=== PATIENT | male | born 1940 | race Caucasian/White ===

== ENCOUNTER 2022-04-24 20:33 | Inpatient (IN) | payer MEDICARE, OTHER, SELFPAY ==
[2022-04-24] VITALS (11 sets, daily range): BP systolic 185–221; BP diastolic 92–97; PULSE 74–96; RESP 18–27; TEMP 37.1; O2SAT 96–98; BMI 31.4
--- NOTE | 2022-04-24 | DI.CT.S_ITS ---
PROCEDURE: CT ANGIO HEAD AND NECK INDICATIONS: STROKE TECHNIQUE: After the administration of intravenous contrast, 1 mm thick sections acquired from the aortic arch through the [place]. Post-contrast 4.5 mm thick sections then re-acquired from the foramen magnum to the vertex. 3-dimensional xejvhvh-ehkdabpoh-qucmupqkni (MIP) and/or volume rendering reformats were acquired of the central intracranial vasculature and neck separately. For radiation dose reduction, the following was used: automated exposure control, adjustment of mA and/or kV according to patient size. COMPARISON: [facility], CT, CT STROKE, 04/24/2022, 21:11. FINDINGS: Image quality: There is motion artifact limiting evaluation. BRAIN: CSF spaces: Basal cisterns are patent. No extra-axial fluid collections. There is moderate cerebral volume loss, with resultant ventricular and sulcal prominence. Brain: No intracranial hematoma collections, mass, or mass effect. There are subcortical, periventricular and deep white matter hypodensities consistent with moderate chronic small vessel ischemic changes. The gary-white matter junction appears preserved. No abnormal intracranial enhancement. Skull and face: Calvarium and facial bones appear intact, without suspicious lesions. Orbits appear normal. Sinuses: Sinuses and mastoids are clear. HEAD CT ANGIOGRAPHY: Anterior circulation: Intracranial internal carotid arteries are normal in size and appear patent bilaterally. There is mild atherosclerotic calcification along the cavernous segments of the internal carotid arteries. The paired anterior cerebral arteries appear patent bilaterally. The anterior communicating artery also appears patent. The middle cerebral arteries appear patent bilaterally. No high-grade stenosis, occlusion, or filling defects. No cerebral aneurysms identified. Posterior circulation: Visualized portions of the vertebral arteries demonstrate normal caliber, and join to form a patent basilar artery. The posterior cerebral arteries appears patent bilaterally. There is persistent circulation on the right, with the right posterior cerebral artery supplied by a posterior communicating artery. No high-grade stenosis, occlusion, or filling defects. No cerebral aneurysms identified. NECK CT ANGIOGRAPHY: Carotid system: The great vessels demonstrate a conventional anatomy as they arise from the aortic arch. The origins of the common carotid arteries appear patent. The common carotid arteries demonstrate normal caliber and courses. There is bilateral calcified plaque at the carotid bifurcations extending into the carotid bulbs. There is narrowing of up to approximately 50% in the carotid bulbs bilaterally. The subsequent internal carotid arteries demonstrate normal calibers and courses. Posterior circulation: The origins of the vertebral arteries both appear patent. The more superior extracranial portions of both vertebral arteries also demonstrate normal courses and calibers. They join to form a patent basilar artery. Soft tissues: Visualized neck soft tissues demonstrate no suspicious abnormalities. Bones: No suspicious bony lesions. Visualized cervical spine demonstrates straightening of the cervical lordosis. There is multilevel degenerative disc disease and facet joint arthropathy. IMPRESSION: 1. No high-grade stenosis or occlusion of the central intracranial arteries. 2. No high-grade stenosis or occlusion of the head and neck arteries. 3. There is bilateral narrowing of up to approximately 50% in the carotid bulbs. Any quantitative measurements of stenosis were performed using NASCET criteria. Dictated by: Bob Pang M.D. on 04/24/2022 at 21:31 Approved by: Bob Pang M.D. on 04/24/2022 at 21:37
--- NOTE | 2022-04-24 20:51 | DI.CT.S_ITS ---
PROCEDURE: CT STROKE INDICATIONS: Positive BE-FAST, Stroke symptoms TECHNIQUE: Noncontrast 4.5 mm thick angled axial sections acquired from the foramen magnum to the vertex, with coronal reformats. For radiation dose reduction, the following was used: automated exposure control, adjustment of mA and/or kV according to patient size. COMPARISON: [facility], CT, CT ANGIO HEAD AND NECK, 04/24/2022, 21:11. FINDINGS: Image quality: Excellent. CSF spaces: Basal cisterns are patent. No extra-axial fluid collections. There is moderate cerebral volume loss, with resultant ventricular and sulcal prominence. Brain: No intracranial hemorrhage, mass, or mass effect. There are subcortical, periventricular and deep white matter hypodensities consistent with moderate chronic small vessel ischemic changes. The gary-white matter junction appears preserved. There is intracranial internal carotid artery atherosclerosis. Skull and face: Calvarium and visualized facial bones appear intact, without suspicious lesions. Sinuses: Visualized sinuses and mastoids are clear. IMPRESSION: 1. No intracranial hemorrhage or other definite acute abnormality. 2. Moderate cerebral volume loss and chronic white matter small vessel ischemic changes. Findings reported to Dr. Irwin's nurse on 04/24/2022 at 9:27 p.m.. This study fulfills neurological imaging criteria for inclusion or exclusion of acute stroke therapies based on available published neurological guidelines. Dictated by: Bob Pang M.D. on 04/24/2022 at 21:28 Approved by: Bob Pang M.D. on 04/24/2022 at 21:31
--- NOTE | 2022-04-24 20:51 | DI.RAD.S_ITS ---
PROCEDURE: XR CHEST 1V INDICATIONS: Possible stroke TECHNIQUE: One view of the chest was acquired. COMPARISON: None. FINDINGS: Surgical changes and devices: None. Lungs and pleura: Lungs are clear. No pleural effusions or pneumothorax. Mediastinum: Mediastinal contours appear normal. Heart size is normal. Bones and chest wall: No suspicious bony lesions. Overlying soft tissues appear unremarkable. IMPRESSION: 1. No acute cardiopulmonary disease. Dictated by: Bob Pang M.D. on 04/24/2022 at 22:27 Approved by: Bob Pang M.D. on 04/24/2022 at 22:34
--- NOTE | 2022-04-24 21:05 | ED.NEUROSD ---
HPI - Neuro Symptoms/Deficit General Chief Complaint: Neuro Symptoms/Deficit Stated Complaint: Poss stroke Time Seen by Provider: 04/24/22 21:05 Source: patient Mode of arrival: Wheelchair History of Present Illness HPI Narrative: 81-year-old male former smoker with history of hyperlipidemia diabetes, takes Eliquis but is unsure why presents with his sister and a chief complaint of right arm and leg trouble for the past 2 days. He denies any recent trauma or injury, has no headache, blurred vision or difficulty with speech. He denies any chest pain or shortness of breath. He has had no nausea, vomiting or diarrhea. He feels overall generally a bit unwell but denies any fever, significant shortness of breath body aches, chills or GI symptoms On Anticoagulants: Yes Review of Systems Review of Systems Narrative: GENERAL: See HPI HEENT: Denies sinus pain, ear pain, sore throat, difficulty swallowing, dizziness. RESPIRATORY: Denies dyspnea, cough, wheezing, hemoptysis, sputum. CARDIOVASCULAR: Denies chest pain, palpitations, orthopnea, edema, GASTROINTESTINAL: Denies nausea, vomiting, abdominal pain, diarrhea, constipation, melena. : Denies dysuria, frequency, incontinence, hematuria, urinary retention. MUSCULOSKELETAL: denies weakness, joint pain, or bony pain SKIN: Denies rash, skin lesions, or other NEUROLOGIC: See HPI PSYCHIATRIC: No concerning psychosocial issues. 12 point review of systems is negative except for those stated above Hematologic/Lymphatic On Anticoagulants: Yes Patient History Medical History (Updated 04/25/22 @ 01:00 by ARGELIA Stone) Anticoagulated Dyslipidemia Social History Smoking Status: Former smoker Smoking Status: Former smoker tobacco type: cigarettes alcohol intake frequency: other Substance Use Type: does not use Exam Narrative Exam Narrative: GENERAL: [81] year old patient appears stated age. Well-developed patient, in mild distress. HEAD: Atraumatic. Normocephalic. EYES: Pupils equal round and reactive. Extraocular motions intact. No scleral icterus. No injection or drainage. ENT: Nose without bleeding, purulent drainage. Throat without erythema, tonsillar hypertrophy or exudate. Airway patent. NECK: Trachea midline. Non tender CARDIOVASCULAR: Regular rate and rhythm without murmurs, gallops, or rubs. RESPIRATORY: Clear to auscultation. Breath sounds equal bilaterally. No wheezes, rales, or rhonchi. GASTROINTESTINAL: Abdomen soft, non-tender, nondistended. EXTREMITIES: No edema or joint tenderness. BACK: Nontender without deformity or crepitance. No flank tenderness. NEURO: AOx3. SKIN: No rash or erythema of visible areas Initial Vital Signs Initial Vital Signs: Vital Signs Temperature 98.8 F 04/24/22 20:36 Pulse Rate 96 H 04/24/22 20:36 Respiratory Rate 18 04/24/22 20:36 Blood Pressure 199/92 H 04/24/22 20:36 Pulse Oximetry 98 04/24/22 20:36 Oxygen Delivery Method 04/24/22 20:36 Scores NIH Stroke Scale Level of Conciousness: Alert, keenly responsive Ask month/age: Answers both questions correctly. Open/close eyes, close hand: Performs both tasks correctly Best gaze horizontal: Normal Visual goetz: No visual loss Facial palsy: Normal symetrical movement Left arm drift: No drift for full 10 sec Right arm drift: Drifts down, not to bed Left leg drift: No drift for full 5 sec Right leg drift: Drifts down, not to bed Limb ataxia: Absent Sensory on face/arms/legs: Mild to moderate sensory loss, can tell touch Best language: No aphasia, normal Dysarthria: Normal Extinction or inattention: No abnormality Total NIH Stroke scale score: 3 Course Orders Ordered: ED Orders 04/24/22 20:51 CT Stroke Stat XR chest 1V Stat Urine Drug Screen, Rapid Stat 04/24/22 21:06 COVID19 -Nasal RAPID/Pre-Proc Stat Complete Blood Count AUTO DIFF Stat Comprehensive Metabolic Panel Stat Magnesium Stat Partial Thromboplastin Time Stat Prothrombin Time INR Stat Troponin & CK Cardiac Panel Stat 04/24/22 23:07 Troponin I Stat Dextrose (Dextrose 50 % In Water 25 Gm/50 Ml Syringe) 25 gm IV PRN PRN PRN Reason: Hypoglycemia Insulin Human Lispro (Insulin Lispro 100 Unit/Ml 3ml Vial) 0 unit SUBCUT ACHS [facility]; Protocol Discontinued Medications Labetalol HCl (Labetalol 20 Mg/4 Ml Syringe) 10 mg IV NOW ONE Stop: 04/25/22 00:20 Last Admin: 04/25/22 00:33 Dose: 10 mg Documented By: GC Ondansetron HCl (Ondansetron 4 Mg/2 Ml Inj) 4 mg IV NOW ONE Stop: 04/24/22 20:51 Last Admin: 04/24/22 21:45 Dose: Not Given Documented By: HEMA Ondansetron HCl (Ondansetron 4 Mg Odt) 4 mg SL NOW ONE Stop: 04/24/22 20:51 Last Admin: 04/24/22 21:45 Dose: Not Given Documented By: HEMA Vital Signs Vital signs: Vital Signs - 8 hr 04/24/22 20:36 04/24/22 21:00 04/24/22 21:30 Temperature 98.8 F Pulse Rate 96 H 86 77 Respiratory Rate 18 27 H 27 H Blood Pressure 199/92 H 185/96 H Pulse Oximetry 98 96 97 Oxygen Delivery Method Room Air Room Air 04/24/22 21:45 04/24/22 22:00 04/24/22 22:00 Temperature Pulse Rate 79 77 77 Respiratory Rate 25 H 24 24 Blood Pressure 221/96 H 207/94 H Pulse Oximetry 97 96 96 Oxygen Delivery Method Room Air Room Air Room Air 04/24/22 22:15 04/24/22 22:30 04/24/22 22:31 Temperature Pulse Rate 80 78 Respiratory Rate 22 23 Blood Pressure 221/97 H Pulse Oximetry 96 96 Oxygen Delivery Method Room Air Room Air 04/24/22 22:31 04/24/22 22:45 04/24/22 23:00 Temperature Pulse Rate 78 82 78 Respiratory Rate 23 Blood Pressure Pulse Oximetry 96 97 Oxygen Delivery Method Room Air Room Air 04/24/22 23:15 Temperature Pulse Rate 74 Respiratory Rate 23 Blood Pressure Pulse Oximetry 96 Oxygen Delivery Method Room Air MDM - Neuro Symptoms/Deficit Lab Data Result diagrams: 04/24/22 21:06 04/24/22 21:06 Labs: Lab Results 04/24/22 04/24/22 04/24/22 Range/Units 21:06 21:06 21:06 WBC 5.5 (4.5-11.0) X10^3/uL RBC 4.17 L (4.5-5.9) X10^6/uL Hgb 13.2 L (13.5-17.5) g/dL Hct 40.5 L (41-53) % MCV 97.1 (80-100) fL MCH 31.6 (26-34) PG MCHC 32.6 (30-36) % RDW 14.4 (11.6-14.8) % Plt Count 233 (150-400) X10^3/uL Neut % (Auto) 73.7 (50-75) % Lymph % (Auto) 14.0 L (25-40) % [place] % (Auto) 11.7 (3-14) % Eos % (Auto) 0.2 L (2-4) % Baso % (Auto) 0.4 (0-2) % Neut # (Auto) 4000 (4350-8620) /uL Lymph # (Auto) 800 L (2730-3025) /uL [place] # (Auto) 600 (0-900) /uL Eos # (Auto) 0 (0-450) /uL Baso # (Auto) 0 (0-100) /uL PT 14.9 H (10.1-12.7) SECONDS INR 1.3 (0.9-1.3) APTT 32 (26-36) SECONDS Sodium 139 (137-145) mmol/L Potassium 4.7 (3.4-5.1) mmol/L Chloride 101 (98-107) mmol/L Carbon Dioxide 31 (22-32) mmol/L BUN 19 (9-20) mg/dL Creatinine 1.19 (0.66-1.25) mg/dL Estimated GFR > 60 (>60) mL/min BUN/Creatinine Ratio 16.0 (6-22) Glucose 245 H (80-110) mg/dL Calcium 8.9 (8.4-10.2) mg/dL Magnesium 2.0 (1.6-2.3) mg/dL Total Bilirubin 0.4 (0.2-1.3) mg/dL AST 28 (17-59) IU/L ALT 24 (<50) IU/L Alkaline Phosphatase 111 (38-126) U/L Total Creatine Kinase 75 (55-170) U/L CK-MB (CK-2) TNP CK-MB (CK-2) Rel Index TNP Troponin I 0.031 (0.01-0.034) ng/mL Total Protein 6.6 (6.3-8.2) g/dL Albumin 3.6 (3.5-5.0) g/dL Globulin 3.0 (1.7-4.1) g/dL Albumin/Globulin Ratio 1.2 (1.0-2.8) SARS-CoV-2 (PCR) (Negative) 04/24/22 04/24/22 Range/Units 21:06 23:07 WBC (4.5-11.0) X10^3/uL RBC (4.5-5.9) X10^6/uL Hgb (13.5-17.5) g/dL Hct (41-53) % MCV (80-100) fL MCH (26-34) PG MCHC (30-36) % RDW (11.6-14.8) % Plt Count (150-400) X10^3/uL Neut % (Auto) (50-75) % Lymph % (Auto) (25-40) % [place] % (Auto) (3-14) % Eos % (Auto) (2-4) % Baso % (Auto) (0-2) % Neut # (Auto) (1913-8331) /uL Lymph # (Auto) (9629-9045) /uL [place] # (Auto) (0-900) /uL Eos # (Auto) (0-450) /uL Baso # (Auto) (0-100) /uL PT (10.1-12.7) SECONDS INR (0.9-1.3) APTT (26-36) SECONDS Sodium (137-145) mmol/L Potassium (3.4-5.1) mmol/L Chloride (98-107) mmol/L Carbon Dioxide (22-32) mmol/L BUN (9-20) mg/dL Creatinine (0.66-1.25) mg/dL Estimated GFR (>60) mL/min BUN/Creatinine Ratio (6-22) Glucose (80-110) mg/dL Calcium (8.4-10.2) mg/dL Magnesium (1.6-2.3) mg/dL Total Bilirubin (0.2-1.3) mg/dL AST (17-59) IU/L ALT (<50) IU/L Alkaline Phosphatase (38-126) U/L Total Creatine Kinase (55-170) U/L CK-MB (CK-2) CK-MB (CK-2) Rel Index Troponin I 0.042 H (0.01-0.034) ng/mL Total Protein (6.3-8.2) g/dL Albumin (3.5-5.0) g/dL Globulin (1.7-4.1) g/dL Albumin/Globulin Ratio (1.0-2.8) SARS-CoV-2 (PCR) Positive H (Negative) Point of Care Testing Glucose POC [address] scan - head: Radiologist's Impression: [address] [address] [address] Scan Report Signed Patient: Michael Elise MR#: [id number] : 1940 Acct:[id number] Age/Sex: 81 / M Date of Service: 04/24/22 Loc: ED Accession Number: [id number] ?? Procedure: CT Stroke Ordering Provider: Edwin Irwin D.O. PROCEDURE:? CT STROKE ? INDICATIONS:? Positive BE-FAST, Stroke symptoms ? TECHNIQUE:? Noncontrast 4.5 mm thick angled axial sections acquired from the foramen magnum to the vertex, with coronal reformats.? For radiation dose reduction, the following was used:? automated exposure control, adjustment of mA and/or kV according to patient size.? ? COMPARISON:? [facility], CT, CT ANGIO HEAD AND NECK, 04/24/2022, 21:11. ? FINDINGS:? Image quality:? Excellent.? ? CSF spaces:? Basal cisterns are patent.? No extra-axial fluid collections.? There is moderate cerebral volume loss, with resultant ventricular and sulcal prominence.? ? Brain:? No intracranial hemorrhage, mass, or mass effect.? There are subcortical, periventricular and deep white matter hypodensities consistent with moderate chronic small vessel ischemic changes.? The gary-white matter junction appears preserved.? There is intracranial internal carotid artery atherosclerosis.? ? Skull and face:? Calvarium and visualized facial bones appear intact, without suspicious lesions.? ? Sinuses:? Visualized sinuses and mastoids are clear.? ? IMPRESSION:? ? 1. No intracranial hemorrhage or other definite acute abnormality. ? 2. Moderate cerebral volume loss and chronic white matter small vessel ischemic changes. ? Findings reported to Dr. Irwin's nurse on 04/24/2022 at 9:27 p.m.. ? This study fulfills neurological imaging criteria for inclusion or exclusion of acute stroke therapies based on available published neurological guidelines.? ? ? Dictated by: Bob Pang M.D. on 04/24/2022 at 21:28 ? ? Approved by: Bob Pang M.D. on 04/24/2022 at 21:31 ? CTA - brain/neck: Radiologist's Impression: Close Chest X-Ray (Signed) Bob Pang - 04/24/[address] (Signed) Bob Pang - 04/24/22 Head/Neck CTA (Signed) Bob Pang - 04/24/22 Launch?[place] [address] CT Scan Report Signed Patient: Michael Elise MR#: [id number] : 1940 Acct:[id number] Age/Sex: 81 / M Date of Service: 04/24/22 Loc: ED Accession Number: [id number] ?? Procedure: CT angio head and neck Ordering Provider: Edwin Irwin D.O. PROCEDURE:? CT ANGIO HEAD AND NECK ? INDICATIONS:? STROKE ? TECHNIQUE:? After the administration of intravenous contrast, 1 mm thick sections acquired from the aortic arch through the [place].? Post-contrast 4.5 mm thick sections then re-acquired from the foramen magnum to the vertex.? 3-dimensional hwfweyd-ktopqhyxj-bksjaewhoo (MIP) and/or volume rendering reformats were acquired of the central intracranial vasculature and neck separately. For radiation dose reduction, the following was used:? automated exposure control, adjustment of mA and/or kV according to patient size.? ? COMPARISON:? [facility], CT, CT STROKE, 04/24/2022, 21:11. ? FINDINGS:? Image quality:? There is motion artifact limiting evaluation.? ? BRAIN:? CSF spaces:? Basal cisterns are patent.? No extra-axial fluid collections.? There is moderate cerebral volume loss, with resultant ventricular and sulcal prominence.? ? Brain:? No intracranial hematoma collections, mass, or mass effect.? There are subcortical, periventricular and deep white matter hypodensities consistent with moderate chronic small vessel ischemic changes.? The gary-white matter junction appears preserved. ?No abnormal intracranial enhancement. ? Skull and face:? Calvarium and facial bones appear intact, without suspicious lesions.? Orbits appear normal.? ? Sinuses:? Sinuses and mastoids are clear.? ? HEAD CT ANGIOGRAPHY:? Anterior circulation:? Intracranial internal carotid arteries are normal in size and appear patent bilaterally.? There is mild atherosclerotic calcification along the cavernous segments of the internal carotid arteries.? The paired anterior cerebral arteries appear patent bilaterally.? The anterior communicating artery also appears patent. The middle cerebral arteries appear patent bilaterally.? No high-grade stenosis, occlusion, or filling defects.? No cerebral aneurysms identified. ? Posterior circulation:? Visualized portions of the vertebral arteries demonstrate normal caliber, and join to form a patent basilar artery.? The posterior cerebral arteries appears patent bilaterally.? There is persistent circulation on the right, with the right posterior cerebral artery supplied by a posterior communicating artery.? No high-grade stenosis, occlusion, or filling defects.? No cerebral aneurysms identified. ? NECK CT ANGIOGRAPHY:? Carotid system:? The great vessels demonstrate a conventional anatomy as they arise from the aortic arch.? The origins of the common carotid arteries appear patent.? The common carotid arteries demonstrate normal caliber and courses.? There is bilateral calcified plaque at the carotid bifurcations extending into the carotid bulbs.? There is narrowing of up to approximately 50% in the carotid bulbs bilaterally.? The subsequent internal carotid arteries demonstrate normal calibers and courses.? ? Posterior circulation:? The origins of the vertebral arteries both appear patent.? The more superior extracranial portions of both vertebral arteries also demonstrate normal courses and calibers.? They join to form a patent basilar artery.? ? Soft tissues:? Visualized neck soft tissues demonstrate no suspicious abnormalities.? ? Bones:? No suspicious bony lesions.? Visualized cervical spine demonstrates straightening of the cervical lordosis.? There is multilevel degenerative disc disease and facet joint arthropathy.? ? ? IMPRESSION:? ? 1. No high-grade stenosis or occlusion of the central intracranial arteries. ? 2. No high-grade stenosis or occlusion of the head and neck arteries. ? 3.? There is bilateral narrowing of up to approximately 50% in the carotid bulbs. ? Any quantitative measurements of stenosis were performed using NASCET criteria.? ? ? Dictated by: Bob Pang M.D. on 04/24/2022 at 21:31 ? ? Approved by: Bob Pang M.D. on 04/24/2022 at 21:37 ? Discharge Plan Departure Patient Disposition: Admitted as Observation Clinical Impression: Cerebrovascular accident, COVID-19 Admit Date/Time: 04/25/22 00:46 Admit Provider: Livia Thapa
[2022-04-24 21:15] LABS: Add Manual Diff / Slide Review NO; Basophils Absolute Auto 0 /uL (0-100); Basophils Percent Auto 0.4 % (0-2); Eosinophils Absolute Auto 0 /uL (0-450); Eosinophils Percent Auto 0.2 % (2-4); Hematocrit 40.5 % (41-53); Hemoglobin 13.2 g/dL (13.5-17.5); Lymphocytes Absolute Auto 800 /uL (1100-4500); Mean Corpuscular HGB Conc 32.6 % (30-36); Mean Corpuscular Hemoglobin 31.6 PG (26-34); Mean Corpuscular Volume 97.1 fL (80-100); Monocytes Absolute Auto 600 /uL (0-900); Monocytes Percent Auto 11.7 % (3-14); Neutrophils Absolute Auto 4000 /uL (1500-7000); Neutrophils Percent Auto 73.7 % (50-75); Platelet Count 233 X10^3/uL (150-400); Red Blood Cell Count 4.17 X10^6/uL (4.5-5.9); Red Cell Distribution Width 14.4 % (11.6-14.8); White Blood Cell Count 5.5 X10^3/uL (4.5-11.0)
[2022-04-24 21:26] LABS: INR 1.3 (0.9-1.3); Prothrombin Time 14.9 SECONDS (10.1-12.7)
[2022-04-24 21:28] LABS: PTT Partial Thromboplastin Tim 32 SECONDS (26-36)
[2022-04-24 21:30] LABS: Alanine Aminotransferase 24 IU/L (<50); Albumin 3.6 g/dL (3.5-5.0); Albumin Globulin Ratio 1.2 (1.0-2.8); Alkaline Phosphatase 111 U/L (38-126); Aspartate Aminotransferase 28 IU/L (17-59); Bilirubin Total 0.4 mg/dL (0.2-1.3); Blood Urea Nitrogen 19 mg/dL (9-20); Calcium 8.9 mg/dL (8.4-10.2); Carbon Dioxide 31 mmol/L (22-32); Chloride 101 mmol/L (98-107); Creatine Kinase 75 U/L (55-170); Estimated Glomerular Filt Rate > 60 mL/min (>60); Glucose 245 mg/dL (80-110); HEMOLYSIS < 15 (0-50); Potassium 4.7 mmol/L (3.4-5.1); Sodium 139 mmol/L (137-145); Total Protein 6.6 g/dL (6.3-8.2)
[2022-04-24 21:32] LABS: COVID19 -Nasal RAPID POSITIVE (Negative)
[2022-04-24 21:41] LABS: Troponin I 0.031 ng/mL (0.01-0.034)
[2022-04-24 23:44] LABS: Troponin I 0.042 ng/mL (0.01-0.034)
[2022-04-25] VITALS (8 sets, daily range): BP systolic 151–189; BP diastolic 72–114; PULSE 61–76; RESP 16–22; TEMP 36.3–37; O2SAT 93–97; BMI 31.5
[2022-04-25] MEDS: LABETALOL 20 MG/4 ML SYRINGE 10 MG IV (00:33)
[2022-04-25] MEDS: SODIUM CHLORIDE 0.9% 1,000 ML 100 ML IV (02:53)
--- NOTE | 2022-04-25 03:18 | PM.HP.1 ---
History of Present Illness History of Present Illness Date Patient Seen: 04/25/22 Time Patient Seen: 02:00 Chief complaint: Poss stroke Patient History Medical History (Updated 04/25/22 @ 01:00 by ARGELIA Stone) Anticoagulated Dyslipidemia Family & Social History Safety & Behavioral: Feels Safe in Current Yes Environment Been Physically Hurt or No Threatened By a Person Tobacco & Substance use: Smoking Status Former smoker alcohol intake frequency other Substance Use Type does not use Exam Vital Signs (past 8 hours): - 04/24/22 20:36 04/24/22 21:00 04/24/22 21:30 Temperature 98.8 F Pulse Rate 96 H 86 77 Respiratory Rate 18 27 H 27 H Blood Pressure 199/92 H 185/96 H Pulse Oximetry 98 96 97 Oxygen Delivery Method Room Air Room Air Oxygen Flow Rate 04/24/22 21:45 04/24/22 22:00 04/24/22 22:00 Temperature Pulse Rate 79 77 77 Respiratory Rate 25 H 24 24 Blood Pressure 221/96 H 207/94 H Pulse Oximetry 97 96 96 Oxygen Delivery Method Room Air Room Air Room Air Oxygen Flow Rate 04/24/22 22:15 04/24/22 22:30 04/24/22 22:31 Temperature Pulse Rate 80 78 Respiratory Rate 22 23 Blood Pressure 221/97 H Pulse Oximetry 96 96 Oxygen Delivery Method Room Air Room Air Oxygen Flow Rate 04/24/22 22:31 04/24/22 22:45 04/24/22 23:00 Temperature Pulse Rate 78 82 78 Respiratory Rate 23 Blood Pressure Pulse Oximetry 96 97 Oxygen Delivery Method Room Air Room Air Oxygen Flow Rate 04/24/22 23:15 04/25/22 01:55 04/25/22 03:08 Temperature 97.4 F L 97.8 F Pulse Rate 74 61 66 Respiratory Rate 23 18 18 Blood Pressure 179/74 H 177/84 H Pulse Oximetry 96 96 97 Oxygen Delivery Method Room Air Room Air Oxygen Flow Rate 0 Oxygen Delivery Method Room Air Oxygen Flow Rate 0 Objective Labs Result Diagrams: 04/24/22 21:06 04/24/22 21:06 Labs: Laboratory Results - last 24 hr 04/24/22 04/24/22 04/24/22 21:06 21:06 21:06 WBC 5.5 RBC 4.17 L Hgb 13.2 L Hct 40.5 L MCV 97.1 MCH 31.6 MCHC 32.6 RDW 14.4 Plt Count 233 Neut % (Auto) 73.7 Lymph % (Auto) 14.0 L [place] % (Auto) 11.7 Eos % (Auto) 0.2 L Baso % (Auto) 0.4 Neut # (Auto) 4000 Lymph # (Auto) 800 L [place] # (Auto) 600 Eos # (Auto) 0 Baso # (Auto) 0 PT 14.9 H INR 1.3 APTT 32 Sodium 139 Potassium 4.7 Chloride 101 Carbon Dioxide 31 BUN 19 Creatinine 1.19 Estimated GFR > 60 BUN/Creatinine Ratio 16.0 Glucose 245 H Calcium 8.9 Magnesium 2.0 Total Bilirubin 0.4 AST 28 ALT 24 Alkaline Phosphatase 111 Total Creatine Kinase 75 CK-MB (CK-2) TNP CK-MB (CK-2) Rel Index TNP Troponin I 0.031 Total Protein 6.6 Albumin 3.6 Globulin 3.0 Albumin/Globulin Ratio 1.2 SARS-CoV-2 (PCR) 04/24/22 04/24/22 21:06 23:07 WBC RBC Hgb Hct MCV MCH MCHC RDW Plt Count Neut % (Auto) Lymph % (Auto) [place] % (Auto) Eos % (Auto) Baso % (Auto) Neut # (Auto) Lymph # (Auto) [place] # (Auto) Eos # (Auto) Baso # (Auto) PT INR APTT Sodium Potassium Chloride Carbon Dioxide BUN Creatinine Estimated GFR BUN/Creatinine Ratio Glucose Calcium Magnesium Total Bilirubin AST ALT Alkaline Phosphatase Total Creatine Kinase CK-MB (CK-2) CK-MB (CK-2) Rel Index Troponin I 0.042 H Total Protein Albumin Globulin Albumin/Globulin Ratio SARS-CoV-2 (PCR) Positive H Assessment & Plan Time Spent With Patient Critical Care time: I spent a total of [] minutes of critical care time on this patient's care today; this time is exclusive of procedural time.
[2022-04-25 03:25] LABS: UR Morphine/Opiate cutoff 300 Negative (Negative); Ur Creatinine 50 (Normal); Ur Specific Gravity 1.025 (Normal); Urine Amphetamines Negative (Negative); Urine Barbiturates Negative (Negative); Urine Benzodiazepines Negative (Negative); Urine Cocaine Negative (Negative); Urine MDMA Negative (Negative); Urine Methadone Negative (Negative); Urine Methamphetamines Negative (Negative); Urine Oxycodone Negative (Negative); Urine Phencyclidine Negative (Negative); Urine Tetrahydrocannabinol Negative (Negative); Urine Tricyclic Antidepressant Negative (Negative); Urine pH 5 (Normal)
--- NOTE | 2022-04-25 03:54 | P.HP_ITS ---
History of Present Illness History of Present Illness Date Patient Seen: 04/25/22 Time Patient Seen: 02:00 Chief complaint: Poss stroke Narrative: Michael Elise 81-year-old male former smoker with history of hyperlipidemia diabetes, takes ribaroxaban but is unsure why, presented to the ED with a chief complaint of right arm and leg trouble for the past 2 weeks.?He decided to come in because his right hand developed weakness and shaking. He states he looked it up on Google and said he had tremors. He states he was referred to a neurologist, but because his was in rehab, he stated he did not have any time to make his appointment as he was with her. He denies any recent trauma or injury, has no headache, blurred vision or difficulty with speech.? He denies any chest pain or shortness of breath.? He has had no nausea, vomiting or diarrhea.? He feels overall generally a bit unwell but denies any fever, significant shortness of breath body aches, chills or GI symptoms. He states he has stents in his heart and his leg and states he uses [address] Head [address] was negative for any acute intracranial abnormality, head and neck CTA identified up to 50% narrowing in the bilateral carotid bulbs. No high-grade stenosis identified. Chest x-ray was negative. He would initial presenting blood pressure of wanting 99/92 which increased as high as 221/97 and was given IV labetalol. His blood pressure is currently 177/84 heart rate 66 he is a febrile, respiratory rate 18, oxygen saturation 97% on room air he weighs 102.5 kg with a BMI of 31.5. CBC is unremarkable, glucose is 245, he does seem to be having a troponin leak initially was 0.031 and then 2 hours later was 0.042 and COVID-19 PCR is positive. Patient History Medical History (Updated 04/25/22 @ 01:00 by ARGELIA Stone) Anticoagulated Dyslipidemia Surgical History (Updated 04/25/22 @ 04:02 by ARGELIA Stone) H/O foot surgery H/O heart artery stent Family & Social History Social History: household members spouse Prior Living Arrangements House Safety & Behavioral: Feels Safe in Current Yes Environment Been Physically Hurt or No Threatened By a Person Tobacco & Substance use: Smoking Status Former smoker alcohol intake former alcohol intake frequency other Substance Use Type does not use Meds Home Medications and Allergies Home Medications Medication Instructions Recorded Confirmed Type allopurinol 100 mg tablet 200 mg PO BID 04/25/22 04/25/22 History atorvastatin 80 mg tablet 80 mg PO BEDTIME 04/25/22 04/25/22 History calcium carbonate 600 mg-vitamin 1 tab PO DAILY 04/25/22 04/25/22 History D3 10 mcg (400 unit) tablet (Calcium 600 + D(3)) gabapentin 300 mg capsule 300 mg PO BID 04/25/22 04/25/22 History insulin glargine 100 unit/mL (3 40 unit SUBCUT BEDTIME 04/25/22 04/25/22 History mL) subcutaneous pen (Lantus Solostar U-100 Insulin) magnesium 200 mg tablet 400 mg PO DAILY 04/25/22 04/25/22 History pioglitazone 15 mg tablet (Actos) 15 mg PO DAILY 04/25/22 04/25/22 History rivaroxaban 20 mg tablet (Xarelto) 20 mg PO DAILY 04/25/22 04/25/22 History tamsulosin 0.4 mg capsule 0.4 mg PO DAILY 04/25/22 04/25/22 History Review of Systems Review of Systems ROS: Yes All systems reviewed with the patient and are negative except as otherwise documented Exam Vital Signs (past 8 hours): - 04/24/22 20:36 04/24/22 21:00 04/24/22 21:30 Temperature 98.8 F Pulse Rate 96 H 86 77 Respiratory Rate 18 27 H 27 H Blood Pressure 199/92 H 185/96 H Pulse Oximetry 98 96 97 Oxygen Delivery Method Room Air Room Air Oxygen Flow Rate 04/24/22 21:45 04/24/22 22:00 04/24/22 22:00 Temperature Pulse Rate 79 77 77 Respiratory Rate 25 H 24 24 Blood Pressure 221/96 H 207/94 H Pulse Oximetry 97 96 96 Oxygen Delivery Method Room Air Room Air Room Air Oxygen Flow Rate 04/24/22 22:15 04/24/22 22:30 04/24/22 22:31 Temperature Pulse Rate 80 78 Respiratory Rate 22 23 Blood Pressure 221/97 H Pulse Oximetry 96 96 Oxygen Delivery Method Room Air Room Air Oxygen Flow Rate 04/24/22 22:31 04/24/22 22:45 04/24/22 23:00 Temperature Pulse Rate 78 82 78 Respiratory Rate 23 Blood Pressure Pulse Oximetry 96 97 Oxygen Delivery Method Room Air Room Air Oxygen Flow Rate 04/24/22 23:15 04/25/22 01:55 04/25/22 03:08 Temperature 97.4 F L 97.8 F Pulse Rate 74 61 66 Respiratory Rate 23 18 18 Blood Pressure 179/74 H 177/84 H Pulse Oximetry 96 96 97 Oxygen Delivery Method Room Air Room Air Oxygen Flow Rate 0 Oxygen Delivery Method Room Air Oxygen Flow Rate 0 Narrative Exam Narrative: Gen: Alert, oriented, mildly overweight 81 y.o. male, NAD HEENT: normocephalic, atraumatic, conjunctiva clear, sclera non-icteric, oral mucosa pink and moist Neck: supple, full ROM, no JVD, trachea is midline Resp: Lungs CTA, non-labored breathing CV: RRR, no murmur or rubs Abd: soft, non-tender, normoactive BTs Skin: no lesions or rashes, dry and intact Neuro: Appears to be mildly cognitively impaired. Alert and oriented X 4 w/no focal deficits. Speech clear and coherent. Extremities: moves all 4 extremities, is ambulatory, negative Edgar?s sign Psyche: normal mood and affect. Objective Labs Result Diagrams: 04/24/22 21:06 04/24/22 21:06 Labs: Laboratory Results - last 24 hr 04/24/22 04/24/22 04/24/22 21:06 21:06 21:06 WBC 5.5 RBC 4.17 L Hgb 13.2 L Hct 40.5 L MCV 97.1 MCH 31.6 MCHC 32.6 RDW 14.4 Plt Count 233 Neut % (Auto) 73.7 Lymph % (Auto) 14.0 L Esmeralda % (Auto) 11.7 Eos % (Auto) 0.2 L Baso % (Auto) 0.4 Neut # (Auto) 4000 Lymph # (Auto) 800 L Esmeralda # (Auto) 600 Eos # (Auto) 0 Baso # (Auto) 0 PT 14.9 H INR 1.3 APTT 32 Sodium 139 Potassium 4.7 Chloride 101 Carbon Dioxide 31 BUN 19 Creatinine 1.19 Estimated GFR > 60 BUN/Creatinine Ratio 16.0 Glucose 245 H Calcium 8.9 Magnesium 2.0 Total Bilirubin 0.4 AST 28 ALT 24 Alkaline Phosphatase 111 Total Creatine Kinase 75 CK-MB (CK-2) TNP CK-MB (CK-2) Rel Index TNP Troponin I 0.031 Total Protein 6.6 Albumin 3.6 Globulin 3.0 Albumin/Globulin Ratio 1.2 U Opiates 300ng/mL cut Ur Oxycodone Screen Urine Methadone Screen Ur Barbiturates Screen U Tricyclic Antidepress Ur Phencyclidine Scrn Ur Amphetamines Screen U Methamphetamines Scrn Ur MDMA Scrn (Ecstasy) U Benzodiazepines Scrn Urine Cocaine Screen U Marijuana (THC) Screen SARS-CoV-2 (PCR) 04/24/22 04/24/22 04/25/22 21:06 23:07 02:40 WBC RBC Hgb Hct MCV MCH MCHC RDW Plt Count Neut % (Auto) Lymph % (Auto) Esmeralda % (Auto) Eos % (Auto) Baso % (Auto) Neut # (Auto) Lymph # (Auto) Esmeralda # (Auto) Eos # (Auto) Baso # (Auto) PT INR APTT Sodium Potassium Chloride Carbon Dioxide BUN Creatinine Estimated GFR BUN/Creatinine Ratio Glucose Calcium Magnesium Total Bilirubin AST ALT Alkaline Phosphatase Total Creatine Kinase CK-MB (CK-2) CK-MB (CK-2) Rel Index Troponin I 0.042 H Total Protein Albumin Globulin Albumin/Globulin Ratio U Opiates 300ng/mL cut Negative Ur Oxycodone Screen Negative Urine Methadone Screen Negative Ur Barbiturates Screen Negative U Tricyclic Antidepress Negative Ur Phencyclidine Scrn Negative Ur Amphetamines Screen Negative U Methamphetamines Scrn Negative Ur MDMA Scrn (Ecstasy) Negative U Benzodiazepines Scrn Negative Urine Cocaine Screen Negative U Marijuana (THC) Screen Negative SARS-CoV-2 (PCR) Positive H Assessment & Plan Assessment & Plan narrative: Michael Elise is placed into observation for further evaluation of a CVA vs TIA TIA/Stroke * Cardiac telemetry * NIH score greater thanX no, NIH scoring and neuro checks q 4 hours * Dual antiplatelet therapy: initiate clopidogrel 75 mg p.o. daily, patient is currently anticoagulated on rivaroxaban * MR stroke scheduled for 04/25 * Complete Echo with bubble study for 04/25 * PT/OT/ST evaluation Hypertension, acute with an admission bp of 199/92, present on admission * Allow for permissive hypertension of 220/110 HR 60 to allow for brain perfusion Allow for permissive hypertension for brain profusion of a systolic of 220 and a diastolic of 105. * IV labetolol if his systolic exceeds 220 or diastolic greater than 105. CAD, chronic * Patient is likely anticoagulated due to his stents. Will need to obtain current medical records from his provider at the [facility]. HLD * Fasting lipid panel, pending for 0500 labs * Atorvastatin 80 mg po at bedtime Diabetes type 2 * A1c is pending * Carb controlled diet, achs glucose checks Risk stratification Fasting lipid panel pending for the morning * A1c is pending VTE Prophylaxis: Wells risk score 0 Bilateral SCDs Patient is currently anticoagulated on rivaroxaban. Patient is placed into observation as his stay is not expected to exceed 2 midnights. FEN: IV fluids: saline lock, diet: carb controlled, labs: CBC, C/BMP, liver enzymes, Mag, PT/INR Consultants None Dispo: probable d/c to home Code status: Full code, as discussed with the patient who identifies his , Delma as his surrogate and POA. [X] I have utilized all available immediate resources to obtain, update, or review of the patient's current medications VTE Deep Vein Thrombosis/Pulmonary Embolism Present on Admission: No MIPS - Admit I confirm the patient?s Advance Care Plan is present, Code status is documented, Surrogate decision maker is in patient?s record: Yes MIPS - DC The patient has current or prior documentation of left ventricular ejection fraction (LVEF) less than 40%, or moderate or severely depressed left ventricular systolic function.: No COVID-19 COVID-19 status: Positive Result date/Date tested (Pos, Neg/Pending): 04/24/22 Time Spent With Patient Critical Care time: I spent a total of [] minutes of critical care time on this patient's care today; this time is exclusive of procedural time. Quality VTE Deep Vein Thrombosis/Pulmonary Embolism Present on Admission: No
--- NOTE | 2022-04-25 05:26 | PC.NURSE ---
Patient was admitted into room 214 at 0155 from ED. Patient is A & O x 4, however he is forgetful. Patient stated he was on a blood thinner, Eliquis, several times but didn't know why. Then he stated Oh, that's my 's med. NIHSS = 3, same assessment result as in the ED. Patient passed swollow screen. Patient denies any pain and verbalized understanding to use call light when wants to get up.
[2022-04-25 06:32] LABS: Add Manual Diff / Slide Review NO; Basophils Absolute Auto 0 /uL (0-100); Basophils Percent Auto 0.6 % (0-2); Eosinophils Absolute Auto 100 /uL (0-450); Eosinophils Percent Auto 1.4 % (2-4); Hematocrit 34.7 % (41-53); Hemoglobin 11.6 g/dL (13.5-17.5); Lymphocytes Absolute Auto 1200 /uL (1100-4500); Lymphocytes Percent Auto 21.1 % (25-40); Mean Corpuscular HGB Conc 33.5 % (30-36); Mean Corpuscular Hemoglobin 32.2 PG (26-34); Monocytes Absolute Auto 800 /uL (0-900); Monocytes Percent Auto 14.7 % (3-14); Neutrophils Absolute Auto 3500 /uL (1500-7000); Neutrophils Percent Auto 62.2 % (50-75); Platelet Count 208 X10^3/uL (150-400); Red Blood Cell Count 3.62 X10^6/uL (4.5-5.9); Red Cell Distribution Width 14.2 % (11.6-14.8); White Blood Cell Count 5.6 X10^3/uL (4.5-11.0)
[2022-04-25 06:55] LABS: Alanine Aminotransferase 18 IU/L (<50); Albumin 2.7 g/dL (3.5-5.0); Albumin Globulin Ratio 1.2 (1.0-2.8); Alkaline Phosphatase 93 U/L (38-126); Aspartate Aminotransferase 21 IU/L (17-59); Bilirubin Total 0.3 mg/dL (0.2-1.3); Blood Urea Nitrogen 17 mg/dL (9-20); Calcium 8.2 mg/dL (8.4-10.2); Carbon Dioxide 31 mmol/L (22-32); Chloride 104 mmol/L (98-107); Estimated Glomerular Filt Rate > 60 mL/min (>60); Globulin 2.3 g/dL (1.7-4.1); Glucose 149 mg/dL (80-110); HEMOLYSIS < 15 (0-50); Potassium 4.3 mmol/L (3.4-5.1); Sodium 138 mmol/L (137-145)
[2022-04-25 07:03] LABS: Troponin I 0.035 ng/mL (0.01-0.034)
[2022-04-25] MEDS: RIVAROXABAN 10 MG TABLET 20 MG PO (09:20)
[2022-04-25] MEDS: allopurinoL 100 MG TABLET 200 MG PO ×2 (09:21→21:27)
[2022-04-25] MEDS: CALCIUM CARB/VIT D3 500/200 TABLET 1 EACH PO (09:21)
[2022-04-25] MEDS: TAMSULOSIN 0.4 MG CAPSULE PO (09:21)
--- NOTE | 2022-04-25 10:44 | DI.MRI.S_ITS ---
PROCEDURE: MR HEAD/BRAIN WO CON INDICATIONS: R weakness, CVA TECHNIQUE: Noncontrast axial T1 spin echo, axial T2 fast spin echo, sagittal and axial FLAIR, coronal T2 fast spin echo, axial gradient echo, axial diffusion and ADC through the brain. COMPARISON: None. FINDINGS: Image quality: Excellent. CSF Spaces: Basal cisterns are patent. No extra-axial fluid collections. Ventricles are normal in size and shape. Brain: Small acute lacunar infarcts noted in the left blanton radiata white matter. No hemorrhagic component. Underlying generalized atrophy and white matter ischemic change present as well. No mass effect or midline shift. Skull and face: Calvarium has normal marrow signal. Orbits appear normal. Bilateral intraocular lens replacements noted. Sinuses: Sinuses and mastoids are clear. IMPRESSION: Acute to subacute white matter lacunar infarcts noted in the left blanton radiata. No hemorrhagic component, mass effect or midline shift. Generalized atrophy and white matter chronic ischemic change Approved by: Melchor Carlson M.D. on 04/25/2022 at 11:12
[2022-04-25] MEDS: INSULIN LISPRO 100 UNIT/ML 3ML VIAL SUBCUT (12:29)
--- NOTE | 2022-04-25 12:29 | PT-IP ANOTE ---
Patient is busy with speech therapy and not available for evaluation. Will plan to see him in the afternoon.
--- NOTE | 2022-04-25 14:31 | CM.IDA ---
Addendum entered by Ariela Chen 04/25/22 16:14: DCP Note LINING FOLDER receives call from Kiana at [facility], it is reported that they cannot accept covid + patients until after 10 days. MARIAELENA Arriaga Original Note: Brief DCP Assessment Note Patient is 81 y/o male who presents to due to concern for stroke. Per MRI, patient shows signs of CVA. Patient's PCP is Cristino Gray, Patient has Medicare and insurance. Patient has hx of Hyperlipidemia Diabetes. Patient has current covid + diagnosis. LINING FOLDER attempted to call patient in room due to covid dx, patient unable to answer phone. LINING FOLDER calls both phone numbers for DPOA/spouse Delma and both VM boxes are full. Per EMR, patient is pending further ST, PT and OT evaluations. Per RN patient is 1 person assist, and presenting with weakness in limbs, currently hospitalist is managing patient's blood pressure. Due to patient's presentation and current needs, patient likely to need SNF. LINING FOLDER requests Kendy to fax SNF referrals to [facility], [facility], [facility], [facility] and [facility]. Plan: f/u with POC, pending therapies, f/u with SNF rehab search. f/u with patient and spouse for patient preference. SNF vs. HH MARIAELENA Arriaga Discharge Planning/Care Management CM Discharge Assessment Start: 04/25/22 14:27 Freq: Status: Active Protocol: Document 04/25/22 14:28 LN (Rec: 04/25/22 14:30 LN [id number]) Discharge Planning Assessment Assigned Computer Systems Support Specialist MARIAELENA Titus DPOA/Assigned Designee Name Delma Elise/spouse Contact Information [phone] Advance Directives? Yes Advance Directives on File No History Provided By Medical Record Has Patient been admitted in last 30 No days? Prior Living Arrangements House Comment is currently in rehab at [facility] Household Members spouse Additional Comment Based on need for 1-2 person assist patient will likely need Home with HH vs. SNF. Awaiting therapy notes. Please Provide Date Initial DC 04/25/22 Assessment Was Performed
--- NOTE | 2022-04-25 14:33 | ST.IPIE ---
Visit Care Team Role Provider Type Cristino Gray MD Primary Care Provider Non-Staff Specialty: Medical Address: [address] [place] [address], [id number] Email: Edwin Irwin DO Emergency Provider Physician Specialty: Emergency Medicine Address: [address] [place] [address], [id number] Email: [email or web address] ARGELIA Stone Admit Provider Physician Attending Provider Specialty: Internal Medicine Address: [address] [place] [address], [id number] Email: [email or web address] Current Diagnoses intermediate (current) use of anticoagulants (04/25/22) Past Medical History (Last Reviewed 04/25/22 @ 05:41 by Kiana Stinson RN) Anticoagulated (Medical) Dyslipidemia (Medical) ST IP Initial Evaluation Report AUTOMOTIVE PROJECT ENGINEER Adult Cognitive Linguistic Eval Start: 04/25/22 14:24 Freq: Status: Active Protocol: Document 04/25/22 14:24 WYATT (Rec: 04/25/22 14:33 ZS [id number]) Adult Cognitive Linguistic Evaluation Session Time Visit Start Time 12:15 Visit Stop Time 12:40 Total Visit Minutes 25 Visit Information Visit Number 1 Setting Assessment Location Acute Care Visit Type Note Type Initial evaluation Next Note Type Next Note Type Treatment Note Patient Information Identification Type Name Patient History Per H&P: Michael Elise 81-year -old male former smoker with history of hyperlipidemia diabetes, takes ribaroxaban but is unsure why, presented to the ED with a chief complaint of right arm and leg trouble for the past 2 weeks. ?He decided to come in because his right hand developed weakness and shaking. He states he looked it up on [employer] and said he had tremors . He states he was referred to a neurologist, but because his was in rehab, he stated he did not have any time to make his appointment as he was with her. He denies any recent trauma or injury, has no headache, blurred vision or difficulty with speech.? He denies any chest pain or shortness of breath.? He has had no nausea, vomiting or diarrhea.? He feels overall generally a bit unwell but denies any fever, significant shortness of breath body aches, chills or GI symptoms. He states he has stents in his heart and his leg and states he uses [address] was negative for any acute intracranial abnormality , head and neck CTA identified up to 50% narrowing in the bilateral carotid bulbs. No high-grade stenosis identified . Chest x-ray was negative. He would initial presenting blood pressure of wanting 99/ 92 which increased as high as 221/97 and was given IV labetalol. His blood pressure is currently 177/84 heart rate 66 he is afebrile, respiratory rate 18, oxygen saturation 97% on room air he weighs 102.5 kg with a BMI of 31.5. CBC is unremarkable, glucose is 245, he does seem to be having a troponin leak initially was 0.031 and then 2 hours later was 0.042 and COVID-19 PCR is positive. Results of MRI indicated Acute to subacute white matter lacunar infarcts noted in the left blanton radiata. No hemorrhagic component, mass effect or midline shift. Language(s) Spoken in the Home [place] Hearing Hearing Level Impaired Auditory History Pt reported he usually wears hearing aids but does not have them presently. Subjective Patient Report Michael was semi-reclined in bed when AUTOMOTIVE PROJECT ENGINEER arrived and agreed to participate in all assessment activities. Mental Status Alert,Responsive,Cooperative Formal Assessment Standardized Test/Screener Type [facility] Mental Status (UMS) Administration Complete Results Results of the SLUMS place Michael's score at 13/26, indicating moderate cognitive impairment. Clock drawing component was not scored due to pt's motor impairment in right hand that negatively impacted his ability to write/ draw a clock. Pt exhibited difficulty with mental manipulation of numbers and recalling details from a story , which are likely related to attention to task. Pt would likely demonstrate improved attention to preferred tasks/ stories and reported no difficulty tracking what people were saying. Difficulty with number recall and number manipulation may have been impacted by interruption just prior to task completion. Pt completed mental math questions with 100% accuracy. Recommend speech therapy to provide education regarding attention and cognitive skills in addition to strategies to minimize distractions and improve attention to a given task. Prognosis Prognosis Good Plan of Care Speech-Language Treatment Yes Frequency 1-2x while pt is in hospital Patient/Caregiver Education Described results of evaluation,Patient expressed understanding of evaluation, Patient expressed agreement with goals and treatment plans ,Patient requires further education/training Short Term Goals 1. Pt will participate in education regarding attention and cognitive functions. 2. Pt will demonstrate independence with external and internal strategies to improve attention to a given task. Discharge Recommendations Home
[2022-04-25 15:54] LABS: Hemoglobin A1C% w Est Avg Glu 8.1 % (4.0-6.0)
--- NOTE | 2022-04-25 17:13 | PT.IIE ---
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) use of anticoagulants (04/25/22) Surgical History (Last Updated 04/25/22 @ 04:02 by ARGELIA Stone) H/O foot surgery H/O heart artery stent Medical History (Last Reviewed 04/25/22 @ 05:41 by Kiana Stinson RN) Anticoagulated Dyslipidemia Physical Therapy Inpatient Evaluation/Re-Eval M1 PT/OT-IP Prior Functional Status Start: 04/25/22 17:31 Freq: NEEDED Status: Active Protocol: Document 04/25/22 17:13 DLM (Rec: 04/25/22 17:55 DLM [id number]) Medical Review Prior Functional Status Medical History Reviewed Yes Diet/Fluid Consistency Regular Communication WFL Mobility and Gait Independent without device, recent use of cane or FWW due to decreased balance (about a week) Activities of Daily Living and IADL's Independent, drives Prior Functional Level (Other details) He reports getting steadily weaker at home before this admit. He reports while his was in the hospital he was not eating or taking his medications regularly. 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 Cane Employment Status Retired Additional Social History [place], His was recently discharged from [facility] and is now at SNF rehab at [facility] M2 PT-IP Current Condition Start: 04/25/22 17:31 Freq: NEEDED Status: Active Protocol: Document 04/25/22 17:13 DLM (Rec: 04/25/22 17:55 DLM [id number]) Physical Therapy Current Condition Current Condition Evaluation Date 04/25/22 Treatment Diagnosis CVA with right sided weakness, impaired gait and balance Onset Date 04/25/22 M3 PT-IP Subjective Start: 04/25/22 17:31 Freq: NEEDED Status: Active Protocol: Document 04/25/22 17:13 DLM (Rec: 04/25/22 17:55 DLM [id number]) Subjective Physical Therapy Visit Type Type Initial Evaluation Visit Start Time 16:30 Visit Stop Time 17:13 Total Visit Minutes 43 Number of HOME INSPECTOR Visits 0 Physical Therapy Visit Comments Patient Comments His closest family is his Sister in [place]. His is at SNF rehab at [facility] after falling and suffering a cervical spine fx. Patient Goals He wants to get stronger and go home Therapy Pain Assessment Pain When Pain Assessed During Mobility Pain Present Pain Present Denied Pain M4 PT-IP Mobility and Gait Start: 04/25/22 17:31 Freq: NEEDED Status: Active Protocol: Document 04/25/22 17:13 DL (Rec: 04/25/22 17:55 [facility] [id number]) PT-Bed Mobility Assessment Supine to Sit Supine to Sit Minimal Assistance Sit to Supine Sit to Supine Minimal Assistance Scooting Scooting to Edge of Bed Standby Assistance Scooting Up and Down in Bed Standby Assistance PT-Transfer Assessment Sit to and From Stand Sit to and from Stand Minimal Assistance,Moderate Assistance,Use of Upper Extremities Equipment Transfer Assistive Device Gait Belt,Front Wheeled Walker Transfers Transfer Destination Chair Transfer Technique Stand Step Pivot Transfer Ability Level of Assist Minimal Assistance,Moderate Assistance,Use of Upper Extremities Comments Mobility Comments He needs constant assist to keep right hand on FWW. It falls off the FWW. He reports feeling very unstead in standing. Gait Assessment Gait Gait Assistance Required: Minimum Assistance,Moderate Assistance Distance (Feet) 10 Assistive Devices Assistive Device Gait Belt,Front Wheeled Walker Gait Deviations General Gait Pattern Decreased Stride Length, Decreased Feet Clearance, Flexed Trunk Factors Limiting Gait Function Factors Limiting Gait Function Decreased Activity Tolerance, Decreased Sensation,Decreased Strength,Incoordination,Poor Balance Comments Gait Comments He has difficulty advancing his right foot for functional steps during gait and it intermittently drags on the floor. As his distance of gait increased his trunk flexion also increased. He needs constant assist to keep right hand on FWW. He fatigues quickly with gait and his quality of gait decreased with his fatigue. PT-Balance Assessment Sitting Balance and Reactions Static Sitting Balance Ability Good Dynamic Sitting Balance Ability Fair Standing Balance and Reactions Static Standing Balance Ability Fair Dynamic Standing Balance Ability Fair Device Used FWW Comments Other Balance Tests/Deviations/Treatment attempted standing in FWW with : narrow base of support but pt unable to hold, he reports feeling very unsafe M5 PT-IP Objective Assessments Start: 04/25/22 17:31 Freq: NEEDED Status: Active Protocol: Document 04/25/22 17:13 SLOAN (Rec: 04/25/22 17:55 [facility] [id number]) Orientation Orientation/Cognition Level of Alertness Alert Orientation Name,Birthday,Year,Place, Situation Language Function Ability No Deficits Noted Safety Awareness Understands Safety Issues Memory Description Short Term Impaired Comments Mild to moderate cognitive issues (see speech therapy notes), he is able to give history but his timeline is not clear, he can follow verbal instructions Gross Range of Motion Upper Extremity ROM Assessment Left Impaired Impairments hx humeral fx, shoulder flex to 90 degrees Lower Extremity ROM Assessment Within Functional Limits Strength Upper Extremity Strength Assessment Right Impaired Shoulder flexion 3+/5 Elbow flexion 4-/5, extension 3+/5 Hand ophthalmic pathologist 3+/5 to 4-/5 Lower Extremity Strength Assessment Right Impaired Hip flexion 4/5 Knee ext 4/5 Ankle DF 4/5 Comments Strength Comments left side is very strong Coordination Assessment Gross Coordination Gross Coordination Impaired Assessment Finger to Nose Test Moderate Impairment Pronation/Supination Test Moderate Impairment Foot Tapping Test Moderate Impairment Heel on Sullivan Test Severe Impairment Coordination Comments right UE and LE impaired Sensation Assessment Comments Sensation Comments proprioception impairments right UE and LE Muscle Tone Muscle Tone WNL Yes M6 PT-IP Treatment Start: 04/25/22 17:31 Freq: NEEDED Status: Active Protocol: Document 04/25/22 17:13 DL (Rec: 04/25/22 17:55 [facility] [id number]) Physical Therapy Treatment Education Education Provided Safety Other Treatments Other Treatment Performed educated pt about his impairments this visit M7 PT-IP Assessment and Plan Start: 04/25/22 17:31 Freq: NEEDED Status: Active Protocol: Document 04/25/22 17:13 DLM (Rec: 04/25/22 17:55 [facility] [id number]) PT Summary Assessment and Plan Potential Rehabilitation Potential Good Status of Condition at Evaluation Evolving Summary Impairments Strength,Balance,Coordination, Sensation,Cognition,Bed Mobility,Transfers,Gait, Activity Tolerance Assessment Summary Michael has a positive MRI for acute/subacute infarct. He presents with right UE and LE deficits as well as impaired balance and gait. His proprioceptive impairments are more severe than his strength deficits and are significantly impacting his ability to use his right side functionally. His standing balance is impaired even with the FWW. He tolerates only short distances of gait in his room with the FWW and one person assist. He is below his baseline which is independent and active without a device. He is not safe to discharge home alone. Recommend SNF rehab at discharge to assist with his functional recovery. His is also at SNF rehab and not available to provide any assistance at home. Michael shows good effort with therapy but currently has a limited understanding the extent of his deficits. Goals Bed Mobility Goal Independent Transfer Goal Contact Guard Assistance, Minimal Assistance,Front Wheeled Walker Gait Goal Minimal Assistance,Front Wheel Walker Gait Distance 50 feet Days to Meet Goals 7 Frequency of Treatment Frequency Of Treatment Once a Day Treatment Plan Physical Therapy Treatment Plan Bed Mobility Training,Transfer Training,Gait Training, Therapeutic Exercise,Balance Retraining,Discharge Planning, Neuromuscular Re-ed, Coordination Retraining Precautions Other Precautions high fall risk, right sided weakness Recommendations To Nursing Amount of Assist Needed 1 Person Assist Discharge Recommendations PT Discharge Recommendations SNF Rehab Other Discharge Recommendations not safe to go home alone Transportation Needs at Discharge Private Vehicle,Wheelchair/ Cabulance
--- NOTE | 2022-04-25 17:29 | OT.IPNOTE ---
Pt just finished with PT marek and now eating his dinner, to check on pt tomorrow for OT marek.
[2022-04-25] MEDS: ATORVASTATIN 20 MG TABLET 80 MG PO (21:27)
[2022-04-26] VITALS (7 sets, daily range): BP systolic 118–187; BP diastolic 50–83; PULSE 67–83; RESP 18–19; TEMP 36.1–37; O2SAT 92–100
[2022-04-26 06:50] LABS: Add Manual Diff / Slide Review NO; Basophils Absolute Auto 0 /uL (0-100); Basophils Percent Auto 0.5 % (0-2); Eosinophils Absolute Auto 100 /uL (0-450); Eosinophils Percent Auto 1.4 % (2-4); Hematocrit 36.5 % (41-53); Lymphocytes Absolute Auto 1000 /uL (1100-4500); Lymphocytes Percent Auto 17.3 % (25-40); Mean Corpuscular Hemoglobin 31.9 PG (26-34); Mean Corpuscular Volume 96.6 fL (80-100); Monocytes Absolute Auto 800 /uL (0-900); Monocytes Percent Auto 14.3 % (3-14); Neutrophils Absolute Auto 3700 /uL (1500-7000); Neutrophils Percent Auto 66.5 % (50-75); Platelet Count 216 X10^3/uL (150-400); Red Blood Cell Count 3.77 X10^6/uL (4.5-5.9); Red Cell Distribution Width 14.4 % (11.6-14.8); White Blood Cell Count 5.5 X10^3/uL (4.5-11.0)
[2022-04-26 07:01] LABS: Alanine Aminotransferase 21 IU/L (<50); Albumin Globulin Ratio 1.1 (1.0-2.8); Alkaline Phosphatase 98 U/L (38-126); Aspartate Aminotransferase 27 IU/L (17-59); BUN Creatinine Ratio 16.5 (6-22); Bilirubin Total 0.8 mg/dL (0.2-1.3); Blood Urea Nitrogen 18 mg/dL (9-20); Calcium 8.5 mg/dL (8.4-10.2); Carbon Dioxide 29 mmol/L (22-32); Chloride 103 mmol/L (98-107); Estimated Glomerular Filt Rate > 60 mL/min (>60); Globulin 2.7 g/dL (1.7-4.1); Glucose 152 mg/dL (80-110); HEMOLYSIS < 15 (0-50); Magnesium 1.8 mg/dL (1.6-2.3); Potassium 4.4 mmol/L (3.4-5.1); Sodium 139 mmol/L (137-145); Total Protein 5.7 g/dL (6.3-8.2)
--- NOTE | 2022-04-26 07:48 | P.PN_ITS ---
Subjective Subjective Date Patient Seen: 04/26/22 Interval history: Mildly frustrated that he continues to have right UE weakness and coordination difficulty in his right hand. Awaiting SNF placement sunday. Exam Vital Signs (past 8 hours): - 04/26/22 03:03 Temperature 97.0 F L Pulse Rate 83 Respiratory Rate 19 Blood Pressure 179/80 H Pulse Oximetry 100 Oxygen Flow Rate 0 Oxygen Delivery Method Room Air Oxygen Flow Rate 0 Narrative Exam Narrative: Gen: Alert, oriented, mildly overweight 81 y.o. male, NAD HEENT: normocephalic, atraumatic, conjunctiva clear, sclera non-icteric, oral mucosa pink and moist Neck: supple, full ROM, no JVD, trachea is midline Resp: Lungs CTA, non-labored breathing CV: RRR, no murmur or rubs Abd: soft, non-tender, normoactive BTs Skin: no lesions or rashes, dry and intact Neuro: Appears to be mildly cognitively impaired. Right upper ext with 3/5 strength, 4/5 of RLE Extremities: moves all 4 extremities, is ambulatory, negative Edgar?s sign Psyche: normal mood and affect. Objective Labs Result Diagrams: 04/26/22 06:18 04/26/22 06:18 Labs: Laboratory Results - last 24 hr 04/24/22 04/26/22 04/26/22 21:03 06:18 06:18 WBC 5.5 RBC 3.77 L Hgb 12.0 L Hct 36.5 L MCV 96.6 MCH 31.9 MCHC 33.0 RDW 14.4 Plt Count 216 Neut % (Auto) 66.5 Lymph % (Auto) 17.3 L [place] % (Auto) 14.3 H Eos % (Auto) 1.4 L Baso % (Auto) 0.5 Neut # (Auto) 3700 Lymph # (Auto) 1000 L [place] # (Auto) 800 Eos # (Auto) 100 Baso # (Auto) 0 Sodium 139 Potassium 4.4 Chloride 103 Carbon Dioxide 29 BUN 18 Creatinine 1.09 Estimated GFR > 60 BUN/Creatinine Ratio 16.5 Glucose 152 H Hemoglobin A1c 8.1 H Calcium 8.5 Magnesium 1.8 Total Bilirubin 0.8 AST 27 ALT 21 Alkaline Phosphatase 98 Total Protein 5.7 L Albumin 3.0 L Globulin 2.7 Albumin/Globulin Ratio 1.1 [facility] Medical History Anticoagulated Dyslipidemia Surgical History (Updated 04/25/22 @ 04:02 by ARGELIA Stone) H/O foot surgery H/O heart artery stent Social History household members: spouse Smoking Status: Former smoker alcohol intake: former Assessment & Plan Assessment & Plan narrative: 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 * NIH score 3 in ED due to right sided weakness of RUE>RLE * currently anticoagulated on rivaroxaban, will continue * CTA head and neck showed bilateral 50% narrowing of carotids * MR stroke showed acute/subacute lacunar infarcts of left blanton radiata * Complete Echo with bubble study pending * PT/OT evaluation rec SNF due to right sided weakness, no speech deficits * continue cardiac telemetry * will need to improve BP control given lacunar infarct usually caused by chronic HTN, patient not on home BP meds Hypertension, acute with an admission bp of 199/92, present on admission * Allowed 24 hours of permissive HTN * Start losartan 25mg BID given SBP 170-180's, will likely titrate up CAD, chronic * Patient is likely anticoagulated due to his stents. Will need to obtain current medical records from his provider at the [place]. HLD * Fasting lipid panel with LDL * Atorvastatin 80 mg po at bedtime Diabetes type 2 * A1c 8.1% * Carb controlled diet, achs glucose checks * Diabetes education consulted VTE Prophylaxis: rivaroxaban. Dispo: To [facility] on 04/28. Code status: Full code, as discussed with the patient who identifies his , Delma as his surrogate and POA. COVID-19 COVID-19 status: Positive Result date/Date tested (Pos, Neg/Pending): 04/24/22 Time Spent With Patient Critical Care time: I spent a total of [] minutes of critical care time on this patient's care today; this time is exclusive of procedural time. Quality VTE Deep Vein Thrombosis/Pulmonary Embolism Present on Admission: No
[2022-04-26] MEDS: INSULIN LISPRO 100 UNIT/ML 3ML VIAL SUBCUT ×2 (08:54→17:13)
[2022-04-26] MEDS: CALCIUM CARB/VIT D3 500/200 TABLET 1 EACH PO (08:55)
[2022-04-26] MEDS: GABAPENTIN 300 MG CAPSULE PO ×2 (08:55→21:01)
[2022-04-26] MEDS: RIVAROXABAN 10 MG TABLET 20 MG PO (08:55)
[2022-04-26] MEDS: allopurinoL 100 MG TABLET 200 MG PO ×2 (08:55→21:00)
[2022-04-26] MEDS: LOSARTAN 25 MG TABLET PO ×2 (08:57→21:19)
[2022-04-26] MEDS: TAMSULOSIN 0.4 MG CAPSULE PO (08:57)
--- NOTE | 2022-04-26 09:40 | CM.DPC ---
Addendum entered by Jazlyn Beckman R.N. 04/26/22 15:44: Dr. Sutherland spoke to patient, he is willing to go to [facility], his spouse is there. Will plan on Sunday, and will complete PASSR. Addendum entered by Jazlyn Beckman R.N. 04/26/22 13:15: Attempted to call patient's room to see if he is ok going to [facility]. Dr. Sutherland answered the phone, was in patient's room seeing him and stated that he would mention this to patient. Original Note: DCP Cont: It is noted that spouse is at [facility]. Spoke to Diana, and confirmed. Asked her to review patient, and confirmed with her, she can accept patient on Sunday. Will have to discuss with patient. He would be ready by Sunday by Medicare standards. P: DCP to continue to follow. [facility] can accept Sunday. Jazlyn Beckman RN/Home [employer]ater
--- NOTE | 2022-04-26 10:40 | PT.IPTN ---
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 (04/25/22) Physical Therapy Treatment Note M2 PT-IP Current Condition Start: 04/25/22 17:31 Freq: NEEDED Status: Active Protocol: Document 04/25/22 17:13 DLM (Rec: 04/25/22 17:55 DLM [id number]) Physical Therapy Current Condition Current Condition Evaluation Date 04/25/22 Treatment Diagnosis CVA with right sided weakness, impaired gait and balance Onset Date 04/25/22 M3 PT-IP Subjective Start: 04/25/22 17:31 Freq: NEEDED Status: Active Protocol: Document 04/26/22 10:40 AB (Rec: 04/26/22 12:45 AB [id number]) Subjective Physical Therapy Visit Type Type Treatment Note Visit Start Time 10:40 Visit Stop Time 11:01 Total Visit Minutes 21 Number of DOUGH MOLDER HAND Visits 0 Physical Therapy Visit Comments Patient Comments agreeable to do PT M4 PT-IP Mobility and Gait Start: 04/25/22 17:31 Freq: NEEDED Status: Active Protocol: Document 04/26/22 10:40 AB (Rec: 04/26/22 12:45 AB [id number]) PT-Bed Mobility Assessment Supine to Sit Supine to Sit Minimal Assistance,1 Person Assistance,Head of Bed Elevated,Bedrails PT-Transfer Assessment Sit to and From Stand Sit to and from Stand Minimal Assistance,1 Person Assistance,Use of Upper Extremities Equipment Transfer Assistive Device Gait Belt,Front Wheeled Walker Orthotic/Prosthetic Devices or Brace: No Comments Mobility Comments pt completed supine to sit min A and cues. HOB elevated and pt used bed rail to assist. CGA for sitting on EOB. completed sit to stand min A and cues and ambulated in room ~ 30 ft using FWW min A and cues. presents with antalgic gait with decrease LE elevation and decrease step length. pt requested to go back to bed and completed sit to supine min A and cues. positioned. in bed. call light and table placed within reach. Gait Assessment Gait Gait Assistance Required: Minimum Assistance,1 Person Assist Distance (Feet) 30 Able to Maintain Weight Bearing Status Yes During Gait Assistive Devices Assistive Device Gait Belt,Front Wheeled Walker Orthotic/Prosthetic Devices or Brace: No Gait Deviations General Gait Pattern Antalgic,Decreased Stride Length,Decreased Feet Clearance,Step-to Gait Factors Limiting Gait Function Factors Limiting Gait Function Decreased Activity Tolerance, Decreased Strength,Difficulty Following Directions,Limited Range of Motion,Pain,Poor Balance,Poor Safety Awareness M5 PT-IP Objective Assessments Start: 04/25/22 17:31 Freq: NEEDED Status: Active Protocol: Document 04/25/22 17:13 DLM (Rec: 04/25/22 17:55 DL [id number]) Orientation Orientation/Cognition Level of Alertness Alert Orientation Name,Birthday,Year,Place, Situation Language Function Ability No Deficits Noted Safety Awareness Understands Safety Issues Memory Description Short Term Impaired Comments Mild to moderate cognitive issues (see speech therapy notes), he is able to give history but his timeline is not clear, he can follow verbal instructions Gross Range of Motion Upper Extremity ROM Assessment Left Impaired Impairments hx humeral fx, shoulder flex to 90 degrees Lower Extremity ROM Assessment Within Functional Limits Strength Upper Extremity Strength Assessment Right Impaired Shoulder flexion 3+/5 Elbow flexion 4-/5, extension 3+/5 Hand craniologist 3+/5 to 4-/5 Lower Extremity Strength Assessment Right Impaired Hip flexion 4/5 Knee ext 4/5 Ankle DF 4/5 Comments Strength Comments left side is very strong Coordination Assessment Gross Coordination Gross Coordination Impaired Assessment Finger to Nose Test Moderate Impairment Pronation/Supination Test Moderate Impairment Foot Tapping Test Moderate Impairment Heel on Sullivan Test Severe Impairment Coordination Comments right UE and LE impaired Sensation Assessment Comments Sensation Comments proprioception impairments right UE and LE Muscle Tone Muscle Tone WNL Yes M6 PT-IP Treatment Start: 04/25/22 17:31 Freq: NEEDED Status: Active Protocol: Document 04/26/22 10:40 AB (Rec: 04/26/22 12:45 AB [id number]) Physical Therapy Treatment Education Education Provided Safety M7 PT-IP Assessment and Plan Start: 04/25/22 17:31 Freq: NEEDED Status: Active Protocol: Document 04/26/22 10:40 AB (Rec: 04/26/22 12:45 AB [id number]) PT Summary Assessment and Plan Potential Rehabilitation Potential Fair Summary Impairments Pain,ROM,Strength,Balance, Coordination,Sensation,Tone, Cognition,Bed Mobility, Transfers,Gait,Activity Tolerance Progress Towards Goals Slow Progress due to Medical Issues,Slow Progress due to Activity Tolerance Assessment Summary pt requiring min A with mobility and cues for techniques and safety. pt presents with decrease activity tolerance affecting mobility level. pt will benefit from SNF rehab to improve overall strength and mobility independence. Goals Bed Mobility Goal Independent Transfer Goal Contact Guard Assistance, Minimal Assistance,Front Wheeled Walker Gait Goal Minimal Assistance,Front Wheel Walker Gait Distance 50 feet Days to Meet Goals 7 Frequency of Treatment Frequency Of Treatment Once a Day Treatment Plan Physical Therapy Treatment Plan Bed Mobility Training,Transfer Training,Gait Training, Therapeutic Exercise,Balance Retraining,Discharge Planning, Neuromuscular Re-ed, Coordination Retraining Precautions Other Precautions high fall risk, right sided weakness Recommendations To Nursing Amount of Assist Needed 1 Person Assist Discharge Recommendations PT Discharge Recommendations SNF Rehab Transportation Needs at Discharge Private Vehicle,Wheelchair/ Cabulance
--- NOTE | 2022-04-26 11:33 | ST.OPTN ---
Visit Care Team Role Provider Type Cristino Gray MD Primary Care Provider Non-Staff Address: [address] [place] [address], [id number] Edwin Irwin DO Emergency Provider Physician Address: [address] [place] [address], [id number] ARGELIA Stone Admit Provider Physician Attending Provider Address: [address] [place] [address], [id number] PUBLIC ADMINISTRATION PROFESSOR Treatment Note PUBLIC ADMINISTRATION PROFESSOR Treatment Note Start: 04/26/22 11:22 Freq: Status: Active Protocol: Document 04/26/22 11:23 WYATT (Rec: 04/26/22 11:33 ZS [id number]) Speech Pathology Treatment Note Session Time Visit Start Time 09:50 Visit Stop Time 10:05 Total Visit Minutes 15 Visit Information Visit Number 2 Setting Treatment Setting Acute Care Visit Type Note Type Treatment Note Next Note Type Next Note Type Treatment Note General Information Patient History Per H&P: Michael Elise 81-year -old male former smoker with history of hyperlipidemia diabetes, takes ribaroxaban but is unsure why, presented to the ED with a chief complaint of right arm and leg trouble for the past 2 weeks. He decided to come in because his right hand developed weakness and shaking. He states he looked it up on [employer] and said he had tremors . He states he was referred to a neurologist, but because his was in rehab, he stated he did not have any time to make his appointment as he was with her. He denies any recent trauma or injury, has no headache, blurred vision or difficulty with speech. He denies any chest pain or shortness of breath. He has had no nausea, vomiting or diarrhea. He feels overall generally a bit unwell but denies any fever, significant shortness of breath body aches, chills or GI symptoms. He states he has stents in his heart and his leg and states he uses [address] was negative for any acute intracranial abnormality , head and neck CTA identified up to 50% narrowing in the bilateral carotid bulbs. No high-grade stenosis identified . Chest x-ray was negative. He would initial presenting blood pressure of wanting 99/ 92 which increased as high as 221/97 and was given IV labetalol. His blood pressure is currently 177/84 heart rate 66 he is afebrile, respiratory rate 18, oxygen saturation 97% on room air he weighs 102.5 kg with a BMI of 31.5. CBC is unremarkable, glucose is 245, he does seem to be having a troponin leak initially was 0.031 and then 2 hours later was 0.042 and COVID-19 PCR is positive. Results of MRI indicated Acute to subacute white matter lacunar infarcts noted in the left blanton radiata. No hemorrhagic component, mass effect or midline shift. Results of the [facility] place Michael's score at 13/26, indicating moderate cognitive impairment. Clock drawing component was not scored due to pt's motor impairment in right hand that negatively impacted his ability to write/ draw a clock. Pt exhibited difficulty with mental manipulation of numbers and recalling details from a story , which are likely related to attention to task. Pt would likely demonstrate improved attention to preferred tasks/ stories and reported no difficulty tracking what people were saying. Difficulty with number recall and number manipulation may have been impacted by interruption just prior to task completion. Pt completed mental math questions with 100% accuracy. Recommend speech therapy to provide education regarding attention and cognitive skills in addition to strategies to minimize distractions and improve attention to a given task. Subjective Identification Type Name Identification Reconciled With Medical Record Observations/Patient Presentation Michael was seated upright in chair when PUBLIC ADMINISTRATION PROFESSOR arrived. He reported memory is worse today and he does not think he needs help with memory. Pt stated he had completed math and naming activities today, though this was not indicated in his chart. He reported consuming all of his juice and an additional beverage. Noted empty cup from morning meal and full cup of water were on table near pt. Chief Complaint(s) Cognitive Objective Short Term Goals 1. Pt will participate in education regarding attention and cognitive functions. 2. Pt will demonstrate independence with external and internal strategies to improve attention to a given task. Treatment Activities Discussed cognitive functions and impact of attention and stroke on cognitive skills. Discussed strategies for improved attention and external strategies for increased memory. Pt stated he does not currently use these strategies and stated he does not know if he needs therapy. Pt added he just wants to sleep x2. Discontinued session due to low pt engagement. Recommend continued assessment of memory and attention given decrease in performance today and continued pt education regarding cognitive skills and compensatory strategies for these. Given today's reported memory difficulty, pt unlikely to be able to monitor and meet his own needs at home. Concerns for remembering medication and following discharge instructions. Assessment Impairments Identified Cognitive communication Reviewed with Patient Goals,Home Exercise Program Plan Provided Patient/Caregiver Instruction Home Exercise Program,Plan of Care,Questions/Concerns Therapy Recommendations Continue with Current Program
--- NOTE | 2022-04-26 16:31 | OT.IP.EVAL ---
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 (04/25/22) Past Medical History (Last Reviewed 04/25/22 @ 05:41 by Kiana Stinson RN) Anticoagulated Dyslipidemia Surgical History (Last Updated 04/25/22 @ 04:02 by ARGELIA Stone) H/O foot surgery H/O heart artery stent Occupational Therapy Inpatient Evaluation/Re-Eval M1 PT/OT-IP Prior Functional Status Start: 04/25/22 17:31 Freq: NEEDED Status: Active Protocol: Document 04/26/22 16[facility]00 [facility] (Rec: 04/26/22 16:55 [facility] [id number]) Medical Review Prior Functional Status Medical History Reviewed Yes Diet/Fluid Consistency Regular Communication WFL Mobility and Gait Independent without device, recent use of cane or FWW due to decreased balance (about a week) Activities of Daily Living and IADL's Independent, drives Prior Functional Level (Other details) He reports getting steadily weaker at home before this admit. He reports while his was in the hospital he was not eating or taking his medications regularly. 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 Cane Employment Status Retired Additional Social History [place], His was recently discharged from [facility] and is now at SNF rehab at [facility] M2 OT-IP Current Condition Start: 04/26/22 16:31 Freq: Status: Active Protocol: Document 04/26/22 16:00 [facility] (Rec: 04/26/22 16:55 [facility] [id number]) Occupational Therapy Current Condition Current Condition Evaluation Date 04/26/22 Treatment Diagnosis CVA right sided weakness Diagnosis Onset Date 04/25/22 M3 OT- IP Subjective and Pain Start: 04/26/22 16:31 Freq: Status: Active Protocol: Document 04/26/22 16:00 [facility] (Rec: 04/26/22 16:55 [facility] [id number]) OT- Subjective Occupational Therapy Visit Type Type Initial Evaluation Visit Start Time 16:00 Visit Stop Time 16:31 Total Visit Minutes 31 Occupational Therapy Visit Comments Patient Comments Pt agreed to work with OT. Patient/Caregiver Goals Pt agreeing to go to skilled rehab. OT Pain Assessment Pain When Pain Assessed At Rest Pain Present Pain Present Denied Pain M4 OT- IP ADL's Start: 04/26/22 16:31 Freq: Status: Active Protocol: Document 04/26/22 16:00 [facility] (Rec: 04/26/22 16:55 [facility] [id number]) OT [id number] Comments OT Self-Feeding Comments Pt having to use his left hand to eat as too weak to use his RUE. OT ADL-Grooming General Evaluation Grooming Ability Standby Assistance,Maximum Assistance Comments OT Grooming Comments Pt having to use his left hand to do grooming needs. MAX A hand over hand assist if using his right hand -dominant side OT ADL-Oral Care Comments Oral Care Comments Pt having to use his left hand. OT ADL-Dressing General Eval Lower Body Dressing Ability Maximum Assistance Comments OT Dressing Comments Pt unable to use right hand to hold onto the sock and needing assist. OT ADL-Toileting General Evaluation Toileting Ability Total Assistance Comments OT Toileting Comments Pt using external catheter at this time. OT ADL-Bathing Comments OT Bathing Comments Not performed. M5 OT- IP IADL's Start: 04/26/22 16:31 Freq: Status: Active Protocol: Document 04/26/22 16:00 [facility] (Rec: 04/26/22 16:55 [facility] [id number]) OT-Instrumental Activities of Daily Living Home Safety Awareness Ability to Problem Solve Emergency Unable to Problem Solve Situations Home Safety Comments Pt not able to get his words out at time and admits that he is not thinking well. Not able to come up with call 911 in case of a emergency and unable to come say what to do if the toilet overflows. Medication Management Medication Management Comments Pt realizing that he will need more assist at home and nervous about going home. Money Management Money Management Comments Pt realizing that he will need more assist at home and nervous about going home. Meal Preparation Meal Preparation Comments Pt realizing that he will need more assist at home and nervous about going home. Distribution Center Administrator Distribution Center Administrator Comments Pt realizing that he will need more assist at home and nervous about going home. Driving Driving Concerns Identified Regarding Safety M6 OT- IP Functional Cognition Start: 04/26/22 16:31 Freq: Status: Active Protocol: Document 04/26/22 16:00 [facility] (Rec: 04/26/22 16:55 [facility] [id number]) Cognitive Factors Limiting Selfcare Function Cognitive Ability Level of Alertness Alert Patient Orientation Name,Place,Situation Attention Span Ability Capable of Focused Attention, Capable of Sustained Attention Ability to Follow Commands Able to Follow One Step Commands Memory Description Short Term Impaired,Working Impaired Problem Solving Ability Needs Assist to Identify Solutions Executive Function Ability Unable to Make Plans,Unable to Remember Details Cognitive Tests SLUMS Pr TAB BUILDER eval pt scored 13/26 which implies moderate deficits for cognition. Cognitive Comments Cognitive Assessment Comments After placing his oral care supplies in front of the pt , pt immediately forgot what he was doing. Pt needing concrete cues to follow. OT- Vision and Hearing OT- Vision Assessment Visual Acuity WFL Visual Attentiveness WFL Occular Pursuits WFL Visual Convergence Impaired Visual Baldwin WFL M7 OT- IP Mobility and Balance Start: 04/26/22 16:31 Freq: Status: Active Protocol: Document 04/26/22 16:00 [facility] (Rec: 04/26/22 16:55 [facility] [id number]) OT- Bed Mobility Assessment Supine to Sit Supine to Sit Assist Standby Assistance Sit to Supine Sit to Supine Assist Minimal Assistance OT-Transfer Assessment Sit to and From Stand Sit to and from Stand Moderate Assistance Transfers Transfer Ability Moderate Assistance Technique Transfer Destination Bed Transfer Technique Stand Step Pivot Devices Transfer Assistive Devices Gait Belt,Front Wheeled Walker Comments Mobility Comments Pt MODA to stand and assist to help hold his right hand on the walker and pt not able to control keeping the walker close to him and very unsteady on his feet. Able to pass to nursing that transfer only at this time as pt appears to be weaker than what he was on PT eval and per nursing aid this AM. OT- Balance Assessment Sitting Balance and Reactions Static Sitting Balance Ability Good Dynamic Sitting Balance Ability Fair Standing Balance and Reactions Static Standing Balance Ability Poor Dynamic Standing Balance Ability Poor M8 OT- IP Objective Assessments Start: 04/26/22 16:31 Freq: Status: Active Protocol: Document 04/26/22 16:00 [facility] (Rec: 04/26/22 16:55 [facility] [id number]) OT Gross Range of Motion Upper Extremity Range of Motion Assessment Right Impaired OT Strength Upper Extremity Strength Assessment Right Impaired Shoulder 3 Elbow 3+ Forearm 3 Wrist 3+ Hand 3+ Comments Strength Comments LUE WFL OT- Coordination Assessment Upper Extremity Finger to Nose Test Right UE Impaired OT Sensation Assessment Comments Summary Comments Intact for light touch Impaired for proprioception for RUE, pt has decreased awareness of his right UE. M9 OT- IP Assessment and Plan Start: 04/26/22 16:31 Freq: Status: Active Protocol: Document 04/26/22 16:00 [facility] (Rec: 04/26/22 16:55 [facility] [id number]) OT Summary Assessment and Plan Potential Rehabilitation Potential Good Analytic Complexity at Evaluation High Summary OT Impairments Range of Motion,Strength, Balance,Coordination, Functional Cognition, Functional Mobility,Self- Feeding,Grooming,Dressing, Toileting,Bathing,Toilet Transfers,Shower Transfers, Activity Tolerance Progress Towards Goals Slow Progress due to Medical Issues,Slow Progress due to Cognition Assessment Summary Pt HIGH complexity from COVID and CVA. Pt main barriers are decreased strength and coordination for RUE, decreased balance, decreased proprioception of RUE, decreased eye convergence, decreased STM and problem solving skills. Pt looking to go to skilled rehab when medically stable. Goals Self-Feeding Goal Independent Grooming Goal Independent Dressing Goal Independent Toileting Goal Independent Bathing Goal Standby Assistance Toilet Transfer Goal Independent Shower Transfer Goal Independent Days to Meet Goals 40 Frequency of Treatment Frequency Of Treatment Once a Day Treatment Plan OT Treatment Plan ADL Training,Functional Cognition Training,Functional Mobility,Discharge Planning Discharge Recommendations OT Discharge Recommendations SNF Rehab Transportation Needs at Discharge Wheelchair/Cabulance
--- NOTE | 2022-04-26 17:49 | DI.ECHO.S_ITS ---
[place] +---------+ [facility] +---------+ : : [address] : : [address] : : : : [address] : : : : Phone: [phone] Echocardiogram Report + + :Name: KELSIE BACH Study Date: 04/27/2022 Height: 71 in : :[facility] ReadingLocation: Weight: 225 lb : : Gender: Male BSA: 2.2 m2 : :: 1940 Age: 81 yrs BP: 147/66 mmHg: :Reason For Study: STROKE : :Ordering Physician: KRISTEN MIGUEL : :Phil Nazario Performed By: Sonay Heller : :Referring: KRISTEN MIGUEL D.O. : + + Interpretation Summary 1) Mildly to moderately increased left ventricular thickness (concentric) with normal size and normal systolic function (EF 55-60%). 2) Mid inferolateral wall may be hypokinetic (visualiziation is poor). 3) Normal right ventricular size and function. 4) No significant valvular abnormalities. 5) Compared to the Echo done 05/02/2017, wall motion abnormality described above may be present on the current study. Procedure: A two-dimensional transthoracic echocardiogram with color flow and Doppler was performed. The study quality was technically adequate. Comparison is made with the echocardiogram of 05/02/2017. The patient was in sinus rhythm with heart rates between 52-67 bpm during the exam. Left Ventricle: The left ventricle is normal in size. There is mild-moderate concentric left ventricular hypertrophy. The ejection fraction is estimated to be 55-60%. Mid inferolateral wall may be hypokinetic (visualiziation is poor). Diastolic parameters suggest a pseudonormalization pattern, consistent with probable elevated filling pressures. Right Ventricle: The right ventricle is normal in size and function. Atria: The left atrium is mildly dilated. Right atrial size is normal. There is no Doppler evidence for an interatrial shunt. Mitral Valve: The mitral valve is normal in structure and function. There is mild mitral regurgitation. Aortic Valve: The aortic valve is mildly calcified. The aortic valve opens well. There is no aortic valve stenosis. There is trace aortic regurgitation. Tricuspid Valve: The tricuspid valve is normal in structure and function. There is mild tricuspid regurgitation. Right ventricular systolic pressure is estimated to be 32 mmHg plus the clinically estimated CVP which cannot be estimated on this exam. Pulmonic Valve: There is mild pulmonic regurgitation. Great Vessels: The aortic root is normal size. The ascending aorta is mild- moderately enlarged. The inferior vena cava was not well visualized. Pericardium/ Pleura There is no pericardial effusion. There is no pleural effusion. MMode/2D Measurements & Calculations LVIDd: 4.6 cm LVOT diam: 2.3 cm LVIDs: 3.3 cm Ao root diam: 3.8 cm FS: 28.5 % asc Aorta Diam: 4.3 cm EPSS: 1.0 cm Ao Arch Diam (Prox Trans): 3.2 cm IVSd: 1.6 cm LVPWd: 1.3 cm LV barnhart. diameter/BSA (cm/m^2): 2.1 LV sys. diameter/BSA (cm/m^2): 1.5 LA A2 area: 23.9 cm2 RA long axis: 5.5 cm LA A4 area: 23.3 cm2 RA area: 14.7 cm2 LA length (vol): 6.2 cm RA vol: 33.4 ml LA vol: 76.8 ml RA : 15.1 ml/m2 LA vol index: 34.7 ml/m2 IVC diam: 2.3 cm RVD1 (basal): 3.9 cm RVD2 (mid): 3.3 cm TAPSE: 1.8 cm Doppler Measurements & Calculations Ao V2 max: 123.0 cm/sec LVOT Max Kyree: 106.6 cm/sec Ao V2 mean: 84.2 cm/sec LV V1 max P.5 mmHg Ao max P.0 mmHg LV V1 VTI: 21.6 cm Ao mean P.2 mmHg TROY(I,D): 3.8 cm2 Ao V2 VTI: 23.7 cm TROY(V,D): 3.6 cm2 sev ratio: 0.91 TROY indexed to BSA (cm^2/m^2): 1.7 MV E max kyree: 47.0 cm/sec TR max kyree: 284.5 cm/sec MV A max kyree: 87.1 cm/sec TR max P.4 mmHg MV E/A: 0.54 PA V2 max: 92.3 cm/sec Med Peak E' Kyree: 3.1 cm/sec PA V2 mean: 60.8 cm/sec E/E' med: 15.0 PA mean P.7 mmHg Lat Peak E' Kyree: 4.5 cm/sec PA pr(Accel): 37.9 mmHg E/E' lat: 10.5 E/e' average: 12.8 MV dec time: 0.29 sec SV(LVOT): 89.9 ml Reading Physician:01:03 PM
[2022-04-26] MEDS: ATORVASTATIN 20 MG TABLET 80 MG PO (21:00)
[2022-04-26] MEDS: SODIUM CHLORIDE 0.9% FLUSH 10 ML IV (21:00)
[2022-04-27] VITALS (7 sets, daily range): BP systolic 136–173; BP diastolic 63–86; PULSE 67–80; RESP 16–22; TEMP 36.6–36.9; O2SAT 92–97
--- NOTE | 2022-04-27 07:43 | P.PN_ITS ---
Subjective Subjective Date Patient Seen: 04/27/22 Time Patient Seen: 14:33 Interval history: No changes today. Still with weakness of right hand, but patient has no complaints and awaiting SNF tomorrow. Exam Vital Signs (past 8 hours): - 04/27/22 05:21 Temperature 97.8 F Pulse Rate 80 Respiratory Rate 22 Blood Pressure 141/71 H Pulse Oximetry 92 Oxygen Flow Rate 0 Oxygen Delivery Method Room Air Oxygen Flow Rate 0 Narrative Exam Narrative: Gen: Alert, oriented, mildly overweight 81 y.o. male, NAD HEENT: normocephalic, atraumatic, conjunctiva clear, sclera non-icteric, oral mucosa pink and moist Neck: supple, full ROM, no JVD, trachea is midline Resp: Lungs CTA, non-labored breathing CV: RRR, no murmur or rubs Abd: soft, non-tender, normoactive BTs Skin: no lesions or rashes, dry and intact Neuro: Appears to be mildly cognitively impaired. Right upper ext with 3/5 strength, 4/5 of RLE Extremities: moves all 4 extremities, is ambulatory, negative Edgar?s sign Psyche: normal mood and affect. 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 * NIH score 3 in ED due to right sided weakness of RUE>RLE * currently anticoagulated on rivaroxaban, will continue * CTA head and neck showed bilateral 50% narrowing of carotids * MR stroke showed acute/subacute lacunar infarcts of left blanton radiata * Complete Echo with bubble study pending * PT/OT evaluation rec SNF due to right sided weakness, no speech deficits * continue cardiac telemetry * will need to improve BP control given lacunar infarct usually caused by chronic HTN, patient not on home BP meds Hypertension, acute with an admission bp of 199/92, present on admission * Allowed 24 hours of permissive HTN * Continue losartan 25mg BID given SBP 170-180's and add chlorthalidone 12.5mg nightly CAD, chronic * Patient is likely anticoagulated due to his stents. Will need to obtain current medical records from his provider at the [facility]. HLD * Fasting lipid panel with LDL * Atorvastatin 80 mg po at bedtime Diabetes type 2 * A1c 8.1% * Carb controlled diet, achs glucose checks * Diabetes education consulted VTE Prophylaxis: rivaroxaban. Dispo: To [facility] on 04/28. Code status: Full code, as discussed with the patient who identifies his , Delma as his surrogate and POA. COVID-19 COVID-19 status: Positive Result date/Date tested (Pos, Neg/Pending): 04/24/22 Time Spent With Patient Critical Care time: I spent a total of [] minutes of critical care time on this patient's care today; this time is exclusive of procedural time. Quality VTE Deep Vein Thrombosis/Pulmonary Embolism Present on Admission: No
[2022-04-27] MEDS: INSULIN LISPRO 100 UNIT/ML 3ML VIAL SUBCUT ×3 (08:14→17:40)
[2022-04-27] MEDS: GABAPENTIN 300 MG CAPSULE PO ×2 (08:16→21:24)
[2022-04-27] MEDS: allopurinoL 100 MG TABLET 200 MG PO ×2 (08:16→21:21)
[2022-04-27] MEDS: TAMSULOSIN 0.4 MG CAPSULE PO (08:16)
[2022-04-27] MEDS: CALCIUM CARB/VIT D3 500/200 TABLET 1 EACH PO (08:16)
[2022-04-27] MEDS: LOSARTAN 25 MG TABLET PO ×2 (08:20→21:22)
[2022-04-27] MEDS: RIVAROXABAN 10 MG TABLET 20 MG PO (08:22)
[2022-04-27] MEDS: SODIUM CHLORIDE 0.9% FLUSH 10 ML IV ×2 (08:23→21:21)
[2022-04-27 09:13] LABS: Cholesterol 135 mg/dL (140-199); HDL Cholesterol 36 mg/dL (40-60); LDL Cholesterol Calculated 81 mg/dL (<100); Triglycerides 91 mg/dL (35-150)
--- NOTE | 2022-04-27 11:33 | SLP.IPNOTE ---
Nursing reports pt improved today. Scheduled to transfer to SNF /[facility] tomorrow. Pt not seen today
[2022-04-27] MEDS: CHLORTHALIDONE 25 MG TABLET 12.5 MG PO (17:34)
[2022-04-27] MEDS: ATORVASTATIN 20 MG TABLET 80 MG PO (21:22)
[2022-04-28 01:00] VITALS: BP 168/79; PULSE 69; RESP 18; TEMP 36.6; O2SAT 96
[2022-04-28 03:45] VITALS: BP 171/75; PULSE 66; RESP 20; TEMP 36.7; O2SAT 93
--- NOTE | 2022-04-28 03:47 | PC.NURSE ---
NightShift Pt had a shower after waking up with sense of urgency and wetting the bed. NURSE ESTHETICIAN noted redness on the bottom. 4cm x 5cm blanchable Applied barrier cream, with pull up brief and started q2 hour repositioning. Pt educated on importance of repositioning, Pt verbalized understanding Pt denied any pain or discomfort at site.
--- NOTE | 2022-04-28 07:24 | P.DS_ITS ---
History of Present Illness History of Present Illness Chief complaint: Poss stroke Narrative: Michael Elise 81-year-old male former smoker with history of hyperlipidemia diabetes, takes ribaroxaban but is unsure why,? presented to the ED with a chief complaint of right arm and leg trouble for the past 2 weeks.?He decided to come in because his right hand developed weakness and shaking. He states he looked it up on [employer] and said he had tremors. He states he was referred to a neurologist, but because his was in rehab, he stated he did not have any time to make his appointment as he was with her.? He denies any recent trauma or injury, has no headache, blurred vision or difficulty with speech.? He denies any chest pain or shortness of breath.? He has had no nausea, vomiting or diarrhea.? He feels overall generally a bit unwell but denies any fever, significant shortness of breath body aches, chills or GI symptoms. He states he has stents in his heart and his leg and states he uses [address] Head [address] was negative for any acute intracranial abnormality, head and neck CTA identified up to 50% narrowing in the bilateral carotid bulbs.? No high-grade stenosis identified.? Chest x-ray was negative.? He would initial presenting blood pressure of wanting 99/92 which increased as high as 221/97 and was given IV labetalol.? His blood pressure is currently 177/84 heart rate 66 he is afebr ile, respiratory rate 18, oxygen saturation 97% on room air he weighs 102.5 kg with a BMI of 31.5.? CBC is unremarkable, glucose is 245, he does seem to be having a troponin leak initially was 0.031 and then 2 hours later was 0.042 and COVID-19 PCR is positive. Discharge Providers Provider Date of admission: 04/25/22 12:25 Discharge Date: 04/28/22 Primary care physician: Mariano Gray MD Consults: 04/25/22 00:58 Consult to Discharge Planning Routine Comment: Consult to Occupational Therapy Evaluate & Treat Comment: Physician Instructions: Evaluate and treat Consult to Physical Therapy Evaluate & Treat Comment: Physician Instructions: Evaluate and Treat Consult to Speech Therapy Evaluate & Treat Comment: Physician Instructions: Evaluate and treat 04/26/22 07:50 Consult to Dietitian, Adult Routine Comment: Reason For Exam: A1c 8.1% Discharge provider: Demario Sutherland DO Summary Hospital Course Discharge Diagnosis: 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 * NIH score 3 in ED due to right sided weakness of RUE>RLE * currently anticoagulated on rivaroxaban, will continue * CTA head and neck showed bilateral 50% narrowing of carotids * MR stroke showed acute/subacute lacunar infarcts of left blanton radiata * Complete Echo shows EF 55-60% with possible midinferolateral wall hypokinesis, no valve abnormalities, no LV thrombus * PT/OT evaluation rec SNF due to right sided weakness, no speech deficits * continue cardiac telemetry * will need to improve BP control given lacunar infarct usually caused by chronic HTN, patient not on home BP meds Hypertension, acute with an admission bp of 199/92, present on admission * Allowed 24 hours of permissive HTN * Discharged on losartan 50mg nightly given SBP 170-180's and added chlorthal idone 25mg daily, BP improved while admitted with this regimen CAD, chronic * Patient is likely anticoagulated due to his stents. Will need to obtain current medical records from his provider at the [facility]. HLD * Fasting lipid panel with LDL * Atorvastatin 80 mg po at bedtime Diabetes type 2 * A1c 8.1% * Carb controlled diet, achs glucose checks * Diabetes education consulted Hospital Course: Admitted for acute right sided weakness and found to have acute/subacute lacunar infarcts. Patient was on xarelto and reported compliance. This was continued. Likely cause of stroke thought to be due to uncontrolled HTN due to lacunar infarcts and patient's BP being 170-180 systolic during admission. He was not on BP meds, so losartan was started then chlorthalidone added which improved his BP. Lipitor 80 was continued. He will go to SNF for further rehab of his right sided arm/hand weakness and right leg weakness. Time Spent with Patient Time spent: Greater than 30 minutes Exam Vital Signs (past 8 hours): - 04/28/22 01:00 04/28/22 03:45 Temperature 97.9 F 98.0 F Pulse Rate 69 66 Respiratory Rate 18 20 Blood Pressure 168/79 H 171/75 H Pulse Oximetry 96 93 Oxygen Flow Rate 0 0 Oxygen Delivery Method Room Air Oxygen Flow Rate 0 Narrative Exam Narrative: Gen: Alert, oriented, mildly overweight 81 y.o. male, NAD HEENT: normocephalic, atraumatic, conjunctiva clear, sclera non-icteric, oral mucosa pink and moist Neck: supple, full ROM, no JVD, trachea is midline Resp: Lungs CTA, non-labored breathing CV: RRR, no murmur or rubs Abd: soft, non-tender, normoactive BTs Skin: no lesions or rashes, dry and intact Neuro: Appears to be mildly cognitively impaired. Right upper ext with 3/5 strength, 4/5 of RLE Extremities: moves all 4 extremities, is ambulatory, negative Edgar?s sign Psyche: normal mood and affect. Objective Labs Result Diagrams: 04/26/22 06:18 04/26/22 06:18 Labs: Laboratory Results - last 24 hr 04/27/22 08:43 Triglycerides 91 Cholesterol 135 L LDL Cholesterol, Calc 81 HDL Cholesterol 36 L PFSH Medical History Anticoagulated Dyslipidemia Surgical History (Updated 04/25/22 @ 04:02 by ARGELIA Stone) H/O foot surgery H/O heart artery stent Social History household members: spouse Smoking Status: Former smoker alcohol intake: former Discharge Plan Discharge Plan Patient Disposition: SNF Discharge orders & Medications Prescriptions: New chlorthalidone 25 mg Tablet 25 mg PO DAILY 30 Days Qty: 30 0RF losartan 50 mg tablet 50 mg PO BEDTIME 30 Days Qty: 60 0RF Continued allopurinol 100 mg tablet 200 mg PO BID Rx Instructions: takes noon and evening atorvastatin 80 mg tablet 80 mg PO BEDTIME tamsulosin 0.4 mg capsule 0.4 mg PO DAILY gabapentin 300 mg capsule 300 mg PO BID insulin glargine [Lantus Solostar U-100 Insulin] 100 unit/mL (3 mL) insulin pen 40 unit SUBCUT BEDTIME Xarelto 20 mg tablet 20 mg PO DAILY pioglitazone [Actos] 15 mg Tablet 15 mg PO DAILY magnesium 200 mg Tablet 400 mg PO DAILY calcium carbonate-vitamin D3 [Calcium 600 + D(3)] 600 mg-10 mcg (400 unit) Tablet 1 tab PO DAILY Follow up/Referrals: Cristino Gray MD [Primary Care Provider] - 2 Weeks Discharge Data Primary Care Provider: Cristino Gray VTE Deep Vein Thrombosis/Pulmonary Embolism Present on Admission: No
[2022-04-28 08:15] VITALS: BP 141/80; PULSE 68; RESP 18; TEMP 36.6; O2SAT 91
[2022-04-28] MEDS: CHLORTHALIDONE 25 MG TABLET PO (08:30)
[2022-04-28] MEDS: TAMSULOSIN 0.4 MG CAPSULE PO (08:30)
[2022-04-28] MEDS: CALCIUM CARB/VIT D3 500/200 TABLET 1 EACH PO (08:30)
[2022-04-28] MEDS: allopurinoL 100 MG TABLET 200 MG PO (08:30)
[2022-04-28] MEDS: RIVAROXABAN 10 MG TABLET 20 MG PO (08:30)
[2022-04-28] MEDS: LOSARTAN 25 MG TABLET PO (08:30)
[2022-04-28] MEDS: GABAPENTIN 300 MG CAPSULE PO (08:30)
[2022-04-28] MEDS: INSULIN LISPRO 100 UNIT/ML 3ML VIAL SUBCUT (08:31)
--- NOTE | 2022-04-28 08:33 | CM.DPC ---
DCP Cont: Patient is discharging to [facility] today. 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 Updated nurse, Tran, and white board at main nurses station. Awaiting med orders, but PASSR and DC Summary are completed. Kendy is assisting in faxing information over to [facility]. Gave report number and name to Tran. P: Patient is being discharged to [facility] today. Jazlyn Beckman RN/Rnfa
--- NOTE | 2022-04-28 11:41 | PC.NURSE ---
Patients breath sounds with course upper extremities and decreased bases. He is 91-92% on room air. Up with one person assist and walker. Patient voided, last bowel movement on 04/26/22. His blood sugar was 164 and 1unit of lispro given. Report called on patient and he is going to discharge to [facility] now. IV taken out and report called.
== END 2022-04-28 11:30 | DRG 64 ==
LOC: ED 04-25 00:42 → AC 04-25 00:47
PROVIDERS: Student in an Organized Health Care Education/Training Program; Admitting Provider Nurse Practitioner Family; Emergency Provider Emergency Medicine; PCP Family Medicine; Visit Provider Nurse Practitioner Family
DX: I63.81 Other cerebral infarction due to occlusion or stenosis of small artery (principal); U07.1 COVID-19; I10 Essential (primary) hypertension; I25.10 Atherosclerotic heart disease of native coronary artery without angina pectoris; E78.5 Hyperlipidemia, unspecified; E11.9 Type 2 diabetes mellitus without complications; R29.810 Facial weakness; R29.703 NIHSS score 3; R29.701 NIHSS score 1; Z79.4 Long term (current) use of insulin; Z79.01 Long term (current) use of anticoagulants; Z95.5 Presence of coronary angioplasty implant and graft; Z87.891 Personal history of nicotine dependence
CPT/HCPCS: 36415; 70450; 70496; 70498; 70551; 71045; 80053; 80061; 80305; 82550; 82962; 83036; 83735; 84484; 85025; 85610; 85730; 87635; 92507; 93005; 93306; 96125; 96374; 97116; 97162; 97167; 99285; C9803; G0378; Q9967

== ENCOUNTER 2022-05-10 14:22 | Emergency (ER) | payer MEDICARE, OTHER, SELFPAY ==
[2022-04-25 03:00] VITALS: BMI 31.5
[2022-05-10] VITALS (38 sets, daily range): BP systolic 164–231; BP diastolic 69–110; PULSE 62–88; RESP 16–31; TEMP 36.6; O2SAT 94–98; BMI 32.8
--- NOTE | 2022-05-10 14:43 | DI.CT.S_ITS ---
PROCEDURE: CT HEAD/BRAIN WO CON INDICATIONS: Acute vision loss TECHNIQUE: Noncontrast 4.5 mm thick angled axial sections acquired from the foramen magnum to the vertex, with coronal and sagittal reformats. For radiation dose reduction, the following was used: automated exposure control, adjustment of mA and/or kV according to patient size. COMPARISON: [facility], , MR HEAD/BRAIN WO CON, 04/25/2022, 11:09. FINDINGS: Image quality: Excellent. CSF spaces: Basal cisterns are patent. No extra-axial fluid collections. The ventricles are symmetric in size and shape. Brain: There is an old lacunar infarct in the left [place] radiata. No intracranial bleeds or masses. There is moderate cerebral volume loss for age, with resultant ventricular and sulcal prominence. There are moderate periventricular and deep white matter chronic small vessel ischemic changes. There is intracranial internal carotid artery atherosclerosis. Skull and face: Calvarium and visualized facial bones appear intact, without suspicious lesions. Sinuses: Visualized sinuses and mastoids are clear. IMPRESSION: 1. 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 2. No acute intracranial abnormality. 3. Cerebral volume loss and periventricular white matter chronic small vessel ischemic changes. Dictated by: Soto Farrell M.D. on 05/10/2022 at 14:59 Approved by: Soto Farrell M.D. on 05/10/2022 at 15:02
--- NOTE | 2022-05-10 14:44 | ED_ITS ---
HPI - Neuro Symptoms/Deficit General Chief Complaint: Neuro Symptoms/Deficit Stated Complaint: vision changes Time Seen by Provider: 05/10/22 14:43 History of Present Illness HPI Narrative: Patient was admitted here approximately 2 weeks ago with acute versus subacute lacunar infarct. He is currently in an SNF. He was previously anticoagulated on Xarelto. He returns today due to blurred vision his right eye, started about 4:00 a.m. while he is up watching TV. However, he is undergone retina procedures on both eyes in the past, he missed recent appointments due to COVID- 19 infection. He is had 2 injections in his right eye for retinal disease. He has intermittent blurred vision in both eyes. His blurred vision has improved since arrival here. Blurred vision was not a feature of the recent CVA. He has no confusion, speech changes, facial droop, peripheral numbness or weakness. He denies recent acute illness. On Anticoagulants: Yes Related Data Home Medications Medication Instructions Recorded Confirmed allopurinol 100 mg tablet 200 mg PO BID 04/25/22 04/25/22 atorvastatin 80 mg tablet 80 mg PO BEDTIME 04/25/22 04/25/22 calcium carbonate 600 mg-vitamin 1 tab PO DAILY 04/25/22 04/25/22 D3 10 mcg (400 unit) tablet (Calcium 600 + D(3)) gabapentin 300 mg capsule 300 mg PO BID 04/25/22 04/25/22 insulin glargine 100 unit/mL (3 40 unit SUBCUT BEDTIME 04/25/22 04/25/22 mL) subcutaneous pen (Lantus Solostar U-100 Insulin) magnesium 200 mg tablet 400 mg PO DAILY 04/25/22 04/25/22 pioglitazone 15 mg tablet (Actos) 15 mg PO DAILY 04/25/22 04/25/22 rivaroxaban 20 mg tablet (Xarelto) 20 mg PO DAILY 04/25/22 04/25/22 tamsulosin 0.4 mg capsule 0.4 mg PO DAILY 04/25/22 04/25/22 Previous Rx's Medication Instructions Recorded chlorthalidone 25 mg tablet 25 mg PO DAILY 30 days #30 tabs 04/28/22 losartan 50 mg tablet 50 mg PO BEDTIME 30 days #60 tabs 04/28/22 Allergies Allergy/AdvReac Type Severity Reaction Status Date / Time No Known Drug Allergies Allergy Verified 04/26/22 02:10 Review of Systems Review of Systems ROS Unobtainable: All systems reviewed & are unremarkable except as noted in HPI and below Constitutional Constitutional: Denies body ache(s), Denies chills, Denies fatigue and Denies fever(s) Comments: No acute illness. Eyes Comments: Blurred vision bilaterally, currently significantly worse in the right eye. See HPI. ENT Ears, Nose, Mouth, and Throat: Denies vertigo, Denies dizziness and Denies sinus pressure Cardiovascular Cardiovascular: Denies chest pain, Denies irregular heart rhythm, Denies leg edema, Denies lightheadedness and Denies dyspnea Respiratory Respiratory: Denies cough and Denies dyspnea Gastrointestinal Gastrointestinal: Denies abdominal pain Musculoskeletal Musculoskeletal: Denies arthralgias, Denies back pain and Denies myalgias Integumentary/Breasts Skin/Breast: Denies rash Neurologic Neurologic: Reports as per HPI, Denies vertigo and Denies dizziness Endocrine Endocrine: Denies fatigue Hematologic/Lymphatic On Anticoagulants: Yes Patient History Medical History (Updated 05/10/22 @ 21:47 by Michael Camacho MD) Anticoagulated CVA (cerebral vascular accident) Dyslipidemia Surgical History H/O foot surgery H/O heart artery stent Social History household members: spouse Smoking Status: Former smoker alcohol intake: former Smoking Status: Former smoker tobacco type: cigarettes alcohol intake frequency: other Substance Use Type: does not use Exam Initial Vital Signs Initial Vital Signs: Vital Signs Pulse Rate 74 05/10/22 14:26 Pulse Oximetry 97 05/10/22 14:26 Const General: cooperative, comfortable and No in distress HENCO Head: normal to inspection, normocephalic and atraumatic Face and sinus: normal facial exam and sinuses nontender Throat: posterior oropharynx normal Eyes General: Yes appearance normal, both eyes and all related structures Conjunctivae: conjunctivae normal Sclera: sclerae normal Pupils: PERRL EOM: EOM intact bilaterally and No nystagmus Other: No visual field cuts Neck Neck: normal visual inspection and No JVD Chest Chest: normal inspection of the chest Resp Effort & Inspection: normal respiratory effort Auscultation: clear to auscultation bilaterally Cardio Rate: regular rate Rhythm: regular rhythm Heart Sounds: S1 normal, S2 normal and no murmurs GI Inspection: normal to inspection Palpation: soft Auscultation: normal bowel sounds Back/Spine/Pelvis Back: normal to inspection Skin General: no rashes or lesions noted Neuro General: patient alert, patient awake, patient oriented x3 and no focal motor deficits Cranial Nerves: No nystagmus Extrem General: normal to inspection, no pedal edema and no calf tenderness Psych Appearance: grossly normal Scores NIH Stroke Scale Level of Conciousness: Alert, keenly responsive Ask month/age: Answers both questions correctly. Open/close eyes, close hand: Performs both tasks correctly Best gaze horizontal: Normal Visual goetz: No visual loss Facial palsy: Normal symetrical movement Left arm drift: No drift for full 10 sec Right arm drift: No drift for full 10 sec Left leg drift: No drift for full 5 sec Right leg drift: No drift for full 5 sec Limb ataxia: Absent Sensory on face/arms/legs: Normal, no sensory loss Best language: No aphasia, normal Dysarthria: Normal Extinction or inattention: No abnormality Total NIH Stroke scale score: 0 Course Course Course Narrative: Head CT shows old CVA, no acute findings. NIHSS is 0. His blurred vision pre- existing prior to his recent stroke, he is a retinal issue that is under the care of ophthalmology. He is referred back to his PCM. Orders Ordered: ED Orders 05/10/22 14:23 Urine Drug Screen, Rapid Stat 05/10/22 14:24 Complete Blood Count AUTO DIFF Stat Comprehensive Metabolic Panel Stat Ethanol (ETOH) Stat Partial Thromboplastin Time Stat Prothrombin Time INR Stat Troponin & CK Cardiac Panel Stat 05/10/22 14:40 EKG-12 Lead Stat 05/10/22 14:43 CT head/brain wo con Stat 05/10/22 14:45 COVID19 - ADMIT ([facility] AD[facility] swab/PCR) Stat 05/10/22 15:23 Urinalysis and Microscopic Stat Urine Culture Stat Discontinued Medications Losartan Potassium (Losartan 50 Mg Tablet) 50 mg PO NOW ONE Stop: 05/10/22 21:06 Vital Signs Vital signs: Vital Signs - 8 hr 05/10/22 14:40 05/10/22 14:26 05/10/22 14:27 Temperature 97.8 F Pulse Rate 72 74 76 Respiratory Rate 16 Blood Pressure 175/81 H Pulse Oximetry 97 97 97 Oxygen Delivery Method Room Air 05/10/22 14:27 05/10/22 14:30 05/10/22 14:30 Temperature Pulse Rate 70 Respiratory Rate Blood Pressure 175/81 H 164/77 H Pulse Oximetry 97 Oxygen Delivery Method 05/10/22 14:58 05/10/22 14:58 05/10/22 15:00 Temperature Pulse Rate 67 Respiratory Rate 21 Blood Pressure 190/81 H 167/75 H Pulse Oximetry 98 Oxygen Delivery Method 05/10/22 15:00 05/10/22 15:14 05/10/22 15:14 Temperature Pulse Rate 66 72 Respiratory Rate 20 Blood Pressure 184/83 H Pulse Oximetry 97 94 Oxygen Delivery Method 05/10/22 15:30 05/10/22 16:00 05/10/22 16:00 Temperature Pulse Rate 65 64 Respiratory Rate Blood Pressure 197/82 H Pulse Oximetry 95 97 Oxygen Delivery Method 05/10/22 16:30 05/10/22 16:31 05/10/22 16:31 Temperature Pulse Rate 71 65 Respiratory Rate Blood Pressure 202/87 H Pulse Oximetry 98 97 Oxygen Delivery Method 05/10/22 17:00 05/10/22 17:01 05/10/22 17:01 Temperature Pulse Rate 65 65 Respiratory Rate Blood Pressure 176/74 H Pulse Oximetry 98 98 Oxygen Delivery Method 05/10/22 17:55 05/10/22 17:55 05/10/22 18:00 Temperature Pulse Rate 69 Respiratory Rate Blood Pressure 210/85 H 184/84 H Pulse Oximetry 97 Oxygen Delivery Method 05/10/22 18:00 05/10/22 18:15 05/10/22 18:15 Temperature Pulse Rate 63 68 Respiratory Rate 21 23 Blood Pressure 200/88 H Pulse Oximetry 98 97 Oxygen Delivery Method MDM - Neuro Symptoms/Deficit Lab Data Result diagrams: 05/10/22 14:24 05/10/22 14:24 Labs: Lab Results 05/10/22 05/10/22 05/10/22 Range/Units 14:23 14:24 14:24 WBC 5.6 (4.5-11.0) X10^3/uL RBC 3.89 L (4.5-5.9) X10^6/uL Hgb 12.4 L (13.5-17.5) g/dL Hct 37.6 L (41-53) % MCV 96.7 (80-100) fL MCH 32.0 (26-34) PG MCHC 33.1 (30-36) % RDW 14.8 (11.6-14.8) % Plt Count 229 (150-400) X10^3/uL Neut % (Auto) 57.9 (50-75) % Lymph % (Auto) 26.1 (25-40) % [place] % (Auto) 14.5 H (3-14) % Eos % (Auto) 1.1 L (2-4) % Baso % (Auto) 0.4 (0-2) % Neut # (Auto) 3200 (1725-8846) /uL Lymph # (Auto) 1500 (9192-3820) /uL [place] # (Auto) 800 (0-900) /uL Eos # (Auto) 100 (0-450) /uL Baso # (Auto) 0 (0-100) /uL PT 20.3 H (10.1-12.7) SECONDS INR 1.8 H (0.9-1.3) APTT 38 H (26-36) SECONDS Sodium (137-145) mmol/L Potassium (3.4-5.1) mmol/L Chloride (98-107) mmol/L Carbon Dioxide (22-32) mmol/L BUN (9-20) mg/dL Creatinine (0.66-1.25) mg/dL Estimated GFR (>60) mL/min BUN/Creatinine Ratio (6-22) Glucose (80-110) mg/dL Calcium (8.4-10.2) mg/dL Total Bilirubin (0.2-1.3) mg/dL AST (17-59) IU/L ALT (<50) IU/L Alkaline Phosphatase (38-126) U/L Total Creatine Kinase (55-170) U/L CK-MB (CK-2) CK-MB (CK-2) Rel Index Troponin I (0.01-0.034) ng/mL Total Protein (6.3-8.2) g/dL Albumin (3.5-5.0) g/dL Globulin (1.7-4.1) g/dL Albumin/Globulin Ratio (1.0-2.8) Urine Color Urine Appearance Urine pH (4.5-8.0) Ur Specific [place] (1.000-1.035) Urine Protein (Negative) Urine Glucose (UA) (Negative) g/dL Urine Ketones (NEGATIVE) Urine Occult Blood (Negative) Urine Nitrate (Negative) Urine Bilirubin (NEGATIVE) Urine Urobilinogen (0.2) E.U./dL Ur Leukocyte Esterase (NEGATIVE) Urine RBC (0-5/HPF) Urine WBC (0-5/HPF) Ur Squamous Epith Cells (0-5/HPF) Amorphous Sediment Urine Bacteria (None) Ur Culture Indicated? U Opiates 300ng/mL cut Negative (Negative) Ur Oxycodone Screen Negative (Negative) Urine Methadone Screen Negative (Negative) Ur Barbiturates Screen Negative (Negative) U Tricyclic Antidepress Negative (Negative) Ur Phencyclidine Scrn Negative (Negative) Ur Amphetamines Screen Negative (Negative) U Methamphetamines Scrn Negative (Negative) Ur MDMA Scrn (Ecstasy) Negative (Negative) U Benzodiazepines Scrn Negative (Negative) Urine Cocaine Screen Negative (Negative) U Marijuana (THC) Screen Negative (Negative) Ethyl Alcohol ( - 10) mg/dL SARS-CoV-2 (PCR) (Negative) 05/10/22 05/10/22 05/10/22 Range/Units 14:24 14:45 15:23 WBC (4.5-11.0) X10^3/uL RBC (4.5-5.9) X10^6/uL Hgb (13.5-17.5) g/dL Hct (41-53) % MCV (80-100) fL MCH (26-34) PG MCHC (30-36) % RDW (11.6-14.8) % Plt Count (150-400) X10^3/uL Neut % (Auto) (50-75) % Lymph % (Auto) (25-40) % [place] % (Auto) (3-14) % Eos % (Auto) (2-4) % Baso % (Auto) (0-2) % Neut # (Auto) (2269-6349) /uL Lymph # (Auto) (8421-0889) /uL [place] # (Auto) (0-900) /uL Eos # (Auto) (0-450) /uL Baso # (Auto) (0-100) /uL PT (10.1-12.7) SECONDS INR (0.9-1.3) APTT (26-36) SECONDS Sodium 140 (137-145) mmol/L Potassium 4.7 (3.4-5.1) mmol/L Chloride 102 (98-107) mmol/L Carbon Dioxide 31 (22-32) mmol/L BUN 24 H (9-20) mg/dL Creatinine 1.33 H (0.66-1.25) mg/dL Estimated GFR 53 L (>60) mL/min BUN/Creatinine Ratio 18.0 (6-22) Glucose 159 H (80-110) mg/dL Calcium 8.9 (8.4-10.2) mg/dL Total Bilirubin 0.5 (0.2-1.3) mg/dL AST 49 (17-59) IU/L ALT 24 (<50) IU/L Alkaline Phosphatase 98 (38-126) U/L Total Creatine Kinase 86 (55-170) U/L CK-MB (CK-2) TNP CK-MB (CK-2) Rel Index TNP Troponin I 0.012 (0.01-0.034) ng/mL Total Protein 6.6 (6.3-8.2) g/dL Albumin 3.6 (3.5-5.0) g/dL Globulin 3.0 (1.7-4.1) g/dL Albumin/Globulin Ratio 1.2 (1.0-2.8) Urine Color Yellow Urine Appearance Clear Urine pH 7.0 (4.5-8.0) Ur Specific [place] 1.015 (1.000-1.035) Urine Protein 3+ H (Negative) Urine Glucose (UA) Trace H (Negative) g/dL Urine Ketones Negative (NEGATIVE) Urine Occult Blood Negative (Negative) Urine Nitrate Negative (Negative) Urine Bilirubin Negative (NEGATIVE) Urine Urobilinogen 0.2 (0.2) E.U./dL Ur Leukocyte Esterase Trace H (NEGATIVE) Urine RBC None seen (0-5/HPF) Urine WBC 5-10/hpf H (0-5/HPF) Ur Squamous Epith Cells 0-1 /hpf (0-5/HPF) Amorphous Sediment 1+ Urine Bacteria Occasional (0-1) (None) Ur Culture Indicated? Specimen cultured U Opiates 300ng/mL cut (Negative) Ur Oxycodone Screen (Negative) Urine Methadone Screen (Negative) Ur Barbiturates Screen (Negative) U Tricyclic Antidepress (Negative) Ur Phencyclidine Scrn (Negative) Ur Amphetamines Screen (Negative) U Methamphetamines Scrn (Negative) Ur MDMA Scrn (Ecstasy) (Negative) U Benzodiazepines Scrn (Negative) Urine Cocaine Screen (Negative) U Marijuana (THC) Screen (Negative) Ethyl Alcohol < 10 ( - 10) mg/dL SARS-CoV-2 (PCR) Positive H (Negative) Point of Care Testing Glucose POC 146 Urine Dip Bedside Urine Glucose Negative Bedside Urine Bilirubin - Negative Bedside Urine Ketone - Negative Urine Specific [place] 1.015 Bedside Urine Occult Blood - Negative Bedside Urine pH 6.5 Bedside Urine Protein +++ 300 Bedside Urine Urobilinogen - Negative Bedside Urine Nitrite - Negative Bedside Urine Leukocytes +/- [address] scan - head: Radiologist's Impression: 1. 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 2. No acute intracranial abnormality.? 3. Cerebral volume loss and periventricular white matter chronic small vessel ischemic changes.? ? ECG Data Attestation: I personally reviewed and interpreted this ECG as follows: (Normal sinus rhythm rate 68 beats per minute. First-degree AV block. LVH. No ectopy. Nonacute ST T wave changes.) Discharge Plan Departure Patient Disposition: Home Clinical Impression: Blurred vision, bilateral Activity Restrictions/Additional Instructions: Continue your current medications. Arrange follow-up with your vacuum pan operator. Return here as needed. Prescriptions: No Action allopurinol 100 mg tablet 200 mg PO BID Rx Instructions: takes noon and evening atorvastatin 80 mg tablet 80 mg PO BEDTIME tamsulosin 0.4 mg capsule 0.4 mg PO DAILY gabapentin 300 mg capsule 300 mg PO BID insulin glargine [Lantus Solostar U-100 Insulin] 100 unit/mL (3 mL) insulin pen 40 unit SUBCUT BEDTIME Xarelto 20 mg tablet 20 mg PO DAILY pioglitazone [Actos] 15 mg Tablet 15 mg PO DAILY magnesium 200 mg Tablet 400 mg PO DAILY calcium carbonate-vitamin D3 [Calcium 600 + D(3)] 600 mg-10 mcg (400 unit) Tablet 1 tab PO DAILY chlorthalidone 25 mg Tablet 25 mg PO DAILY 30 Days Qty: 30 0RF losartan 50 mg tablet 50 mg PO BEDTIME 30 Days Qty: 60 0RF Referrals: Cristino Gray MD [Primary Care Provider] -
[2022-05-10 15:46] LABS: Appearance Urine UA CLEAR; Bilirubin Urine UA NEGATIVE (NEGATIVE); Color Urine UA YELLOW; Glucose Urine UA TRACE g/dL (Negative); Ketones Urine UA NEGATIVE (NEGATIVE); Leukocyte Esterase Urine UA TRACE (NEGATIVE); Nitrite Urine UA NEGATIVE (Negative); Occult Blood Urine UA NEGATIVE (Negative); Protein Urine UA 3+ (Negative); Specific Gravity Urine UA 1.015 (1.000-1.035); Urobilinogen Urine UA 0.2 E.U./dL (0.2)
[2022-05-10 15:50] LABS: Add Manual Diff / Slide Review NO; Basophils Absolute Auto 0 /uL (0-100); Basophils Percent Auto 0.4 % (0-2); Eosinophils Absolute Auto 100 /uL (0-450); Eosinophils Percent Auto 1.1 % (2-4); Hematocrit 37.6 % (41-53); Hemoglobin 12.4 g/dL (13.5-17.5); Lymphocytes Absolute Auto 1500 /uL (1100-4500); Lymphocytes Percent Auto 26.1 % (25-40); Mean Corpuscular HGB Conc 33.1 % (30-36); Mean Corpuscular Volume 96.7 fL (80-100); Monocytes Absolute Auto 800 /uL (0-900); Monocytes Percent Auto 14.5 % (3-14); Neutrophils Absolute Auto 3200 /uL (1500-7000); Neutrophils Percent Auto 57.9 % (50-75); Platelet Count 229 X10^3/uL (150-400); Red Blood Cell Count 3.89 X10^6/uL (4.5-5.9); Red Cell Distribution Width 14.8 % (11.6-14.8); White Blood Cell Count 5.6 X10^3/uL (4.5-11.0)
[2022-05-10 15:51] LABS: INR 1.8 (0.9-1.3); Prothrombin Time 20.3 SECONDS (10.1-12.7)
[2022-05-10 15:53] LABS: PTT Partial Thromboplastin Tim 38 SECONDS (26-36)
[2022-05-10 15:55] LABS: UR Morphine/Opiate cutoff 300 Negative (Negative); Ur Creatinine Normal (Normal); Ur Specific Gravity Normal (Normal); Urine Amphetamines Negative (Negative); Urine Barbiturates Negative (Negative); Urine Benzodiazepines Negative (Negative); Urine Cocaine Negative (Negative); Urine MDMA Negative (Negative); Urine Methadone Negative (Negative); Urine Methamphetamines Negative (Negative); Urine Oxycodone Negative (Negative); Urine Phencyclidine Negative (Negative); Urine Tetrahydrocannabinol Negative (Negative); Urine Tricyclic Antidepressant Negative (Negative); Urine pH Normal (Normal)
[2022-05-10 15:56] LABS: Alanine Aminotransferase 24 IU/L (<50); Albumin 3.6 g/dL (3.5-5.0); Albumin Globulin Ratio 1.2 (1.0-2.8); Alkaline Phosphatase 98 U/L (38-126); Aspartate Aminotransferase 49 IU/L (17-59); Bilirubin Total 0.5 mg/dL (0.2-1.3); Blood Urea Nitrogen 24 mg/dL (9-20); Calcium 8.9 mg/dL (8.4-10.2); Carbon Dioxide 31 mmol/L (22-32); Chloride 102 mmol/L (98-107); Creatine Kinase 86 U/L (55-170); Estimated Glomerular Filt Rate 53 mL/min (>60); Ethanol (ETOH) < 10 mg/dL; Glucose 159 mg/dL (80-110); HEMOLYSIS 22 (0-50); Potassium 4.7 mmol/L (3.4-5.1); Sodium 140 mmol/L (137-145); Total Protein 6.6 g/dL (6.3-8.2)
[2022-05-10 16:03] LABS: Amorphous Sediment Urine 1+; Bacteria Urine Occasional (0-1); Culture Indicated Urine Specimen Cultured; RBC Urine None Seen (0-5/HPF); Squamous Epithelial Cell Urine 0-1 /HPF (0-5/HPF); WBC Urine 5-10/HPF (0-5/HPF)
[2022-05-10 16:07] LABS: Troponin I 0.012 ng/mL (0.01-0.034)
[2022-05-10 18:48] LABS: COVID19 - ADMIT (NP swab/PCR) POSITIVE (Negative)
--- NOTE | 2022-05-10 19:45 | PC.NURSE ---
JUNIOR ENGINEER note: attempting to get patient discharged and getting him a ride home. Called Delma, his next of kin, her mailbox is full. Called [facility] they stated they have no one to help transfer patient. Stated they only have three aides.
--- NOTE | 2022-05-10 20:57 | PC.NURSE ---
Yogurt,protein drink and pudding given to pt.
[2022-05-10] MEDS: LOSARTAN 50 MG TABLET PO (21:45)
== END 2022-05-10 23:15 | disposition home or self-care (01) ==
PROVIDERS: Emergency Provider Emergency Medicine; PCP Family Medicine
DX: H53.8 Other visual disturbances (principal); U07.1 COVID-19; Z79.01 Long term (current) use of anticoagulants; Z79.899 Other long term (current) drug therapy
CPT/HCPCS: 36415; 70450; 80053; 80305; 80320; 81001; 81003; 82550; 82962; 84484; 85025; 85610; 85730; 87086; 87635; 93005; 93010; 99284; C9803

== ENCOUNTER 2022-05-25 07:27 | Emergency (ER) | payer MEDICARE, OTHER, SELFPAY ==
[2022-04-25 03:00] VITALS: BMI 31.5
[2022-05-25] VITALS (21 sets, daily range): BP systolic 135–221; BP diastolic 63–102; PULSE 63–139; RESP 16–30; TEMP 36.4; O2SAT 91–98
--- NOTE | 2022-05-25 07:29 | DI.CT.S_ITS ---
PROCEDURE: CT STROKE INDICATIONS: stroke symptoms, hypoglycemia TECHNIQUE: Noncontrast 4.5 mm thick angled axial sections acquired from the foramen magnum to the vertex, with coronal reformats. For radiation dose reduction, the following was used: automated exposure control, adjustment of mA and/or kV according to patient size. COMPARISON: [facility], CT, CT HEAD/BRAIN WO CON, 05/10/2022, 14:47. [facility], MR, MR HEAD/BRAIN WO CON, 04/25/2022, 11:09. [facility], CT, CT STROKE, 04/24/2022, 21:11. FINDINGS: Image quality: Excellent. CSF spaces: Basal cisterns are patent. No extra-axial fluid collections. The ventricles are symmetric in size and shape. Brain: No intracranial bleeds or masses. There is cerebral volume loss for age, with resultant ventricular and sulcal prominence. There are periventricular and deep white matter chronic small vessel ischemic changes. There is intracranial internal carotid artery atherosclerosis. Skull and face: Calvarium and visualized facial bones appear intact, without suspicious lesions. There is a 0.6 x 0.8 cm oval-shaped cyst in the left frontal bone, unchanged, likely benign. Sinuses: Visualized sinuses and mastoids are clear. IMPRESSION: 1. No acute intracranial abnormalities. 2. Cerebral volume loss and chronic microvascular ischemic changes. The result was discussed with Dr. Bhakta prior to dictation. This study fulfills neurological imaging criteria for inclusion or exclusion of acute stroke therapies based on available published neurological guidelines. Dictated by: Soto Farrell M.D. on 05/25/2022 at 7:45 Approved by: Soto Farrell M.D. on 05/25/2022 at 7:49
--- NOTE | 2022-05-25 07:34 | DI.CT.S_ITS ---
PROCEDURE: CT ANGIO HEAD AND NECK INDICATIONS: stroke symptoms, hypoglycemia TECHNIQUE: After the administration of intravenous contrast, 1 mm thick sections acquired from the aortic arch through the [place]. Post-contrast 4.5 mm thick sections then re-acquired from the foramen magnum to the vertex. 3-dimensional darxnqt-lwhpyoaog-pbnkuujcyq (MIP) and/or volume rendering reformats were acquired of the central intracranial vasculature and neck separately. For radiation dose reduction, the following was used: automated exposure control, adjustment of mA and/or kV according to patient size. COMPARISON: US, CAROTID ARTERY DOPPLER BILAT, 10/05/2016, 11:27. [facility], CT, CT STROKE, 05/25/2022, 7:33. [facility], CT, CT ANGIO HEAD AND NECK, 04/24/2022, 21:11. FINDINGS: Image quality: There are motion artifacts. BRAIN: CSF spaces: Ventricles are normal in size and shape. Basal cisterns are patent. No extra-axial fluid collections. Brain: No midline shift. No intracranial bleeds or masses. Moderate cerebral volume loss. Moderate periventricular white matter chronic small vessel ischemic changes. Skull and face: Calvarium and facial bones appear intact, without suspicious lesions. Orbits appear normal. Sinuses: Sinuses and mastoids are clear. HEAD CT ANGIOGRAPHY: Anterior circulation: Intracranial internal carotid arteries are normal in size and flow. The flow within the paired anterior cerebral arteries is normal and symmetric. The flow within the middle cerebral arteries is normal and symmetric. The anterior communicating artery is seen. No aneurysms are seen. Posterior circulation: Visualized portions of the vertebral arteries demonstrate normal caliber, and join to form a normal appearing basilar artery. There is origin for the right posterior cerebral artery. Flow within the posterior cerebral arteries is normal and symmetric. No aneurysms are seen. NECK CT ANGIOGRAPHY: Carotid system: Moderate atherosclerotic calcifications of the aortic arch. There is common origin for the innominate artery and the left common carotid artery. There is moderate stenosis (approximately 50%) of the left common carotid artery. The origins of the common carotid arteries appear patent. The common carotid arteries demonstrate normal caliber and courses. Moderate atherosclerotic calcifications at the carotid bifurcations. There is approximately 50% stenosis of the proximal right and left proximal internal carotid arteries bilaterally at the bifurcation. The internal carotid arteries demonstrate normal calibers and courses. Posterior circulation: The origins of the vertebral arteries both appear widely patent. The more superior extracranial portions of both vertebral arteries also demonstrate normal courses and calibers. They join to form a normal appearing basilar artery. Soft tissues: Visualized neck soft tissues demonstrate no suspicious abnormalities. Bones: No suspicious bony lesions. Visualized cervical spine appears normally aligned. IMPRESSION: 1. No acute intracranial abnormalities. 2. No high-grade stenosis or occlusion in anterior or posterior circulations. 3. No high-grade stenosis or occlusion in cervical carotid arteries or vertebral arteries bilaterally. 4. There is approximately 50% stenosis of the internal carotid arteries bilaterally at the carotid bifurcations. 5. Approximately 50% stenosis of the proximal left common carotid artery. Any quantitative measurements of stenosis were performed using NASCET criteria. Dictated by: Soto Farrell M.D. on 05/25/2022 at 8:44 Approved by: Soto Farrell M.D. on 05/25/2022 at 8:57
[2022-05-25] MEDS: DEXTROSE 50 % IN WATER 25 GM/50 ML SYRINGE IV (07:40)
--- NOTE | 2022-05-25 07:42 | ED_ITS ---
HPI - Neuro Symptoms/Deficit General Chief Complaint: Neuro Symptoms/Deficit Stated Complaint: Code stroke Time Seen by Provider: 05/25/22 07:28 Source: patient, EMS and old records reviewed Mode of arrival: EMS Limitations: no limitations History of Present Illness HPI Narrative: This is 81-year-old male with history of prior stroke, insulin-dependent diabetes, hypertension, dyslipidemia who is on Xarelto daily. Patient presents today for concern for stroke but is found to be hypoglycemic 32 in the field. Patient states his right arm is shaking was his symptoms when he had a stroke in April. He is currently at the rehab facility where his and he shared room. Patient is alert and oriented x3, he states he feels shaky. He does not remember exactly what happened. Patient denies any prior surgeries. He is unsure exactly why he is on Xarelto. He states he is a former smoker, alcohol last use was last Prisca a year ago, denies illicit. Patient is denying any other symptoms currently besides being unable to stop shaking. Related Data Home Medications Medication Instructions Recorded Confirmed allopurinol 100 mg tablet 200 mg PO BID 04/25/22 04/25/22 atorvastatin 80 mg tablet 80 mg PO BEDTIME 04/25/22 04/25/22 calcium carbonate 600 mg-vitamin 1 tab PO DAILY 04/25/22 04/25/22 D3 10 mcg (400 unit) tablet (Calcium 600 + D(3)) gabapentin 300 mg capsule 300 mg PO BID 04/25/22 04/25/22 insulin glargine 100 unit/mL (3 40 unit SUBCUT BEDTIME 04/25/22 04/25/22 mL) subcutaneous pen (Lantus Solostar U-100 Insulin) magnesium 200 mg tablet 400 mg PO DAILY 04/25/22 04/25/22 pioglitazone 15 mg tablet (Actos) 15 mg PO DAILY 04/25/22 04/25/22 rivaroxaban 20 mg tablet (Xarelto) 20 mg PO DAILY 04/25/22 04/25/22 tamsulosin 0.4 mg capsule 0.4 mg PO DAILY 04/25/22 04/25/22 Previous Rx's Medication Instructions Recorded chlorthalidone 25 mg tablet 25 mg PO DAILY 30 days #30 tabs 04/28/22 losartan 50 mg tablet 50 mg PO BEDTIME 30 days #60 tabs 04/28/22 Allergies Allergy/AdvReac Type Severity Reaction Status Date / Time No Known Drug Allergies Allergy Verified 04/26/22 02:10 Review of Systems Review of Systems ROS Unobtainable: All systems reviewed & are unremarkable except as noted in HPI and below Patient History Medical History Anticoagulated CVA (cerebral vascular accident) Dyslipidemia Surgical History H/O foot surgery H/O heart artery stent Social History household members: spouse Smoking Status: Former smoker alcohol intake: former Smoking Status: Former smoker tobacco type: cigarettes alcohol intake frequency: other Substance Use Type: does not use Exam Narrative Exam Narrative: GEN: well nourished, well appearing male, alert and oriented x 3, patient appears to be in mild distress. HEENT: Atraumatic, pupils are equal round reactive to light, extraocular movements are intact, nares are clear, TMs are clear with no fluid, there is no conjunctival pallor. Throat is clear without any exudates, erythema, tonsillar enlargement or uvular deviation, no facial droop. HEART: Regular rate and rhythm without murmur, clicks, rubs. Pulses are equal in upper and lower extremities LUNGS:Lungs clear to auscultation, no wheezes, rales, crackles, chest moves symmetrically, no tachypnea accessory muscle ABD:bowel sounds normal, soft, non-tender, no guarding, rebound, rigidity, no masses noted, no hepatosplenomegaly :No CVA tenderness MSCL: Non-tender, no muscle atrophy. muscles strength 5/5 upper and lower extremities, full range of motion, normal gait NEURO:CN 2-12 intact, sensation normal, finger nose finger test normal, heel ding test normal, patient has generalized tremor. Initial Vital Signs Initial Vital Signs: Vital Signs Pulse Rate 139 H 05/25/22 07:32 Scores GCS M[place] coma scale eye opening: Spontaneous [place] coma scale verbal response: Orientated [place] coma scale motor response: Obey commands Mavis coma scale total score: 15 Course Orders Ordered: Discontinued Medications Dextrose (Dextrose 50 % In Water 25 Gm/50 Ml Syringe) 25 gm IV NOW ONE Stop: 05/25/22 07:41 Last Admin: 05/25/22 07:40 Dose: 25 gm Documented By: AT Sodium Chloride (Normal Saline 0.9%) 1,000 mls @ 1,000 mls/hr IV BOLUS ONE Stop: 05/25/22 10:35 Last Infusion: 05/25/22 11:54 Dose: 0 mls/hr Documented By: Admin: 05/25/22 09:44 Dose: 1,000 mls/hr Documented By: AT Vital Signs Vital signs: Vital Signs - 8 hr 05/25/22 11:00 05/25/22 11:00 05/25/22 11:15 Pulse Rate 69 Respiratory Rate 21 Blood Pressure 165/75 H 190/75 H Pulse Oximetry 94 Oxygen Delivery Method Room Air 05/25/22 11:15 05/25/22 11:30 05/25/22 11:30 Pulse Rate 70 63 Respiratory Rate 18 17 Blood Pressure 221/85 H Pulse Oximetry 93 93 Oxygen Delivery Method 05/25/22 11:45 05/25/22 11:45 05/25/22 12:00 Pulse Rate 64 Respiratory Rate 18 Blood Pressure 198/84 H 181/83 H Pulse Oximetry 98 Oxygen Delivery Method 05/25/22 12:00 Pulse Rate 68 Respiratory Rate 20 Blood Pressure Pulse Oximetry 97 Oxygen Delivery Method MDM - Neuro Symptoms/Deficit Lab Data Result diagrams: 05/25/22 07:20 05/25/22 09:42 Labs: Lab Results 05/25/22 05/25/22 05/25/22 Range/Units 07:20 07:20 07:20 WBC 6.2 (4.5-11.0) X10^3/uL RBC 3.73 L (4.5-5.9) X10^6/uL Hgb 11.7 L (13.5-17.5) g/dL Hct 36.3 L (41-53) % MCV 97.2 (80-100) fL MCH 31.3 (26-34) PG MCHC 32.2 (30-36) % RDW 15.4 H (11.6-14.8) % Plt Count 170 (150-400) X10^3/uL Neut % (Auto) 54.6 (50-75) % Lymph % (Auto) 27.6 (25-40) % [place] % (Auto) 15.0 H (3-14) % Eos % (Auto) 2.0 (2-4) % Baso % (Auto) 0.8 (0-2) % Neut # (Auto) 3400 (4969-1558) /uL Lymph # (Auto) 1700 (7229-2789) /uL [place] # (Auto) 900 (0-900) /uL Eos # (Auto) 100 (0-450) /uL Baso # (Auto) 0 (0-100) /uL PT 13.9 H (10.1-12.7) SECONDS INR 1.2 (0.9-1.3) APTT 33 (26-36) SECONDS Sodium 139 (137-145) mmol/L Potassium 4.8 (3.4-5.1) mmol/L Chloride 107 (98-107) mmol/L Carbon Dioxide 26 (22-32) mmol/L BUN 30 H (9-20) mg/dL Creatinine 1.35 H (0.66-1.25) mg/dL Estimated GFR 52 L (>60) mL/min BUN/Creatinine Ratio 22.2 H (6-22) Glucose 38 L* (80-110) mg/dL Calcium 8.9 (8.4-10.2) mg/dL Total Bilirubin 0.8 (0.2-1.3) mg/dL AST 35 (17-59) IU/L ALT 23 (<50) IU/L Alkaline Phosphatase 88 (38-126) U/L Total Creatine Kinase 148 (55-170) U/L CK-MB (CK-2) 2.10 (<2.37) ng/mL CK-MB (CK-2) Rel Index 1.4 L (1.5-5.0) % Troponin I < 0.012 (0.01-0.034) ng/mL Total Protein 6.7 (6.3-8.2) g/dL Albumin 3.7 (3.5-5.0) g/dL Globulin 3.0 (1.7-4.1) g/dL Albumin/Globulin Ratio 1.2 (1.0-2.8) Urine Color Urine Appearance Urine pH (4.5-8.0) Ur Specific [place] (1.000-1.035) Urine Protein (Negative) Urine Glucose (UA) (Negative) g/dL Urine Ketones (NEGATIVE) Urine Occult Blood (Negative) Urine Nitrate (Negative) Urine Bilirubin (NEGATIVE) Urine Urobilinogen (0.2) E.U./dL Ur Leukocyte Esterase (NEGATIVE) Urine RBC (0-5/HPF) Urine WBC (0-5/HPF) Urine Bacteria (None) Ur Culture Indicated? U Opiates 300ng/mL cut (Negative) Ur Oxycodone Screen (Negative) Urine Methadone Screen (Negative) Ur Barbiturates Screen (Negative) U Tricyclic Antidepress (Negative) Ur Phencyclidine Scrn (Negative) Ur Amphetamines Screen (Negative) U Methamphetamines Scrn (Negative) Ur MDMA Scrn (Ecstasy) (Negative) U Benzodiazepines Scrn (Negative) Urine Cocaine Screen (Negative) U Marijuana (THC) Screen (Negative) Ethyl Alcohol < 10 ( - 10) mg/dL SARS-CoV-2 (PCR) (Negative) 05/25/22 05/25/22 05/25/22 Range/Units 07:49 08:00 08:00 WBC (4.5-11.0) X10^3/uL RBC (4.5-5.9) X10^6/uL Hgb (13.5-17.5) g/dL Hct (41-53) % MCV (80-100) fL MCH (26-34) PG MCHC (30-36) % RDW (11.6-14.8) % Plt Count (150-400) X10^3/uL Neut % (Auto) (50-75) % Lymph % (Auto) (25-40) % [place] % (Auto) (3-14) % Eos % (Auto) (2-4) % Baso % (Auto) (0-2) % Neut # (Auto) (5739-9068) /uL Lymph # (Auto) (0450-9051) /uL [place] # (Auto) (0-900) /uL Eos # (Auto) (0-450) /uL Baso # (Auto) (0-100) /uL PT (10.1-12.7) SECONDS INR (0.9-1.3) APTT (26-36) SECONDS Sodium (137-145) mmol/L Potassium (3.4-5.1) mmol/L Chloride (98-107) mmol/L Carbon Dioxide (22-32) mmol/L BUN (9-20) mg/dL Creatinine (0.66-1.25) mg/dL Estimated GFR (>60) mL/min BUN/Creatinine Ratio (6-22) Glucose (80-110) mg/dL Calcium (8.4-10.2) mg/dL Total Bilirubin (0.2-1.3) mg/dL AST (17-59) IU/L ALT (<50) IU/L Alkaline Phosphatase (38-126) U/L Total Creatine Kinase (55-170) U/L CK-MB (CK-2) (<2.37) ng/mL CK-MB (CK-2) Rel Index (1.5-5.0) % Troponin I (0.01-0.034) ng/mL Total Protein (6.3-8.2) g/dL Albumin (3.5-5.0) g/dL Globulin (1.7-4.1) g/dL Albumin/Globulin Ratio (1.0-2.8) Urine Color Yellow Urine Appearance Clear Urine pH 7.0 (4.5-8.0) Ur Specific [place] 1.010 (1.000-1.035) Urine Protein 2+ H (Negative) Urine Glucose (UA) Trace H (Negative) g/dL Urine Ketones Negative (NEGATIVE) Urine Occult Blood Negative (Negative) Urine Nitrate Negative (Negative) Urine Bilirubin Negative (NEGATIVE) Urine Urobilinogen 0.2 (0.2) E.U./dL Ur Leukocyte Esterase Negative (NEGATIVE) Urine RBC 0-1/hpf (0-5/HPF) Urine WBC 1-5/hpf (0-5/HPF) Urine Bacteria Occasional (0-1) (None) Ur Culture Indicated? Cult not indicated U Opiates 300ng/mL cut Negative (Negative) Ur Oxycodone Screen Negative (Negative) Urine Methadone Screen Negative (Negative) Ur Barbiturates Screen Negative (Negative) U Tricyclic Antidepress Negative (Negative) Ur Phencyclidine Scrn Negative (Negative) Ur Amphetamines Screen Negative (Negative) U Methamphetamines Scrn Negative (Negative) Ur MDMA Scrn (Ecstasy) Negative (Negative) U Benzodiazepines Scrn Negative (Negative) Urine Cocaine Screen Negative (Negative) U Marijuana (THC) Screen Negative (Negative) Ethyl Alcohol ( - 10) mg/dL SARS-CoV-2 (PCR) Negative (Negative) 05/25/22 Range/Units 09:42 WBC (4.5-11.0) X10^3/uL RBC (4.5-5.9) X10^6/uL Hgb (13.5-17.5) g/dL Hct (41-53) % MCV (80-100) fL MCH (26-34) PG MCHC (30-36) % RDW (11.6-14.8) % Plt Count (150-400) X10^3/uL Neut % (Auto) (50-75) % Lymph % (Auto) (25-40) % [place] % (Auto) (3-14) % Eos % (Auto) (2-4) % Baso % (Auto) (0-2) % Neut # (Auto) (9173-3596) /uL Lymph # (Auto) (7786-8126) /uL [place] # (Auto) (0-900) /uL Eos # (Auto) (0-450) /uL Baso # (Auto) (0-100) /uL PT (10.1-12.7) SECONDS INR (0.9-1.3) APTT (26-36) SECONDS Sodium 138 (137-145) mmol/L Potassium 4.6 (3.4-5.1) mmol/L Chloride 105 (98-107) mmol/L Carbon Dioxide 24 (22-32) mmol/L BUN 27 H (9-20) mg/dL Creatinine 1.29 H (0.66-1.25) mg/dL Estimated GFR 55 L (>60) mL/min BUN/Creatinine Ratio 20.9 (6-22) Glucose 207 H D (80-110) mg/dL Calcium 8.3 L (8.4-10.2) mg/dL Total Bilirubin (0.2-1.3) mg/dL AST (17-59) IU/L ALT (<50) IU/L Alkaline Phosphatase (38-126) U/L Total Creatine Kinase (55-170) U/L CK-MB (CK-2) (<2.37) ng/mL CK-MB (CK-2) Rel Index (1.5-5.0) % Troponin I (0.01-0.034) ng/mL Total Protein (6.3-8.2) g/dL Albumin (3.5-5.0) g/dL Globulin (1.7-4.1) g/dL Albumin/Globulin Ratio (1.0-2.8) Urine Color Urine Appearance Urine pH (4.5-8.0) Ur Specific [place] (1.000-1.035) Urine Protein (Negative) Urine Glucose (UA) (Negative) g/dL Urine Ketones (NEGATIVE) Urine Occult Blood (Negative) Urine Nitrate (Negative) Urine Bilirubin (NEGATIVE) Urine Urobilinogen (0.2) E.U./dL Ur Leukocyte Esterase (NEGATIVE) Urine RBC (0-5/HPF) Urine WBC (0-5/HPF) Urine Bacteria (None) Ur Culture Indicated? U Opiates 300ng/mL cut (Negative) Ur Oxycodone Screen (Negative) Urine Methadone Screen (Negative) Ur Barbiturates Screen (Negative) U Tricyclic Antidepress (Negative) Ur Phencyclidine Scrn (Negative) Ur Amphetamines Screen (Negative) U Methamphetamines Scrn (Negative) Ur MDMA Scrn (Ecstasy) (Negative) U Benzodiazepines Scrn (Negative) Urine Cocaine Screen (Negative) U Marijuana (THC) Screen (Negative) Ethyl Alcohol ( - 10) mg/dL SARS-CoV-2 (PCR) (Negative) Point of Care Testing Glucose POC [address] scan - head: Radiologist's Impression: Michael Elise??81??M??1940 ? Allergy/Adv: No Known Drug Allergies Close Head/Neck CTA (Signed) Soto Farrell - 05/25/[address] (Signed) Soto Farrell - 05/25/[address] (Signed) Soto Farrell - 05/10/22 Echocardiogram Ultrasound (Signed) Booker Nichols - 04/26/22 Telemetry Strips 04/25/22 Brain MRI (Signed) Melchor Carlson - 04/25/22 Chest X-Ray (Signed) Bob Pang - 04/24/[address] (Signed) Bob Pang - 04/24/22 Head/Neck CTA (Signed) Bob Pang - 04/24/[address] [address] [address] Scan Report Signed Patient: Michael Elise MR#: [id number] : 1940 Acct:[id number] Age/Sex: 81 / M Date of Service: 05/25/22 Loc: ED Accession Number: [id number] ?? Procedure: CT Stroke Ordering Provider: Roxanne Bhakta D.O. PROCEDURE:? CT STROKE ? INDICATIONS:? stroke symptoms, hypoglycemia ? TECHNIQUE:? Noncontrast 4.5 mm thick angled axial sections acquired from the foramen magnum to the vertex, with coronal reformats.? For radiation dose reduction, the following was used:? automated exposure control, adjustment of mA and/or kV according to patient size.? ? COMPARISON:? [facility], CT, CT HEAD/BRAIN WO CON, 05/10/2022, 14:47.? [facility], MR, MR HEAD/BRAIN WO CON, 04/25/2022, 11:09.? [facility], CT, CT STROKE, 04/24/2022, 21:11. ? FINDINGS:? Image quality:? Excellent.? ? CSF spaces:? Basal cisterns are patent.? No extra-axial fluid collections.? The ventricles are symmetric in size and shape.? ? Brain:? No intracranial bleeds or masses.? There is cerebral volume loss for age, with resultant ventricular and sulcal prominence.? There are periventricular and deep white matter chronic small vessel ischemic changes.? There is intracranial internal carotid artery atherosclerosis.? ? Skull and face:? Calvarium and visualized facial bones appear intact, without suspicious lesions.? There is a 0.6 x 0.8 cm oval-shaped cyst in the left frontal bone, unchanged, likely benign. ? Sinuses:? Visualized sinuses and mastoids are clear.? ? IMPRESSION:? ? 1. No acute intracranial abnormalities. ? 2. Cerebral volume loss and chronic microvascular ischemic changes. ? The result was discussed with Dr. Bhakta prior to dictation. ? This study fulfills neurological imaging criteria for inclusion or exclusion of acute stroke therapies based on available published neurological guidelines.? ? ? Dictated by: Soto Farrell M.D. on 05/25/2022 at 7:45 ? ? Approved by: Soto Farrell M.D. on 05/25/2022 at 7:49?? CTA - brain/neck: Radiologist's Impression: Michael Elise??81??M??1940 ? Allergy/Adv: No Known Drug Allergies Close Head/Neck CTA (Signed) Soto Farrell - 05/25/[address] (Signed) Soto Farrell - 05/25/[address] (Signed) Soto Farrell - 05/10/22 Echocardiogram Ultrasound (Signed) Booker Nichols - 04/26/22 Telemetry Strips 04/25/22 Brain MRI (Signed) CarlsonMelchor - 04/25/22 Chest X-Ray (Signed) PangBob - 04/24/[address] (Signed) PangBob - 04/24/22 Head/Neck CTA (Signed) PangBob - 04/24/22 Launch[id number] CT Scan Report Signed Patient: Michael Elise MR#: [id number] : 1940 Acct:[id number] Age/Sex: 81 / M Date of Service: 05/25/22 Loc: ED Accession Number: [id number] ?? Procedure: CT Stroke Ordering Provider: Roxanne Bhakta D.O. PROCEDURE:? CT STROKE ? INDICATIONS:? stroke symptoms, hypoglycemia ? TECHNIQUE:? Noncontrast 4.5 mm thick angled axial sections acquired from the foramen magnum to the vertex, with coronal reformats.? For radiation dose reduction, the following was used:? automated exposure control, adjustment of mA and/or kV according to patient size.? ? COMPARISON:? [facility], CT, CT HEAD/BRAIN WO CON, 05/10/2022, 14:47.? [facility], MR, MR HEAD/BRAIN WO CON, 04/25/2022, 11:09.? [facility], CT, CT STROKE, 04/24/2022, 21:11. ? FINDINGS:? Image quality:? Excellent.? ? CSF spaces:? Basal cisterns are patent.? No extra-axial fluid collections.? The ventricles are symmetric in size and shape.? ? Brain:? No intracranial bleeds or masses.? There is cerebral volume loss for age, with resultant ventricular and sulcal prominence.? There are periventricular and deep white matter chronic small vessel ischemic changes.? There is intracranial internal carotid artery atherosclerosis.? ? Skull and face:? Calvarium and visualized facial bones appear intact, without suspicious lesions.? There is a 0.6 x 0.8 cm oval-shaped cyst in the left frontal bone, unchanged, likely benign. ? Sinuses:? Visualized sinuses and mastoids are clear.? ? IMPRESSION:? ? 1. No acute intracranial abnormalities. ? 2. Cerebral volume loss and chronic microvascular ischemic changes. ? The result was discussed with Dr. Bhakta prior to dictation. ? This study fulfills neurological imaging criteria for inclusion or exclusion of acute stroke therapies based on available published neurological guidelines.? ? ? Dictated by: Soto Farrell M.D. on 05/25/2022 at 7:45 ? ? Approved by: Soto Farrell M.D. on 05/25/2022 at 7:49?? ECG Data Attestation: I personally reviewed and interpreted this ECG as follows: Prior ECG tracings: available for review Interpretation: Sinus rhythm with first-degree AV block rate 80 P are 318 QRS 106 QTC 429. Patient does have what appears to be some motion artifact which may be making [place] interval off you may be having occasional PACs. Patient has prior from 05/10/2022 which appears similar in terms of ST segments. MDM Narrative Medical decision making narrative: This is a 81-year-old male brought in from the field for concern for stroke but found to be hypoglycemic. Patient does not believe he is had any changes to his medications states he does get Lantus 50 units nightly. He is on oral diabetic medication including pioglitazone daily. Patient dextrose 10 in the field in drip form, but did not receive a bolus. Repeat glucose here was still in the 30s, he was given 1 amp of D5 and came up to 150. Patient was fed. Patient's head CT and CT angio, negative except for approximately 50% stenosis ICAs bilaterally approximately 50% stenosis of proximal left common carotid artery. Patient's labs show creatinine of 1.35 similar to 05/10/2022. BUN 30, glucose was 38 from the medic draw no other electrolyte abnormalities troponin is negative, patient received a 50 came up to the 150 range was fed breakfast and on recheck is in the 500+ or high range, will repeat with a BMP and give patient a L of fluids. I do wonder if patient maybe received a short-acting insulin instead of his long-acting Lantus overnight he does not use any short- acting insulin normally but this would possibly cause him to have a low glucose in the morning if he had not eaten and then elevate quickly with any ingested food. He is on Actos or pioglitazone daily. No reports of extra medication being taken. Patient notes that he was given 50 units last night he states that he is traditionally done 40 units. Patient continued to be appropriate in terms of his glycemic control, eating and drinking in the department with no other acute abnormalities tremor has resolved and discharged home for hypoglycemia. Stroke Core Measures Exclusion Criteria TPA in CVA: Symptom Onset >3 or 4.5 Hours (no cva) Discharge Plan Departure Patient Disposition: Home Clinical Impression: Hypoglycemia Activity Restrictions/Additional Instructions: Please decreased your Lantus back to 40 units in the evening. You do not appear to have a stroke your glucose was significantly low in the 30's. Please make sure to check your glucose levels regularly, you may need to have your Actos stopped or your Lantus decreased if having persistent or regular low blood sugars. Please return for recurrent low blood sugar, altered mental status, shaking, chest pain, shortness of breath, persistent vomiting, new weakness numbness or loss of sensation or other new or concerning changes. Prescriptions: No Action allopurinol 100 mg tablet 200 mg PO BID Rx Instructions: takes noon and evening atorvastatin 80 mg tablet 80 mg PO BEDTIME tamsulosin 0.4 mg capsule 0.4 mg PO DAILY gabapentin 300 mg capsule 300 mg PO BID insulin glargine [Lantus Solostar U-100 Insulin] 100 unit/mL (3 mL) insulin pen 40 unit SUBCUT BEDTIME Xarelto 20 mg tablet 20 mg PO DAILY pioglitazone [Actos] 15 mg Tablet 15 mg PO DAILY magnesium 200 mg Tablet 400 mg PO DAILY calcium carbonate-vitamin D3 [Calcium 600 + D(3)] 600 mg-10 mcg (400 unit) Tablet 1 tab PO DAILY chlorthalidone 25 mg Tablet 25 mg PO DAILY 30 Days Qty: 30 0RF losartan 50 mg tablet 50 mg PO BEDTIME 30 Days Qty: 60 0RF Referrals: Cristino Gray MD [Primary Care Provider] - Visit Report Forms: Patient Portal/API
[2022-05-25 07:44] LABS: INR 1.2 (0.9-1.3); Prothrombin Time 13.9 SECONDS (10.1-12.7)
[2022-05-25 07:46] LABS: PTT Partial Thromboplastin Tim 33 SECONDS (26-36)
[2022-05-25 07:48] LABS: Alanine Aminotransferase 23 IU/L (<50); Albumin 3.7 g/dL (3.5-5.0); Albumin Globulin Ratio 1.2 (1.0-2.8); Alkaline Phosphatase 88 U/L (38-126); Aspartate Aminotransferase 35 IU/L (17-59); BUN Creatinine Ratio 22.2 (6-22); Bilirubin Total 0.8 mg/dL (0.2-1.3); Blood Urea Nitrogen 30 mg/dL (9-20); Calcium 8.9 mg/dL (8.4-10.2); Carbon Dioxide 26 mmol/L (22-32); Chloride 107 mmol/L (98-107); Creatine Kinase 148 U/L (55-170); Estimated Glomerular Filt Rate 52 mL/min (>60); Ethanol (ETOH) < 10 mg/dL; Potassium 4.8 mmol/L (3.4-5.1); Sodium 139 mmol/L (137-145); Total Protein 6.7 g/dL (6.3-8.2)
[2022-05-25 07:51] LABS: Add Manual Diff / Slide Review NO; Basophils Absolute Auto 0 /uL (0-100); Basophils Percent Auto 0.8 % (0-2); Eosinophils Absolute Auto 100 /uL (0-450); Hematocrit 36.3 % (41-53); Hemoglobin 11.7 g/dL (13.5-17.5); Lymphocytes Absolute Auto 1700 /uL (1100-4500); Lymphocytes Percent Auto 27.6 % (25-40); Mean Corpuscular HGB Conc 32.2 % (30-36); Mean Corpuscular Hemoglobin 31.3 PG (26-34); Mean Corpuscular Volume 97.2 fL (80-100); Monocytes Absolute Auto 900 /uL (0-900); Neutrophils Absolute Auto 3400 /uL (1500-7000); Neutrophils Percent Auto 54.6 % (50-75); Platelet Count 170 X10^3/uL (150-400); Red Blood Cell Count 3.73 X10^6/uL (4.5-5.9); Red Cell Distribution Width 15.4 % (11.6-14.8); White Blood Cell Count 6.2 X10^3/uL (4.5-11.0)
[2022-05-25 07:59] LABS: Troponin I < 0.012 ng/mL (0.01-0.034)
[2022-05-25 08:00] LABS: Glucose 38 mg/dL (80-110)
[2022-05-25 08:03] LABS: CKMB % Relative Index 1.4 % (1.5-5.0); HEMOLYSIS 39 (0-50)
[2022-05-25 08:06] LABS: COVID19 -Nasal RAPID Negative (Negative)
--- NOTE | 2022-05-25 08:16 | PC.NURSE ---
Patient provided 118ml of apple juice, provided breakfast meal tray. Pt tolerating well.
[2022-05-25 08:28] LABS: Appearance Urine UA CLEAR; Bilirubin Urine UA NEGATIVE (NEGATIVE); Color Urine UA YELLOW; Glucose Urine UA TRACE g/dL (Negative); Ketones Urine UA NEGATIVE (NEGATIVE); Leukocyte Esterase Urine UA NEGATIVE (NEGATIVE); Nitrite Urine UA NEGATIVE (Negative); Occult Blood Urine UA NEGATIVE (Negative); Protein Urine UA 2+ (Negative); Urobilinogen Urine UA 0.2 E.U./dL (0.2)
[2022-05-25 08:41] LABS: Ur Creatinine Normal (Normal); Ur Specific Gravity Normal (Normal); Urine pH Normal (Normal)
[2022-05-25 08:42] LABS: UR Morphine/Opiate cutoff 300 Negative (Negative); Urine Amphetamines Negative (Negative); Urine Cocaine Negative (Negative); Urine MDMA Negative (Negative); Urine Methamphetamines Negative (Negative); Urine Phencyclidine Negative (Negative); Urine Tetrahydrocannabinol Negative (Negative)
[2022-05-25 08:43] LABS: Urine Barbiturates Negative (Negative); Urine Benzodiazepines Negative (Negative); Urine Methadone Negative (Negative); Urine Oxycodone Negative (Negative); Urine Tricyclic Antidepressant Negative (Negative)
[2022-05-25 08:45] LABS: Bacteria Urine Occasional (0-1); Culture Indicated Urine Cult Not Indicated; RBC Urine 0-1/HPF (0-5/HPF); WBC Urine 1-5/HPF (0-5/HPF)
[2022-05-25] MEDS: SODIUM CHLORIDE 0.9% 1,000 ML 1000 ML IV (09:44)
[2022-05-25 10:01] LABS: BUN Creatinine Ratio 20.9 (6-22); Blood Urea Nitrogen 27 mg/dL (9-20); Calcium 8.3 mg/dL (8.4-10.2); Carbon Dioxide 24 mmol/L (22-32); Chloride 105 mmol/L (98-107); Estimated Glomerular Filt Rate 55 mL/min (>60); Glucose 207 mg/dL (80-110); HEMOLYSIS < 15 (0-50); Potassium 4.6 mmol/L (3.4-5.1); Sodium 138 mmol/L (137-145)
== END 2022-05-25 12:09 | disposition home or self-care (01) ==
PROVIDERS: Emergency Provider Emergency Medicine; PCP Family Medicine
DX: E11.649 Type 2 diabetes mellitus with hypoglycemia without coma (principal); R25.1 Tremor, unspecified; Z79.01 Long term (current) use of anticoagulants; Z20.822 Contact with and (suspected) exposure to COVID-19; Z79.899 Other long term (current) drug therapy
CPT/HCPCS: 70450; 70496; 70498; 80048; 80053; 80305; 80320; 81001; 82550; 82553; 82962; 84484; 85025; 85610; 85730; 87635; 93005; 96361; 96374; 99284; C9803; Q9967

== ENCOUNTER → 2022-11-23 15:52 | Outpatient (CLI) | payer MEDICARE, OTHER, SELFPAY ==
[2022-04-25 03:00] VITALS: BMI 31.5
--- NOTE | 2022-11-23 | DI.MRI.S_ITS ---
PROCEDURE: MR HEAD/BRAIN WO CON INDICATIONS: Abnormal immunological findings in cerebrospinal f TECHNIQUE: Non-contrast axial T1 spin echo, axial T2 fast spin echo, sagittal and axial FLAIR, coronal T2 fast spin echo, axial gradient echo, axial diffusion and ADC through the brain. COMPARISON: [facility], MR, MR HEAD/BRAIN WO CON, 04/25/2022, 11:09. FINDINGS: Image quality: Excellent. CSF spaces: Ventricles appear symmetric in size and shape. Basal cisterns are patent. No extra-axial fluid collections. Brain: No intracranial bleeds or mass effects. There is cerebral volume loss for age. There are periventricular and deep white matter chronic small vessel ischemic changes. Brainstem appears normal. Diffusion-weighted images show no acute ischemic insults. There are small bilateral bl[place] radiata chronic ischemic insults. Normal intravascular flow voids are present. Skull and face: Calvarial bone marrow is normal in signal. Orbits are normal. Sinuses: Sinuses and mastoids are clear. IMPRESSION: 1. Volume loss and small vessel ischemic disease. 2. No acute process. No recent infarct. 3. Small chronic bilateral blanton radiata infarcts. Dictated by: Tyler Peña M.D. on 11/23/2022 at 16:41 Approved by: Tyler Peña M.D. on 11/23/2022 at 16:43
== END ==
PROVIDERS: PCP Family Medicine; Referring Provider Neurological Surgery; Visit Provider Neurological Surgery
DX: R83.4 Abnormal immunological findings in cerebrospinal fluid (principal); I63.019 Cerebral infarction due to thrombosis of unspecified vertebral artery; R53.1 Weakness
CPT/HCPCS: 70551

== ENCOUNTER 2023-05-15 16:09 | Emergency (ER) | payer MEDICARE, OTHER, SELFPAY ==
[2022-04-25 03:00] VITALS: BMI 31.5
[2023-05-15 16:10] VITALS: BP 178/74; PULSE 99; RESP 16; TEMP 36.5; O2SAT 96; BMI 32.8
[2023-05-15 16:49] LABS: Add Manual Diff / Slide Review NO; Basophils Absolute Auto 0 /uL (0-100); Basophils Percent Auto 0.4 % (0-2); Eosinophils Absolute Auto 0 /uL (0-450); Eosinophils Percent Auto 0.5 % (2-4); Hematocrit 35.7 % (41-53); Hemoglobin 11.7 g/dL (13.5-17.5); Lymphocytes Absolute Auto 700 /uL (1100-4500); Lymphocytes Percent Auto 10.5 % (25-40); Mean Corpuscular HGB Conc 32.7 % (30-36); Mean Corpuscular Hemoglobin 32.3 PG (26-34); Monocytes Absolute Auto 500 /uL (0-900); Neutrophils Absolute Auto 5200 /uL (1500-7000); Neutrophils Percent Auto 80.6 % (50-75); Platelet Count 209 X10^3/uL (150-400); Red Blood Cell Count 3.61 X10^6/uL (4.5-5.9); Red Cell Distribution Width 15.6 % (11.6-14.8); White Blood Cell Count 6.4 X10^3/uL (4.5-11.0)
--- NOTE | 2023-05-15 16:56 | DI.US.S_ITS ---
PROCEDURE: US PERIPH VENOUS LOW EXTREM RT INDICATIONS: EDEMA RIGHT LOWER EXTREMITY TECHNIQUE: Real-time imaging, as well as color and pulse Doppler interrogation, were performed of the lower extremity deep veins from the inguinal ligament to the popliteal fossa, with documentation of the visualized calf veins. COMPARISON: None. FINDINGS: The common femoral, femoral, popliteal, and the visualized calf veins are normally compressible, and free of intraluminal thrombus. Color and pulse Doppler demonstrate normal phasic intraluminal flow. There is normal augmentation response to distal compression maneuver. Note is made of right lower extremity edema. IMPRESSION: No findings of lower extremity deep venous thrombosis. Dictated by: Soto Farrell M.D. on 05/15/2023 at 17:41 Approved by: Soto Farrell M.D. on 05/15/2023 at 17:41
[2023-05-15 16:59] LABS: Lactate (Lactic Acid) 1.5 mmol/L (0.7-2.1)
[2023-05-15 17:00] LABS: Alanine Aminotransferase 22 IU/L (<50); Albumin 3.7 g/dL (3.5-5.0); Albumin Globulin Ratio 1.2 (1.0-2.8); Alkaline Phosphatase 109 U/L (38-126); Aspartate Aminotransferase 32 IU/L (17-59); BUN Creatinine Ratio 18.2 (6-22); Bilirubin Total 0.8 mg/dL (0.2-1.3); Blood Urea Nitrogen 26 mg/dL (9-20); Calcium 9.9 mg/dL (8.4-10.2); Carbon Dioxide 27 mmol/L (22-32); Chloride 104 mmol/L (98-107); Estimated Glomerular Filt Rate 49 mL/min (>60); Globulin 3.1 g/dL (1.7-4.1); Glucose 166 mg/dL (80-110); HEMOLYSIS < 15 (0-50); Potassium 4.7 mmol/L (3.4-5.1); Sodium 138 mmol/L (137-145); Total Protein 6.8 g/dL (6.3-8.2)
[2023-05-15] MEDS: CLINDAMYCIN 900 MG/50 ML PIGGYBACK 50 MG IV (17:06)
[2023-05-15 17:16] LABS: Procalcitonin 0.08 ng/mL (<0.5)
--- NOTE | 2023-05-15 17:43 | ED_ITS ---
HPI - Extremity Injury (Lower) General Chief Complaint: Extremity Injury, Lower Stated Complaint: swollen rt leg Time Seen by Provider: 05/15/23 16:25 Source: patient Mode of arrival: Ambulatory History of Present Illness HPI Narrative: 82-year-old male history of stroke, insulin-dependent diabetes hypertension, dyslipidemia on Xarelto daily. Patient presents with complaint of wound on his right foot that occurred on 04/20. 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 He has had increasing redness swelling up his leg over the last several days. Patient states he has been on an oral antibiotic for several days. He states he is had increasing pain of the leg and his right leg is more swollen than his left. Patient states no fevers. He has had some chills. No chest pain or shortness of breath. No nausea or vomiting, no other GI or urinary symptoms. He denies any recent surgeries. No known drug allergies. Former tobacco user, rare alcohol, no recreational drugs or IV drugs. Related Data Home Medications Medication Instructions Recorded Confirmed allopurinol 100 mg tablet 200 mg PO BID 04/25/22 04/25/22 atorvastatin 80 mg tablet 80 mg PO BEDTIME 04/25/22 04/25/22 calcium carbonate 600 mg-vitamin 1 tab PO DAILY 04/25/22 04/25/22 D3 10 mcg (400 unit) tablet (Calcium 600 + D(3)) gabapentin 300 mg capsule 300 mg PO BID 04/25/22 04/25/22 insulin glargine 100 unit/mL (3 40 unit SUBCUT BEDTIME 04/25/22 04/25/22 mL) subcutaneous pen (Lantus Solostar U-100 Insulin) magnesium 200 mg tablet 400 mg PO DAILY 04/25/22 04/25/22 pioglitazone 15 mg tablet (Actos) 15 mg PO DAILY 04/25/22 04/25/22 rivaroxaban 20 mg tablet (Xarelto) 20 mg PO DAILY 04/25/22 04/25/22 tamsulosin 0.4 mg capsule 0.4 mg PO DAILY 04/25/22 04/25/22 Previous Rx's Medication Instructions Recorded clindamycin HCl 300 mg capsule 300 mg PO QID #40 caps 05/15/23 Allergies Allergy/AdvReac Type Severity Reaction Status Date / Time No Known Drug Allergies Allergy Verified 04/26/22 02:10 Review of Systems Review of Systems ROS Unobtainable: All systems reviewed & are unremarkable except as noted in HPI and below Patient History Medical History CVA (cerebral vascular accident) Dyslipidemia Anticoagulated Surgical History H/O foot surgery H/O heart artery stent Social History household members: spouse Smoking Status: Former smoker alcohol intake: former Smoking Status: Former smoker tobacco type: cigarettes alcohol intake frequency: other Substance Use Type: does not use Exam Narrative Exam Narrative: GENERAL: Alert and oriented x three, male in mild distress. HEENT: Head normocephalic, atraumatic, EOMI, pupils reactive, face symmetric, moist mucous membranes NECK: Supple, full range of motion CARDIOVASCULAR: Regular rate and rhythm without murmurs, rubs or gallops. RESPIRATORY: Breath sounds equal bilaterally, no wheezes rales or rhonchi. ABDOMEN: Soft, nontender. Normoactive bowel sounds all 4 quadrants. No guarding or rebound, rigidity, no mass : No CVA tenderness EXTREMITIES: Normal range of motion, patient has right lower extremity swelling with erythema, he has what appears to be healing wound on the lateral portion of his right foot it is not open or actively draining. There is erythema of the foot over the dorsum tracking up the leg about midway up the calf. There is warmth. Tenderness to touch. Negative calf squeeze. Neurovascularly intact NEUROLOGICAL: Cranial nerves II through XII grossly intact. Moving all extremities. SKIN: Warm, dry, no petechiae, see above. Initial Vital Signs Initial Vital Signs: Vital Signs Temperature 97.7 F 05/15/23 16:10 Pulse Rate 99 H 05/15/23 16:10 Respiratory Rate 16 05/15/23 16:10 Blood Pressure 178/74 H 05/15/23 16:10 Pulse Oximetry 96 05/15/23 16:10 Oxygen Delivery Method Room Air 05/15/23 16:10 Course Orders Ordered: ED Orders 05/15/23 16:36 Blood Culture Stat Complete Blood Count AUTO DIFF Stat Comprehensive Metabolic Panel Stat Lactate (Lactic Acid) Stat Procalcitonin Stat 05/15/23 16:56 US periph venous low extrem rt Stat Discontinued Medications Clindamycin Phosphate (Cleocin) 900 mg in 50 mls @ 50 mls/hr IV NOW ONE Stop: 05/15/23 17:56 Last Admin: 05/15/23 17:06 Dose: 50 mls/hr Documented By: NUBIA Vital Signs Vital signs: Vital Signs - 8 hr 05/15/23 16:10 Temperature 97.7 F Pulse Rate 99 H Respiratory Rate 16 Blood Pressure 178/74 H Pulse Oximetry 96 Oxygen Delivery Method Room Air MDM - Extremity Injury (Lower) Lab Data 05/15/23 16:36 05/15/23 16:36 Labs: Lab Results 05/15/23 Range/Units 16:36 WBC 6.4 (4.5-11.0) X10^3/uL RBC 3.61 L (4.5-5.9) X10^6/uL Hgb 11.7 L (13.5-17.5) g/dL Hct 35.7 L (41-53) % MCV 99.0 (80-100) fL MCH 32.3 (26-34) PG MCHC 32.7 (30-36) % RDW 15.6 H (11.6-14.8) % Plt Count 209 (150-400) X10^3/uL Neut % (Auto) 80.6 H (50-75) % Lymph % (Auto) 10.5 L (25-40) % Banner % (Auto) 8.0 (3-14) % Eos % (Auto) 0.5 L (2-4) % Baso % (Auto) 0.4 (0-2) % Neut # (Auto) 5200 (7921-8460) /uL Lymph # (Auto) 700 L (4724-9422) /uL Banner # (Auto) 500 (0-900) /uL Eos # (Auto) 0 (0-450) /uL Baso # (Auto) 0 (0-100) /uL Sodium 138 (137-145) mmol/L Potassium 4.7 (3.4-5.1) mmol/L Chloride 104 (98-107) mmol/L Carbon Dioxide 27 (22-32) mmol/L BUN 26 H (9-20) mg/dL Creatinine 1.43 H (0.66-1.25) mg/dL Estimated GFR 49 L (>60) mL/min BUN/Creatinine Ratio 18.2 (6-22) Glucose 166 H (80-110) mg/dL Lactate 1.5 (0.7-2.1) mmol/L Calcium 9.9 (8.4-10.2) mg/dL Total Bilirubin 0.8 (0.2-1.3) mg/dL AST 32 (17-59) IU/L ALT 22 (<50) IU/L Alkaline Phosphatase 109 (38-126) U/L Total Protein 6.8 (6.3-8.2) g/dL Albumin 3.7 (3.5-5.0) g/dL Globulin 3.1 (1.7-4.1) g/dL Albumin/Globulin Ratio 1.2 (1.0-2.8) Procalcitonin 0.08 (<0.5) ng/mL Imaging Data US - DVT: Radiologist's Impression: [address] [address] Ultrasound Report Signed Patient: Michael Elise MR#: [id number] : 1940 Acct:[id number] Age/Sex: 82 / M Date of Service: 05/15/23 Loc: ED Accession Number: [id number] Procedure: US periph venous low extrem rt Ordering Provider: Roxanne Bhakta D.O. PROCEDURE: US PERIPH VENOUS LOW EXTREM RT INDICATIONS: EDEMA RIGHT LOWER EXTREMITY TECHNIQUE: Real-time imaging, as well as color and pulse Doppler interrogation, were performed of the lower extremity deep veins from the inguinal ligament to the popliteal fossa, with documentation of the visualized calf veins. COMPARISON: None. FINDINGS: The common femoral, femoral, popliteal, and the visualized calf veins are normally compressible, and free of intraluminal thrombus. Color and pulse Doppler demonstrate normal phasic intraluminal flow. There is normal augmentation response to distal compression maneuver. Note is made of right lower extremity edema. IMPRESSION: No findings of lower extremity deep venous thrombosis. Dictated by: Soto Farrell M.D. on 05/15/2023 at 17:41 Approved by: Soto Farrell M.D. on 05/15/2023 at 17:41 [facility] Narrative Medical decision making narrative: 82-year-old male with history of wound approximately 3 weeks ago with increasing redness swelling of his lower extremity with recent oral antibiotics. Patient does not appear septic at bedside although did have a heart rate of 99 white count normal at 0.4, hemoglobin is 11.7 anemic but baseline for prior visits. Platelets are 209. Leftward shift present. No bandemia. Patient appears to have chronic kidney disease 1.43 creatinine today appears fairly consistent with priors glucose of 166, otherwise normal electrolytes. LFTs are negative. Procalcitonin negative with a negative lactate of 1.5. Patient dropped O2 sat sleeping but immediately improved upon awakening. Did order DVT ultrasound which is negative. Spoke with patient he does not wish to be admitted. He is had about a week of oral antibiotics or more but was on Augmentin. We will change to broader spectrum coverage see if this is helpful. Discussed with patient if he is not having any improvement of her it is worsening over the next 2 or 3 days despite the new change in antibiotics he needs to return as he will have failed on outpatient oral antibiotics. Discharge Plan Departure Patient Disposition: Home Clinical Impression: Cellulitis of leg, right Instructions: DI for Cellulitis -- Adult Activity Restrictions/Additional Instructions: Please take antibiotics until completed with the infection in your leg. If you are not having any improvement of the swelling, redness or signs of infection in your leg over the next 2-3 days with regular antibiotics you should return for re-evaluation. You received a 1st dose here in the department through the IV. Start the oral antibiotics 1st thing in the morning. Prescription sent to the [facility] pharmacy in [place]. Please return for fevers, new or worsening redness, swelling, increasing pain, new drainage, chest pain or shortness of breath, persistent vomiting or other new or concerning changes. Prescriptions: New clindamycin HCl 300 mg capsule 300 mg PO QID Qty: 40 0RF No Action allopurinol 100 mg tablet 200 mg PO BID Rx Instructions: takes noon and evening atorvastatin 80 mg tablet 80 mg PO BEDTIME tamsulosin 0.4 mg capsule 0.4 mg PO DAILY gabapentin 300 mg capsule 300 mg PO BID insulin glargine [Lantus Solostar U-100 Insulin] 100 unit/mL (3 mL) insulin pen 40 unit SUBCUT BEDTIME Xarelto 20 mg tablet 20 mg PO DAILY pioglitazone [Actos] 15 mg Tablet 15 mg PO DAILY magnesium 200 mg Tablet 400 mg PO DAILY calcium carbonate-vitamin D3 [Calcium 600 + D(3)] 600 mg-10 mcg (400 unit) Tablet 1 tab PO DAILY Referrals: Scottie Milton MD [Primary Care Provider] - Stand Alone Forms: Patient Portal/API
== END 2023-05-15 18:15 | disposition home or self-care (01) ==
PROVIDERS: Emergency Provider Emergency Medicine; PCP Family Medicine
DX: L03.115 Cellulitis of right lower limb (principal); E11.9 Type 2 diabetes mellitus without complications; I10 Essential (primary) hypertension; Z79.4 Long term (current) use of insulin; Z79.01 Long term (current) use of anticoagulants; Z86.73 Personal history of transient ischemic attack (TIA), and cerebral infarction without residual deficits; Z87.891 Personal history of nicotine dependence
CPT/HCPCS: 80053; 83605; 84145; 85025; 87040; 93971; 96374; 99283

== ENCOUNTER 2023-05-18 15:42 | Emergency (ER) | payer MEDICARE, OTHER, SELFPAY ==
[2022-04-25 03:00] VITALS: BMI 31.5
[2023-05-18 15:59] VITALS: BP 174/74; PULSE 74; RESP 20; TEMP 36.8; O2SAT 92; BMI 32.8
[2023-05-18 16:08] VITALS: BP 174/74; PULSE 80; RESP 18; O2SAT 96
--- NOTE | 2023-05-18 16:12 | ED_ITS ---
HPI - Extremity Problem <Jose Garza PA-C - Last Filed: 05/18/23 16:49> General Chief complaint: Extremity Problem,Nontraumatic Stated complaint: rt leg infection/worsening/told to come back Time Seen by Provider: 05/18/23 16:04 Source: patient and family Mode of arrival: Ambulatory History of Present Illness HPI Narrative: This is a 82-year-old male presents emergency department due to continued cellulitic infection to his right lower extremity. He states that he was seen here 3 days ago and began taking the antibiotics prescribed as prescribed. He states that redness to his right ding is not getting worse but it is not getting better causing him to come in. He denies any new fevers, chills, or any other concerning signs or symptoms. Related Data Home Medications Medication Instructions Recorded Confirmed allopurinol 100 mg tablet 200 mg PO BID 04/25/22 04/25/22 atorvastatin 80 mg tablet 80 mg PO BEDTIME 04/25/22 04/25/22 calcium carbonate 600 mg-vitamin 1 tab PO DAILY 04/25/22 04/25/22 D3 10 mcg (400 unit) tablet (Calcium 600 + D(3)) gabapentin 300 mg capsule 300 mg PO BID 04/25/22 04/25/22 insulin glargine 100 unit/mL (3 40 unit SUBCUT BEDTIME 04/25/22 04/25/22 mL) subcutaneous pen (Lantus Solostar U-100 Insulin) magnesium 200 mg tablet 400 mg PO DAILY 04/25/22 04/25/22 pioglitazone 15 mg tablet (Actos) 15 mg PO DAILY 04/25/22 04/25/22 rivaroxaban 20 mg tablet (Xarelto) 20 mg PO DAILY 04/25/22 04/25/22 tamsulosin 0.4 mg capsule 0.4 mg PO DAILY 04/25/22 04/25/22 Previous Rx's Medication Instructions Recorded clindamycin HCl 300 mg capsule 300 mg PO QID #40 caps 05/15/23 Allergies Allergy/AdvReac Type Severity Reaction Status Date / Time No Known Drug Allergies Allergy Verified 05/18/23 15:59 Review of Systems <Jose Garza PA-C - Last Filed: 05/18/23 16:49> Review of Systems Narrative: GENERAL: Denies chills, fatigue, malaise, fever, sweats. HEENT: Denies sinus pain, ear pain, sore throat, difficulty swallowing, dizziness. RESPIRATORY: Denies dyspnea, cough, wheezing, hemoptysis, sputum. CARDIOVASCULAR: Denies chest pain, palpitations, orthopnea, edema, GASTROINTESTINAL: Denies nausea, vomiting, abdominal pain, diarrhea, constipation, melena. : Denies dysuria, frequency, incontinence, hematuria, urinary retention. MUSCULOSKELETAL: denies weakness, joint pain, or bony pain SKIN: Right ding rash NEUROLOGIC: Denies weakness, headache, numbness, change in speech, confusion, seizures, incoordination. PSYCHIATRIC: No concerning psychosocial issues. 12 point review of systems is negative except for those stated above Patient History <Jose Garza PA-C - Last Filed: 05/18/23 16:49> Medical History CVA (cerebral vascular accident) Dyslipidemia Anticoagulated Surgical History H/O foot surgery H/O heart artery stent Social History household members: spouse Smoking Status: Former smoker alcohol intake: former Smoking Status: Former smoker tobacco type: cigarettes alcohol intake frequency: other Substance Use Type: does not use Exam <Jose Garza PA-C - Last Filed: 05/18/23 16:49> Narrative Exam Narrative: GENERAL: Well-developed patient, in mild distress. HEAD: Atraumatic. Normocephalic. EYES: Pupils equal round and reactive. Extraocular motions intact. No scleral icterus. No injection or drainage. ENT: Nose without bleeding, purulent drainage. Throat without erythema, tonsillar hypertrophy or exudate. Airway patent. NECK: Trachea midline. Non tender CARDIOVASCULAR: Regular rate and rhythm without murmurs, gallops, or rubs. RESPIRATORY: Clear to auscultation. Breath sounds equal bilaterally. No wheezes, rales, or rhonchi. GASTROINTESTINAL: Abdomen soft, non-tender, nondistended. EXTREMITIES: No edema or joint tenderness. BACK: Nontender without deformity or crepitance. No flank tenderness. NEURO: AOx3. SKIN: Area of erythema and warmth without any purulent drainage affecting the right ding. Not affecting the right calf. No pain with palpation posteriorly. Initial Vital Signs Initial Vital Signs: Vital Signs Temperature 98.2 F 05/18/23 15:59 Pulse Rate 74 05/18/23 15:59 Respiratory Rate 20 05/18/23 15:59 Blood Pressure 174/74 H 05/18/23 15:59 Pulse Oximetry 92 05/18/23 15:59 Oxygen Delivery Method Room Air 05/18/23 15:59 <DO Pam Zambrano Last Filed: 05/19/23 07:00> Initial Vital Signs Initial Vital Signs: Vital Signs Temperature 98.2 F 05/18/23 15:59 Pulse Rate 74 05/18/23 15:59 Respiratory Rate 20 05/18/23 15:59 Blood Pressure 174/74 H 05/18/23 15:59 Pulse Oximetry 92 05/18/23 15:59 Oxygen Delivery Method Room Air 05/18/23 15:59 Course <Jose Garza PA-C - Last Filed: 05/18/23 16:49> Orders Ordered: ED Orders 05/18/23 16:25 CBC Auto Diff [Complete Blood Count AUTO DIFF] Stat CMP [Comprehensive Metabolic Panel] Stat Vital Signs Vital signs: Vital Signs - 8 hr 05/18/23 15:59 05/18/23 16:08 Temperature 98.2 F Pulse Rate 74 80 Respiratory Rate 20 18 Blood Pressure 174/74 H 174/74 H Pulse Oximetry 92 96 Oxygen Delivery Method Room Air Room Air <DO Pam Zambrano Last Filed: 05/19/23 07:00> Orders Ordered: ED Orders 05/18/23 16:25 CBC Auto Diff [Complete Blood Count AUTO DIFF] Stat CMP [Comprehensive Metabolic Panel] Stat Vital Signs Vital signs: Vital Signs - 8 hr 05/18/23 15:59 05/18/23 16:08 Temperature 98.2 F Pulse Rate 74 80 Respiratory Rate 20 18 Blood Pressure 174/74 H 174/74 H Pulse Oximetry 92 96 Oxygen Delivery Method Room Air Room Air MDM - Extremity (Nontraumatic) <ZAY Dunn Last Filed: 05/18/23 16:49> Lab Data 05/18/23 16:25 05/18/23 16:25 Labs: Lab Results 05/18/23 Range/Units 16:25 WBC 5.7 (4.5-11.0) X10^3/uL RBC 3.41 L (4.5-5.9) X10^6/uL Hgb 11.1 L (13.5-17.5) g/dL Hct 34.0 L (41-53) % MCV 99.6 (80-100) fL MCH 32.6 (26-34) PG MCHC 32.8 (30-36) % RDW 15.2 H (11.6-14.8) % Plt Count 208 (150-400) X10^3/uL Neut % (Auto) 62.2 (50-75) % Lymph % (Auto) 20.1 L (25-40) % Andrews % (Auto) 15.6 H (3-14) % Eos % (Auto) 1.6 L (2-4) % Baso % (Auto) 0.5 (0-2) % Neut # (Auto) 3500 (8286-8462) /uL Lymph # (Auto) 1100 (8252-1444) /uL Andrews # (Auto) 900 (0-900) /uL Eos # (Auto) 100 (0-450) /uL Baso # (Auto) 0 (0-100) /uL Sodium 141 (137-145) mmol/L Potassium 4.7 (3.4-5.1) mmol/L Chloride 106 (98-107) mmol/L Carbon Dioxide 30 (22-32) mmol/L BUN 28 H (9-20) mg/dL Creatinine 1.56 H (0.66-1.25) mg/dL Estimated GFR 44 L (>60) mL/min BUN/Creatinine Ratio 17.9 (6-22) Glucose 141 H (80-110) mg/dL Calcium 9.2 (8.4-10.2) mg/dL Total Bilirubin 0.5 (0.2-1.3) mg/dL AST 32 (17-59) IU/L ALT 21 (<50) IU/L Alkaline Phosphatase 87 (38-126) U/L Total Protein 6.4 (6.3-8.2) g/dL Albumin 3.4 L (3.5-5.0) g/dL Globulin 3.0 (1.7-4.1) g/dL Albumin/Globulin Ratio 1.1 (1.0-2.8) MDM Narrative Medical decision making narrative: MDM * differential diagnosis includes but not limited to cellulitis, DVT * Prior records reviewed: Patient was seen here 3 days ago due to a swollen right leg. History of stroke, insulin-dependent diabetes, hypertension, dyslipidemia. On Xarelto daily. Chronic right foot wound that occurred approximately a month ago, has been seeing a breast puller. Came in for increased redness and swelling going up his leg over the last couple of days. Patient was on an oral antibiotic, Augmentin. No leukocytosis. Ultrasound was ordered which was negative for DVT. Heart rate of 99. Anemic at baseline. History of chronic kidney disease. Patient did not want to be admitted at that time. He was advised to return if the antibiotics do not improve his symptoms. Patient was ordered a 1 time dose of clindamycin in the emergency department. Prescribed clindamycin q.i.d. for 10 days. * My lab interpretation: No evidence of leukocytosis, slightly improved from prior. Creatinine elevated which appears baseline for the patient. * My imgaing interpretation: None obtained * Clinical Decision Rules/Scores evaluated: None * Independent discussions with: None ED Course: This is a 82-year-old male presents to the emergency department due to a repeat re-evaluation of the cellulitic infection diagnosed during his previous emergency department visit. He states that the rash is not worsening and his lab work was reassuring with no increase in white blood cell count. Discussed case with my attending physician and patient was recommended to continue the current antibiotics he was prescribed 3 days ago with close monitoring. Area was marked and advised to return if the redness began spreading past the marked area. Afebrile and vitals reassuring today. Shared Decision Making: Discussed plan with the patient who is comfortable with the plan. Social Considerations: None Disposition: Discharged to home <Marine Foley, - Last Filed: 05/19/23 07:00> Lab Data Labs: Lab Results 05/18/23 Range/Units 16:25 WBC 5.7 (4.5-11.0) X10^3/uL RBC 3.41 L (4.5-5.9) X10^6/uL Hgb 11.1 L (13.5-17.5) g/dL Hct 34.0 L (41-53) % MCV 99.6 (80-100) fL MCH 32.6 (26-34) PG MCHC 32.8 (30-36) % RDW 15.2 H (11.6-14.8) % Plt Count 208 (150-400) X10^3/uL Neut % (Auto) 62.2 (50-75) % Lymph % (Auto) 20.1 L (25-40) % Andrews % (Auto) 15.6 H (3-14) % Eos % (Auto) 1.6 L (2-4) % Baso % (Auto) 0.5 (0-2) % Neut # (Auto) 3500 (3118-3699) /uL Lymph # (Auto) 1100 (4854-2800) /uL Andrews # (Auto) 900 (0-900) /uL Eos # (Auto) 100 (0-450) /uL Baso # (Auto) 0 (0-100) /uL Sodium 141 (137-145) mmol/L Potassium 4.7 (3.4-5.1) mmol/L Chloride 106 (98-107) mmol/L Carbon Dioxide 30 (22-32) mmol/L BUN 28 H (9-20) mg/dL Creatinine 1.56 H (0.66-1.25) mg/dL Estimated GFR 44 L (>60) mL/min BUN/Creatinine Ratio 17.9 (6-22) Glucose 141 H (80-110) mg/dL Calcium 9.2 (8.4-10.2) mg/dL Total Bilirubin 0.5 (0.2-1.3) mg/dL AST 32 (17-59) IU/L ALT 21 (<50) IU/L Alkaline Phosphatase 87 (38-126) U/L Total Protein 6.4 (6.3-8.2) g/dL Albumin 3.4 L (3.5-5.0) g/dL Globulin 3.0 (1.7-4.1) g/dL Albumin/Globulin Ratio 1.1 (1.0-2.8) Discharge Plan Departure Patient Disposition: Home Clinical Impression: Cellulitis Activity Restrictions/Additional Instructions: Thank you for coming to the [facility] Emergency Department today. Please continue taking the antibiotics you prescribed during your last visit. Please continue to monitor the redness. If it extends past the area marked as we discussed please return to the emergency department for further evaluation. I hope you feel better soon. Please follow up with your primary care provider within a week if your symptoms continue. If you do not have a primary care provider please contact the [facility] Resource line at [phone]. They will ask some questions about your medical history and help you get set up with a provider in the community. Prescriptions: No Action clindamycin HCl 300 mg capsule 300 mg PO QID Qty: 40 0RF allopurinol 100 mg tablet 200 mg PO BID Rx Instructions: takes noon and evening atorvastatin 80 mg tablet 80 mg PO BEDTIME tamsulosin 0.4 mg capsule 0.4 mg PO DAILY gabapentin 300 mg capsule 300 mg PO BID insulin glargine [Lantus Solostar U-100 Insulin] 100 unit/mL (3 mL) insulin pen 40 unit SUBCUT BEDTIME Xarelto 20 mg tablet 20 mg PO DAILY pioglitazone [Actos] 15 mg Tablet 15 mg PO DAILY magnesium 200 mg Tablet 400 mg PO DAILY calcium carbonate-vitamin D3 [Calcium 600 + D(3)] 600 mg-10 mcg (400 unit) Tablet 1 tab PO DAILY Referrals: Scottie Milton MD [Primary Care Provider] - Stand Alone Forms: Patient Portal/API ED Sign-out <Marine Foley DO - Last Filed: 05/19/23 07:00> Cosign ED Attending Coscarlosature Attestation: I was available for consultation.
[2023-05-18 16:31] LABS: Add Manual Diff / Slide Review NO; Basophils Absolute Auto 0 /uL (0-100); Basophils Percent Auto 0.5 % (0-2); Eosinophils Absolute Auto 100 /uL (0-450); Eosinophils Percent Auto 1.6 % (2-4); Hemoglobin 11.1 g/dL (13.5-17.5); Lymphocytes Absolute Auto 1100 /uL (1100-4500); Lymphocytes Percent Auto 20.1 % (25-40); Mean Corpuscular HGB Conc 32.8 % (30-36); Mean Corpuscular Hemoglobin 32.6 PG (26-34); Mean Corpuscular Volume 99.6 fL (80-100); Monocytes Absolute Auto 900 /uL (0-900); Monocytes Percent Auto 15.6 % (3-14); Neutrophils Absolute Auto 3500 /uL (1500-7000); Neutrophils Percent Auto 62.2 % (50-75); Platelet Count 208 X10^3/uL (150-400); Red Blood Cell Count 3.41 X10^6/uL (4.5-5.9); Red Cell Distribution Width 15.2 % (11.6-14.8); White Blood Cell Count 5.7 X10^3/uL (4.5-11.0)
[2023-05-18 16:39] LABS: Alanine Aminotransferase 21 IU/L (<50); Albumin 3.4 g/dL (3.5-5.0); Albumin Globulin Ratio 1.1 (1.0-2.8); Alkaline Phosphatase 87 U/L (38-126); Aspartate Aminotransferase 32 IU/L (17-59); BUN Creatinine Ratio 17.9 (6-22); Bilirubin Total 0.5 mg/dL (0.2-1.3); Blood Urea Nitrogen 28 mg/dL (9-20); Calcium 9.2 mg/dL (8.4-10.2); Carbon Dioxide 30 mmol/L (22-32); Chloride 106 mmol/L (98-107); Estimated Glomerular Filt Rate 44 mL/min (>60); Glucose 141 mg/dL (80-110); HEMOLYSIS < 15 (0-50); Potassium 4.7 mmol/L (3.4-5.1); Sodium 141 mmol/L (137-145); Total Protein 6.4 g/dL (6.3-8.2)
[2023-05-18 16:49] VITALS: BP 180/72; PULSE 77; RESP 16; O2SAT 97
== END 2023-05-18 17:02 | disposition home or self-care (01) ==
PROVIDERS: Emergency Provider Physician Assistant Medical; PCP Family Medicine
DX: L03.115 Cellulitis of right lower limb (principal); Z79.01 Long term (current) use of anticoagulants
CPT/HCPCS: 36415; 80053; 85025; 99283

== ENCOUNTER 2023-05-29 13:39 | Inpatient (IN) | payer MEDICARE, OTHER, SELFPAY ==
[2022-04-25 03:00] VITALS: BMI 31.5
[2023-05-29] VITALS (16 sets, daily range): BP systolic 129–191; BP diastolic 55–89; PULSE 72–97; RESP 16–18; TEMP 36.5–37; O2SAT 93–98; BMI 32.8
--- NOTE | 2023-05-29 15:34 | ED.EXTPRO ---
HPI - Extremity Problem General Chief complaint: Extremity Problem,Nontraumatic Stated complaint: Cellulitis RLE follow up reffered to ED Time Seen by Provider: 05/29/23 13:50 Source: patient Mode of arrival: Ambulatory History of Present Illness HPI Narrative: Patient is a 82-year-old male history of insulin-dependent diabetes hypertension on Xarelto daily with continued bilateral lower extremity cellulitis. He actually was initially seen on May 15 with right leg cellulitis, he was ruled out for DVT at the time discharged home on clindamycin. He returned 3 days later for continued right legs erythema and he thought it was getting worse. Blood work looked similar but was instructed to stay on antibiotics. He ultimately was then seen at a clinic on would be where he was started on Bactrim on May 21. He says his right leg improved however he followed up somewhere any has significant erythema on his left leg. He finishes antibiotics and Bactrim last night. He has no fever or chills. He reports it is not painful. Related Data Home Medications Medication Instructions Recorded Confirmed allopurinol 100 mg tablet 200 mg PO BID 04/25/22 05/29/23 atorvastatin 80 mg tablet 80 mg PO BEDTIME 04/25/22 05/29/23 calcium carbonate 600 mg-vitamin 1 tab PO DAILY 04/25/22 05/29/23 D3 10 mcg (400 unit) tablet (Calcium 600 + D(3)) gabapentin 300 mg capsule 300 mg PO BID 04/25/22 05/29/23 insulin glargine 100 unit/mL (3 34 unit SUBCUT BEDTIME 04/25/22 05/29/23 mL) subcutaneous pen (Lantus Solostar U-100 Insulin) magnesium 200 mg tablet 400 mg PO DAILY 04/25/22 05/29/23 pioglitazone 15 mg tablet (Actos) 15 mg PO DAILY 04/25/22 05/29/23 rivaroxaban 20 mg tablet (Xarelto) 20 mg PO DAILY 04/25/22 05/29/23 tamsulosin 0.4 mg capsule 0.4 mg PO DAILY 04/25/22 05/29/23 hydrochlorothiazide 12.5 mg tablet 12.5 mg PO DAILY 05/29/23 05/29/23 Allergies Allergy/AdvReac Type Severity Reaction Status Date / Time No Known Drug Allergies Allergy Verified 05/18/23 15:59 Patient History Medical History CVA (cerebral vascular accident) Dyslipidemia Anticoagulated Surgical History H/O foot surgery H/O heart artery stent Social History household members: spouse Smoking Status: Former smoker alcohol intake: former Smoking Status: Former smoker tobacco type: cigarettes alcohol intake frequency: other Substance Use Type: does not use Exam Initial Vital Signs Initial Vital Signs: Vital Signs Temperature 97.7 F 05/29/23 13:43 Pulse Rate 83 05/29/23 13:43 Respiratory Rate 18 05/29/23 13:43 Blood Pressure 149/71 H 05/29/23 13:43 Pulse Oximetry 94 05/29/23 13:43 Oxygen Delivery Method Room Air 05/29/23 13:43 GENERAL: Alert well-appearing 82-year-old male HEENT: Head atraumatic,EOMI, pupils reactive, face symmetric, moist mucous membranes CARDIOVASCULAR: Regular rate and rhythm without murmurs, rubs or gallops. RESPIRATORY: Breath sounds equal bilaterally, no wheezes rales or rhonchi. ABDOMEN: Soft, nontender. Normoactive bowel sounds all 4 quadrants. No guarding or rebound. EXTREMITIES: Normal range of motion, no clubbing or edema. Neurovascularly intact. Good strong distal pedal pulses present NEUROLOGICAL: Alert and oriented x4.Normal gait and speech. SKIN: Lower extremity erythema worse on left rather than right. There is some weeping on the left. He has more pain on the right. It goes up to mid ding bilaterally. Course Orders Ordered: Acetaminophen (Acetaminophen 325 Mg Tablet) 650 mg PO Q6H PRN PRN Reason: Fever/Mild Pain (1-3) Atorvastatin Calcium (Atorvastatin 20 Mg Tablet) 80 mg PO BEDTIME ROMY Gabapentin (Gabapentin 300 Mg Capsule) 300 mg PO BID ROMY Ceftriaxone Sodium 1,000 mg/ (Sodium Chloride) 100 mls @ 200 mls/hr IV Q24H ROMY Dextrose (D10w) 100 mls @ 1,200 mls/hr IV PRN PRN PRN Reason: Hypoglycemia Vancomycin HCl (Vancomycin) 1,000 mg in 200 mls @ 200 mls/hr IV Q24H ROMY Last Infusion: 05/29/23 20:00 Dose: Infused Documented By: Admin: 05/29/23 18:49 Dose: 200 mls/hr Documented By: Insulin Glargine (Insulin Glargine 100 Unit/Ml 3ml Pen) 40 unit SUBCUT BEDTIME ROMY Last Admin: 05/29/23 21:58 Dose: 40 unit Documented By: CT Co-signed By: AM Insulin Human Lispro (Insulin Lispro 100 Unit/Ml 3ml Vial) 0 unit SUBCUT ACHS [facility]; Protocol Last Admin: 05/29/23 21:59 Dose: 2 unit Documented By: CT Co-signed By: AM Naloxone HCl (Naloxone 0.4 Mg/Ml Vial) 0.2 mg IV Q2MIN PRN PRN Reason: Opiate Reversal Ondansetron HCl (Ondansetron 4 Mg Odt) 4 mg PO Q8HR PRN PRN Reason: Nausea And Vomiting Oxycodone HCl (Oxycodone Ir 5 Mg Tablet) 5 mg PO Q3H PRN PRN Reason: Pain, Moderate (4-6) Last Admin: 05/30/23 06:46 Dose: 5 mg Documented By: CT Rivaroxaban (Rivaroxaban 10 Mg Tablet) 20 mg PO DAILY [facility] Tamsulosin HCl (Tamsulosin 0.4 Mg Capsule) 0.4 mg PO DAILY [facility] Vancomycin HCl (Vancomycin Per Pharmacy) 1 request MISC NOW PRN PRN Reason: Bad Breath Vancomycin HCl (Vancomycin Trough) 1 request MISC NOW ONE Stop: 06/01/23 18:31 Discontinued Medications Ceftriaxone Sodium 2,000 mg/ (Sodium Chloride) 100 mls @ 200 mls/hr IV NOW ONE Stop: 05/29/23 15:35 Last Infusion: 05/29/23 16:43 Dose: Infused Documented By: Admin: 05/29/23 16:05 Dose: 200 mls/hr Documented By: TANIA Vital Signs Vital signs: Vital Signs - 8 hr 05/29/23 13:43 05/29/23 14:06 05/29/23 14:08 Temperature 97.7 F Pulse Rate 83 86 Respiratory Rate 18 Blood Pressure 149/71 H 134/66 Pulse Oximetry 94 93 Oxygen Delivery Method Room Air 05/29/23 14:08 05/29/23 14:30 05/29/23 15:00 Temperature Pulse Rate 92 H 83 79 Respiratory Rate Blood Pressure Pulse Oximetry 95 95 94 Oxygen Delivery Method 05/29/23 15:01 05/29/23 15:01 Temperature Pulse Rate 85 Respiratory Rate Blood Pressure 129/89 Pulse Oximetry 94 Oxygen Delivery Method MDM - Extremity (Nontraumatic) Lab Data 05/30/23 04:30 05/30/23 04:30 Labs: Lab Results 05/29/23 05/29/23 Range/Units 14:10 16:47 WBC 7.2 (4.5-11.0) X10^3/uL RBC 3.65 L (4.5-5.9) X10^6/uL Hgb 12.1 L (13.5-17.5) g/dL Hct 36.5 L (41-53) % MCV 99.8 (80-100) fL MCH 33.1 (26-34) PG MCHC 33.1 (30-36) % RDW 16.0 H (11.6-14.8) % Plt Count 266 (150-400) X10^3/uL Neut % (Auto) 79.8 H (50-75) % Lymph % (Auto) 10.8 L (25-40) % [place] % (Auto) 8.0 (3-14) % Eos % (Auto) 0.8 L (2-4) % Baso % (Auto) 0.6 (0-2) % Neut # (Auto) 5700 (2222-2006) /uL Lymph # (Auto) 800 L (6932-0600) /uL [place] # (Auto) 600 (0-900) /uL Eos # (Auto) 100 (0-450) /uL Baso # (Auto) 0 (0-100) /uL Sodium 138 (137-145) mmol/L Potassium 5.5 H (3.4-5.1) mmol/L Chloride 102 (98-107) mmol/L Carbon Dioxide 26 (22-32) mmol/L BUN 23 H (9-20) mg/dL Creatinine 1.95 H (0.66-1.25) mg/dL Estimated GFR 34 L (>60) mL/min BUN/Creatinine Ratio 11.8 (6-22) Glucose 143 H (80-110) mg/dL Lactate 1.5 (0.7-2.1) mmol/L Calcium 9.6 (8.4-10.2) mg/dL Total Bilirubin 0.9 (0.2-1.3) mg/dL AST 45 (17-59) IU/L ALT 24 (<50) IU/L Alkaline Phosphatase 99 (38-126) U/L NT-Pro-B Natriuret Pep 440 (<450) pg/mL Total Protein 7.5 (6.3-8.2) g/dL Albumin 4.1 (3.5-5.0) g/dL Globulin 3.4 (1.7-4.1) g/dL Albumin/Globulin Ratio 1.2 (1.0-2.8) Procalcitonin 0.06 (<0.5) ng/mL MDM Narrative Medical decision making narrative: Patient is a insulin-dependent diabetic on Xarelto presenting today with ongoing bilateral lower extremity cellulitis. He is failed multiple outpatient p.o. antibiotics. He has normal vitals in his afebrile. Blood work has been reviewed: He has no leukocytosis WBC 7.2, potassium slightly elevated 5.5, creatinine 1.97 previously 1.56 maybe secondary to Bactrim, procalcitonin 0.06, lactate, 1 point No imaging done Dr. Doherty in ED to see and evaluate patient agrees with admission Discharge Plan Departure Patient Disposition: Admitted As Inpatient Clinical Impression: Cellulitis Admit Date/Time: 05/29/23 17:06 Admit Provider: Scottie Doherty
[2023-05-29 15:51] LABS: Add Manual Diff / Slide Review NO; Basophils Absolute Auto 0 /uL (0-100); Basophils Percent Auto 0.6 % (0-2); Eosinophils Absolute Auto 100 /uL (0-450); Eosinophils Percent Auto 0.8 % (2-4); Hematocrit 36.5 % (41-53); Hemoglobin 12.1 g/dL (13.5-17.5); Lymphocytes Absolute Auto 800 /uL (1100-4500); Lymphocytes Percent Auto 10.8 % (25-40); Mean Corpuscular HGB Conc 33.1 % (30-36); Mean Corpuscular Hemoglobin 33.1 PG (26-34); Mean Corpuscular Volume 99.8 fL (80-100); Monocytes Absolute Auto 600 /uL (0-900); Neutrophils Absolute Auto 5700 /uL (1500-7000); Neutrophils Percent Auto 79.8 % (50-75); Platelet Count 266 X10^3/uL (150-400); Red Blood Cell Count 3.65 X10^6/uL (4.5-5.9); White Blood Cell Count 7.2 X10^3/uL (4.5-11.0)
[2023-05-29 15:55] LABS: Lactate (Lactic Acid) 1.5 mmol/L (0.7-2.1)
[2023-05-29] MEDS: cefTRIAXone 2,000 MG in SODIUM CHLORIDE 0.9% 100 ML 200 MG IV (16:05)
[2023-05-29 17:25] LABS: Procalcitonin 0.06 ng/mL (<0.5)
--- NOTE | 2023-05-29 17:32 | P.HP_ITS ---
History of Present Illness History of Present Illness Date Patient Seen: 05/29/23 Time Patient Seen: 17:32 Chief complaint: Cellulitis RLE follow up reffered to ED Narrative: This is an 82 year old male with PMH of CAD, HTN, HLD, DM2 who presented with worsening swelling and redness of his left leg. Patient states starting > 1 month ago, he had a wound on his R foot. He has been seeing a insurance salesperson for this and has been given a few rounds of antibiotics (from EMR Rx 05/06 for augmentin, followed by 05/16 and 05/21 received clinda and bactrim prescriptions). His wound has been healing since then, and his R leg has overall been improving. Now has a left leg swelling and redness that is weeping. He noticed it the last 3-4 days on the left leg. He denies pain in that leg and he is able to walk. He notes for the past month or so worsened bilateral LE edema. Sister whom patient now living with, states he has been largely sedentary at home with legs off of a chair. He denies any fevers or chills, no shortness of breath, chest pain. Since his stroke he has chronically been unbalanced, with no recent changes. He denies any new numbness or tingling of his legs. He denies claudication symptoms. In the emergency room, vitals were unremarkable. US showed no DVT of his lower extremity. He was admitted for left leg cellulitis after failing outpatient antibiotic therapy and further evaluation of b/l LE edema. [facility] Medical History CVA (cerebral vascular accident) Dyslipidemia Anticoagulated Surgical History H/O foot surgery H/O heart artery stent Social History household members: spouse Smoking Status: Former smoker alcohol intake: former Meds Home Medications and Allergies Home Medications Medication Instructions Recorded Confirmed Type allopurinol 100 mg tablet 200 mg PO BID 04/25/22 04/25/22 History atorvastatin 80 mg tablet 80 mg PO BEDTIME 04/25/22 04/25/22 History calcium carbonate 600 mg-vitamin 1 tab PO DAILY 04/25/22 04/25/22 History D3 10 mcg (400 unit) tablet (Calcium 600 + D(3)) gabapentin 300 mg capsule 300 mg PO BID 04/25/22 04/25/22 History insulin glargine 100 unit/mL (3 40 unit SUBCUT BEDTIME 04/25/22 04/25/22 History mL) subcutaneous pen (Lantus Solostar U-100 Insulin) magnesium 200 mg tablet 400 mg PO DAILY 04/25/22 04/25/22 History pioglitazone 15 mg tablet (Actos) 15 mg PO DAILY 04/25/22 04/25/22 History rivaroxaban 20 mg tablet (Xarelto) 20 mg PO DAILY 04/25/22 04/25/22 History tamsulosin 0.4 mg capsule 0.4 mg PO DAILY 04/25/22 04/25/22 History clindamycin HCl 300 mg capsule 300 mg PO QID #40 caps 05/15/23 Rx Allergies Allergy/AdvReac Type Severity Reaction Status Date / Time No Known Drug Allergies Allergy Verified 05/18/23 15:59 Review of Systems Review of Systems Narrative: All other systems reviewed with the patient and are negative unless otherwise stated. Exam Vital Signs (past 8 hours): - 05/29/23 13:43 05/29/23 14:06 05/29/23 14:08 Temperature 97.7 F Pulse Rate 83 86 Respiratory Rate 18 Blood Pressure 149/71 H 134/66 Pulse Oximetry 94 93 Oxygen Delivery Method Room Air 05/29/23 14:08 05/29/23 14:30 05/29/23 15:00 Temperature Pulse Rate 92 H 83 79 Respiratory Rate Blood Pressure Pulse Oximetry 95 95 94 Oxygen Delivery Method 05/29/23 15:01 05/29/23 15:01 05/29/23 15:30 Temperature Pulse Rate 85 Respiratory Rate Blood Pressure 129/89 179/82 H Pulse Oximetry 94 Oxygen Delivery Method 05/29/23 15:30 05/29/23 16:00 05/29/23 16:01 Temperature Pulse Rate 82 83 Respiratory Rate Blood Pressure 179/81 H Pulse Oximetry 96 95 Oxygen Delivery Method 05/29/23 16:01 05/29/23 16:30 05/29/23 16:30 Temperature Pulse Rate 84 83 Respiratory Rate Blood Pressure 154/72 H Pulse Oximetry 96 96 Oxygen Delivery Method 05/29/23 17:00 05/29/23 17:00 Temperature Pulse Rate 87 Respiratory Rate Blood Pressure 191/84 H Pulse Oximetry 97 Oxygen Delivery Method Oxygen Delivery Method Room Air Narrative Exam Narrative: General:? Patient is well developed and well nourished, in no distress at this time. HEENT:? Normocephalic, atraumatic, extraocular muscles intact, oral pharynx is clear and mucous membranes are moist. Neck: supple and symmetric, trachea is midline, no cervical adenopathy. Negative for JVD Chest:? Normal AP diameter and contour without kyphoscoliosis, no tachypnea, equal chest rise bilaterally. Lungs:? CTA b/l no wheezing rhonchi or rales. Cardio:?RRR no m/r/g. Abdomen: S NT ND. Musculoskeletal:? Muscle strength and tone are equal within normal limits, no deformity. Extremities: joint effusions. No cyanosis or clubbing. DP and PT pulses +2 bilaterally. bilateral 1 + pitting edema to the knees with chronic venous stasis changes. Mild warmth and erythema to left calf circumferentially with weeping. No crepitus or overlying necrosis. Skin:? Pale,? Warm to touch,dry and intact. Neuro:? Alert and orientated x3,? bilateral foot numbness (chronic), no gross deficits noted of cranial nerves. Psych:? Patient has a well-kept appearance, appropriate affect, mental status attitude thought context and judgment are appropriate for age. Objective Labs 05/29/23 14:10 05/29/23 16:47 Labs: Laboratory Results - last 24 hr 05/29/23 14:10 WBC 7.2 RBC 3.65 L Hgb 12.1 L Hct 36.5 L MCV 99.8 MCH 33.1 MCHC 33.1 RDW 16.0 H Plt Count 266 Neut % (Auto) 79.8 H Lymph % (Auto) 10.8 L [place] % (Auto) 8.0 Eos % (Auto) 0.8 L Baso % (Auto) 0.6 Neut # (Auto) 5700 Lymph # (Auto) 800 L [place] # (Auto) 600 Eos # (Auto) 100 Baso # (Auto) 0 Lactate 1.5 Assessment & Plan Assessment & Plan narrative: 1. Left leg cellulitis with likely chronic venous stasis - failed outpatient therapy with courses of augmentin and clinda and bactrim. Developed LLE cellulitis despite this therapy. - continue ceftriaxone and vancomycin - possible nonhealing cellulitis due to venous stasis, or there may be no acute component, though likely cannot definitively say at this time. - will check echo to rule out overt heart failure leading to edema, but continue antibiotics with ceftriaxone and vancomycin per pharmacy. 2. Bilateral lower extremity edema with history of CAD. - DVT US negative - echocardiogram ordered - continue home xarelto - proBNP ordered 3. 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 HTN - does not appear to be currently on medications, continue to monitor for now, hypertensive in the ER. 6. HLD - continue home atorvastatin. Code: Full, surrogate decision maker is patient's sister DVT: on xarelto I have utilized all available immediate resources to obtain, update, or review the patient's current medications. Discussed with ER provider and patient's sister to obtain above history, and to formulate the above assessment and plan. I have reviewed patient's previous documentation, imaging, and current labs personally. Dispo: admitted inpatient, anticipated stay is beyond two midnights.
[2023-05-29 17:45] LABS: NT-proBNP (BNP-Adult 18+) 440 pg/mL (<450)
--- NOTE | 2023-05-29 17:58 | DI.ECHO.S_ITS ---
[facility]---------+ [facility] +---------+ : : [address] : [address] : : : : [id number] : : : : Phone: [phone]+ Echocardiogram Report + + :Name: KELSIE BACH Study Date: 05/30/2023 Height: 71 in : :[facility] ReadingLocation: Weight: 235 lb : : Gender: Male BSA: 2.3 m2 : :: 1940 Age: 82 yrs BP: 146/72 mmHg: :Reason For Study: BILATERAL LOWER EXTREMITY EDEMA : :Ordering Physician: YI, : :SHAD JOHNSON Performed By: Sonya Heller : :Referring: SHAD RICHMOND : + + Interpretation Summary The ejection fraction is estimated to be 60-65%. Diastolic parameters suggest probable normal left ventricular diastolic function and normal filling pressures. The right ventricle is normal in size and function. The right ventricular systolic pressure is estimated to be at least 25 mmHg based on an estimated right atrial pressure of 3 mm Hg. No significant valvular abnormality. The ascending aorta is mildly enlarged 4.1cm. Procedure: A two-dimensional transthoracic echocardiogram with color flow and Doppler was performed. Comparison is made with the echocardiogram of 04/27/2022. The study quality was technically adequate. A contrast injection of Definity was performed to improve assessment of LV function. The patient was in sinus bradycardia with heart rates between 52-71 bpm during the exam. Left Ventricle: Left ventricular wall thickness is mild-moderately increased. The ejection fraction is estimated to be 60-65%. There are no obvious focal wall motion abnormalities noted but poor endocardial definition reduces the sensitivity for the detection of such. Diastolic parameters suggest probable normal left ventricular diastolic function and normal filling pressures. Right Ventricle: The right ventricle is normal in size and function. Atria: The left atrial size is normal. Right atrial size is normal. There is no Doppler evidence for an interatrial shunt. Mitral Valve: The mitral valve leaflets appear mildly thickened, but open well. There is trace mitral regurgitation. Aortic Valve: The aortic valve is slightly calcified. The aortic valve is trileaflet. The aortic valve opens well. There is no aortic valve stenosis. No aortic regurgitation is present. Tricuspid Valve: The tricuspid valve is normal in structure and function. There is trace tricuspid regurgitation. The right ventricular systolic pressure is estimated to be at least 25 mmHg based on an estimated right atrial pressure of 3 mm Hg. Pulmonic Valve: The pulmonic valve is not well visualized. There is mild pulmonic regurgitation. Great Vessels: The aortic root is borderline dilated. The ascending aorta is mildly enlarged. The IVC is of normal diameter and collapses greater than 50% with a sniff. This suggests a low right atrial pressure of 3 mm Hg. Pericardium/ Pleura There is no pericardial effusion. There is no pleural effusion. MMode/2D Measurements & Calculations LVIDd: 4.9 cm LVOT diam: 2.2 cm LVIDs: 3.2 cm Ao root diam: 4.0 cm FS: 35.1 % asc Aorta Diam: 4.1 cm EPSS: 1.3 cm IVSd: 1.5 cm LVPWd: 1.1 cm LV barnhart. diameter/BSA (cm/m^2): 2.2 LV sys. diameter/BSA (cm/m^2): 1.4 LA A2 area: 17.9 cm2 RA long axis: 5.9 cm LA A4 area: 20.8 cm2 RA area: 15.5 cm2 LA length (vol): 5.8 cm RA vol: 35.0 ml LA vol: 54.4 ml RA : 15.5 ml/m2 LA vol index: 24.1 ml/m2 IVC diam: 1.6 cm RVD1 (basal): 3.6 cm RVD2 (mid): 3.0 cm TAPSE: 1.9 cm Doppler Measurements & Calculations Ao V2 max: 138.2 cm/sec LVOT Max Kyree: 113.3 cm/sec Ao V2 mean: 91.4 cm/sec LV V1 max P.1 mmHg Ao max P.6 mmHg LV V1 VTI: 23.2 cm Ao mean P.8 mmHg TROY(I,D): 2.9 cm2 Ao V2 VTI: 29.9 cm TROY(V,D): 3.1 cm2 sev ratio: 0.77 TROY indexed to BSA (cm^2/m^2): 1.3 MV E max kyree: 84.8 cm/sec TR max kyree: 232.0 cm/sec MV A max kyree: 93.0 cm/sec TR max P.5 mmHg MV E/A: 0.91 PA V2 max: 101.2 cm/sec Med Peak E' Kyree: 6.0 cm/sec PA V2 mean: 66.3 cm/sec E/E' med: 14.0 PA mean P.0 mmHg Lat Peak E' Kyree: 8.2 cm/sec PA pr(Accel): 39.6 mmHg E/E' lat: 10.3 E/e' average: 12.2 MV dec time: 0.21 sec SV(OT): 88.1 ml Reading Physician:FABIANA
--- NOTE | 2023-05-29 18:03 | PC.WOUNDPHOT ---
Left leg photo: 1 Right leg photo: 2
[2023-05-29 18:04] LABS: Alanine Aminotransferase 24 IU/L (<50); Albumin 4.1 g/dL (3.5-5.0); Albumin Globulin Ratio 1.2 (1.0-2.8); Alkaline Phosphatase 99 U/L (38-126); Aspartate Aminotransferase 45 IU/L (17-59); BUN Creatinine Ratio 11.8 (6-22); Bilirubin Total 0.9 mg/dL (0.2-1.3); Blood Urea Nitrogen 23 mg/dL (9-20); Calcium 9.6 mg/dL (8.4-10.2); Carbon Dioxide 26 mmol/L (22-32); Chloride 102 mmol/L (98-107); Estimated Glomerular Filt Rate 34 mL/min (>60); Globulin 3.4 g/dL (1.7-4.1); Glucose 143 mg/dL (80-110); Sodium 138 mmol/L (137-145); Total Protein 7.5 g/dL (6.3-8.2)
[2023-05-29 18:17] LABS: HEMOLYSIS 62 (0-50); Potassium 5.5 mmol/L (3.4-5.1)
[2023-05-29] MEDS: VANCOMYCIN 1,000 MG/200 ML PIGGYBACK 200 MG IV (18:49)
[2023-05-29] MEDS: INSULIN GLARGINE 100 UNIT/ML 3ML PEN 40 UNIT SUBCUT (21:58)
[2023-05-29] MEDS: INSULIN LISPRO 100 UNIT/ML 3ML VIAL SUBCUT (21:59)
[2023-05-30] VITALS: BP 144/62; PULSE 76; RESP 16; TEMP 36.4; O2SAT 96
[2023-05-30 04:00] VITALS: BP 146/72; PULSE 76; RESP 16; TEMP 36.4; O2SAT 96
[2023-05-30 05:10] LABS: Add Manual Diff / Slide Review NO; Basophils Absolute Auto 0 /uL (0-100); Basophils Percent Auto 0.5 % (0-2); Eosinophils Absolute Auto 100 /uL (0-450); Eosinophils Percent Auto 1.5 % (2-4); Hemoglobin 10.2 g/dL (13.5-17.5); Lymphocytes Absolute Auto 1200 /uL (1100-4500); Lymphocytes Percent Auto 19.9 % (25-40); Mean Corpuscular HGB Conc 32.8 % (30-36); Mean Corpuscular Hemoglobin 32.9 PG (26-34); Mean Corpuscular Volume 100.2 fL (80-100); Monocytes Absolute Auto 900 /uL (0-900); Monocytes Percent Auto 15.3 % (3-14); Neutrophils Absolute Auto 3700 /uL (1500-7000); Neutrophils Percent Auto 62.8 % (50-75); Platelet Count 212 X10^3/uL (150-400); Red Blood Cell Count 3.09 X10^6/uL (4.5-5.9); Red Cell Distribution Width 15.4 % (11.6-14.8); White Blood Cell Count 5.8 X10^3/uL (4.5-11.0)
[2023-05-30 05:15] LABS: Hemoglobin A1C% w Est Avg Glu 7.3 % (4.0-6.0)
[2023-05-30 05:23] LABS: Alanine Aminotransferase 18 IU/L (<50); Albumin 3.1 g/dL (3.5-5.0); Albumin Globulin Ratio 1.1 (1.0-2.8); Alkaline Phosphatase 75 U/L (38-126); Aspartate Aminotransferase 27 IU/L (17-59); BUN Creatinine Ratio 13.7 (6-22); Bilirubin Total 0.6 mg/dL (0.2-1.3); Blood Urea Nitrogen 25 mg/dL (9-20); Calcium 8.8 mg/dL (8.4-10.2); Carbon Dioxide 26 mmol/L (22-32); Chloride 106 mmol/L (98-107); Estimated Glomerular Filt Rate 36 mL/min (>60); Globulin 2.7 g/dL (1.7-4.1); Glucose 68 mg/dL (80-110); HEMOLYSIS < 15 (0-50); Magnesium 1.9 mg/dL (1.6-2.3); Sodium 137 mmol/L (137-145); Total Protein 5.8 g/dL (6.3-8.2)
[2023-05-30 05:53] LABS: TSH w/ Reflex to FT4 2.61 uIU/mL (0.47-4.68)
[2023-05-30] MEDS: OXYCODONE IR 5 MG TABLET PO (06:46)
[2023-05-30 08:00] VITALS: BP 172/67; PULSE 78; RESP 20; TEMP 36.2; O2SAT 93
[2023-05-30] MEDS: ACETAMINOPHEN 325 MG TABLET 650 MG PO (08:29)
[2023-05-30] MEDS: RIVAROXABAN 10 MG TABLET 20 MG PO (08:30)
[2023-05-30] MEDS: TAMSULOSIN 0.4 MG CAPSULE PO (08:30)
[2023-05-30] MEDS: GABAPENTIN 300 MG CAPSULE PO ×2 (08:30→20:30)
[2023-05-30] MEDS: OXYCODONE IR 10 MG TABLET PO (10:19)
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
[2023-05-30 12:00] VITALS: BP 157/60; PULSE 66; RESP 18; TEMP 36.7; O2SAT 100
--- NOTE | 2023-05-30 12:19 | P.PN_ITS ---
Subjective Subjective Interval history: 82 M admitted with cellulitis, complains of worsened R foot pain today. No obvious change in erythema or warmth from yesterday. Will change from ceftriaxone to cefepime to broaden coverage. Echo with no systolic or diastolic dysfunction. Exam Vital Signs (past 8 hours): - 05/30/23 08:00 05/30/23 12:00 Temperature 97.1 F L 98.1 F Pulse Rate 78 66 Respiratory Rate 20 18 Blood Pressure 172/67 H 157/60 H Pulse Oximetry 93 100 Oxygen Flow Rate 0 0 Oxygen Delivery Method Room Air Oxygen Flow Rate 0 Narrative Exam Narrative: General:? Patient is well developed and well nourished, in no distress at this time. HEENT:? Normocephalic, atraumatic, extraocular muscles intact, oral pharynx is clear and mucous membranes are moist. Neck: supple and symmetric, trachea is midline, no cervical adenopathy. Negative for JVD Chest:? Normal AP diameter and contour without kyphoscoliosis, no tachypnea, equal chest rise bilaterally. Lungs:? CTA b/l no wheezing rhonchi or rales. Cardio:?RRR no m/r/g. Abdomen: S NT ND. Musculoskeletal:? Muscle strength and tone are equal within normal limits, no deformity. Extremities: joint effusions. No cyanosis or clubbing. DP and PT pulses +2 bilaterally. bilateral 1 + pitting edema to the knees with chronic venous stasis changes. Mild warmth and erythema to left calf circumferentially with weeping. No crepitus or overlying necrosis. Skin:? Pale,? Warm to touch,dry and intact. Neuro:? Alert and orientated x3,? bilateral foot numbness (chronic), no gross deficits noted of cranial nerves. Psych:? Patient has a well-kept appearance, appropriate affect, mental status attitude thought context and judgment are appropriate for age. Objective Labs 05/30/23 04:30 05/30/23 04:30 Labs: Laboratory Results - last 24 hr 05/29/23 05/29/23 05/30/23 14:10 16:47 04:30 WBC 7.2 5.8 RBC 3.65 L 3.09 L Hgb 12.1 L 10.2 L Hct 36.5 L 31.0 L MCV 99.8 100.2 H MCH 33.1 32.9 MCHC 33.1 32.8 RDW 16.0 H 15.4 H Plt Count 266 212 Neut % (Auto) 79.8 H 62.8 Lymph % (Auto) 10.8 L 19.9 L [place] % (Auto) 8.0 15.3 H Eos % (Auto) 0.8 L 1.5 L Baso % (Auto) 0.6 0.5 Neut # (Auto) 5700 3700 Lymph # (Auto) 800 L 1200 [place] # (Auto) 600 900 Eos # (Auto) 100 100 Baso # (Auto) 0 0 Sodium 138 137 Potassium 5.5 H 5.0 Chloride 102 106 Carbon Dioxide 26 26 BUN 23 H 25 H Creatinine 1.95 H 1.83 H Estimated GFR 34 L 36 L BUN/Creatinine Ratio 11.8 13.7 Glucose 143 H 68 L Hemoglobin A1c 7.3 H Lactate 1.5 Calcium 9.6 8.8 Magnesium 1.9 Total Bilirubin 0.9 0.6 AST 45 27 ALT 24 18 Alkaline Phosphatase 99 75 NT-Pro-B Natriuret Pep 440 Total Protein 7.5 5.8 L Albumin 4.1 3.1 L Globulin 3.4 2.7 Albumin/Globulin Ratio 1.2 1.1 Procalcitonin 0.06 TSH 2.61 PFSH Medical History CVA (cerebral vascular accident) Dyslipidemia Anticoagulated Surgical History H/O foot surgery H/O heart artery stent Social History household members: other Smoking Status: Former smoker alcohol intake: former Assessment & Plan Assessment & Plan narrative: 1. Left leg cellulitis with likely chronic venous stasis - failed outpatient therapy with courses of augmentin and clinda and bactrim. Developed LLE cellulitis despite this therapy. - continued ceftriaxone and vancomycin initially, will change ceftriaxone to cefepime 2g q12 to broaden coverage in case of pseudomonal infection. - possible nonhealing cellulitis due to venous stasis, or there may be no acute component, though likely cannot definitively say at this time. - echocardiogram was unremarkable - consider addition of diuretic to help with fluid removal - keep feet elevated when resting. 2. Bilateral lower extremity edema with history of CAD. - DVT US negative - echocardiogram unremarkable - continue home xarelto - proBNP normal - likely due to venous stasis 3. 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 DM2 with bilateral chronic neuropathy, with terminal gauger insulin use - continue home lantus 34 U nightly, add sliding scale - A1c 7.3% - hold home oral medications 5. HTN - does not appear to be currently on medications, continue to monitor for now, hypertensive in the and slightly better today. 6. HLD - continue home atorvastatin. Code: Full, surrogate decision maker is patient's sister DVT: on xarelto I have utilized all available immediate resources to obtain, update, or review the patient's current medications. Discussed with case management obtain above history, and to formulate the above assessment and plan. I have reviewed patient's previous documentation, imaging, and current labs personally. Dispo: admitted inpatient, anticipated stay is beyond two midnights, he is likely to go home at discharge.
[2023-05-30] MEDS: CEFEPIME 2 GM in SODIUM CHLORIDE 0.9% 100 ML IV (14:07)
[2023-05-30 16:00] VITALS: BP 137/46; PULSE 70; RESP 18; TEMP 36.7; O2SAT 96
[2023-05-30] MEDS: FUROSEMIDE 20 MG TABLET PO (16:40)
[2023-05-30] MEDS: VANCOMYCIN 1,000 MG/200 ML PIGGYBACK 200 MG IV (18:29)
[2023-05-30 20:00] VITALS: BP 146/56; PULSE 77; RESP 16; TEMP 36.8; O2SAT 95
[2023-05-30] MEDS: ATORVASTATIN 20 MG TABLET 80 MG PO (20:30)
[2023-05-30] MEDS: INSULIN GLARGINE 100 UNIT/ML 3ML PEN 34 UNIT SUBCUT (20:37)
[2023-05-31] VITALS: BP 163/88; PULSE 66; RESP 17; TEMP 36.6; O2SAT 97
[2023-05-31] MEDS: CEFEPIME 2 GM in SODIUM CHLORIDE 0.9% 100 ML IV ×2 (00:02→11:56)
[2023-05-31 04:00] VITALS: BP 174/72; PULSE 75; RESP 16; TEMP 36.3; O2SAT 96
[2023-05-31] MEDS: OXYCODONE IR 10 MG TABLET PO (04:37)
[2023-05-31 05:15] LABS: Alanine Aminotransferase 21 IU/L (<50); Albumin 3.2 g/dL (3.5-5.0); Albumin Globulin Ratio 1.1 (1.0-2.8); Alkaline Phosphatase 82 U/L (38-126); Aspartate Aminotransferase 30 IU/L (17-59); BUN Creatinine Ratio 15.7 (6-22); Bilirubin Total 0.6 mg/dL (0.2-1.3); Blood Urea Nitrogen 28 mg/dL (9-20); Calcium 9.1 mg/dL (8.4-10.2); Carbon Dioxide 28 mmol/L (22-32); Chloride 106 mmol/L (98-107); Estimated Glomerular Filt Rate 37 mL/min (>60); Globulin 2.8 g/dL (1.7-4.1); Glucose 66 mg/dL (80-110); HEMOLYSIS < 15 (0-50); Magnesium 1.7 mg/dL (1.6-2.3); Sodium 136 mmol/L (137-145)
[2023-05-31 05:21] LABS: Add Manual Diff / Slide Review NO; Basophils Absolute Auto 0 /uL (0-100); Basophils Percent Auto 0.5 % (0-2); Eosinophils Absolute Auto 100 /uL (0-450); Eosinophils Percent Auto 2.1 % (2-4); Hematocrit 31.2 % (41-53); Hemoglobin 10.3 g/dL (13.5-17.5); Lymphocytes Absolute Auto 1200 /uL (1100-4500); Lymphocytes Percent Auto 23.5 % (25-40); Mean Corpuscular Hemoglobin 32.9 PG (26-34); Mean Corpuscular Volume 99.4 fL (80-100); Monocytes Absolute Auto 800 /uL (0-900); Monocytes Percent Auto 15.1 % (3-14); Neutrophils Absolute Auto 3000 /uL (1500-7000); Neutrophils Percent Auto 58.8 % (50-75); Platelet Count 215 X10^3/uL (150-400); Red Blood Cell Count 3.14 X10^6/uL (4.5-5.9); Red Cell Distribution Width 15.5 % (11.6-14.8); White Blood Cell Count 5.2 X10^3/uL (4.5-11.0)
[2023-05-31 05:55] LABS: Potassium 5.8 mmol/L (3.4-5.1)
--- NOTE | 2023-05-31 06:10 | PC.NURSE ---
Pt morning lab work reported BG 66 @0533. Performed pt check, asleep but arousable to be alert and oriented, made aware low result, and agreed to consumed 4oz orange juice and 1/2 PB&J sandwich. BG recheck 65 @0627. Consumed 4oz Apple juice. BG recheck 65 @0649. Consumed 7.2oz orangejuice and 1 packet honey. BG to be rechecked @3528.
[2023-05-31] MEDS: MAGNESIUM CHLORIDE 64 MG TABLET 128 MG PO (06:48)
[2023-05-31 08:00] VITALS: BP 158/58; PULSE 73; RESP 16; TEMP 36.7; O2SAT 96
[2023-05-31] MEDS: TAMSULOSIN 0.4 MG CAPSULE PO (09:24)
[2023-05-31] MEDS: GABAPENTIN 300 MG CAPSULE PO ×2 (09:24→20:07)
[2023-05-31] MEDS: SODIUM ZIRCONIUM CYCLOSILICATE 10 GM POWD.PACK PO ×3 (09:24→20:07)
[2023-05-31] MEDS: RIVAROXABAN 10 MG TABLET 20 MG PO (09:24)
[2023-05-31] MEDS: FUROSEMIDE 20 MG TABLET PO (09:24)
[2023-05-31] MEDS: ACETAMINOPHEN 325 MG TABLET 650 MG PO (09:25)
--- NOTE | 2023-05-31 10:36 | CM.DPC ---
Addendum entered by Jazlyn Beckman R.N. 05/31/23 13:59: [place], physical therapist recommended home health. Let her know that this DC Equipment Processor had offered it, but declined it at the time. Patient has some social and personal issues going on at this time. [place] indicated and confirmed that patient is not driving, and should be home bound, nephew drives. Let her know that this DC Equipment Processor will offer it again. Met again with patient, he stated, he will think about it, but not yet. He asked for a business card, filled out a card with DC materials planner/production planner's phone number should he change his mind. Will complete face to face, P.T. stated that [facility]ISTR[facility] may be appropriate as well, due to his personal issue, but do not have any evidence of this, since patient has not shared this with this DC Equipment Processor. Will place RN, P.T, and O.T. on face to face, but will not yet order any home health services unless patient consents to this. Original Note: DCP Cont: Met with patient in his room, introduced self and role. Asked patient if he would be interested in any home health services, for wound care. Reminded him that if he did get home health, would need to be home bound. Patient declined, stated, does not think that he could be home bound. Let him know that if he changes his mind, this DC Equipment Processor is available. Other option may be for patient to go to the wound clinic. P: DCP to continue to follow for any needs. Plan is home when stable, has declined home health services for now. Jazlyn Beckman RN/Cloth Finishing Range Tender
[2023-05-31] MEDS: INSULIN LISPRO 100 UNIT/ML 3ML VIAL SUBCUT (11:55)
[2023-05-31 12:00] VITALS: BP 135/64; PULSE 72; RESP 16; TEMP 36.6; O2SAT 94
--- NOTE | 2023-05-31 12:10 | DI.US.S_ITS ---
PROCEDURE: US ARTERIAL DUPLEX LE BI INDICATIONS: assess LE circulation, prolonged cap refill TECHNIQUE: Color and pulse Doppler interrogation was performed of both lower extremity arterial systems, with image documentation. COMPARISON: [facility], CT, ANGIO AORTA ILIOFEM AND EXT, 02/09/2016, 8:48. [facility], US, ARTERIAL LOW.EXTREM.BILATERAL, 11/26/2015, 13:07. FINDINGS: Right lower extremity: Common femoral artery: 163 cm/sec, with monophasic flow. Deep femoral artery: 129 cm/sec, with monophasic flow. Superficial femoral artery: Occluded throughout its course. Popliteal artery: Occluded. Posterior tibial artery: Occluded. Anterior tibial artery/dorsalis pedis: Occluded. [place]-scale imaging description: Extensive scattered atherosclerotic disease. Left lower extremity: Common femoral artery: 171 cm/sec, with monophasic flow. Deep femoral artery: 46 cm/sec, with monophasic flow. Proximal superficial femoral artery: 95 cm/sec, with monophasic flow. Mid superficial femoral artery: 111 cm/sec, with monophasic flow. Distal superficial femoral artery: 75 cm/sec, with monophasic flow. Popliteal artery: 119 cm/sec, with monophasic flow. Posterior tibial artery: 36 cm/sec, with monophasic flow. Anterior tibial artery/dorsalis pedis: 29 cm/sec, with monophasic flow. [place]-scale imaging description: Extensive scattered atherosclerotic disease. IMPRESSION: Extensive atherosclerotic disease bilaterally. Right lower extremity: -Occluded SFA, popliteal artery, posterior tibial artery and anterior tibial artery. Findings are likely chronic as seen on CTA runoff dated February 09, 2016. Correlate with physical exam. -Monophasic waveforms in the common femoral and profundus femoral artery suggestive of aortoiliac inflow disease. Left lower extremity: -Monophasic waveforms throughout the left lower extremity suggestive of aortoiliac inflow disease. Dictated by: Eriberto Blair M.D. on 05/31/2023 at 15:19 Approved by: Eriberto Blair M.D. on 05/31/2023 at 15:28
[2023-05-31 12:42] LABS: BUN Creatinine Ratio 16.8 (6-22); Blood Urea Nitrogen 29 mg/dL (9-20); Calcium 8.9 mg/dL (8.4-10.2); Carbon Dioxide 26 mmol/L (22-32); Chloride 103 mmol/L (98-107); Estimated Glomerular Filt Rate 39 mL/min (>60); Glucose 157 mg/dL (80-110); HEMOLYSIS < 15 (0-50); Sodium 137 mmol/L (137-145)
[2023-05-31 12:43] LABS: Potassium 5.5 mmol/L (3.4-5.1)
--- NOTE | 2023-05-31 12:59 | P.PN_ITS ---
Subjective Subjective Interval history: K up to 5.8 today. Lokelma ordered. Patient states his LE discoloration isn't much improved. Still has some pain in his dorsal foot on right. Cap refill diminished and sensation diminished bilaterally. Exam Vital Signs (past 8 hours): - 05/31/23 08:00 05/31/23 12:00 Temperature 98.1 F 98 F Pulse Rate 73 72 Respiratory Rate 16 16 Blood Pressure 158/58 H 135/64 Pulse Oximetry 96 94 Oxygen Flow Rate 0 0 Oxygen Delivery Method Room Air Oxygen Flow Rate 0 Narrative Exam Narrative: General:? Patient is well developed and well nourished, in no distress at this time. HEENT:? Normocephalic, atraumatic, extraocular muscles intact, oral pharynx is clear and mucous membranes are moist. Neck: supple and symmetric, trachea is midline, no cervical adenopathy. Negative for JVD Chest:? Normal AP diameter and contour without kyphoscoliosis, no tachypnea, equal chest rise bilaterally. Lungs:? CTA b/l no wheezing rhonchi or rales. Cardio:?RRR no m/r/g. Abdomen: S NT ND. Musculoskeletal:? Muscle strength and tone are equal within normal limits, no deformity. Extremities: No joint effusions. No cyanosis or clubbing. DP and PT pulses +2 bilaterally. bilateral 1 + pitting edema to the knees with chronic venous stasis changes. Mild warmth and erythema to left calf circumferentially with weeping. No crepitus or overlying necrosis. Increased cap refill. Skin:? Pale,? Warm to touch,dry and intact. Neuro:? Alert and orientated x3,? bilateral foot numbness (chronic), no gross deficits noted of cranial nerves. Psych:? Patient has a well-kept appearance, appropriate affect, mental status attitude thought context and judgment are appropriate for age. Objective Labs 05/31/23 04:35 05/31/23 12:00 Labs: Laboratory Results - last 24 hr 05/31/23 05/31/23 04:35 12:00 WBC 5.2 RBC 3.14 L Hgb 10.3 L Hct 31.2 L MCV 99.4 MCH 32.9 MCHC 33.0 RDW 15.5 H Plt Count 215 Neut % (Auto) 58.8 Lymph % (Auto) 23.5 L [place] % (Auto) 15.1 H Eos % (Auto) 2.1 Baso % (Auto) 0.5 Neut # (Auto) 3000 Lymph # (Auto) 1200 [place] # (Auto) 800 Eos # (Auto) 100 Baso # (Auto) 0 Sodium 136 L 137 Potassium 5.8 H 5.5 H Chloride 106 103 Carbon Dioxide 28 26 BUN 28 H 29 H Creatinine 1.78 H 1.73 H Estimated GFR 37 L 39 L BUN/Creatinine Ratio 15.7 16.8 Glucose 66 L 157 H Calcium 9.1 8.9 Magnesium 1.7 Total Bilirubin 0.6 AST 30 ALT 21 Alkaline Phosphatase 82 Total Protein 6.0 L Albumin 3.2 L Globulin 2.8 Albumin/Globulin Ratio 1.1 PFSH Medical History CVA (cerebral vascular accident) Dyslipidemia Anticoagulated Surgical History H/O foot surgery H/O heart artery stent Social History household members: other Smoking Status: Former smoker alcohol intake: former Assessment & Plan Assessment & Plan narrative: 1. Left leg cellulitis with likely chronic venous stasis - failed outpatient therapy with courses of augmentin and clinda and bactrim. Developed LLE cellulitis despite this therapy. - continued ceftriaxone and vancomycin initially, will change ceftriaxone to cefepime 2g q12 to broaden coverage in case of pseudomonal infection. - possible nonhealing cellulitis due to venous stasis, or there may be no acute component, though likely cannot definitively say at this time. - echocardiogram was unremarkable - started lasix 20mg po daily due to edema - keep feet elevated when resting. - due to delayed cap refill, arterial US ordered to assess for claudication 2. Bilateral lower extremity edema with history of CAD. - DVT RLE US negative - echocardiogram unremarkable - continue home xarelto - proBNP normal - likely due to venous stasis - lasix 20mg po daily 3. 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 DM2 with bilateral chronic neuropathy, with nursing home insulin use - continue home lantus 34 U nightly, add sliding scale - A1c 7.3% - hold home oral medications 5. HTN - does not appear to be currently on medications, continue to monitor for now 6. HLD - continue home atorvastatin. 7. Hyperkalemia - up to 5.8, possibly due to CKD however kidney function improved today - low potassium diet - lokelma TID Code: Full, surrogate decision maker is patient's sister DVT: Evon Discussed with case management obtain above history, and to formulate the above assessment and plan. I have reviewed patient's previous documentation, imaging, and current labs personally. Dispo: Pending improvement in cellulitis. 2 more days.
--- NOTE | 2023-05-31 13:33 | PT.IIE ---
Current Diagnoses Cellulitis of left lower limb (05/29/23) Surgical History (Last Reviewed 05/29/23 @ 17:52 by Scottie Doherty DO) H/O foot surgery H/O heart artery stent Medical History (Last Reviewed 05/29/23 @ 17:52 by Scottie Doherty DO) Anticoagulated CVA (cerebral vascular accident) Dyslipidemia Physical Therapy Inpatient Evaluation/Re-Eval M1 PT/OT-IP Prior Functional Status Start: 05/31/23 10:29 Freq: NEEDED Status: Active Protocol: Document 05/31/23 12:44 MB (Rec: 05/31/23 13:32 MB [id number]) Medical Review Prior Functional Status Medical History Reviewed Yes Diet/Fluid Consistency Regular Communication WNLs, [place] and wears hearing aides Mobility and Gait Mod I with rollator Activities of Daily Living and IADL's I Social History Household Members family Living Arrangements House Number of Floors (Floors) One Floor Number of Stairs To Enter/Railing? 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 M2 PT-IP Current Condition Start: 05/31/23 10:29 Freq: NEEDED Status: Active Protocol: Document 05/31/23 12:44 MB (Rec: 05/31/23 13:32 MB [id number]) Physical Therapy Current Condition Current Condition Evaluation Date 05/31/23 Treatment Diagnosis B LE cellulitis M3 PT-IP Subjective Start: 05/31/23 10:29 Freq: NEEDED Status: Active Protocol: Document 05/31/23 12:44 MB (Rec: 05/31/23 13:32 MB [id number]) Subjective Physical Therapy Visit Type Type Initial Evaluation Visit Start Time 12:40 Visit Stop Time 13:21 Total Visit Minutes 41 Number of ENVIRONMENTAL PROGRAM MANAGER Visits 0 Physical Therapy Visit Comments Patient Comments I want to get home when I can . Therapy Pain Assessment Pain When Pain Assessed At Rest Pain Present Pain Present Denied Pain M4 PT-IP Mobility and Gait Start: 05/31/23 10:29 Freq: NEEDED Status: Active Protocol: Document 05/31/23 12:44 MB (Rec: 05/31/23 13:32 MB [id number]) PT-Bed Mobility Assessment Supine to Sit Supine to Sit Standby Assistance,1 Person Assistance,Head of Bed Elevated,Bedrails Sit to Supine Sit to Supine Standby Assistance,Head of Bed Elevated,Bedrails Scooting Scooting to Edge of Bed Standby Assistance Scooting Up and Down in Bed Standby Assistance PT-Transfer Assessment Sit to and From Stand Sit to and from Stand Standby Assistance,1 Person Assistance,Use of Upper Extremities Equipment Transfer Assistive Device Gait Belt,4 Wheeled Walker Orthotic/Prosthetic Devices or Brace: No Transfers Transfer Destination Toilet Transfer Technique Ambulation Comments Mobility Comments Pt does not readily use rollator when asked by PT and tends to reach for the wall: decreased safety awareness and imbalance d/t old stroke Gait Assessment Gait Gait Assistance Required: Contact Guard Assist,1 Person Assist Distance (Feet) 15 Able to Maintain Weight Bearing Status Yes During Gait Assistive Devices Assistive Device Gait Belt,Front Wheeled Walker Orthotic/Prosthetic Devices or Brace: No Gait Deviations General Gait Pattern Decreased Stride Length, Decreased Feet Clearance Factors Limiting Gait Function Factors Limiting Gait Function Abnormal Tonal Influences, Decreased Strength,Poor Balance,Poor Safety Awareness Comments Gait Comments Pt tends to let go of rollator despite cues to use and reaches for the wall and BR rail. He has impaired balance d/t old stroke affecting his right side. He gait trains 15' x1 and 10'x1 and 5'x1. PT-Balance Assessment Sitting Balance and Reactions Static Sitting Balance Ability Good Dynamic Sitting Balance Ability Good Standing Balance and Reactions Static Standing Balance Ability Fair Dynamic Standing Balance Ability Fair M5 PT-IP Objective Assessments Start: 05/31/23 10:29 Freq: NEEDED Status: Active Protocol: Document 05/31/23 12:44 MB (Rec: 05/31/23 13:32 MB [id number]) Orientation Orientation/Cognition Level of Alertness Alert Orientation Name,Age,Birthday,Month,Date, Year,Day of Week,Place, Situation Language Function Ability Hard of Hearing Safety Awareness Decreased Safety Awareness Memory Description Arc And Gas Welder Impaired Gross Range of Motion Upper Extremity ROM Impairments Defer to OT Lower Extremity ROM Assessment Right Impaired Strength Lower Extremity Strength Assessment Right Impaired Hip 4 Knee 4 Ankle 4 Sensation Assessment Comments Sensation Comments B LE erythema and mild edema M6 PT-IP Treatment Start: 05/31/23 10:29 Freq: NEEDED Status: Active Protocol: Document 05/31/23 12:44 MB (Rec: 05/31/23 13:32 MB [id number]) Physical Therapy Treatment Education Education Provided Safety M7 PT-IP Assessment and Plan Start: 05/31/23 10:29 Freq: NEEDED Status: Active Protocol: Document 05/31/23 12:44 MB (Rec: 05/31/23 13:32 MB [id number]) PT Summary Assessment and Plan Potential Rehabilitation Potential Fair Status of Condition at Evaluation Evolving Summary Impairments Strength,Balance,Cognition,Bed Mobility,Transfers,Gait, Activity Tolerance Progress Towards Goals Slow Progress due to Medical Issues Assessment Summary Pt is a gentleman presenting with B LE cellulitis. He has a history of stroke affecting his right side and he has residual weakness and imbalance. He presents with [place] and some impaired correction memory and decreased safety awareness. He is reluctant to use rollator despite being cued by PT and tends to furniture walk in the room. He will benefit from acute and post-acute PT to improve bed mobility, transfers, balance and gait. Recommend HHPT, HHnsg and HHSW at d/c. Goals Bed Mobility Goal Independent Transfer Goal Independent,Front Wheeled Walker,Four Wheeled Walker Gait Goal Independent,Front Wheel Walker ,Four Wheel Walker Gait Distance 75 Other Goals Gait with best LRAD Days to Meet Goals 5 Frequency of Treatment Frequency Of Treatment Once a Day Treatment Plan Physical Therapy Treatment Plan Bed Mobility Training,Transfer Training,Gait Training, Therapeutic Exercise,Balance Retraining,Discharge Planning Weight Bearing Status Weight Bearing Status Weight Bear as Tolerated Recommendations To Nursing Amount of Assist Needed Standby Assistance Discharge Recommendations PT Discharge Recommendations Home with Assistance,Home Health Transportation Needs at Discharge Private Vehicle
--- NOTE | 2023-05-31 13:44 | OT.IP.EVAL ---
Current Diagnoses Cellulitis of left lower limb (05/29/23) Past Medical History (Last Reviewed 05/29/23 @ 17:52 by Scottie Doherty DO) Anticoagulated CVA (cerebral vascular accident) Dyslipidemia Surgical History (Last Reviewed 05/29/23 @ 17:52 by Scottie Doherty DO) H/O foot surgery H/O heart artery stent Occupational Therapy Inpatient Evaluation/Re-Eval M1 PT/OT-IP Prior Functional Status Start: 05/31/23 13:43 Freq: NEEDED Status: Active Protocol: Document 05/31/23 13:44 [facility] (Rec: 05/31/23 14:05 [facility] [id number]) Medical Review Prior Functional Status Medical History Reviewed Yes Diet/Fluid Consistency Regular Communication WNLs, [place] and wears hearing aides Mobility and Gait Mod I with rollator Activities of Daily Living and IADL's I with basic ADL's and sister and nephew assist with meals and cleaning. Pt states still drives. Social History Household Members family Living Arrangements House Number of Floors (Floors) One Floor Number of Stairs To Enter/Railing? Ramp to enter Home Environment Standard Height Toilet,Walk in Shower Home Equipment Four Wheel Walker,Shower Seat without Backrest,Hand Held Shower,Grab Bars In Shower Employment Status Retired M2 OT-IP Current Condition Start: 05/31/23 13:43 Freq: Status: Active Protocol: Document 05/31/23 13:44 [facility] (Rec: 05/31/23 14:05 [facility] [id number]) Occupational Therapy Current Condition Current Condition Evaluation Date 05/31/23 Treatment Diagnosis LLE cellulitis Diagnosis Onset Date 05/29/23 M3 OT- IP Subjective and Pain Start: 05/31/23 13:43 Freq: Status: Active Protocol: Document 05/31/23 13:44 [facility] (Rec: 05/31/23 14:05 [facility] [id number]) OT- Subjective Occupational Therapy Visit Type Type Initial Evaluation Visit Start Time 13:15 Visit Stop Time 13:46 Total Visit Minutes 31 Occupational Therapy Visit Comments Patient Comments Pt agreed to get up. Patient/Caregiver Goals To go home. OT Pain Assessment Pain When Pain Assessed At Rest Pain Present Pain Present Denied Pain M4 OT- IP ADL's Start: 05/31/23 13:43 Freq: Status: Active Protocol: Document 05/31/23 13:44 [facility] (Rec: 05/31/23 14:05 [facility] [id number]) OT ILZ-Oytl-Cysncej Comments OT Self-Feeding Comments Not at meal time, no issues anticipated. OT ADL-Grooming Comments OT Grooming Comments Pt states did prior. OT ADL-Oral Care Comments Oral Care Comments Pt states did prior. OT ADL-Dressing General Eval Lower Body Dressing Ability Standby Assistance Comments OT Dressing Comments Pt able to kristel/doff his socks with increased time and tends to loss his balance to the right for his right sock but able to manage on his own. OT ADL-Toileting Comments OT Toileting Comments Not performed, pt states did earlier. OT ADL-Bathing Comments OT Bathing Comments Not performed. M5 OT- IP IADL's Start: 05/31/23 13:43 Freq: Status: Active Protocol: Document 05/31/23 13:44 [facility] (Rec: 05/31/23 14:05 [facility] [id number]) OT-Instrumental Activities of Daily Living Deficits IADL Deficits Identified Deficits Home Safety Awareness Awareness of Need for Assistance at Home Decreased Awareness Ability to Problem Solve Emergency Unable to Problem Solve Situations Home Safety Comments Pt not aware to call 911 in case of an emergency, pt states to just let his sister know. Pt states would open the front door if someone knocked. Educated pt to look out the window as his front door does not have a peek hole or security door to see who is present before opening the door. Medication Management Medication Management Comments Pt states does his own but would benefit from supervision . Money Management Money Management Comments Pt would benefit from supervision. Meal Preparation Meal Preparation Caregiver Provides Assist Vulcanizer Operator Vulcanizer Operator Caregiver Provides Assist Driving Driving Concerns Identified Regarding Safety M6 OT- IP Functional Cognition Start: 05/31/23 13:43 Freq: Status: Active Protocol: Document 05/31/23 13:44 [facility] (Rec: 05/31/23 14:05 [facility] [id number]) Cognitive Factors Limiting Selfcare Function Cognitive Ability Level of Alertness Alert Patient Orientation Name,Age,Birthday,Place, Situation Attention Span Ability Capable of Focused Attention, Capable of Sustained Attention Ability to Follow Commands Able to Follow One Step Commands Executive Function Ability Unable to Organize Plans, Unable to Remember Details Cognitive Comments Cognitive Assessment Comments Pt scored 307 seconds on [place] Making Part B which implies severe deficits for visual attention, speed of processing , mental flexibility, executive functioning, and task switching. Pt scored 20th percentile for his age. Strongly suggested pt not drive at this time. OT- Vision and Hearing OT- Hearing Assessment OT- Hearing Assessment Hearing Impaired,Use of Hearing Aids OT- Vision Assessment Visual Acuity Glasses All The Time Visual Attentiveness WFL Occular Pursuits WFL Visual [place] Impaired Vision Assessment Comments Decreased for peripheral vision both eyes. M7 OT- IP Mobility and Balance Start: 05/31/23 13:43 Freq: Status: Active Protocol: Document 05/31/23 13:44 [facility] (Rec: 05/31/23 14:05 [facility] [id number]) OT- Bed Mobility Assessment Supine to Sit Supine to Sit Assist Standby Assistance Sit to Supine Sit to Supine Assist Standby Assistance Scooting Scooting to Edge of Bed Standby Assistance Scooting Up and Down in Bed Standby Assistance OT-Transfer Assessment Sit to and From Stand Sit to and from Stand Standby Assistance Transfers Transfer Ability Standby Assistance,Contact Guard Assistance Technique Transfer Destination Bed,Chair Transfer Technique Stand Step Pivot Devices Transfer Assistive Devices None Comments Mobility Comments CGA without device to transfer to the chair and on the way back SBA. Pt states at home uses his 4ww most of the time. OT- Balance Assessment Sitting Balance and Reactions Static Sitting Balance Ability Good Dynamic Sitting Balance Ability Fair Standing Balance and Reactions Static Standing Balance Ability Fair Dynamic Standing Balance Ability Fair M8 OT- IP Objective Assessments Start: 05/31/23 13:43 Freq: Status: Active Protocol: Document 05/31/23 13:44 [facility] (Rec: 05/31/23 14:05 [facility] [id number]) OT Gross Range of Motion Upper Extremity Range of Motion Assessment Within Functional Limits OT Strength Upper Extremity Strength Assessment Within Functional Limits OT- Coordination Assessment Upper Extremity Finger to Nose Test Within Functional Limits Comments Coordination Comments Pt states still has some difficulty with FMS with right hand at times and 85% recovered from his CVA last year per pt. M9 OT- IP Assessment and Plan Start: 05/31/23 13:43 Freq: Status: Active Protocol: Document 05/31/23 13:44 [facility] (Rec: 05/31/23 14:05 [facility] [id number]) OT Summary Assessment and Plan Potential Rehabilitation Potential Good Analytic Complexity at Evaluation Low Summary OT Impairments Balance,Coordination, Functional Cognition, Functional Mobility,Dressing, Toileting,Bathing,Toilet Transfers,Shower Transfers Progress Towards Goals Progressing Toward Goals Assessment Summary Pt main barriers are decreased dynamic balance and executive functioning and scoring 307 Second on [place] Making Part B which implies severe impairments for visual attention, speed of processing , mental flexibility, executive functioning and task switching. Pt highly encouraged not to drive at this time. Pt will benefit from home with assist and home health when medically stable. Goals Grooming Goal Independent Dressing Goal Independent Toileting Goal Independent Bathing Goal Independent Toilet Transfer Goal Independent Shower Transfer Goal Independent Days to Meet Goals 7 Frequency of Treatment Frequency Of Treatment Once a Day Treatment Plan OT Treatment Plan ADL Training,Functional Cognition Training,Functional Mobility,Patient/Family Education,Discharge Planning Other Treatment Recommendations and Next shower with SBA Treatment Focus Discharge Recommendations OT Discharge Recommendations Home with Assistance,Home Health Transportation Needs at Discharge Private Vehicle
[2023-05-31 16:00] VITALS: BP 136/57; PULSE 70; RESP 16; TEMP 36.6; O2SAT 97
[2023-05-31] MEDS: VANCOMYCIN 1,000 MG/200 ML PIGGYBACK 200 MG IV (18:48)
[2023-05-31 20:00] VITALS: BP 141/53; PULSE 72; RESP 19; TEMP 36.5; O2SAT 94
[2023-05-31] MEDS: INSULIN GLARGINE 100 UNIT/ML 3ML PEN 28 UNIT SUBCUT (20:01)
[2023-05-31] MEDS: ATORVASTATIN 20 MG TABLET 80 MG PO (20:06)
[2023-06-01] VITALS: BP 136/50; PULSE 70; RESP 20; TEMP 36.9; O2SAT 96
--- NOTE | 2023-06-01 | DI.CT.S_ITS ---
PROCEDURE: CT ANGIO ABD AORTA RUNOFF INDICATIONS: severe PAD TECHNIQUE: After the administration of intravenous contrast, 2.5 mm sections acquired from T12 to the feet, with optional delayed image acquisition from the knees to the feet. 3-dimensional maximum intensity projection (MIP) coronal and sagittal reformats, and/or 3-dimensional volume rendering reformatting was then performed. For radiation dose reduction, the following was used: automated exposure control. COMPARISON: [facility], CT, ANGIO AORTA ILIOFEM AND EXT, 02/09/2016, 8:48. FINDINGS: Image Quality: Diagnostic. Abdominal aorta: No abdominal aortic aneurysm. 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 Splanchnic vessels: Celiac, SMA and EDISON are patent with myvx-jb-[id number] ostial stenoses. Origin of the EDISON is occluded, as before. Bilateral renal arteries are patent with oixd-oy-zyaritkh ostial stenoses, left greater than right. Right lower extremity: Iliac vessels: Moderate focal stenosis in the right proximal common iliac artery of approximately 70 % (4/66). No high-grade stenosis in the remaining iliac vasculature. Moderate to severe scattered atherosclerosis. NETWORK ENGINEER: Patent with severe stenosis of approximately 80%(4/95) with dense eccentric calcification. Profunda: Patent with severe ostial stenosis of greater than 70% (4/99). SFA: Chronically occluded in the proximal and mid segments. The distal SFA is reconstituted via profundus femoral branches (4/150. Moderate to severe multifocal stenoses in the distal SFA (4/172). Popliteal: Severe stenosis/near complete occlusion of the mid popliteal artery (4/184) with reconstitution via geniculate collaterals (4/188). Lstwy-jjc-miwi vasculature: Evaluation for patency is limited due to heavily calcified vessels and lack of delayed phase imaging. TRUMAN is patent with multifocal stenoses. Peroneal artery appears patent to the level of the ankle mortise with multifocal stenoses. Posterior tibial artery appears chronically occluded. Left lower extremity: Iliac vessels: Common iliac artery is patent with focal stenosis of approximately 50% in the mid common iliac artery (6/159, 4/71). Severe stenosis at the origin of the left internal iliac artery (4/74). External iliac arteries patent with no high-grade stenosis. Moderate to severe scattered atherosclerotic plaque. NETWORK ENGINEER: Patent with severe stenosis of approximately 90% (4/93) with dense eccentric calcification. Profunda: Patent with severe ostial stenosis of greater than 70 % (4/99). SFA: Short-segment occlusion of the distal SFA (4/165, 172)). Popliteal: Reconstitution of the popliteal artery via geniculate collaterals (4/177). Evaluation of the proximal to mid popliteal artery patency is limited secondary to left knee arthroplasty hardware. Distal popliteal artery is patent. Mckhe-nsy-dvxl vasculature: Evaluation for patency is limited due to heavily calcified vessels and lack of delayed phase imaging. TRUMAN, WAREHOUSE ASSISTANT and peroneal artery demonstrate multifocal stenoses. Lower Chest: Cardiomegaly. Marked coronary vessel calcifications. ABDOMEN: Liver: No solid mass. Gallbladder: Cholecystectomy. Biliary ducts: No biliary dilation. Pancreas: No ductal dilation. Spleen: Size is within normal limits. Adrenal Glands: No adrenal nodules. Kidneys and Ureters: No hydronephrosis. No solid mass. No complex renal cystic lesion which requires follow up. Bilateral simple cysts. Additional subcentimeter cortical hypodensities are too small to characterize, statistically cysts. Stomach and Bowel: Normal colonic caliber, without significant wall thickening. Peritoneum: No abnormal intraperitoneal fluid. No free air. Ventral Wall: Tiny fat containing umbilical hernia. Abdominal Nodes: No retroperitoneal or mesenteric adenopathy by size criteria. 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 The bilateral femoral, common femoral and external/internal iliac veins are patent. Multiple venous collaterals in the anterior abdominal wall. PELVIS: Pelvic Organs: Unremarkable. Bladder: Unremarkable. Pelvic Nodes: No enlarged lymph nodes. Miscellaneous: Small bilateral fat containing inguinal hernias. Bones: No acute fracture. No aggressive appearing lytic or blastic osseous lesion. Degenerative changes of the spine. Left total knee arthroplasty. IMPRESSION: 1. Right lower extremity: Severe atherosclerotic disease with severe stenosis of approximately 80% in the common femoral artery and severe profunda femoral artery ostial stenosis. Chronic occlusion of the proximal to mid SFA with reconstitution of the distal SFA via profundal collaterals. Severe stenosis/near complete occlusion of the mid popliteal artery with distal reconstitution via geniculate collaterals. Severe atherosclerotic disease of the below the knee vasculature with dense calcification, limiting evaluation for patency. 2. Left lower extremity: Severe atherosclerotic disease with severe stenosis of approximately 90% in the common femoral artery and severe profunda femoral artery ostial stenosis. Chronic occlusion of the distal SFA with reconstitution of the popliteal artery via collaterals. Evaluation of the popliteal artery is limited due to streak artifact . Severe atherosclerotic disease of the below the knee vasculature with dense calcification, limiting evaluation for patency. 3. Stable infrarenal aorta dissection. 4. 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 Anterior abdominal wall venous collaterals. Recommend Vascular Surgery consultation. Dictated by: Eriberto Blair M.D. on 06/01/2023 at 15:11 Approved by: Eriberto Blair M.D. on 06/01/2023 at 15:53
[2023-06-01] MEDS: CEFEPIME 2 GM in SODIUM CHLORIDE 0.9% 100 ML IV ×2 (00:12→13:11)
[2023-06-01 04:00] VITALS: BP 147/62; PULSE 69; RESP 22; TEMP 36.6; O2SAT 93
[2023-06-01] MEDS: OXYCODONE IR 5 MG TABLET PO (04:14)
[2023-06-01 04:38] LABS: Add Manual Diff / Slide Review NO; Basophils Absolute Auto 0 /uL (0-100); Basophils Percent Auto 0.5 % (0-2); Eosinophils Absolute Auto 100 /uL (0-450); Eosinophils Percent Auto 2.8 % (2-4); Hematocrit 30.6 % (41-53); Hemoglobin 10.1 g/dL (13.5-17.5); Lymphocytes Absolute Auto 1000 /uL (1100-4500); Lymphocytes Percent Auto 22.5 % (25-40); Mean Corpuscular Hemoglobin 32.9 PG (26-34); Mean Corpuscular Volume 99.5 fL (80-100); Monocytes Absolute Auto 800 /uL (0-900); Neutrophils Absolute Auto 2600 /uL (1500-7000); Neutrophils Percent Auto 56.2 % (50-75); Platelet Count 212 X10^3/uL (150-400); Red Blood Cell Count 3.07 X10^6/uL (4.5-5.9); Red Cell Distribution Width 15.6 % (11.6-14.8); White Blood Cell Count 4.6 X10^3/uL (4.5-11.0)
[2023-06-01 04:48] LABS: BUN Creatinine Ratio 19.7 (6-22); Blood Urea Nitrogen 30 mg/dL (9-20); Calcium 8.7 mg/dL (8.4-10.2); Carbon Dioxide 25 mmol/L (22-32); Chloride 106 mmol/L (98-107); Estimated Glomerular Filt Rate 45 mL/min (>60); Glucose 89 mg/dL (80-110); HEMOLYSIS < 15 (0-50); Magnesium 1.7 mg/dL (1.6-2.3); Sodium 136 mmol/L (137-145)
[2023-06-01 04:49] LABS: Potassium 5.5 mmol/L (3.4-5.1)
[2023-06-01] MEDS: CALCIUM GLUCONATE 4.65 MEQ in SODIUM CHLORIDE 0.9% 50 ML 180 MEQ IV (07:38)
[2023-06-01 07:40] LABS: Creatine Kinase 80 U/L (55-170)
[2023-06-01] MEDS: SODIUM ZIRCONIUM CYCLOSILICATE 10 GM POWD.PACK PO ×3 (07:44→16:54)
[2023-06-01 08:00] VITALS: BP 166/66; PULSE 66; RESP 18; TEMP 36.4; O2SAT 96
[2023-06-01] MEDS: RIVAROXABAN 10 MG TABLET 20 MG PO (08:54)
[2023-06-01] MEDS: FUROSEMIDE 20 MG TABLET PO (08:54)
[2023-06-01] MEDS: GABAPENTIN 300 MG CAPSULE PO ×2 (08:54→20:05)
[2023-06-01] MEDS: TAMSULOSIN 0.4 MG CAPSULE PO (08:54)
--- NOTE | 2023-06-01 09:33 | OT.IP.TRT ---
Current Diagnoses Cellulitis of left lower limb (05/29/23) Occupational Therapy Treatment Note M2 OT-IP Current Condition Start: 05/31/23 13:43 Freq: Status: Active Protocol: Document 05/31/23 13:44 [facility] (Rec: 05/31/23 14:05 [facility] [id number]) Occupational Therapy Current Condition Current Condition Evaluation Date 05/31/23 Treatment Diagnosis LLE cellulitis Diagnosis Onset Date 05/29/23 M3 OT- IP Subjective and Pain Start: 05/31/23 13:43 Freq: Status: Active Protocol: Document 06/01/23 09:32 [facility] (Rec: 06/01/23 09:40 [facility] [id number]) OT- Subjective Occupational Therapy Visit Type Type Treatment Note Visit Start Time 09:00 Visit Stop Time 09:33 Total Visit Minutes 33 Occupational Therapy Visit Comments Patient Comments Pt wanting to redo [place] making Part B and take a shower. Patient/Caregiver Goals To gp home. OT Pain Assessment Pain When Pain Assessed At Rest Pain Present Pain Present Denied Pain M4 OT- IP ADL's Start: 05/31/23 13:43 Freq: Status: Active Protocol: Document 06/01/23 09:32 [facility] (Rec: 06/01/23 09:40 [facility] [id number]) OT LDU-Gryj-Vqmbbgz General Evaluation Self-Feeding Ability Independent OT ADL-Grooming Comments OT Grooming Comments NOt performed. OT ADL-Oral Care Comments Oral Care Comments Not performed. OT ADL-Dressing General Eval Upper Body Dressing Ability Independent Lower Body Dressing Ability Standby Assistance OT ADL-Toileting Comments OT Toileting Comments Pt not having to go. OT ADL-Bathing Bathing Type Bathing Type Shower General Evaluation Bathing Ability Minimal Assistance Areas Needing Assistance Wash/Dry Back Comments OT Bathing Comments Assist to wash and dry his back and use of shower chair, grab bar and HHSp for safety. M6 OT- IP Functional Cognition Start: 05/31/23 13:43 Freq: Status: Active Protocol: Document 06/01/23 09:32 [facility] (Rec: 06/01/23 09:40 [facility] [id number]) Cognitive Factors Limiting Selfcare Function Cognitive Ability Level of Alertness Alert Patient Orientation Name,Age,Birthday,Place, Situation Attention Span Ability Capable of Focused Attention, Capable of Sustained Attention Ability to Follow Commands Able to Follow One Step Commands Safety Awareness Underestimates Need for Assistance Executive Function Ability Unable to Organize Plans, Unable to Remember Details Cognitive Comments Cognitive Assessment Comments Pt scored 157 seconds on [place] Making PArt B which is much improved from yesterday but still implies severe deficits for visual attention, speed of processing, mental flexibilty , executive functioning, and task switching. Pt scored 20th percentile for his age. Pt admit that he has trouble with his retinas and does not see clearly and that the car light cause glare for him. Continue to suggest pt not drive at this time. Pt states his family also tells him not to drive but he disagrees. M7 OT- IP Mobility and Balance Start: 05/31/23 13:43 Freq: Status: Active Protocol: Document 06/01/23 09:32 [facility] (Rec: 06/01/23 09:40 [facility] [id number]) OT- Bed Mobility Assessment Supine to Sit Supine to Sit Assist Standby Assistance OT-Transfer Assessment Sit to and From Stand Sit to and from Stand Standby Assistance Transfers Transfer Ability Standby Assistance Technique Transfer Destination Bed,Shower Stall Transfer Technique Stand Step Pivot Devices Transfer Assistive Devices Front Wheeled Walker Comments Mobility Comments Close to distant SBA with FWW. OT- Balance Assessment Sitting Balance and Reactions Static Sitting Balance Ability Good Dynamic Sitting Balance Ability Good Standing Balance and Reactions Static Standing Balance Ability Fair Dynamic Standing Balance Ability Fair M9 OT- IP Assessment and Plan Start: 05/31/23 13:43 Freq: Status: Active Protocol: Document 06/01/23 09:32 [facility] (Rec: 06/01/23 09:40 [facility] [id number]) OT Summary Assessment and Plan Potential Rehabilitation Potential Good Analytic Complexity at Evaluation Low Summary OT Impairments Balance,Coordination, Functional Cognition, Functional Mobility,Dressing, Toileting,Bathing,Toilet Transfers,Shower Transfers Progress Towards Goals Progressing Toward Goals Assessment Summary Pt improved on [place] Making Part B to 157 seconds from 307 seconds but his score still implies severe impairments for visual attention, speed of processing, mental flexibility, executive functioning, and task switching. Pt able to shower with mainly SBA but assist to wash/dry his back.Pt to go home with assist when medically stable. Goals Grooming Goal Independent Dressing Goal Independent Toileting Goal Independent Bathing Goal Independent Toilet Transfer Goal Independent Shower Transfer Goal Independent Days to Meet Goals 5 Frequency of Treatment Frequency Of Treatment Once a Day Treatment Plan OT Treatment Plan ADL Training,Functional Cognition Training,Functional Mobility,Patient/Family Education,Discharge Planning Discharge Recommendations OT Discharge Recommendations Home with Assistance Transportation Needs at Discharge Private Vehicle
[2023-06-01] MEDS: MAGNESIUM CHLORIDE 64 MG TABLET 128 MG PO (10:19)
[2023-06-01] MEDS: ALBUTEROL 2.5 MG/3 ML NEB (ADULT) INH (10:27)
--- NOTE | 2023-06-01 10:41 | CM.DPC ---
DCP Cont: Per MD, pt not yet medically stable to d/c the hospital as they are still working on pt's Potassium levels and continues to have IV-Abx but will still discharge on PO abx. Pt will be referred outpt to Vascular Surgeon as pt has chronic neuropathy and very poor blood flow. anticipates likely d/c tomorrow Sat. GENIA Tamayo
--- NOTE | 2023-06-01 11:06 | PM.PN.1 ---
Subjective Subjective Interval history: Patient says his feet are more numb today. No significant change in discoloration. Spoke with PCP about sending vascular surgery referral, and he requested CTA with runoff. This was ordered. Potassium still at 5.5 today. Exam Vital Signs (past 8 hours): - 06/01/23 04:00 06/01/23 08:00 Temperature 97.8 F 97.5 F L Pulse Rate 69 66 Respiratory Rate 22 18 Blood Pressure 147/62 H 166/66 H Pulse Oximetry 93 96 Oxygen Flow Rate 0 Oxygen Delivery Method Room Air Oxygen Flow Rate 0 Narrative Exam Narrative: General:? Patient is well developed and well nourished, in no distress at this time. HEENT:? Normocephalic, atraumatic, extraocular muscles intact, oral pharynx is clear and mucous membranes are moist. Neck: supple and symmetric, trachea is midline, no cervical adenopathy. Negative for JVD Chest:? Normal AP diameter and contour without kyphoscoliosis, no tachypnea, equal chest rise bilaterally. Lungs:? CTA b/l no wheezing rhonchi or rales. Cardio:?RRR no m/r/g. Abdomen: S NT ND. Musculoskeletal:? Muscle strength and tone are equal within normal limits, no deformity. Extremities: No joint effusions. No cyanosis or clubbing. DP and PT pulses +2 bilaterally. bilateral 1 + pitting edema to the knees with chronic venous stasis changes. Mild warmth and erythema to left calf circumferentially with weeping. No crepitus or overlying necrosis. Increased cap refill. Skin:? Pale,? Warm to touch,dry and intact. Neuro:? Alert and orientated x3,? bilateral foot numbness (chronic), no gross deficits noted of cranial nerves. Psych:? Patient has a well-kept appearance, appropriate affect, mental status attitude thought context and judgment are appropriate for age. Objective Labs 06/01/23 04:19 06/01/23 04:19 Labs: Laboratory Results - last 24 hr 05/31/23 06/01/23 12:00 04:19 WBC 4.6 RBC 3.07 L Hgb 10.1 L Hct 30.6 L MCV 99.5 MCH 32.9 MCHC 33.0 RDW 15.6 H Plt Count 212 Neut % (Auto) 56.2 Lymph % (Auto) 22.5 L Phelps % (Auto) 18.0 H Eos % (Auto) 2.8 Baso % (Auto) 0.5 Neut # (Auto) 2600 Lymph # (Auto) 1000 L Phelps # (Auto) 800 Eos # (Auto) 100 Baso # (Auto) 0 Sodium 137 136 L Potassium 5.5 H 5.5 H Chloride 103 106 Carbon Dioxide 26 25 BUN 29 H 30 H Creatinine 1.73 H 1.52 H Estimated GFR 39 L 45 L BUN/Creatinine Ratio 16.8 19.7 Glucose 157 H 89 Calcium 8.9 8.7 Magnesium 1.7 Total Creatine Kinase 80 PFSH Medical History CVA (cerebral vascular accident) Dyslipidemia Anticoagulated Surgical History H/O foot surgery H/O heart artery stent Social History household members: family Smoking Status: Former smoker alcohol intake: former Assessment & Plan Assessment & Plan narrative: 1. Questionable left leg cellulitis - failed outpatient therapy with courses of augmentin and clinda and bactrim. Developed LLE cellulitis despite this therapy. - continued ceftriaxone and vancomycin initially, will change ceftriaxone to cefepime 2g q12 to broaden coverage in case of pseudomonal infection. - possible nonhealing cellulitis due to venous stasis, or there may be no acute component, though likely cannot definitively say at this time. - echocardiogram was unremarkable - started lasix 20mg po daily due to edema - keep feet elevated when resting. - due to delayed cap refill, arterial US ordered to assess for claudication 2. Bilateral lower extremity swelling, venous statis, with severe PAD - DVT RLE US negative - echocardiogram unremarkable - continue home xarelto - proBNP normal - continue lasix 20mg po daily - arterial US with severe bilateral PAD, R>L - PCP to send referral to vascular surgery outpatient, requested CTA - CT angio with runoff ordered 3. 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 HTN - does not appear to be currently on medications, continue to monitor for now 6. HLD - continue home atorvastatin. 7. Hyperkalemia - up to 5.8, possibly due to CKD however kidney function improving - low potassium diet - lokelma TID - recheck BMP mid-day Code: Full, surrogate decision maker is patient's sister DVT: Evon Discussed with case management obtain above history, and to formulate the above assessment and plan. I have reviewed patient's previous documentation, imaging, and current labs personally. Dispo: Pending improvement in cellulitis. 1-2 more days.
[2023-06-01] MEDS: INSULIN LISPRO 100 UNIT/ML 3ML VIAL SUBCUT (11:57)
[2023-06-01 13:28] LABS: BUN Creatinine Ratio 20.7 (6-22); Blood Urea Nitrogen 29 mg/dL (9-20); Calcium 9.1 mg/dL (8.4-10.2); Carbon Dioxide 26 mmol/L (22-32); Chloride 104 mmol/L (98-107); Estimated Glomerular Filt Rate 50 mL/min (>60); Glucose 160 mg/dL (80-110); HEMOLYSIS < 15 (0-50); Potassium 4.9 mmol/L (3.4-5.1); Sodium 135 mmol/L (137-145)
[2023-06-01 13:38] VITALS: BP 119/60; PULSE 82; RESP 16; TEMP 36.3; O2SAT 97
[2023-06-01] MEDS: SODIUM CHLORIDE 0.9% 500 ML IV (13:52)
--- NOTE | 2023-06-01 15:10 | PT-IP ANOTE ---
Checked on pt twice and pt has fallen asleep and is sleeping soundly. Will check on him next date.
[2023-06-01 17:00] VITALS: BP 130/61; PULSE 81; RESP 18; TEMP 36.4; O2SAT 96
[2023-06-01 19:42] LABS: Vancomycin Trough 10.6 ug/mL (10-20)
[2023-06-01 20:00] VITALS: BP 149/53; PULSE 77; RESP 18; TEMP 36.4; O2SAT 93
[2023-06-01] MEDS: ATORVASTATIN 20 MG TABLET 80 MG PO (20:05)
[2023-06-01] MEDS: VANCOMYCIN 1,000 MG/200 ML PIGGYBACK 200 MG IV (20:05)
[2023-06-01] MEDS: INSULIN GLARGINE 100 UNIT/ML 3ML PEN 28 UNIT SUBCUT (20:57)
[2023-06-01] MEDS: VANCOMYCIN TROUGH 1 REQUEST MISC (21:36)
[2023-06-02] VITALS: BP 160/61; PULSE 74; RESP 22; TEMP 36.6; O2SAT 95
[2023-06-02] MEDS: CEFEPIME 2 GM in SODIUM CHLORIDE 0.9% 100 ML IV (00:17)
[2023-06-02 04:00] VITALS: BP 169/64; PULSE 68; RESP 20; TEMP 36.2; O2SAT 92
[2023-06-02 04:38] LABS: BUN Creatinine Ratio 19.6 (6-22); Blood Urea Nitrogen 27 mg/dL (9-20); Carbon Dioxide 26 mmol/L (22-32); Chloride 107 mmol/L (98-107); Estimated Glomerular Filt Rate 51 mL/min (>60); Glucose 56 mg/dL (80-110); HEMOLYSIS < 15 (0-50); Potassium 4.9 mmol/L (3.4-5.1); Sodium 137 mmol/L (137-145)
[2023-06-02 04:39] LABS: Magnesium 1.7 mg/dL (1.6-2.3)
--- NOTE | 2023-06-02 06:25 | PC.NURSE ---
Addendum entered by Judi Fisher R.N. 06/02/23 06:42: BS rechecked after 15 minutes and increased to 70. Original Note: Noted morning lab blood sugar 56. Patient Alert and oriented, asymptomatic. Patient made aware of BS. Patient consumed orange juice and crackers. Will recheck in 15 min.
[2023-06-02 08:15] VITALS: BP 153/68; PULSE 66; RESP 17; TEMP 36.8; O2SAT 94
[2023-06-02] MEDS: FUROSEMIDE 20 MG TABLET PO (08:22)
[2023-06-02] MEDS: SODIUM ZIRCONIUM CYCLOSILICATE 10 GM POWD.PACK PO (08:22)
[2023-06-02] MEDS: RIVAROXABAN 10 MG TABLET 20 MG PO (08:23)
[2023-06-02] MEDS: TAMSULOSIN 0.4 MG CAPSULE PO (08:23)
[2023-06-02] MEDS: GABAPENTIN 300 MG CAPSULE PO (08:25)
--- NOTE | 2023-06-02 08:49 | PT.IPTN ---
Current Diagnoses Cellulitis of left lower limb (05/29/23) Physical Therapy Treatment Note M2 PT-IP Current Condition Start: 05/31/23 10:29 Freq: NEEDED Status: Active Protocol: Document 05/31/23 12:44 MB (Rec: 05/31/23 13:32 MB [id number]) Physical Therapy Current Condition Current Condition Evaluation Date 05/31/23 Treatment Diagnosis B LE cellulitis M3 PT-IP Subjective Start: 05/31/23 10:29 Freq: NEEDED Status: Active Protocol: Document 06/02/23 07:50 MB (Rec: 06/02/23 08:49 MB [id number]) Subjective Physical Therapy Visit Type Type Treatment Note Visit Start Time 07:50 Visit Stop Time 08:00 Total Visit Minutes 10 Number of STRIPPER AND PRINTER Visits 0 Physical Therapy Visit Comments Patient Comments Please shut the door. PT hears bed alarm going off and checks in on pt who is walking to the BR without assistance Therapy Pain Assessment Pain When Pain Assessed During Mobility Pain Present Pain Present Denied Pain M4 PT-IP Mobility and Gait Start: 05/31/23 10:29 Freq: NEEDED Status: Active Protocol: Document 06/02/23 07:50 MB (Rec: 06/02/23 08:49 MB [id number]) PT-Transfer Assessment Sit to and From Stand Sit to and from Stand Standby Assistance,1 Person Assistance,Use of Upper Extremities Equipment Transfer Assistive Device Gait Belt,4 Wheeled Walker Orthotic/Prosthetic Devices or Brace: No Transfers Transfer Destination Toilet Transfer Technique Ambulation Gait Assessment Gait Gait Assistance Required: Contact Guard Assist,1 Person Assist Distance (Feet) 75 Able to Maintain Weight Bearing Status Yes During Gait Assistive Devices Assistive Device Gait Belt,Front Wheeled Walker Orthotic/Prosthetic Devices or Brace: No Gait Deviations General Gait Pattern Decreased Stride Length, Decreased Feet Clearance Factors Limiting Gait Function Factors Limiting Gait Function Abnormal Tonal Influences, Decreased Strength,Poor Balance,Poor Safety Awareness Comments Gait Comments Pt gait trains 75'x2 with rollator. 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 PT-Balance Assessment Sitting Balance and Reactions Static Sitting Balance Ability Good Dynamic Sitting Balance Ability Good Standing Balance and Reactions Static Standing Balance Ability Fair Dynamic Standing Balance Ability Fair M5 PT-IP Objective Assessments Start: 05/31/23 10:29 Freq: NEEDED Status: Active Protocol: Document 05/31/23 12:44 MB (Rec: 05/31/23 13:32 MB [id number]) Orientation Orientation/Cognition Level of Alertness Alert Orientation Name,Age,Birthday,Month,Date, Year,Day of Week,Place, Situation Language Function Ability Hard of Hearing Safety Awareness Decreased Safety Awareness Memory Description Deposit Clerk Impaired Gross Range of Motion Upper Extremity ROM Impairments Defer to OT Lower Extremity ROM Assessment Right Impaired Strength Lower Extremity Strength Assessment Right Impaired Hip 4 Knee 4 Ankle 4 Sensation Assessment Comments Sensation Comments B LE erythema and mild edema M6 PT-IP Treatment Start: 05/31/23 10:29 Freq: NEEDED Status: Active Protocol: Document 06/02/23 07:50 MB (Rec: 06/02/23 08:49 MB [id number]) Physical Therapy Treatment Education Education Provided Safety M7 PT-IP Assessment and Plan Start: 05/31/23 10:29 Freq: NEEDED Status: Active Protocol: Document 06/02/23 07:50 MB (Rec: 06/02/23 08:49 MB [id number]) PT Summary Assessment and Plan Potential Rehabilitation Potential Fair Status of Condition at Evaluation Evolving Summary Impairments Strength,Balance,Cognition,Bed Mobility,Transfers,Gait, Activity Tolerance Progress Towards Goals Slow Progress due to Medical Issues Assessment Summary Pt con't with decreased safety awareness and he reports that his hips and legs get tired with increased gait distance today. Goals Bed Mobility Goal Independent Transfer Goal Independent,Front Wheeled Walker,Four Wheeled Walker Gait Goal Independent,Front Wheel Walker ,Four Wheel Walker Gait Distance 75 Other Goals Gait with best LRAD Days to Meet Goals 5 Frequency of Treatment Frequency Of Treatment Once a Day Treatment Plan Physical Therapy Treatment Plan Bed Mobility Training,Transfer Training,Gait Training, Therapeutic Exercise,Balance Retraining,Discharge Planning Weight Bearing Status Weight Bearing Status Weight Bear as Tolerated Recommendations To Nursing Amount of Assist Needed Standby Assistance Discharge Recommendations PT Discharge Recommendations Home with Assistance,Home Health Transportation Needs at Discharge Private Vehicle
--- NOTE | 2023-06-02 08:52 | PC.NURSE ---
Spoke with provider in am and reported that pt had bradycardia episode overnight of 35, reported that pt has been mildly hypertensive in hospital, pt had a hypoglycemic episode before shift change but blood glucose normalized with snacks - reading before breakfast 102. Relayed to provider that RN was not able to palpate pt's pedal pulses, but was able to find pedal and posterior tibial pulses with Doppler. Pt met discharge criteria, VSS.
--- NOTE | 2023-06-02 08:55 | P.DS_ITS ---
History of Present Illness History of Present Illness Date Patient Seen: 05/29/23 Time Patient Seen: 17:32 Chief complaint: Cellulitis RLE follow up reffered to ED Narrative: This is an 82 year old male with PMH of CAD, HTN, HLD, DM2 who presented with worsening swelling and redness of his left leg. Patient states starting > 1 month ago, he had a wound on his R foot. He has been seeing a steam box tender for this and has been given a few rounds of antibiotics (from EMR Rx 05/06 for augmentin, followed by 05/16 and 05/21 received clinda and bactrim prescriptions). His wound has been healing since then, and his R leg has overall been improving. Now has a left leg swelling and redness that is weeping. He noticed it the last 3-4 days on the left leg. He denies pain in that leg and he is able to walk. He notes for the past month or so worsened bilateral LE edema. Sister whom patient now living with, states he has been largely sedentary at home with legs off of a chair. He denies any fevers or chills, no shortness of breath, chest pain. Since his stroke he has chronically been unbalanced, with no recent changes. He denies any new numbness or tingling of his legs. He denies claudication symptoms. In the emergency room, vitals were unremarkable. US showed no DVT of his lower extremity. He was admitted for left leg cellulitis after failing outpatient antibiotic therapy and further evaluation of b/l LE edema. Discharge Providers Provider Date of admission: 05/29/23 17:06 Discharge Date: 06/02/23 Primary care physician: Scottie Milton MD Consults: 05/31/23 10:18 Consult to Occupational Therapy Evaluate & Treat Comment: Physician Instructions: Evaluate and treat Consult to Physical Therapy Evaluate & Treat Comment: Physician Instructions: Evaluate and Treat Discharge provider: Demario Sutherland DO Summary Hospital Course Discharge Diagnosis: 1. Questionable left leg cellulitis - failed outpatient therapy with courses of augmentin and clinda and bactrim. Developed LLE cellulitis despite this therapy. - continued ceftriaxone and vancomycin initially, will change ceftriaxone to cefepime 2g q12 to broaden coverage in case of pseudomonal infection. - possible nonhealing cellulitis due to venous stasis, or there may be no acute component, though likely cannot definitively say at this time. - echocardiogram was unremarkable - started lasix 20mg po daily due to edema, stopped on dc - keep feet elevated when resting. - due to delayed cap refill, arterial US ordered to assess for claudication - finished 5 days of IV abx 2. Bilateral lower extremity swelling, venous statis, with severe PAD - DVT RLE US negative - echocardiogram unremarkable - continue home xarelto - proBNP normal - continue lasix 20mg po daily - arterial US with severe bilateral PAD, R>L - PCP to send referral to vascular surgery outpatient, requested CTA - CT angio with runoff ordered, showed severe bilateral blockages with 90% on L and 80% on R of EPIC CUPID ANALYST's - CT results faxed to PCP - bedside doppler showed markedly diminshed PT and DP pulses, but still present - held off on starting plavix given already on DOAC, which would increase bleeding risk, defer to vascular 3. 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 HTN - does not appear to be currently on medications, continue to monitor for now 6. HLD - continue home atorvastatin. 7. Hyperkalemia, resolved - up to 5.8, possibly due to CKD however kidney function improving - low potassium diet - lokelma TID - K normalized Exam Vital Signs (past 8 hours): - 06/02/23 04:00 06/02/23 08:15 Temperature 97.2 F L 98.2 F Pulse Rate 68 66 Respiratory Rate 20 17 Blood Pressure 169/64 H 153/68 H Pulse Oximetry 92 94 Oxygen Flow Rate 0 Oxygen Delivery Method Room Air Oxygen Flow Rate 0 Narrative Exam Narrative: General:? Patient is well developed and well nourished, in no distress at this time. HEENT:? Normocephalic, atraumatic, extraocular muscles intact, oral pharynx is clear and mucous membranes are moist. Neck: supple and symmetric, trachea is midline, no cervical adenopathy. Negative for JVD Chest:? Normal AP diameter and contour without kyphoscoliosis, no tachypnea, equal chest rise bilaterally. Lungs:? CTA b/l no wheezing rhonchi or rales. Cardio:?RRR no m/r/g. Abdomen: S NT ND. Musculoskeletal:? Muscle strength and tone are equal within normal limits, no deformity. Extremities: No joint effusions. No cyanosis or clubbing. DP and PT pulses +2 bilaterally. bilateral 1 + pitting edema to the knees with chronic venous stasis changes. Mild warmth and erythema to left calf circumferentially with weeping. No crepitus or overlying necrosis. Increased cap refill. Skin:? Pale,? Warm to touch,dry and intact. Neuro:? Alert and orientated x3,? bilateral foot numbness (chronic), no gross deficits noted of cranial nerves. Psych:? Patient has a well-kept appearance, appropriate affect, mental status attitude thought context and judgment are appropriate for age. Objective Imaging CT scan - abdomen: My impression: CTA aorta with runoff IMPRESSION: 1. Right lower extremity: Severe atherosclerotic disease with severe stenosis of approximately 80% in the common femoral artery and severe profunda femoral artery ostial stenosis. Chronic occlusion of the proximal to mid SFA with reconstitution of the distal SFA via profundal collaterals. Severe stenosis/near complete occlusion of the mid popliteal artery with distal reconstitution via geniculate collaterals. Severe atherosclerotic disease of the below the knee vasculature with dense calcification, limiting evaluation for patency. 2. Left lower extremity: Severe atherosclerotic disease with severe stenosis of approximately 90% in the common femoral artery and severe profunda femoral artery ostial stenosis. Chronic occlusion of the distal SFA with reconstitution of the popliteal artery via collaterals. Evaluation of the popliteal artery is limited due to streak artifact . Severe atherosclerotic disease of the below the knee vasculature with dense calcification, limiting evaluation for patency. 3. Stable infrarenal aorta dissection. 4. 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 Anterior abdominal wall venous collaterals. Recommend Vascular Surgery consultation. Labs 06/01/23 04:19 06/02/23 04:11 Labs: Laboratory Results - last 24 hr 06/01/23 06/01/23 06/02/23 12:45 19:08 04:11 Sodium 135 L 137 Potassium 4.9 4.9 Chloride 104 107 Carbon Dioxide 26 26 BUN 29 H 27 H Creatinine 1.40 H 1.38 H Estimated GFR 50 L 51 L BUN/Creatinine Ratio 20.7 19.6 Glucose 160 H 56 L D Calcium 9.1 9.0 Magnesium 1.7 Vancomycin Trough 10.6 PFSH Medical History CVA (cerebral vascular accident) Dyslipidemia Anticoagulated Surgical History H/O foot surgery H/O heart artery stent Social History household members: family Smoking Status: Former smoker alcohol intake: former Discharge Plan Discharge Plan Patient Disposition: Home Provider Discharge Comment: You were given IV antibiotics for a leg infection. This improved and you no longer need antibiotics. We did find however that you have severe blockages in your leg arteries on both sides. You will need to see a vascular surgeon about this, so I've had your PCP sent a referral to one. They should contact you about an appointment. If you don't hear from them, please contact Dr. Milton's office to ask about it. You may need what is called an angioplasty to open the blockages in your legs and place a stent, like the one in your heart but larger. Discharge orders & Medications Prescriptions: Continued hydrochlorothiazide 12.5 mg tablet 12.5 mg PO DAILY allopurinol 100 mg tablet 200 mg PO BID Rx Instructions: takes noon and evening atorvastatin 80 mg tablet 80 mg PO BEDTIME tamsulosin 0.4 mg capsule 0.4 mg PO DAILY gabapentin 300 mg capsule 300 mg PO BID insulin glargine [Lantus Solostar U-100 Insulin] 100 unit/mL (3 mL) insulin pen 34 unit SUBCUT BEDTIME Xarelto 20 mg tablet 20 mg PO DAILY pioglitazone [Actos] 15 mg Tablet 15 mg PO DAILY magnesium 200 mg Tablet 400 mg PO DAILY calcium carbonate-vitamin D3 [Calcium 600 + D(3)] 600 mg-10 mcg (400 unit) Tablet 1 tab PO DAILY Follow up/Referrals: Scottie Milton MD [Primary Care Provider] - 2 Weeks Visit Report/Discharge Packet Stand Alone Forms: Patient Portal/API, Stroke Signs & Symptoms Discharge Data Primary Care Provider: Scottie Milton
--- NOTE | 2023-06-02 09:08 | CM.DPNOTE ---
DCP Note BURN OUT SCARFING OPERATOR reviewed EMR. DC order in. BURN OUT SCARFING OPERATOR entered room and introduced self and role. Pt sitting up on walker seat. Pt confirms plan to dc today. BURN OUT SCARFING OPERATOR gave copy of IMM to pt. BURN OUT SCARFING OPERATOR inquired about HH services. Pt denies. Pt denies other resources at this time. Plan; home with sister today. No CM needs at this time. CM team will continue to follow as needed. GENIA Rod
== END 2023-06-02 12:40 | disposition home or self-care (01) | DRG 603 ==
LOC: ED 16:02 → AC 17:07
PROVIDERS: Student in an Organized Health Care Education/Training Program; Admitting Provider Internal Medicine; Emergency Provider Emergency Medicine; PCP Family Medicine; Referring Provider Emergency Medicine; Visit Provider Internal Medicine
DX: L03.116 Cellulitis of left lower limb (principal); I87.8 Other specified disorders of veins; I25.10 Atherosclerotic heart disease of native coronary artery without angina pectoris; E11.40 Type 2 diabetes mellitus with diabetic neuropathy, unspecified; I10 Essential (primary) hypertension; E78.5 Hyperlipidemia, unspecified; E87.5 Hyperkalemia; I73.9 Peripheral vascular disease, unspecified; Z86.73 Personal history of transient ischemic attack (TIA), and cerebral infarction without residual deficits; Z79.01 Long term (current) use of anticoagulants; Z86.718 Personal history of other venous thrombosis and embolism; Z87.891 Personal history of nicotine dependence; Z79.4 Long term (current) use of insulin
CPT/HCPCS: 36415; 75635; 80048; 80053; 80202; 82550; 82962; 83036; 83605; 83735; 83880; 84145; 84443; 85025; 87040; 93005; 93925; 96365; 97116; 97129; 97161; 97165; 97535; 99284; C8929; J0612; J0692; J0696; J1815; J7613; Q9957; Q9967

== ENCOUNTER 2023-08-11 12:24 | Emergency (ER) | payer MEDICARE, OTHER, SELFPAY ==
[2023-05-29 17:43] VITALS: BMI 32.8
[2023-08-11] VITALS (8 sets, daily range): BP systolic 161–190; BP diastolic 69–82; PULSE 90–108; RESP 20; TEMP 37.1; O2SAT 92–96; BMI 31.8
--- NOTE | 2023-08-11 12:50 | ED.SKABFB ---
HPI - Skin/Abscess/Foreign Bdy General Chief complaint: Skin/Abscess/Foreign Body Stated complaint: infection in R leg/Difficulty getting up T-0 Time Seen by Provider: 08/11/23 12:40 Source: patient Mode of arrival: Family Vehicle History of Present Illness HPI narrative: 82-year-old male. Known history of severe peripheral vascular disease. Has seen vascular surgery but recommended no surgery. Is on anticoagulation. Has neuropathy. Was admitted in May for lower extremity cellulitis. He comes emergency department today because he states that really over the past 12-24 hours he has had progressive weakness at home. He states this morning he fell and could not get up. No injuries from the fall. He does have a ulceration to the back of his right leg. His right leg is swollen but this is baseline. He has not having fevers. No chest pain no shortness of breath. Family members are taking care of him at home. He does not have home health. Is not currently on any antibiotics. Related Data Home Medications Medication Instructions Recorded Confirmed allopurinol 100 mg tablet 200 mg PO BID 04/25/22 05/29/23 atorvastatin 80 mg tablet 80 mg PO BEDTIME 04/25/22 05/29/23 calcium carbonate 600 mg-vitamin 1 tab PO DAILY 04/25/22 05/29/23 D3 10 mcg (400 unit) tablet (Calcium 600 + D(3)) gabapentin 300 mg capsule 300 mg PO BID 04/25/22 05/29/23 insulin glargine 100 unit/mL (3 34 unit SUBCUT BEDTIME 04/25/22 05/29/23 mL) subcutaneous pen (Lantus Solostar U-100 Insulin) magnesium 200 mg tablet 400 mg PO DAILY 04/25/22 05/29/23 pioglitazone 15 mg tablet (Actos) 15 mg PO DAILY 04/25/22 05/29/23 rivaroxaban 20 mg tablet (Xarelto) 20 mg PO DAILY 04/25/22 05/29/23 tamsulosin 0.4 mg capsule 0.4 mg PO DAILY 04/25/22 05/29/23 hydrochlorothiazide 12.5 mg tablet 12.5 mg PO DAILY 05/29/23 05/29/23 Previous Rx's Medication Instructions Recorded tramadol 50 mg tablet 50 mg PO Q8H PRN pain #14 tabs 08/11/23 Allergies Allergy/AdvReac Type Severity Reaction Status Date / Time No Known Drug Allergies Allergy Verified 08/11/23 12:36 Review of Systems Constitutional Constitutional: Reports system reviewed and no additional complaints, except as documented Musculoskeletal Musculoskeletal: Reports system reviewed and no additional complaints, except as documented Integumentary/Breasts Skin/Breast: Reports system reviewed and no additional complaints, except as documented Neurologic Neurologic: Reports system reviewed and no additional complaints, except as documented Hematologic/Lymphatic On Anticoagulants: Yes Patient History Medical History CVA (cerebral vascular accident) Dyslipidemia Anticoagulated Surgical History H/O foot surgery H/O heart artery stent Social History household members: family Smoking Status: Former smoker alcohol intake: former Smoking Status: Former smoker tobacco type: cigarettes alcohol intake frequency: other Substance Use Type: does not use Exam Initial Vital Signs Initial Vital Signs: Vital Signs Temperature 98.7 F 08/11/23 12:33 Pulse Rate 105 H 08/11/23 12:33 Respiratory Rate 20 08/11/23 12:33 Blood Pressure 165/69 H 08/11/23 12:33 Pulse Oximetry 92 08/11/23 12:33 Oxygen Delivery Method Room Air 08/11/23 12:33 Const General: cooperative HENMT Head: normal to inspection and normocephalic Resp Effort & Inspection: normal respiratory effort Cardio Rate: regular rate Skin Other: Patient does have a large ulceration on the posterior aspect of the right heel. Has 2 smaller ulcerations on the dorsum of the lateral aspect of the right foot. He does chronic changes consistent with peripheral vascular disease and venous stasis changes to bilateral lower extremities. They are not warm to touch. Extrem Other: Bilateral lower extremity swelling with right greater than left but this is not new Course Orders Ordered: ED Orders 08/11/23 12:38 Complete Blood Count AUTO DIFF Stat Comprehensive Metabolic Panel Stat Lactate (Lactic Acid) Stat Lipase Stat Procalcitonin Stat 08/11/23 12:51 Consult to DIRECTOR SEARCH - Remote Operations Producer Stat 08/11/23 12:52 Wound Culture and Gram Stain Stat Wound Culture and Gram Stain Stat 08/11/23 14:27 Consult to Home Health Stat Discontinued Medications Hydrocodone Bitart/Acetaminophen (Hydrocodone/Acet 5/325 Tablet) 1 tab PO NOW ONE Stop: 08/11/23 13:55 Last Admin: 08/11/23 14:06 Dose: 1 tab Documented By: SUSAN Vital Signs Vital signs: Vital Signs - 8 hr 08/11/23 12:33 08/11/23 12:33 08/11/23 13:00 Temperature 98.7 F Pulse Rate 105 H 108 H 99 H Respiratory Rate 20 Blood Pressure 165/69 H Pulse Oximetry 92 94 Oxygen Delivery Method Room Air 08/11/23 13:00 Temperature Pulse Rate Respiratory Rate Blood Pressure 166/69 H Pulse Oximetry Oxygen Delivery Method MDM - Skin/Abscess/Foreign Bdy Lab Data 08/11/23 12:38 08/11/23 12:38 Labs: Lab Results 08/11/23 Range/Units 12:38 WBC 8.0 (4.5-11.0) X10^3/uL RBC 3.42 L (4.5-5.9) X10^6/uL Hgb 11.1 L (13.5-17.5) g/dL Hct 33.9 L (41-53) % MCV 99.1 (80-100) fL MCH 32.5 (26-34) PG MCHC 32.8 (30-36) % RDW 15.0 H (11.6-14.8) % Plt Count 263 (150-400) X10^3/uL Neut % (Auto) 75.6 H (50-75) % Lymph % (Auto) 9.3 L (25-40) % [place] % (Auto) 14.1 H (3-14) % Eos % (Auto) 0.6 L (2-4) % Baso % (Auto) 0.4 (0-2) % Neut # (Auto) 6100 (4912-6164) /uL Lymph # (Auto) 700 L (1165-2022) /uL [place] # (Auto) 1100 H (0-900) /uL Eos # (Auto) 0 (0-450) /uL Baso # (Auto) 0 (0-100) /uL Sodium 140 (137-145) mmol/L Potassium 4.2 (3.4-5.1) mmol/L Chloride 109 H (98-107) mmol/L Carbon Dioxide 25 (22-32) mmol/L BUN 31 H (9-20) mg/dL Creatinine 1.57 H (0.66-1.25) mg/dL Estimated GFR 43 L (>60) mL/min BUN/Creatinine Ratio 19.7 (6-22) Glucose 67 L (80-110) mg/dL Lactate 1.2 (0.7-2.1) mmol/L Calcium 9.3 (8.4-10.2) mg/dL Total Bilirubin 0.7 (0.2-1.3) mg/dL AST 38 (17-59) IU/L ALT 25 (<50) IU/L Alkaline Phosphatase 97 (38-126) U/L Total Protein 7.3 (6.3-8.2) g/dL Albumin 3.7 (3.5-5.0) g/dL Globulin 3.6 (1.7-4.1) g/dL Albumin/Globulin Ratio 1.0 (1.0-2.8) Lipase 97 (23-300) U/L Procalcitonin 0.13 (<0.5) ng/mL MDM Narrative Medical decision making narrative: Patient is afebrile but has been tachycardic. No leukocytosis. Afebrile. The wounds on his legs appear to be chronic in nature and review of his medical record shows he was admitted in May for wounds that are similar to what presents with today. His legs are not warm. Only slightly erythematous. They appeared to be more of a chronic venous stasis changes and peripheral vascular disease rather than an acute cellulitis. I did culture the wounds on his right heel and also the ones on his right foot. I do feel that we should wait for these cultures to resolve before starting any antibiotics just based on his presentation today. No other source of infection found. He was seen by social media manager. A consult was placed for home health. He has a follow-up already scheduled with vascular surgeons for later in the month. I put in a referral for him to see wound care. No indication for admission to the hospital. Discharge Plan Departure Patient Disposition: Home Clinical Impression: Peripheral vascular disease, Skin ulcer Activity Restrictions/Additional Instructions: Your labs today are very reassuring. Not convinced that there is an infection in the ulcerations on your legs. We did culture these wounds and we will call you if these cultures grow anything that would require antibiotics. I did put a referral for you to see wound care. You can contact them at [phone]. You can call them on Sunday for a follow-up. You were also seen by social work. Referral was placed for you home health. I also recommend that you contact your primary care doctor for a follow-up. Continue to take the rest of your medications as directed. Pain medications for your back pain was sent to the pharmacy of your choice. Prescriptions: New tramadol 50 mg tablet 50 mg PO Q8H PRN (Reason: pain) Qty: 14 0RF No Action hydrochlorothiazide 12.5 mg tablet 12.5 mg PO DAILY allopurinol 100 mg tablet 200 mg PO BID Rx Instructions: takes noon and evening atorvastatin 80 mg tablet 80 mg PO BEDTIME tamsulosin 0.4 mg capsule 0.4 mg PO DAILY gabapentin 300 mg capsule 300 mg PO BID insulin glargine [Lantus Solostar U-100 Insulin] 100 unit/mL (3 mL) insulin pen 34 unit SUBCUT BEDTIME Xarelto 20 mg tablet 20 mg PO DAILY pioglitazone [Actos] 15 mg Tablet 15 mg PO DAILY magnesium 200 mg Tablet 400 mg PO DAILY calcium carbonate-vitamin D3 [Calcium 600 + D(3)] 600 mg-10 mcg (400 unit) Tablet 1 tab PO DAILY Referrals: Scottie Milton MD [Primary Care Provider] - Stand Alone Forms: Patient Portal/API
[2023-08-11 12:58] LABS: Add Manual Diff / Slide Review NO; Basophils Absolute Auto 0 /uL (0-100); Basophils Percent Auto 0.4 % (0-2); Eosinophils Absolute Auto 0 /uL (0-450); Eosinophils Percent Auto 0.6 % (2-4); Hematocrit 33.9 % (41-53); Hemoglobin 11.1 g/dL (13.5-17.5); Lymphocytes Absolute Auto 700 /uL (1100-4500); Lymphocytes Percent Auto 9.3 % (25-40); Mean Corpuscular HGB Conc 32.8 % (30-36); Mean Corpuscular Hemoglobin 32.5 PG (26-34); Mean Corpuscular Volume 99.1 fL (80-100); Monocytes Absolute Auto 1100 /uL (0-900); Monocytes Percent Auto 14.1 % (3-14); Neutrophils Absolute Auto 6100 /uL (1500-7000); Neutrophils Percent Auto 75.6 % (50-75); Platelet Count 263 X10^3/uL (150-400); Red Blood Cell Count 3.42 X10^6/uL (4.5-5.9)
[2023-08-11 13:03] LABS: Lactate (Lactic Acid) 1.2 mmol/L (0.7-2.1)
[2023-08-11 13:04] LABS: Alanine Aminotransferase 25 IU/L (<50); Albumin 3.7 g/dL (3.5-5.0); Alkaline Phosphatase 97 U/L (38-126); Aspartate Aminotransferase 38 IU/L (17-59); BUN Creatinine Ratio 19.7 (6-22); Bilirubin Total 0.7 mg/dL (0.2-1.3); Blood Urea Nitrogen 31 mg/dL (9-20); Calcium 9.3 mg/dL (8.4-10.2); Carbon Dioxide 25 mmol/L (22-32); Chloride 109 mmol/L (98-107); Estimated Glomerular Filt Rate 43 mL/min (>60); Globulin 3.6 g/dL (1.7-4.1); Glucose 67 mg/dL (80-110); HEMOLYSIS < 15 (0-50); Lipase 97 U/L (23-300); Potassium 4.2 mmol/L (3.4-5.1); Sodium 140 mmol/L (137-145); Total Protein 7.3 g/dL (6.3-8.2)
[2023-08-11 13:21] LABS: Procalcitonin 0.13 ng/mL (<0.5)
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
[2023-08-11] MEDS: HYDROCODONE/ACET 5/325 TABLET 1 TAB PO (14:06)
--- NOTE | 2023-08-11 14:50 | CM.SWNOTE ---
ED LANG PATH THERAPIST Note LANG PATH THERAPIST faxed referral to [facility]. RN services to start Sunday. Lenin Foster MSW, ANISA
== END 2023-08-11 15:12 | disposition home or self-care (01) ==
PROVIDERS: Emergency Provider Emergency Medicine; PCP Family Medicine
DX: L97.419 Non-pressure chronic ulcer of right heel and midfoot with unspecified severity (principal); I73.9 Peripheral vascular disease, unspecified; L03.115 Cellulitis of right lower limb; Z79.01 Long term (current) use of anticoagulants
CPT/HCPCS: 36415; 80053; 83605; 83690; 84145; 85025; 87070; 87077; 87186; 87205; 99283

== ENCOUNTER → 2023-08-30 09:08 | Outpatient (CLI) | payer MEDICARE, OTHER, SELFPAY ==
[2023-05-29 17:43] VITALS: BMI 32.8
== END ==
LOC: WC 09-05 09:09
PROVIDERS: PCP Family Medicine; Referring Provider Nurse Practitioner; Visit Provider Surgery
DX: E11.621 Type 2 diabetes mellitus with foot ulcer (principal); L97.312 Non-pressure chronic ulcer of right ankle with fat layer exposed; L97.512 Non-pressure chronic ulcer of other part of right foot with fat layer exposed; I96 Gangrene, not elsewhere classified; I73.9 Peripheral vascular disease, unspecified; E11.42 Type 2 diabetes mellitus with diabetic polyneuropathy; I87.2 Venous insufficiency (chronic) (peripheral); R60.0 Localized edema; R23.4 Changes in skin texture; I50.9 Heart failure, unspecified; I25.10 Atherosclerotic heart disease of native coronary artery without angina pectoris; I48.91 Unspecified atrial fibrillation
CPT/HCPCS: 11042; 11043; 11046; 87070; 87075; 87077; 87186; 87205; 99204; 99214

== ENCOUNTER → 2023-09-06 11:12 | Outpatient (CLI) | payer MEDICARE, OTHER, SELFPAY ==
[2023-05-29 17:43] VITALS: BMI 32.8
--- NOTE | 2023-09-06 11:14 | DI.RAD.S_ITS ---
PROCEDURE: XR ANKLE RT MIN 3V INDICATIONS: DFU of R posterior ankle TECHNIQUE: 3 views of the ankle were acquired. COMPARISON: [facility], CR, XR FOOT RT MIN 3V, 09/06/2023, 11:26. FINDINGS: Bones: No fractures or dislocations. Ankle mortise is normally aligned. No suspicious bony lesions. Soft tissues: No tibiotalar joint effusion. 4 mm soft tissue calcification projecting over the Achilles tendon. IMPRESSION: No acute bony abnormality or significant effusion. 4 mm calcification projecting over the Achilles tendon, possibly calcific tendinopathy versus dystrophic calcification. Dictated by: Hong Chavez M.D. on 09/06/2023 at 14:23 Approved by: Hong Chavez M.D. on 09/06/2023 at 14:25
--- NOTE | 2023-09-06 11:14 | DI.RAD.S_ITS ---
PROCEDURE: XR FOOT RT MIN 3V INDICATIONS: Non-healing ulcers of R foot/ankle TECHNIQUE: 3 views of the foot were acquired. COMPARISON: None. FINDINGS: Bones: No fractures or dislocations. No suspicious bony lesions. Plantar calcaneal enthesophytes. Soft tissues: No tibiotalar joint effusion. Dystrophic calcification projecting medial to the 1st MTP. Dystrophic calcification projecting over the Achilles tendon. Vascular calcifications. IMPRESSION: Vascular calcifications, without bony erosion to suggest osteomyelitis. Dictated by: Hong Chavez M.D. on 09/06/2023 at 14:25 Approved by: Hong Chavez M.D. on 09/06/2023 at 14:25
== END ==
PROVIDERS: PCP Family Medicine; Referring Provider Surgery; Visit Provider Surgery
DX: E11.621 Type 2 diabetes mellitus with foot ulcer (principal); L97.313 Non-pressure chronic ulcer of right ankle with necrosis of muscle; E11.51 Type 2 diabetes mellitus with diabetic peripheral angiopathy without gangrene; I73.9 Peripheral vascular disease, unspecified; L97.512 Non-pressure chronic ulcer of other part of right foot with fat layer exposed; E11.42 Type 2 diabetes mellitus with diabetic polyneuropathy; R60.0 Localized edema; R23.4 Changes in skin texture; L53.9 Erythematous condition, unspecified
CPT/HCPCS: 11042; 11043; 11046; 36415; 73610; 73630; 83036

== ENCOUNTER → 2023-09-06 11:38 | Outpatient (CLI) | payer MEDICARE, OTHER, SELFPAY ==
[2023-05-29 17:43] VITALS: BMI 32.8
[2023-09-06 12:57] LABS: Hemoglobin A1C% w Est Avg Glu 7.2 % (4.0-6.0)
== END ==
PROVIDERS: PCP Family Medicine; Referring Provider Surgery; Visit Provider Surgery
DX: E11.621 Type 2 diabetes mellitus with foot ulcer (principal)
CPT/HCPCS: 36415; 83036

== ENCOUNTER → 2023-09-06 13:00 | Outpatient (CLI) | payer MEDICARE, OTHER, SELFPAY ==
[2023-05-29 17:43] VITALS: BMI 32.8
== END ==
PROVIDERS: PCP Family Medicine; Referring Provider Internal Medicine; Visit Provider Surgery
DX: E11.621 Type 2 diabetes mellitus with foot ulcer (principal); L97.318 Non-pressure chronic ulcer of right ankle with other specified severity; L97.512 Non-pressure chronic ulcer of other part of right foot with fat layer exposed; I73.9 Peripheral vascular disease, unspecified; E11.42 Type 2 diabetes mellitus with diabetic polyneuropathy; R60.0 Localized edema; R23.4 Changes in skin texture; L53.9 Erythematous condition, unspecified
CPT/HCPCS: 11042; 11043; 11046; 99213

== ENCOUNTER → 2023-09-13 09:49 | Outpatient (CLI) | payer MEDICARE, OTHER, SELFPAY ==
[2023-05-29 17:43] VITALS: BMI 32.8
== END ==
LOC: WC 09:52
PROVIDERS: PCP Family Medicine; Referring Provider Internal Medicine; Visit Provider Surgery
DX: E11.621 Type 2 diabetes mellitus with foot ulcer (principal); L97.512 Non-pressure chronic ulcer of other part of right foot with fat layer exposed; L97.318 Non-pressure chronic ulcer of right ankle with other specified severity; I96 Gangrene, not elsewhere classified; L97.511 Non-pressure chronic ulcer of other part of right foot limited to breakdown of skin; I73.9 Peripheral vascular disease, unspecified; E11.42 Type 2 diabetes mellitus with diabetic polyneuropathy; R60.0 Localized edema; R23.4 Changes in skin texture; I48.91 Unspecified atrial fibrillation; N18.9 Chronic kidney disease, unspecified
CPT/HCPCS: 11043; 11046

== ENCOUNTER → 2023-09-20 09:07 | Outpatient (CLI) | payer MEDICARE, OTHER, SELFPAY ==
[2023-05-29 17:43] VITALS: BMI 32.8
== END ==
LOC: WC 09:08
PROVIDERS: PCP Family Medicine; Referring Provider Internal Medicine; Visit Provider Surgery
DX: E11.621 Type 2 diabetes mellitus with foot ulcer (principal); L97.512 Non-pressure chronic ulcer of other part of right foot with fat layer exposed; L97.318 Non-pressure chronic ulcer of right ankle with other specified severity; I96 Gangrene, not elsewhere classified; L89.323 Pressure ulcer of left buttock, stage 3; I73.9 Peripheral vascular disease, unspecified; E11.42 Type 2 diabetes mellitus with diabetic polyneuropathy; R60.0 Localized edema; L53.9 Erythematous condition, unspecified; R23.4 Changes in skin texture
CPT/HCPCS: 11042; 11043; 11046; 99213

== ENCOUNTER → 2023-09-26 10:27 | Outpatient (CLI) | payer MEDICARE, OTHER, SELFPAY ==
[2023-05-29 17:43] VITALS: BMI 32.8
== END ==
LOC: WC 10:38
PROVIDERS: PCP Family Medicine; Referring Provider Internal Medicine; Visit Provider Surgery
DX: E11.621 Type 2 diabetes mellitus with foot ulcer (principal); E11.42 Type 2 diabetes mellitus with diabetic polyneuropathy; L97.512 Non-pressure chronic ulcer of other part of right foot with fat layer exposed; L97.318 Non-pressure chronic ulcer of right ankle with other specified severity; R60.0 Localized edema; L53.9 Erythematous condition, unspecified; I73.9 Peripheral vascular disease, unspecified; I48.91 Unspecified atrial fibrillation; I50.9 Heart failure, unspecified; I25.10 Atherosclerotic heart disease of native coronary artery without angina pectoris; I70.203 Unspecified atherosclerosis of native arteries of extremities, bilateral legs
CPT/HCPCS: 11042; 11045; 99213

== ENCOUNTER → 2023-09-29 11:26 | Outpatient (CLI) | payer MEDICARE, OTHER, SELFPAY ==
[2023-05-29 17:43] VITALS: BMI 32.8
--- NOTE | 2023-09-29 11:32 | DI.RAD.S_ITS ---
PROCEDURE: XR HIP W PEL IF DONE LT 2V INDICATIONS: REPEATED FALLS TECHNIQUE: AP pelvis with lateral view(s) of the left hip(s). COMPARISON: None. FINDINGS: Bones: A subtle radiolucency is visualized on the cross-table lateral in the region of the intertrochanteric femur. This is not visualized on the AP view. Soft tissues: The visualized bowel gas pattern is normal. No suspicious soft tissue calcifications. IMPRESSION: Questionable intertrochanteric fracture versus overlapping bone shadows. No prior comparison studies are available to determine if this is an acute change or may represent healing bone. Dictated by: Louisa Tello M.D. on 09/29/2023 at 20:21 Approved by: Louisa Tello M.D. on 09/29/2023 at 20:24
== END ==
PROVIDERS: PCP Family Medicine; Referring Provider Internal Medicine; Visit Provider Internal Medicine
DX: S72.002D Fracture of unspecified part of neck of left femur, subsequent encounter for closed fracture with routine healing (principal); R29.6 Repeated falls; X58.XXXD Exposure to other specified factors, subsequent encounter
CPT/HCPCS: 73502

== ENCOUNTER → 2023-10-03 11:10 | Outpatient (CLI) | payer MEDICARE, OTHER, SELFPAY ==
[2023-05-29 17:43] VITALS: BMI 32.8
== END ==
LOC: WC 11:10
PROVIDERS: PCP Family Medicine; Referring Provider Internal Medicine; Visit Provider Surgery
DX: L97.512 Non-pressure chronic ulcer of other part of right foot with fat layer exposed (principal); L97.318 Non-pressure chronic ulcer of right ankle with other specified severity; I73.9 Peripheral vascular disease, unspecified; E11.621 Type 2 diabetes mellitus with foot ulcer; E11.42 Type 2 diabetes mellitus with diabetic polyneuropathy; R60.0 Localized edema; L53.9 Erythematous condition, unspecified
CPT/HCPCS: 11042; 11045

== ENCOUNTER → 2023-10-10 09:55 | Outpatient (CLI) | payer MEDICARE, OTHER, SELFPAY ==
[2023-05-29 17:43] VITALS: BMI 32.8
== END ==
LOC: WC 09:57
PROVIDERS: PCP Family Medicine; Referring Provider Internal Medicine; Visit Provider Surgery
DX: E11.621 Type 2 diabetes mellitus with foot ulcer (principal); L97.512 Non-pressure chronic ulcer of other part of right foot with fat layer exposed; L97.318 Non-pressure chronic ulcer of right ankle with other specified severity; I73.9 Peripheral vascular disease, unspecified; E11.42 Type 2 diabetes mellitus with diabetic polyneuropathy; L08.89 Other specified local infections of the skin and subcutaneous tissue; R60.0 Localized edema; L53.9 Erythematous condition, unspecified
CPT/HCPCS: 11043; 11046; 99213

== ENCOUNTER → 2023-10-17 09:26 | Outpatient (CLI) | payer MEDICARE, OTHER, SELFPAY ==
[2023-05-29 17:43] VITALS: BMI 32.8
== END ==
LOC: WC 09:27
PROVIDERS: PCP Family Medicine; Referring Provider Internal Medicine; Visit Provider Surgery
DX: E11.621 Type 2 diabetes mellitus with foot ulcer (principal); L97.328 Non-pressure chronic ulcer of left ankle with other specified severity; I96 Gangrene, not elsewhere classified; L97.512 Non-pressure chronic ulcer of other part of right foot with fat layer exposed; I73.9 Peripheral vascular disease, unspecified; E11.42 Type 2 diabetes mellitus with diabetic polyneuropathy; L53.9 Erythematous condition, unspecified; R23.4 Changes in skin texture; I25.10 Atherosclerotic heart disease of native coronary artery without angina pectoris; I48.91 Unspecified atrial fibrillation; I50.9 Heart failure, unspecified; R60.0 Localized edema
CPT/HCPCS: 11042; 11045

== ENCOUNTER → 2023-10-24 10:32 | Outpatient (CLI) | payer MEDICARE, OTHER, SELFPAY ==
[2023-05-29 17:43] VITALS: BMI 32.8
== END ==
PROVIDERS: PCP Family Medicine; Referring Provider Internal Medicine; Visit Provider Surgery
DX: E11.621 Type 2 diabetes mellitus with foot ulcer (principal); E11.42 Type 2 diabetes mellitus with diabetic polyneuropathy; L97.313 Non-pressure chronic ulcer of right ankle with necrosis of muscle; L97.522 Non-pressure chronic ulcer of other part of left foot with fat layer exposed; I73.9 Peripheral vascular disease, unspecified; L53.9 Erythematous condition, unspecified; R60.0 Localized edema; R23.4 Changes in skin texture; I48.91 Unspecified atrial fibrillation; I50.9 Heart failure, unspecified; N18.9 Chronic kidney disease, unspecified; I25.10 Atherosclerotic heart disease of native coronary artery without angina pectoris
CPT/HCPCS: 11043; 97605; 99212; 99213

== ENCOUNTER → 2023-10-26 09:04 | Outpatient (CLI) | payer MEDICARE, OTHER, SELFPAY ==
[2023-05-29 17:43] VITALS: BMI 32.8
== END ==
PROVIDERS: PCP Family Medicine; Referring Provider Internal Medicine; Visit Provider Physician Assistant
DX: E11.621 Type 2 diabetes mellitus with foot ulcer (principal); L97.318 Non-pressure chronic ulcer of right ankle with other specified severity; I96 Gangrene, not elsewhere classified; L97.512 Non-pressure chronic ulcer of other part of right foot with fat layer exposed; R60.0 Localized edema; L53.9 Erythematous condition, unspecified
CPT/HCPCS: 97605

== ENCOUNTER → 2023-10-30 13:00 | Outpatient (CLI) | payer MEDICARE, OTHER, SELFPAY ==
[2023-05-29 17:43] VITALS: BMI 32.8
== END ==
PROVIDERS: PCP Family Medicine; Referring Provider Internal Medicine; Visit Provider Surgery
DX: E11.621 Type 2 diabetes mellitus with foot ulcer (principal); E11.42 Type 2 diabetes mellitus with diabetic polyneuropathy; L97.318 Non-pressure chronic ulcer of right ankle with other specified severity; I96 Gangrene, not elsewhere classified; R60.0 Localized edema; L53.9 Erythematous condition, unspecified; I73.9 Peripheral vascular disease, unspecified; I25.10 Atherosclerotic heart disease of native coronary artery without angina pectoris; I48.91 Unspecified atrial fibrillation
CPT/HCPCS: 11043; 11046; 97605; 99213

== ENCOUNTER → 2023-11-02 10:47 | Outpatient (CLI) | payer MEDICARE, OTHER, SELFPAY ==
[2023-05-29 17:43] VITALS: BMI 32.8
== END ==
PROVIDERS: PCP Family Medicine; Referring Provider Internal Medicine; Visit Provider Physician Assistant
DX: E11.621 Type 2 diabetes mellitus with foot ulcer (principal); L97.318 Non-pressure chronic ulcer of right ankle with other specified severity; I96 Gangrene, not elsewhere classified; L97.512 Non-pressure chronic ulcer of other part of right foot with fat layer exposed; R60.0 Localized edema; L53.9 Erythematous condition, unspecified; R23.4 Changes in skin texture
CPT/HCPCS: 97605

== ENCOUNTER → 2023-11-06 09:17 | Outpatient (CLI) | payer MEDICARE, OTHER, SELFPAY ==
[2023-05-29 17:43] VITALS: BMI 32.8
== END ==
LOC: WC 09:18
PROVIDERS: PCP Family Medicine; Referring Provider Internal Medicine; Visit Provider Surgery
DX: E11.621 Type 2 diabetes mellitus with foot ulcer (principal); L97.318 Non-pressure chronic ulcer of right ankle with other specified severity; I96 Gangrene, not elsewhere classified; L97.512 Non-pressure chronic ulcer of other part of right foot with fat layer exposed; L89.620 Pressure ulcer of left heel, unstageable; R60.0 Localized edema; L53.9 Erythematous condition, unspecified; I73.9 Peripheral vascular disease, unspecified
CPT/HCPCS: 11043; 11046; 97605; 99213

== ENCOUNTER → 2023-11-09 09:42 | Outpatient (CLI) | payer MEDICARE, OTHER, SELFPAY ==
[2023-05-29 17:43] VITALS: BMI 32.8
== END ==
LOC: WC 09:43
PROVIDERS: PCP Family Medicine; Referring Provider Internal Medicine; Visit Provider Surgery
DX: E11.621 Type 2 diabetes mellitus with foot ulcer (principal); L97.318 Non-pressure chronic ulcer of right ankle with other specified severity; I96 Gangrene, not elsewhere classified; L97.512 Non-pressure chronic ulcer of other part of right foot with fat layer exposed; L89.620 Pressure ulcer of left heel, unstageable; R60.0 Localized edema; L53.9 Erythematous condition, unspecified
CPT/HCPCS: 97605

== ENCOUNTER → 2023-11-13 09:19 | Outpatient (CLI) | payer MEDICARE, OTHER, SELFPAY ==
[2023-05-29 17:43] VITALS: BMI 32.8
== END ==
LOC: WC 09:19
PROVIDERS: PCP Family Medicine; Referring Provider Internal Medicine; Visit Provider Surgery
DX: E11.621 Type 2 diabetes mellitus with foot ulcer (principal); L97.313 Non-pressure chronic ulcer of right ankle with necrosis of muscle; L89.620 Pressure ulcer of left heel, unstageable; I73.9 Peripheral vascular disease, unspecified; E11.42 Type 2 diabetes mellitus with diabetic polyneuropathy; R60.0 Localized edema; L53.9 Erythematous condition, unspecified; L98.8 Other specified disorders of the skin and subcutaneous tissue
CPT/HCPCS: 11043; 11046; 97605

== ENCOUNTER → 2023-11-16 09:25 | Outpatient (CLI) | payer MEDICARE, OTHER, SELFPAY ==
[2023-05-29 17:43] VITALS: BMI 32.8
== END ==
PROVIDERS: PCP Family Medicine; Referring Provider Internal Medicine; Visit Provider Physician Assistant
DX: E11.621 Type 2 diabetes mellitus with foot ulcer (principal); L97.318 Non-pressure chronic ulcer of right ankle with other specified severity; I96 Gangrene, not elsewhere classified; R60.0 Localized edema; L53.9 Erythematous condition, unspecified; L89.620 Pressure ulcer of left heel, unstageable
CPT/HCPCS: 97605

== ENCOUNTER → 2023-11-20 09:21 | Outpatient (CLI) | payer MEDICARE, OTHER, SELFPAY ==
[2023-05-29 17:43] VITALS: BMI 32.8
== END ==
LOC: WC 09:23
PROVIDERS: PCP Family Medicine; Referring Provider Internal Medicine; Visit Provider Surgery
DX: E11.621 Type 2 diabetes mellitus with foot ulcer (principal); E11.42 Type 2 diabetes mellitus with diabetic polyneuropathy; L97.313 Non-pressure chronic ulcer of right ankle with necrosis of muscle; L89.620 Pressure ulcer of left heel, unstageable; I73.9 Peripheral vascular disease, unspecified; R60.0 Localized edema; L53.9 Erythematous condition, unspecified
CPT/HCPCS: 11043; 11046; 97605

== ENCOUNTER → 2023-11-23 11:15 | Outpatient (CLI) | payer MEDICARE, OTHER, SELFPAY ==
[2023-05-29 17:43] VITALS: BMI 32.8
== END ==
PROVIDERS: PCP Family Medicine; Referring Provider Family Medicine; Visit Provider Physician Assistant
DX: E11.621 Type 2 diabetes mellitus with foot ulcer (principal); L97.318 Non-pressure chronic ulcer of right ankle with other specified severity; L98.8 Other specified disorders of the skin and subcutaneous tissue; L89.610 Pressure ulcer of right heel, unstageable; R60.0 Localized edema; L53.9 Erythematous condition, unspecified
CPT/HCPCS: 97605

== ENCOUNTER → 2023-11-27 09:41 | Outpatient (CLI) | payer MEDICARE, OTHER, SELFPAY ==
[2023-05-29 17:43] VITALS: BMI 32.8
== END ==
PROVIDERS: PCP Family Medicine; Referring Provider Internal Medicine; Visit Provider Surgery
DX: E11.621 Type 2 diabetes mellitus with foot ulcer (principal); E11.42 Type 2 diabetes mellitus with diabetic polyneuropathy; L97.318 Non-pressure chronic ulcer of right ankle with other specified severity; L98.8 Other specified disorders of the skin and subcutaneous tissue; L89.620 Pressure ulcer of left heel, unstageable; I73.9 Peripheral vascular disease, unspecified; R60.0 Localized edema; L53.9 Erythematous condition, unspecified; M25.571 Pain in right ankle and joints of right foot; I50.9 Heart failure, unspecified; I25.10 Atherosclerotic heart disease of native coronary artery without angina pectoris; I87.2 Venous insufficiency (chronic) (peripheral)
CPT/HCPCS: 11043; 11046; 97605; 99213; 99214

== ENCOUNTER 2023-11-28 10:46 | Inpatient (IN) | payer MEDICARE, OTHER, SELFPAY ==
[2023-05-29 17:43] VITALS: BMI 32.8
[2023-11-28] VITALS (55 sets, daily range): BP systolic 73–142; BP diastolic 38–77; PULSE 89–115; RESP 11–51; TEMP 37.2–38.5; O2SAT 87–99; BMI 30.9; BMI 29.9
--- NOTE | 2023-11-28 | DI.CT.S_ITS ---
PROCEDURE: CT ABDOMEN PELVIS WO CON INDICATIONS: PAIN TECHNIQUE: Axial sections were acquired from the lung bases to the pubic symphysis. Coronal and sagittal reformats were performed. For radiation dose reduction, the following was used: automated exposure control, adjustment of mA and/or kV according to patient size. COMPARISON: [facility], CT, CT CHEST WO CON, 11/28/2023, 13:11. [facility], CT, CT ANGIO ABD AORTA RUNOFF, 06/01/2023, 12:27. FINDINGS: Image quality: Diagnostic. Lower Chest: Mild aneurysmal dilatation of the ascending aorta, measuring 4.2 cm. Severe coronary artery calcifications. URINARY: Right Kidney: No stones or hydronephrosis. Right Ureter: No hydroureter. Left Kidney: No stones or hydronephrosis. Left Ureter: No hydroureter. Bladder: Normal wall thickness. No stones. ABDOMEN: Liver: No contour-deforming solid mass. Gallbladder: Surgically absent Biliary ducts: No biliary dilation. Pancreas: No ductal dilation. Spleen: Size is within normal limits. Adrenal Glands: No adrenal nodules. Stomach and Bowel: Normal colonic caliber, without significant wall thickening. Peritoneum: No abnormal intraperitoneal fluid. No free air. Ventral Wall: No hernia. Abdominal Nodes: No enlarged retroperitoneal abdominal or mesenteric lymph nodes. There is right iliac region inflammatory change with multiple right iliac lymph nodes which are prominent, and likely reactive, somewhat increased from before. Vessels: Extensive atherosclerotic calcifications in the aorta and iliacs. Known chronic short distance infrarenal abdominal aortic dissection. Extensive dense iliac calcifications. Question left common iliac artery stent. Trapease IVC filter in place. 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 There are extensive bilateral venous collaterals at the groins and anterior lateral abdominal subcutaneous tissues and anterior abdominal wall subcutaneous tissues. PELVIS: Pelvic Organs: Unremarkable. Pelvic Nodes: Unremarkable. Miscellaneous: No inguinal hernias are seen. Bones: Unremarkable. Left hip arthroplasty. IMPRESSION: 1. No acute process is identified. 2. No renal stones, ureteral stones, or hydronephrosis. 3. Findings consistent with a chronic infrarenal abdominal aortic dissection without aneurysm. 4. Trapeze IVC filter in place. 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 5. Inflammatory change call a as was present before, in the right iliac region, with interval increase in prominence of multiple prominent right inguinal lymph nodes. 6. Diffuse atherosclerotic change. 7. Severe coronary artery calcifications. 8. Mild aneurysmal dilatation of the ascending aorta. Dictated by: oGrdon Alvarado M.D. on 11/28/2023 at 14:19 Approved by: Gordon Alvarado M.D. on 11/28/2023 at 14:29
--- NOTE | 2023-11-28 10:56 | EKG_ITS ---
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
--- NOTE | 2023-11-28 10:56 | DI.RAD.S_ITS ---
PROCEDURE: XR CHEST 1V INDICATIONS: eval for PNA TECHNIQUE: One view of the chest was acquired. COMPARISON: [facility], CR, XR CHEST 1V, 04/24/2022, 21:29. FINDINGS: Surgical changes and devices: None. Lungs and pleura: Lungs are clear. No pleural effusions or pneumothorax. Mediastinum: Mediastinal contours appear normal. Heart size is normal. Bones and chest wall: No suspicious bony lesions. Overlying soft tissues appear unremarkable. IMPRESSION: No evidence acute pulmonary process. Dictated by: Gordon Alvarado M.D. on 11/28/2023 at 11:56 Approved by: Gordon Alvarado M.D. on 11/28/2023 at 11:57
[2023-11-28 11:01] LABS: Add Manual Diff / Slide Review NO; Basophils Absolute Auto 0 /uL (0-100); Basophils Percent Auto 0.2 % (0-2); Eosinophils Absolute Auto 0 /uL (0-450); Hematocrit 32.2 % (41-53); Hemoglobin 10.3 g/dL (13.5-17.5); Lymphocytes Absolute Auto 1300 /uL (1100-4500); Lymphocytes Percent Auto 7.5 % (25-40); Mean Corpuscular HGB Conc 31.9 % (30-36); Mean Corpuscular Hemoglobin 30.3 PG (26-34); Mean Corpuscular Volume 94.7 fL (80-100); Monocytes Absolute Auto 2400 /uL (0-900); Monocytes Percent Auto 13.7 % (3-14); Neutrophils Absolute Auto 13700 /uL (1500-7000); Neutrophils Percent Auto 78.6 % (50-75); Platelet Count 248 X10^3/uL (150-400); White Blood Cell Count 17.4 X10^3/uL (4.5-11.0)
[2023-11-28 11:20] LABS: Alanine Aminotransferase 18 IU/L (<50); Albumin 3.8 g/dL (3.5-5.0); Albumin Globulin Ratio 1.1 (1.0-2.8); Alkaline Phosphatase 115 U/L (38-126); Aspartate Aminotransferase 30 IU/L (17-59); Bilirubin Total 1.1 mg/dL (0.2-1.3); Blood Urea Nitrogen 44 mg/dL (9-20); Calcium 8.4 mg/dL (8.4-10.2); Carbon Dioxide 26 mmol/L (22-32); Chloride 97 mmol/L (98-107); Estimated Glomerular Filt Rate 29 mL/min (>60); Globulin 3.4 g/dL (1.7-4.1); Glucose 280 mg/dL (80-110); HEMOLYSIS < 15 (0-50); Sodium 131 mmol/L (137-145); Total Protein 7.2 g/dL (6.3-8.2)
[2023-11-28 11:21] LABS: Creatine Kinase 129 U/L (55-170); Lipase 66 U/L (23-300); Potassium 5.5 mmol/L (3.4-5.1)
[2023-11-28 11:32] LABS: Troponin I 0.066 ng/mL (0.01-0.034)
--- NOTE | 2023-11-28 11:55 | ED_ITS ---
HPI - General Adult General Chief complaint: Weakness Stated complaint: Weakness/fever Time Seen by Provider: 11/28/23 10:53 Source: patient and EMS Mode of arrival: EMS History of Present Illness HPI narrative: Patient is an 83-year-old male. Is brought in by EMS for evaluation of weakness. He states that he has not been able to eat anything for the past couple days. He states he has just been very nauseous. Denies chest pain. Denies shortness of breath. Denies abdominal pain. He states that this morning he did vomit. He thought it was after he coughed that he vomited. He denies any urinary issues. 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 Here in the ER he states he just feels very weak. Denies headache. Related Data Home Medications Medication Instructions Recorded Confirmed allopurinol 100 mg tablet 200 mg PO BID 04/25/22 05/29/23 atorvastatin 80 mg tablet 80 mg PO BEDTIME 04/25/22 05/29/23 calcium carbonate 600 mg-vitamin 1 tab PO DAILY 04/25/22 05/29/23 D3 10 mcg (400 unit) tablet (Calcium 600 + D(3)) gabapentin 300 mg capsule 300 mg PO BID 04/25/22 05/29/23 insulin glargine 100 unit/mL (3 34 unit SUBCUT BEDTIME 04/25/22 05/29/23 mL) subcutaneous pen (Lantus Solostar U-100 Insulin) magnesium 200 mg tablet 400 mg PO DAILY 04/25/22 05/29/23 pioglitazone 15 mg tablet (Actos) 15 mg PO DAILY 04/25/22 05/29/23 rivaroxaban 20 mg tablet (Xarelto) 20 mg PO DAILY 04/25/22 05/29/23 tamsulosin 0.4 mg capsule 0.4 mg PO DAILY 04/25/22 05/29/23 hydrochlorothiazide 12.5 mg tablet 12.5 mg PO DAILY 05/29/23 05/29/23 Previous Rx's Medication Instructions Recorded tramadol 50 mg tablet 50 mg PO Q8H PRN pain #14 tabs 08/11/23 ciprofloxacin HCl 500 mg tablet 500 mg PO Q12H #14 tabs 08/13/23 tetracycline 500 mg tablet 500 mg PO Q12H #14 tabs 08/13/23 Allergies Allergy/AdvReac Type Severity Reaction Status Date / Time No Known Drug Allergies Allergy Verified 11/28/23 10:57 Review of Systems Review of Systems ROS Unobtainable: All systems reviewed & are unremarkable except as noted in HPI and below Patient History Medical History CVA (cerebral vascular accident) Dyslipidemia Anticoagulated Surgical History H/O foot surgery H/O heart artery stent Social History household members: family Smoking Status: Former smoker alcohol intake: former Smoking Status: Former smoker tobacco type: cigarettes alcohol intake frequency: other Substance Use Type: does not use Exam Initial Vital Signs Initial Vital Signs: Vital Signs Pulse Rate 100 H 11/28/23 10:57 Respiratory Rate 39 H 11/28/23 10:57 Pulse Oximetry 98 11/28/23 10:57 Const General: cooperative and comfortable HENMT Head: normal to inspection and normocephalic Resp Effort & Inspection: no cough and tachypneic Auscultation: clear to auscultation bilaterally Cardio Rate: tachycardic Rhythm: regular rhythm GI Inspection: normal to inspection and non-distended Palpation: soft, No firm and No tender Skin Other: Patient does have a ulceration to the bottom of the right foot. There was redness encompassing the medial aspect of the right foot up the right medial calf and right medial thigh. It is warm to the touch. No active drainage. Neuro General: patient alert and patient awake Extrem Other: Dressings on the right lower extremity are clean dry and intact Course Orders Ordered: ED Orders 11/28/23 10:48 BNP [NT-proBNP (BNP-Adult 18+)] Stat Complete Blood Count AUTO DIFF Stat Comprehensive Metabolic Panel Stat D Dimer Stat Lactate (Lactic Acid) Stat Lipase Stat Procalcitonin Stat Troponin & CK Cardiac Panel Stat 11/28/23 10:56 XR chest 1V Stat EKG-12 Lead Stat 11/28/23 11:10 Respiratory Panel (Film Array) Stat 11/28/23 12:31 CT chest wo con Stat 11/28/23 12:40 Blood Culture Stat 11/28/23 12:57 Troponin & CK Cardiac Panel Stat 11/28/23 14:09 Urine Culture Stat Urine Microscopic Stat Sodium Chloride (Normal Saline 0.9%) 1,000 mls @ 125 mls/hr IV CONT ROMY Last Infusion: 11/28/23 15:30 Dose: 125 mls/hr Documented By: Infusion: 11/28/23 14:13 Dose: 0 mls/hr Documented By: Admin: 11/28/23 12:05 Dose: 125 mls/hr Documented By: [facility] Discontinued Medications Furosemide (Furosemide 40 Mg/4 Ml Vial) 40 mg IV NOW ONE Stop: 11/28/23 13:07 Last Admin: 11/28/23 14:13 Dose: 40 mg Documented By: ANA Ceftriaxone Sodium 1,000 mg/ (Sodium Chloride) 100 mls @ 200 mls/hr IV NOW ONE Stop: 11/28/23 12:26 Last Infusion: 11/28/23 14:12 Dose: Infused Documented By: Admin: 11/28/23 13:01 Dose: 200 mls/hr Documented By: RAMESH Vancomycin HCl (Vancomycin) 1,000 mg in 200 mls @ 200 mls/hr IV NOW ONE Stop: 11/28/23 14:56 Last Infusion: 11/28/23 15:53 Dose: Infused Documented By: Admin: 11/28/23 14:13 Dose: 200 mls/hr Documented By: ANA Acetaminophen (Ofirmev) 1,000 mg in 100 mls @ 400 mls/hr IV NOW ONE Stop: 11/28/23 14:42 Last Infusion: 11/28/23 15:08 Dose: Infused Documented By: Admin: 11/28/23 14:51 Dose: 400 mls/hr Documented By: ANA Sodium Chloride (Normal Saline 0.9%) 1,000 mls @ 1,000 mls/hr IV BOLUS ONE Stop: 11/28/23 16:31 Last Infusion: 11/28/23 16:38 Dose: Infused Documented By: Admin: 11/28/23 15:32 Dose: 1,000 mls/hr Documented By: ANA Vital Signs Vital signs: Vital Signs - 8 hr 11/28/23 10:57 11/28/23 10:58 11/28/23 11:00 Temperature 100.9 F H Pulse Rate 100 H 101 H Respiratory Rate 39 H 18 Blood Pressure 118/58 L 135/60 Pulse Oximetry 98 96 Oxygen Delivery Method Nasal Cannula Oxygen Flow Rate 3 11/28/23 11:00 11/28/23 11:20 11/28/23 11:30 Temperature Pulse Rate 100 H 100 H Respiratory Rate 29 H 39 H Blood Pressure Pulse Oximetry 99 89 L 91 Oxygen Delivery Method Nasal Cannula Room Air Oxygen Flow Rate 3 11/28/23 11:31 11/28/23 11:34 11/28/23 11:34 Temperature Pulse Rate 100 H 100 H Respiratory Rate 36 H 33 H Blood Pressure 120/56 L Pulse Oximetry 99 98 Oxygen Delivery Method Oxygen Flow Rate 11/28/23 12:00 11/28/23 12:30 11/28/23 12:54 Temperature Pulse Rate 99 H 98 H Respiratory Rate 31 H 34 H Blood Pressure 142/65 H Pulse Oximetry 87 L 95 Oxygen Delivery Method Room Air Oxygen Flow Rate 11/28/23 12:54 11/28/23 13:00 11/28/23 13:01 Temperature Pulse Rate 101 H 102 H 102 H Respiratory Rate 30 H 30 H 38 H Blood Pressure Pulse Oximetry 96 94 96 Oxygen Delivery Method Oxygen Flow Rate 11/28/23 13:01 11/28/23 13:33 11/28/23 13:38 Temperature Pulse Rate 106 H 106 H Respiratory Rate 45 H 38 H Blood Pressure 136/60 Pulse Oximetry Oxygen Delivery Method Oxygen Flow Rate 11/28/23 13:38 11/28/23 14:01 11/28/23 14:03 Temperature Pulse Rate 115 H 111 H Respiratory Rate 51 H 51 H Blood Pressure 108/58 L Pulse Oximetry 96 Oxygen Delivery Method Nasal Cannula Oxygen Flow Rate 2 11/28/23 14:03 11/28/23 14:08 11/28/23 14:30 Temperature 101.3 F H 100.0 F H Pulse Rate 110 H Respiratory Rate 32 H Blood Pressure 131/76 Pulse Oximetry 96 93 Oxygen Delivery Method Nasal Cannula Nasal Cannula Oxygen Flow Rate 2 2 11/28/23 14:30 Temperature Pulse Rate Respiratory Rate Blood Pressure 124/60 Pulse Oximetry Oxygen Delivery Method Oxygen Flow Rate Medical Decision Making Lab Data Lab results reviewed: Yes I reviewed the patient's lab results. 11/28/23 10:48 11/28/23 10:48 Labs: Lab Results 11/28/23 11/28/23 11/28/23 Range/Units 10:48 11:10 12:57 WBC 17.4 H (4.5-11.0) X10^3/uL RBC 3.40 L (4.5-5.9) X10^6/uL Hgb 10.3 L (13.5-17.5) g/dL Hct 32.2 L (41-53) % MCV 94.7 (80-100) fL MCH 30.3 (26-34) PG MCHC 31.9 (30-36) % RDW 17.0 H (11.6-14.8) % Plt Count 248 (150-400) X10^3/uL Neut % (Auto) 78.6 H (50-75) % Lymph % (Auto) 7.5 L (25-40) % Benson % (Auto) 13.7 (3-14) % Eos % (Auto) 0.0 L (2-4) % Baso % (Auto) 0.2 (0-2) % Neut # (Auto) 02194 H (4530-8875) /uL Lymph # (Auto) 1300 (0377-9390) /uL Benson # (Auto) 2400 H (0-900) /uL Eos # (Auto) 0 (0-450) /uL Baso # (Auto) 0 (0-100) /uL D-Dimer 1334 H (<500) ng/ml Sodium 131 L (137-145) mmol/L Potassium 5.5 H (3.4-5.1) mmol/L Chloride 97 L (98-107) mmol/L Carbon Dioxide 26 (22-32) mmol/L BUN 44 H (9-20) mg/dL Creatinine 2.20 H (0.66-1.25) mg/dL Estimated GFR 29 L (>60) mL/min BUN/Creatinine Ratio 20.0 (6-22) Glucose 280 H (80-110) mg/dL Lactate 2.6 H 1.7 (0.7-2.1) mmol/L Calcium 8.4 (8.4-10.2) mg/dL Total Bilirubin 1.1 (0.2-1.3) mg/dL AST 30 (17-59) IU/L ALT 18 (<50) IU/L Alkaline Phosphatase 115 (38-126) U/L Total Creatine Kinase 129 136 (55-170) U/L Troponin I 0.066 H 0.066 H (0.01-0.034) ng/mL NT-Pro-B Natriuret Pep 2140 H (<450) pg/mL Total Protein 7.2 (6.3-8.2) g/dL Albumin 3.8 (3.5-5.0) g/dL Globulin 3.4 (1.7-4.1) g/dL Albumin/Globulin Ratio 1.1 (1.0-2.8) Lipase 66 (23-300) U/L Procalcitonin 3.26 H (<0.5) ng/mL Urine RBC (0-5/HPF) Urine WBC (0-5/HPF) Ur Squamous Epith Cells (0-5/HPF) Urine Bacteria (None) Hyaline Casts (None) Urine Mucus (Negative) Ur Culture Indicated? Vol Urine Centrifuged Chlamy pneumoniae PCR Not detected (Not Detect) Adenovirus (PCR) Not detected (Not Detect) B.parapertussis DNA PCR Not detected (Not Detecte) Coronavirus OC43 (PCR) Not detected (Not Detect) Coronavirus HKU1 (PCR) Not detected (Not Detect) Coronavirus 229E (PCR) Not detected (Not Detect) SARS-CoV-2 (PCR) Not detected (Not Detecte) Coronavirus NL63 (PCR) Not detected (Not Detect) Human Metapneumovir PCR Not detected (Not Detect) Influenza Type A (PCR) Not detected (Not Detect) Influenza Type B (PCR) Not detected (Not Detect) M. pneumoniae (PCR) Not detected (Not Detect) Parainfluenza 1 (PCR) Not detected (Not Detect) Parainfluenza 2 (PCR) Not detected (Not Detect) Parainfluenza 3 (PCR) Not detected (Not Detect) Parainfluenza 4 (PCR) Not detected (Not Detect) RSV (PCR) Not detected (Not Detect) Entero/Rhino (PCR) Not detected (Not Detect) 11/28/23 Range/Units 14:09 WBC (4.5-11.0) X10^3/uL RBC (4.5-5.9) X10^6/uL Hgb (13.5-17.5) g/dL Hct (41-53) % MCV (80-100) fL MCH (26-34) PG MCHC (30-36) % RDW (11.6-14.8) % Plt Count (150-400) X10^3/uL Neut % (Auto) (50-75) % Lymph % (Auto) (25-40) % Benson % (Auto) (3-14) % Eos % (Auto) (2-4) % Baso % (Auto) (0-2) % Neut # (Auto) (5025-2734) /uL Lymph # (Auto) (8408-8994) /uL Benson # (Auto) (0-900) /uL Eos # (Auto) (0-450) /uL Baso # (Auto) (0-100) /uL D-Dimer (<500) ng/ml Sodium (137-145) mmol/L Potassium (3.4-5.1) mmol/L Chloride (98-107) mmol/L Carbon Dioxide (22-32) mmol/L BUN (9-20) mg/dL Creatinine (0.66-1.25) mg/dL Estimated GFR (>60) mL/min BUN/Creatinine Ratio (6-22) Glucose (80-110) mg/dL Lactate (0.7-2.1) mmol/L Calcium (8.4-10.2) mg/dL Total Bilirubin (0.2-1.3) mg/dL AST (17-59) IU/L ALT (<50) IU/L Alkaline Phosphatase (38-126) U/L Total Creatine Kinase (55-170) U/L Troponin I (0.01-0.034) ng/mL NT-Pro-B Natriuret Pep (<450) pg/mL Total Protein (6.3-8.2) g/dL Albumin (3.5-5.0) g/dL Globulin (1.7-4.1) g/dL Albumin/Globulin Ratio (1.0-2.8) Lipase (23-300) U/L Procalcitonin (<0.5) ng/mL Urine RBC 0-1/hpf (0-5/HPF) Urine WBC 5-10/hpf H (0-5/HPF) Ur Squamous Epith Cells 0-1 /hpf (0-5/HPF) Urine Bacteria Few (2-10) H (None) Hyaline Casts 0-1/lpf (None) Urine Mucus 1+ H (Negative) Ur Culture Indicated? Cult not indicated Vol Urine Centrifuged 10ml (spun) Chlamy pneumoniae PCR (Not Detect) Adenovirus (PCR) (Not Detect) B.parapertussis DNA PCR (Not Detecte) Coronavirus OC43 (PCR) (Not Detect) Coronavirus HKU1 (PCR) (Not Detect) Coronavirus 229E (PCR) (Not Detect) SARS-CoV-2 (PCR) (Not Detecte) Coronavirus NL63 (PCR) (Not Detect) Human Metapneumovir PCR (Not Detect) Influenza Type A (PCR) (Not Detect) Influenza Type B (PCR) (Not Detect) M. pneumoniae (PCR) (Not Detect) Parainfluenza 1 (PCR) (Not Detect) Parainfluenza 2 (PCR) (Not Detect) Parainfluenza 3 (PCR) (Not Detect) Parainfluenza 4 (PCR) (Not Detect) RSV (PCR) (Not Detect) Entero/Rhino (PCR) (Not Detect) Urine Dip Bedside Urine Glucose Negative Bedside Urine Bilirubin - Negative Bedside Urine Ketone - Negative Urine Specific Bard 1.015 Bedside Urine Occult Blood - Negative Bedside Urine pH 5.5 Bedside Urine Protein + 30 Bedside Urine Urobilinogen - Negative Bedside Urine Nitrite - Negative Bedside Urine Leukocytes +/- 15 Esterase Point of care testing: Urine Dip Bedside Urine Glucose Negative Bedside Urine Bilirubin - Negative Bedside Urine Ketone - Negative Urine Specific Bard 1.015 Bedside Urine Occult Blood - Negative Bedside Urine pH 5.5 Bedside Urine Protein + 30 Bedside Urine Urobilinogen - Negative Bedside Urine Nitrite - Negative Bedside Urine Leukocytes +/- 15 Esterase Imaging Data Chest x-ray: Radiologist's Impression: PROCEDURE: XR CHEST 1V INDICATIONS: eval for PNA TECHNIQUE: One view of the chest was acquired. COMPARISON: [facility], , XR CHEST 1V, 04/24/2022, 21:29. FINDINGS: Surgical changes and devices: None. Lungs and pleura: Lungs are clear. No pleural effusions or pneumothorax. Mediastinum: Mediastinal contours appear normal. Heart size is normal. Bones and chest wall: No suspicious bony lesions. Overlying soft tissues appear unremarkable. IMPRESSION: No evidence acute pulmonary process. CT scan - chest: Radiologist's Impression: PROCEDURE: CT CHEST WO CON INDICATIONS: Hypoxia, fever TECHNIQUE: Noncontrast 5 mm thick sections acquired from the pulmonary apices to the posterior costophrenic angles. 1 mm lung window, 5 mm thick coronal and sagittal and 7 mm axial MIP reformats were then acquired. For radiation dose reduction, the following was used: automated exposure control, adjustment of mA and/or kV according to patient size. COMPARISON: [facility], CR, XR CHEST 1V, 11/28/2023, 10:59. FINDINGS: Image quality: Diagnostic. Lower Neck: No enlarged lymph nodes. Thyroid: No thyroid nodules which require sonographic follow up, per consensus guidelines. Axillae: No enlarged lymph nodes. Chest Wall: Unremarkable. Bones: Unremarkable. Lungs and Pleura: No pneumothorax or pleural effusions. No consolidation or suspicious nodules. Heart: Heart size is top-normal. Severe coronary artery calcifications.. No pericardial effusion. Thoracic Vessels: Mild aneurysmal dilatation of the ascending aorta, measuring 4.2 cm. . Dense great vessel origin calcifications. Mediastinum and Lelo: No enlarged lymph nodes. Esophagus: No wall thickening. No hiatal hernia. Upper Abdomen: Visualized upper abdomen solid organs and bowel loops appear normal. Gallbladder is surgically absent. IMPRESSION: 1. Top normal heart size, severe coronary artery calcifications. 2. ASCVD. 3. Mild aneurysmal dilatation of the ascending aorta. 4. No acute pulmonary process. CT scan - abdomen/pelvis: Radiologist's Impression: PROCEDURE: CT ABDOMEN PELVIS WO CON INDICATIONS: PAIN TECHNIQUE: Axial sections were acquired from the lung bases to the pubic symphysis. Coronal and sagittal reformats were performed. For radiation dose reduction, the following was used: automated exposure control, adjustment of mA and/or kV according to patient size. COMPARISON: [facility], CT, CT CHEST WO CON, 11/28/2023, 13:11. [facility], CT, CT ANGIO ABD AORTA RUNOFF, 06/01/2023, 12:27. FINDINGS: Image quality: Diagnostic. Lower Chest: Mild aneurysmal dilatation of the ascending aorta, measuring 4.2 cm. Severe coronary artery calcifications. URINARY: Right Kidney: No stones or hydronephrosis. Right Ureter: No hydroureter. Left Kidney: No stones or hydronephrosis. Left Ureter: No hydroureter. Bladder: Normal wall thickness. No stones. ABDOMEN: Liver: No contour-deforming solid mass. Gallbladder: Surgically absent Biliary ducts: No biliary dilation. Pancreas: No ductal dilation. Spleen: Size is within normal limits. Adrenal Glands: No adrenal nodules. Stomach and Bowel: Normal colonic caliber, without significant wall thickening. Peritoneum: No abnormal intraperitoneal fluid. No free air. Ventral Wall: No hernia. Abdominal Nodes: No enlarged retroperitoneal abdominal or mesenteric lymph nodes. There is right iliac region inflammatory change with multiple right iliac lymph nodes which are prominent, and likely reactive, somewhat increased from before. Vessels: Extensive atherosclerotic calcifications in the aorta and iliacs. Known chronic short distance infrarenal abdominal aortic dissection. Extensive dense iliac calcifications. Question left common iliac artery stent. Trapease IVC filter in place. 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 There are extensive bilateral venous collaterals at the groins and anterior lateral abdominal subcutaneous tissues and anterior abdominal wall subcutaneous tissues. PELVIS: Pelvic Organs: Unremarkable. Pelvic Nodes: Unremarkable. Miscellaneous: No inguinal hernias are seen. Bones: Unremarkable. Left hip arthroplasty. IMPRESSION: 1. No acute process is identified. 2. No renal stones, ureteral stones, or hydronephrosis. 3. Findings consistent with a chronic infrarenal abdominal aortic dissection without aneurysm. 4. Trapeze IVC filter in place. 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 5. Inflammatory change call a as was present before, in the right iliac region, with interval increase in prominence of multiple prominent right inguinal lymph nodes. 6. Diffuse atherosclerotic change. 7. Severe coronary artery calcifications. 8. Mild aneurysmal dilatation of the ascending aorta. ECG Data Attestation: I personally reviewed and interpreted this ECG as follows: Interpretation: Sinus rhythm Ventricular rate of 100 Normal axis Normal QRS Normal QTC No ST T wave changes MDM Narrative Medical decision making narrative: Patient is alert and oriented. He denies chest pain, shortness of breath, abdominal pain. He was febrile. Has had periods of time where she was tachycardic. Also having episodes of hypoxia on room air requiring oxygen by nasal cannula. Patient has a leukocytosis. Elevated lactate. Elevated procalcitonin. Initially there was concern about a respiratory source given his hypoxia which is new for him. He was also complaining of a cough.. Chest x-ray showed no pneumonia. Respiratory panel was negative. Troponin was elevated but it was unchanged with a 2 hour repeat. Has nonischemic EKG. Low suspicion for ACS. Considered pulmonary embolism given his elevated D-dimer but the patient is on anticoagulation and this makes that very unlikely. CT scan showed no acute pathology. Patient does have a erythematous right lower extremity most likely from the wounds on his right leg. Blood cultures were obtained. Discussed the case with Dr. Doherty hospitalist on-call who will admit. Just prior to taking the patient to the floor he had an episode of hypotension with a systolic blood pressure in the 70s and a mean arterial pressure in the low 60s. I was judicious about fluid resuscitation because up until this point the patient was not hypotensive. He had an elevated BNP and given his hypoxia there was some question about fluid overload. Now given that he is hypotensive fluids were administered. His blood pressure improved. His heart rate improved. A PICC line was started. The patient did not require any blood pressure support. Will admit for further evaluation and treatment to the ICU. Discharge Plan Departure Patient Disposition: Admitted As Inpatient Clinical Impression: Cellulitis of leg, right, Hypoxia, Urinary tract infection Admit Date/Time: 11/28/23 14:45 Admit Provider: Scottie Doherty
[2023-11-28] MEDS: SODIUM CHLORIDE 0.9% 1,000 ML 125 ML IV ×2 (12:05→23:26)
[2023-11-28 12:21] LABS: Adenovirus Not Detected (Not Detect); B. parapertussis Not Detected (Not Detecte); Bordetella pertussis Not Detected (Not Detect); Chlamydophila pneumoniae Not Detected (Not Detect); Coronavirus 229E Not Detected (Not Detect); Coronavirus HKU1 Not Detected (Not Detect); Coronavirus NL 63 Not Detected (Not Detect); Coronavirus OC43 Not Detected (Not Detect); Human Metapneumovirus Not Detected (Not Detect); Human Rhinovirus/Enterovirus Not Detected (Not Detect); Influenza A Not Detected (Not Detect); Influenza B Not Detected (Not Detect); Mycoplasma pneumoniae Not Detected (Not Detect); Parainfluenza Virus 1 Not Detected (Not Detect); Parainfluenza Virus 2 Not Detected (Not Detect); Parainfluenza Virus 3 Not Detected (Not Detect); Parainfluenza Virus 4 Not Detected (Not Detect); Respiratory Syncytial Virus Not Detected (Not Detect); SARS- CoV-2 Not Detected (Not Detecte)
[2023-11-28 12:22] LABS: Lactate (Lactic Acid) 2.6 mmol/L (0.7-2.1)
--- NOTE | 2023-11-28 12:31 | DI.CT.S_ITS ---
PROCEDURE: CT CHEST WO CON INDICATIONS: Hypoxia, fever TECHNIQUE: Noncontrast 5 mm thick sections acquired from the pulmonary apices to the posterior costophrenic angles. 1 mm lung window, 5 mm thick coronal and sagittal and 7 mm axial MIP reformats were then acquired. For radiation dose reduction, the following was used: automated exposure control, adjustment of mA and/or kV according to patient size. COMPARISON: [facility], CR, XR CHEST 1V, 11/28/2023, 10:59. FINDINGS: Image quality: Diagnostic. Lower Neck: No enlarged lymph nodes. Thyroid: No thyroid nodules which require sonographic follow up, per consensus guidelines. Axillae: No enlarged lymph nodes. Chest Wall: Unremarkable. Bones: Unremarkable. Lungs and Pleura: No pneumothorax or pleural effusions. No consolidation or suspicious nodules. Heart: Heart size is top-normal. Severe coronary artery calcifications.. No pericardial effusion. Thoracic Vessels: Mild aneurysmal dilatation of the ascending aorta, measuring 4.2 cm. . Dense great vessel origin calcifications. Mediastinum and Lelo: No enlarged lymph nodes. Esophagus: No wall thickening. No hiatal hernia. Upper Abdomen: Visualized upper abdomen solid organs and bowel loops appear normal. Gallbladder is surgically absent. IMPRESSION: 1. Top normal heart size, severe coronary artery calcifications. 2. ASCVD. 3. Mild aneurysmal dilatation of the ascending aorta. 4. No acute pulmonary process. Dictated by: Gordon Alvarado M.D. on 11/28/2023 at 14:02 Approved by: Gordon Alvarado M.D. on 11/28/2023 at 14:04
[2023-11-28 12:40] LABS: Procalcitonin 3.26 ng/mL (<0.5)
[2023-11-28 13:00] LABS: D Dimer 1334 ng/ml (<500)
[2023-11-28 13:01] LABS: NT-proBNP (BNP-Adult 18+) 2140 pg/mL (<450)
[2023-11-28] MEDS: cefTRIAXone 1,000 MG in SODIUM CHLORIDE 0.9% 100 ML 200 MG IV (13:01)
[2023-11-28 13:22] LABS: Creatine Kinase 136 U/L (55-170)
[2023-11-28 13:35] LABS: Troponin I 0.066 ng/mL (0.01-0.034)
[2023-11-28 13:50] LABS: Reflexed Lactate in 2 Hours Y
[2023-11-28 14:03] LABS: Lactate 2HR (Lactic Acid Rflx) 1.7 mmol/L (0.7-2.1)
[2023-11-28] MEDS: FUROSEMIDE 40 MG/4 ML VIAL IV (14:13)
[2023-11-28] MEDS: VANCOMYCIN 1,000 MG/200 ML PIGGYBACK 200 MG IV (14:13)
[2023-11-28 14:39] LABS: Bacteria Urine Few (2-10); Culture Indicated Urine Cult Not Indicated; Hyaline Casts Urine 0-1/LPF; Mucus Urine 1+ (Negative); RBC Urine 0-1/HPF (0-5/HPF); Squamous Epithelial Cell Urine 0-1 /HPF (0-5/HPF); Urine Volume 10mL (spun); WBC Urine 5-10/HPF (0-5/HPF)
[2023-11-28] MEDS: ACETAMINOPHEN IV 1,000 MG/100 ML VIAL 400 MG IV (14:51)
[2023-11-28] MEDS: SODIUM CHLORIDE 0.9% 1,000 ML 1000 ML IV (15:32)
--- NOTE | 2023-11-28 16:33 | PM.HP.1 ---
History of Present Illness History of Present Illness Date Patient Seen: 11/28/23 Time Patient Seen: 16:33 Chief complaint: Weakness/fever Narrative: This is an 82 year old male with PMH of CAD, HTN, HLD, DM2, prior CVA who presented with feeling sick. He lives at [facility] currently, for the last few days his appetite has been diminished with nausea. He vomited today which is why he was sent over today. He denies chest pain, shortness of breath, abdominal pain, dysuria or urinary frequency. He has some redness of his leg but this is not causing him any pain. In the emergency room, he was febrile, with leukocytosis, and MARILYN with Cr of 2.2 (baseline approx 1.6) and elevated potassium. Lactate 2.6 to 1.7 on repeat. Troponin was stable at 0.066 x2. ProBNP was elevated. He was initially diuresed, but dropped his BP after this and BP improved with giving fluid bolus. He had mild streaking up his R leg medially, though this improved after antibiotics administration. He is lethargic and falls asleep easily, seems a bit confused though he is alert and oriented to self and hospital. PICC line was placed with possible development of septic shock, and though he is currently floor care was placed in an ICU bed due to liklihood of possible septic shock. [facility] Medical History CVA (cerebral vascular accident) Dyslipidemia Anticoagulated Surgical History H/O foot surgery H/O heart artery stent Social History household members: family Smoking Status: Former smoker alcohol intake: former Meds Home Medications and Allergies Home Medications Medication Instructions Recorded Confirmed Type allopurinol 100 mg tablet 200 mg PO BID 04/25/22 05/29/23 History atorvastatin 80 mg tablet 80 mg PO BEDTIME 04/25/22 05/29/23 History calcium carbonate 600 mg-vitamin 1 tab PO DAILY 04/25/22 05/29/23 History D3 10 mcg (400 unit) tablet (Calcium 600 + D(3)) gabapentin 300 mg capsule 300 mg PO BID 04/25/22 05/29/23 History insulin glargine 100 unit/mL (3 34 unit SUBCUT BEDTIME 04/25/22 05/29/23 History mL) subcutaneous pen (Lantus Solostar U-100 Insulin) magnesium 200 mg tablet 400 mg PO DAILY 04/25/22 05/29/23 History pioglitazone 15 mg tablet (Actos) 15 mg PO DAILY 04/25/22 05/29/23 History rivaroxaban 20 mg tablet (Xarelto) 20 mg PO DAILY 04/25/22 05/29/23 History tamsulosin 0.4 mg capsule 0.4 mg PO DAILY 04/25/22 05/29/23 History hydrochlorothiazide 12.5 mg tablet 12.5 mg PO DAILY 05/29/23 05/29/23 History tramadol 50 mg tablet 50 mg PO Q8H PRN pain #14 tabs 08/11/23 Rx ciprofloxacin HCl 500 mg tablet 500 mg PO Q12H #14 tabs 08/13/23 Rx tetracycline 500 mg tablet 500 mg PO Q12H #14 tabs 08/13/23 Rx Allergies Allergy/AdvReac Type Severity Reaction Status Date / Time No Known Drug Allergies Allergy Verified 11/28/23 10:57 Review of Systems Review of Systems Narrative: All other systems reviewed with the patient and are negative unless otherwise stated. Exam Vital Signs (past 8 hours): - 11/28/23 10:57 11/28/23 10:58 11/28/23 11:00 Temperature 100.9 F H Pulse Rate 100 H 101 H Respiratory Rate 39 H 18 Blood Pressure 118/58 L 135/60 Pulse Oximetry 98 96 Oxygen Delivery Method Nasal Cannula Oxygen Flow Rate 3 11/28/23 11:00 11/28/23 11:20 11/28/23 11:30 Temperature Pulse Rate 100 H 100 H Respiratory Rate 29 H 39 H Blood Pressure Pulse Oximetry 99 89 L 91 Oxygen Delivery Method Nasal Cannula Room Air Oxygen Flow Rate 3 11/28/23 11:31 11/28/23 11:34 11/28/23 11:34 Temperature Pulse Rate 100 H 100 H Respiratory Rate 36 H 33 H Blood Pressure 120/56 L Pulse Oximetry 99 98 Oxygen Delivery Method Oxygen Flow Rate 11/28/23 12:00 11/28/23 12:30 11/28/23 12:54 Temperature Pulse Rate 99 H 98 H Respiratory Rate 31 H 34 H Blood Pressure 142/65 H Pulse Oximetry 87 L 95 Oxygen Delivery Method Room Air Oxygen Flow Rate 11/28/23 12:54 11/28/23 13:00 11/28/23 13:01 Temperature Pulse Rate 101 H 102 H 102 H Respiratory Rate 30 H 30 H 38 H Blood Pressure Pulse Oximetry 96 94 96 Oxygen Delivery Method Oxygen Flow Rate 11/28/23 13:01 11/28/23 13:33 11/28/23 13:38 Temperature Pulse Rate 106 H 106 H Respiratory Rate 45 H 38 H Blood Pressure 136/60 Pulse Oximetry Oxygen Delivery Method Oxygen Flow Rate 11/28/23 13:38 11/28/23 14:01 11/28/23 14:03 Temperature Pulse Rate 115 H 111 H Respiratory Rate 51 H 51 H Blood Pressure 108/58 L Pulse Oximetry 96 Oxygen Delivery Method Nasal Cannula Oxygen Flow Rate 2 11/28/23 14:03 11/28/23 14:08 11/28/23 14:30 Temperature 101.3 F H 100.0 F H Pulse Rate 110 H Respiratory Rate 32 H Blood Pressure 131/76 Pulse Oximetry 96 93 Oxygen Delivery Method Nasal Cannula Nasal Cannula Oxygen Flow Rate 2 2 11/28/23 14:30 11/28/23 15:00 11/28/23 15:00 Temperature Pulse Rate 110 H Respiratory Rate 31 H Blood Pressure 124/60 104/53 L Pulse Oximetry 96 Oxygen Delivery Method Nasal Cannula Oxygen Flow Rate 2 11/28/23 15:30 11/28/23 15:30 11/28/23 15:31 Temperature Pulse Rate 104 H Respiratory Rate 11 L Blood Pressure 74/42 L 73/42 L Pulse Oximetry 94 Oxygen Delivery Method Oxygen Flow Rate 11/28/23 15:31 11/28/23 15:35 11/28/23 15:35 Temperature Pulse Rate 104 H 103 H Respiratory Rate 15 12 Blood Pressure 81/47 L Pulse Oximetry 93 92 Oxygen Delivery Method Oxygen Flow Rate 11/28/23 15:37 11/28/23 15:37 11/28/23 15:39 Temperature Pulse Rate 101 H Respiratory Rate 13 Blood Pressure 73/41 L 78/43 L Pulse Oximetry 93 Oxygen Delivery Method Oxygen Flow Rate 11/28/23 15:39 11/28/23 15:42 11/28/23 15:42 Temperature Pulse Rate 101 H 101 H Respiratory Rate 22 15 Blood Pressure 76/47 L Pulse Oximetry 94 95 Oxygen Delivery Method Oxygen Flow Rate 11/28/23 15:45 11/28/23 15:45 11/28/23 15:46 Temperature Pulse Rate 100 H Respiratory Rate 26 H Blood Pressure 85/46 L 73/38 L Pulse Oximetry 95 Oxygen Delivery Method Oxygen Flow Rate 11/28/23 15:46 11/28/23 15:50 11/28/23 15:50 Temperature Pulse Rate 100 H 97 H Respiratory Rate 28 H 31 H Blood Pressure 95/53 L Pulse Oximetry 95 95 Oxygen Delivery Method Oxygen Flow Rate 11/28/23 15:52 11/28/23 15:52 11/28/23 15:56 Temperature Pulse Rate 97 H 95 H Respiratory Rate 30 H 27 H Blood Pressure 96/50 L Pulse Oximetry 94 91 Oxygen Delivery Method Oxygen Flow Rate 11/28/23 15:56 11/28/23 16:00 11/28/23 16:00 Temperature Pulse Rate 95 H Respiratory Rate 28 H Blood Pressure 89/52 L 95/54 L Pulse Oximetry 95 Oxygen Delivery Method Oxygen Flow Rate 11/28/23 16:04 11/28/23 16:04 11/28/23 16:08 Temperature Pulse Rate 94 H 96 H Respiratory Rate 29 H 25 H Blood Pressure 95/55 L Pulse Oximetry 96 94 Oxygen Delivery Method Oxygen Flow Rate 11/28/23 16:08 11/28/23 16:12 11/28/23 16:12 Temperature Pulse Rate 94 H Respiratory Rate 27 H Blood Pressure 108/55 L 99/53 L Pulse Oximetry 94 Oxygen Delivery Method Oxygen Flow Rate 11/28/23 16:16 11/28/23 16:16 Temperature Pulse Rate 93 H Respiratory Rate 25 H Blood Pressure 94/52 L Pulse Oximetry 95 Oxygen Delivery Method Oxygen Flow Rate Oxygen Delivery Method Nasal Cannula Oxygen Flow Rate 2 Narrative Exam Narrative: General:? Patient is well developed and well nourished, in no distress at this time. HEENT:? Normocephalic, atraumatic, extraocular muscles intact, oral pharynx is clear and mucous membranes are moist. Neck: supple and symmetric, trachea is midline, no cervical adenopathy. Negative for JVD Chest:? Normal AP diameter and contour without kyphoscoliosis, no tachypnea, equal chest rise bilaterally. Lungs:? CTA b/l no wheezing rhonchi or rales. Cardio:?RRR no m/r/g. Abdomen: S NT ND. Musculoskeletal:? Muscle strength and tone are equal within normal limits, no deformity. Extremities: No joint effusions. No cyanosis or clubbing. bilateral 1 + pitting edema to the knees with chronic venous stasis changes. R leg with foul smelling wound, wrapped and redressed in the ER. Mild erythema of R proximal thigh, improved per ER nurse. Skin:? Pale,? Warm to touch,dry and intact. Neuro:? Alert and orientated to person and hospital.? bilateral foot numbness (chronic), no gross deficits noted of cranial nerves. Appears mildly confused, lethargic and falls asleep easily. Objective Labs 11/28/23 10:48 11/28/23 10:48 Labs: Laboratory Results - last 24 hr 11/28/23 11/28/23 11/28/23 10:48 11:10 12:57 WBC 17.4 H RBC 3.40 L Hgb 10.3 L Hct 32.2 L MCV 94.7 MCH 30.3 MCHC 31.9 RDW 17.0 H Plt Count 248 Neut % (Auto) 78.6 H Lymph % (Auto) 7.5 L Bleckley % (Auto) 13.7 Eos % (Auto) 0.0 L Baso % (Auto) 0.2 Neut # (Auto) 13092 H Lymph # (Auto) 1300 Bleckley # (Auto) 2400 H Eos # (Auto) 0 Baso # (Auto) 0 D-Dimer 1334 H Sodium 131 L Potassium 5.5 H Chloride 97 L Carbon Dioxide 26 BUN 44 H Creatinine 2.20 H Estimated GFR 29 L BUN/Creatinine Ratio 20.0 Glucose 280 H Lactate 2.6 H 1.7 Calcium 8.4 Total Bilirubin 1.1 AST 30 ALT 18 Alkaline Phosphatase 115 Total Creatine Kinase 129 136 Troponin I 0.066 H 0.066 H NT-Pro-B Natriuret Pep 2140 H Total Protein 7.2 Albumin 3.8 Globulin 3.4 Albumin/Globulin Ratio 1.1 Lipase 66 Procalcitonin 3.26 H Urine RBC Urine WBC Ur Squamous Epith Cells Urine Bacteria Hyaline Casts Urine Mucus Ur Culture Indicated? Vol Urine Centrifuged Chlamy pneumoniae PCR Not detected Adenovirus (PCR) Not detected B.parapertussis DNA PCR Not detected Coronavirus OC43 (PCR) Not detected Coronavirus HKU1 (PCR) Not detected Coronavirus 229E (PCR) Not detected SARS-CoV-2 (PCR) Not detected Coronavirus NL63 (PCR) Not detected Human Metapneumovir PCR Not detected Influenza Type A (PCR) Not detected Influenza Type B (PCR) Not detected M. pneumoniae (PCR) Not detected Parainfluenza 1 (PCR) Not detected Parainfluenza 2 (PCR) Not detected Parainfluenza 3 (PCR) Not detected Parainfluenza 4 (PCR) Not detected RSV (PCR) Not detected Entero/Rhino (PCR) Not detected 11/28/23 14:09 WBC RBC Hgb Hct MCV MCH MCHC RDW Plt Count Neut % (Auto) Lymph % (Auto) Bleckley % (Auto) Eos % (Auto) Baso % (Auto) Neut # (Auto) Lymph # (Auto) Bleckley # (Auto) Eos # (Auto) Baso # (Auto) D-Dimer Sodium Potassium Chloride Carbon Dioxide BUN Creatinine Estimated GFR BUN/Creatinine Ratio Glucose Lactate Calcium Total Bilirubin AST ALT Alkaline Phosphatase Total Creatine Kinase Troponin I NT-Pro-B Natriuret Pep Total Protein Albumin Globulin Albumin/Globulin Ratio Lipase Procalcitonin Urine RBC 0-1/hpf Urine WBC 5-10/hpf H Ur Squamous Epith Cells 0-1 /hpf Urine Bacteria Few (2-10) H Hyaline Casts 0-1/lpf Urine Mucus 1+ H Ur Culture Indicated? Cult not indicated Vol Urine Centrifuged 10ml (spun) Chlamy pneumoniae PCR Adenovirus (PCR) B.parapertussis DNA PCR Coronavirus OC43 (PCR) Coronavirus HKU1 (PCR) Coronavirus 229E (PCR) SARS-CoV-2 (PCR) Coronavirus NL63 (PCR) Human Metapneumovir PCR Influenza Type A (PCR) Influenza Type B (PCR) M. pneumoniae (PCR) Parainfluenza 1 (PCR) Parainfluenza 2 (PCR) Parainfluenza 3 (PCR) Parainfluenza 4 (PCR) RSV (PCR) Entero/Rhino (PCR) Assessment & Plan Assessment & Plan narrative: 1. Sepsis presumably due to sepsis from R heel wound and R leg cellulitis, with MARILYN, acute metabolic encephalopathy, acute respiratory failure with hypoxia, and hypotension - with foul smelling odor will change to cefepime and vanco per pharmacy to cover for MRSA and possible pseudomonas. - has chronic venous stasis due to chronically occluded IVC (IVC filter in place). - consider wound care consultation, previous cultures with pseudomonas from August. Obtain wound culture if possible. - CT chest without acute pathologies, respiratory panel negative, UA negative as well. CT abd/pelvis also without source. Does have some inguinal lymphadenopathy, not palpable on exam. - has severe PAD on prior CT angio with runoff. Was apparently told no surgical interventions are available per ER provider. 2. history of CAD and severe PAD - continue home xarelto 3. 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 5. HTN - hold home HCTZ in setting of sepsis. 6. HLD - continue home atorvastatin. 7. Myocardial injury - no acute ischemia on EKG, troponin 0.066 x2, no chest pain. Code: Full, surrogate decision maker is patient's sister DVT: on xarelto I have utilized all available immediate resources to obtain, update, or review the patient's current medications. Discussed with ER provider and patient's sister to obtain above history, and to formulate the above assessment and plan. I have reviewed patient's previous documentation, imaging, and current labs personally. Dispo: admitted inpatient, anticipated stay is beyond two midnights.
--- NOTE | 2023-11-28 16:52 | DI.RAD.S_ITS ---
PROCEDURE: XR CHEST FOR PICC 1V INDICATIONS: line placement COMPARISON: [facility], DNIA, XR CHEST 1V, 11/28/2023, 10:59. [facility], DINA, XR CHEST 1V, 04/24/2022, 21:29. FINDINGS: PICC was placed by the intravenous therapy team from the left side. Fluoroscopic spot film demonstrates the tip of PICC projecting to the area of superior vena cava. Low lung volumes. IMPRESSION: Tip of PICC projects to the area of superior vena cava. Dictated by: Jeff Helms M.D. on 11/28/2023 at 17:37 Approved by: Jeff Helms M.D. on 11/28/2023 at 17:38
--- NOTE | 2023-11-28 19:27 | PC.ADMIT ---
[email or web address] [facility] Admission Note: The patient,Michael Elise,83 y/o, was given written information regarding hospital policies, unit procedures and contact persons. Patient's smoking status: Former smoker. Vital Signs - 8 hr 11/28/23 11:30 11/28/23 11:31 11/28/23 11:34 Temperature Pulse Rate 100 H 100 H Respiratory Rate 39 H 36 H Blood Pressure 120/56 L Pulse Oximetry 91 99 Oxygen Delivery Method Oxygen Flow Rate 11/28/23 11:34 11/28/23 12:00 11/28/23 12:30 Temperature Pulse Rate 100 H 99 H 98 H Respiratory Rate 33 H 31 H 34 H Blood Pressure Pulse Oximetry 98 87 L 95 Oxygen Delivery Method Room Air Oxygen Flow Rate 11/28/23 12:54 11/28/23 12:54 11/28/23 13:00 Temperature Pulse Rate 101 H 102 H Respiratory Rate 30 H 30 H Blood Pressure 142/65 H Pulse Oximetry 96 94 Oxygen Delivery Method Oxygen Flow Rate 11/28/23 13:01 11/28/23 13:01 11/28/23 13:33 Temperature Pulse Rate 102 H 106 H Respiratory Rate 38 H 45 H Blood Pressure 136/60 Pulse Oximetry 96 Oxygen Delivery Method Oxygen Flow Rate 11/28/23 13:38 11/28/23 13:38 11/28/23 14:01 Temperature Pulse Rate 106 H 115 H Respiratory Rate 38 H 51 H Blood Pressure 108/58 L Pulse Oximetry 96 Oxygen Delivery Method Nasal Cannula Oxygen Flow Rate 2 11/28/23 14:03 11/28/23 14:03 11/28/23 14:08 Temperature 101.3 F H 100.0 F H Pulse Rate 111 H Respiratory Rate 51 H Blood Pressure 131/76 Pulse Oximetry 96 Oxygen Delivery Method Nasal Cannula Oxygen Flow Rate 2 11/28/23 14:30 11/28/23 14:30 11/28/23 15:00 Temperature Pulse Rate 110 H 110 H Respiratory Rate 32 H 31 H Blood Pressure 124/60 Pulse Oximetry 93 96 Oxygen Delivery Method Nasal Cannula Nasal Cannula Oxygen Flow Rate 2 2 11/28/23 15:00 11/28/23 15:30 11/28/23 15:30 Temperature Pulse Rate 104 H Respiratory Rate 11 L Blood Pressure 104/53 L 74/42 L Pulse Oximetry 94 Oxygen Delivery Method Oxygen Flow Rate 11/28/23 15:31 11/28/23 15:31 11/28/23 15:35 Temperature Pulse Rate 104 H 103 H Respiratory Rate 15 12 Blood Pressure 73/42 L Pulse Oximetry 93 92 Oxygen Delivery Method Oxygen Flow Rate 11/28/23 15:35 11/28/23 15:37 11/28/23 15:37 Temperature Pulse Rate 101 H Respiratory Rate 13 Blood Pressure 81/47 L 73/41 L Pulse Oximetry 93 Oxygen Delivery Method Oxygen Flow Rate 11/28/23 15:39 11/28/23 15:39 11/28/23 15:42 Temperature Pulse Rate 101 H Respiratory Rate 22 Blood Pressure 78/43 L 76/47 L Pulse Oximetry 94 Oxygen Delivery Method Oxygen Flow Rate 11/28/23 15:42 11/28/23 15:45 11/28/23 15:45 Temperature Pulse Rate 101 H 100 H Respiratory Rate 15 26 H Blood Pressure 85/46 L Pulse Oximetry 95 95 Oxygen Delivery Method Oxygen Flow Rate 11/28/23 15:46 11/28/23 15:46 11/28/23 15:50 Temperature Pulse Rate 100 H Respiratory Rate 28 H Blood Pressure 73/38 L 95/53 L Pulse Oximetry 95 Oxygen Delivery Method Oxygen Flow Rate 11/28/23 15:50 11/28/23 15:52 11/28/23 15:52 Temperature Pulse Rate 97 H 97 H Respiratory Rate 31 H 30 H Blood Pressure 96/50 L Pulse Oximetry 95 94 Oxygen Delivery Method Oxygen Flow Rate 11/28/23 15:56 11/28/23 15:56 11/28/23 16:00 Temperature Pulse Rate 95 H 95 H Respiratory Rate 27 H 28 H Blood Pressure 89/52 L Pulse Oximetry 91 95 Oxygen Delivery Method Oxygen Flow Rate 11/28/23 16:00 11/28/23 16:04 11/28/23 16:04 Temperature Pulse Rate 94 H Respiratory Rate 29 H Blood Pressure 95/54 L 95/55 L Pulse Oximetry 96 Oxygen Delivery Method Oxygen Flow Rate 11/28/23 16:08 11/28/23 16:08 11/28/23 16:12 Temperature Pulse Rate 96 H 94 H Respiratory Rate 25 H 27 H Blood Pressure 108/55 L Pulse Oximetry 94 94 Oxygen Delivery Method Oxygen Flow Rate 11/28/23 16:12 11/28/23 16:16 11/28/23 16:16 Temperature Pulse Rate 93 H Respiratory Rate 25 H Blood Pressure 99/53 L 94/52 L Pulse Oximetry 95 Oxygen Delivery Method Oxygen Flow Rate 11/28/23 16:20 11/28/23 16:20 11/28/23 16:24 Temperature Pulse Rate 93 H 91 H Respiratory Rate 22 15 Blood Pressure 98/54 L Pulse Oximetry 93 95 Oxygen Delivery Method Nasal Cannula Oxygen Flow Rate 3.5 11/28/23 16:24 11/28/23 16:28 11/28/23 16:28 Temperature Pulse Rate 91 H Respiratory Rate 30 H Blood Pressure 92/50 L 96/53 L Pulse Oximetry 97 Oxygen Delivery Method Oxygen Flow Rate 11/28/23 16:30 11/28/23 16:33 11/28/23 16:33 Temperature Pulse Rate 91 H 91 H Respiratory Rate 30 H 27 H Blood Pressure 95/53 L Pulse Oximetry 97 96 Oxygen Delivery Method Oxygen Flow Rate 11/28/23 16:40 11/28/23 16:40 11/28/23 16:50 Temperature Pulse Rate 89 91 H Respiratory Rate 24 24 Blood Pressure 94/51 L Pulse Oximetry 94 92 Oxygen Delivery Method Oxygen Flow Rate 11/28/23 16:50 11/28/23 17:00 11/28/23 17:00 Temperature Pulse Rate 92 H Respiratory Rate 22 Blood Pressure 107/54 L 115/58 L Pulse Oximetry 94 Oxygen Delivery Method Oxygen Flow Rate 11/28/23 17:10 11/28/23 17:10 11/28/23 17:20 Temperature Pulse Rate 90 Respiratory Rate Blood Pressure 108/53 L 119/56 L Pulse Oximetry 93 Oxygen Delivery Method Oxygen Flow Rate 11/28/23 17:20 11/28/23 17:32 11/28/23 17:32 Temperature Pulse Rate 91 H 90 Respiratory Rate 25 H 22 Blood Pressure 116/55 L Pulse Oximetry 99 95 Oxygen Delivery Method Nasal Cannula Oxygen Flow Rate 3 11/28/23 18:00 11/28/23 18:00 11/28/23 18:01 Temperature Pulse Rate 91 H Respiratory Rate 23 Blood Pressure 118/58 L Pulse Oximetry 94 98 Oxygen Delivery Method Nasal Cannula Oxygen Flow Rate 2 11/28/23 18:30 11/28/23 18:33 11/28/23 19:00 Temperature 99.1 F 99.1 F Pulse Rate 92 H 92 H Respiratory Rate 18 16 Blood Pressure Pulse Oximetry 97 94 Oxygen Delivery Method Nasal Cannula Oxygen Flow Rate 11/28/23 19:00 Temperature Pulse Rate Respiratory Rate Blood Pressure 135/63 Pulse Oximetry Oxygen Delivery Method Oxygen Flow Rate 2 Pt arrived via nicolas patel to voice, VSS, 2L NC, used slider board for transger, dressing on RLeg CDI, bed alarm on, call light within reach, no further needs
[2023-11-28] MEDS: CEFEPIME 1 GM in SODIUM CHLORIDE 0.9% 100 ML IV (19:53)
[2023-11-28 20:02] LABS: MRSA (Nasal) PCR DETECTED (Not Detect)
[2023-11-28] MEDS: INSULIN GLARGINE 100 UNIT/ML 3ML PEN 30 UNIT SUBCUT (21:06)
[2023-11-28] MEDS: ATORVASTATIN 20 MG TABLET 80 MG PO (21:07)
[2023-11-29] VITALS (38 sets, daily range): BP systolic 113–152; BP diastolic 53–82; PULSE 82–100; RESP 14–33; TEMP 36.8–38.4; O2SAT 89–100
[2023-11-29 04:34] LABS: Acinetobacter calcoa-baumannii Not Detected (Not Detect); Bacteroides fragilis Not Detected (Not Detect); Candida albicans Not Detected (Not Detect); Candida auris Not Detected (Not Detect); Candida glabrata Not Detected (Not Detect); Candida krusei Not Detected (Not Detect); Candida parapsilosis Not Detected (Not Detect); Candida tropicalis Not Detected (Not Detect); Cryptococcus neoformans/gatti Not Detected (Not Detect); Enterobacter cloacae complex Not Detected (Not Detect); Enterobacterales Not Detected (Not Detect); Enterococcus faecalis Not Detected (Not Detect); Enterococcus faecium Not Detected (Not Detect); Haemophilus influenzae Not Detected (Not Detect); Klebsiella aerogenes Not Detected (Not Detect); Listeria monocytogenes Not Detected (Not Detect); Neisseria meningitidis Not Detected (Not Detect); Proteus species Not Detected (Not Detect); Pseudomonas aeruginosa Not Detected (Not Detect); Salmonella species Not Detected (Not Detect); Serratia marcescens Not Detected (Not Detect); Staphylococcus epidermidis Not Detected (Not Detect); Staphylococcus lugdunensis Not Detected (Not Detect); Staphylococcus species Not Detected (Not Detect); Stenotrophomonas maltophilia Not Detected (Not Detect); Streptococcus agalactiae (Gr B Not Detected (Not Detect); Streptococcus pneumonia Not Detected (Not Detect); Streptococcus pyogenes (Gr A) Detected (Not Detect); Streptococcus species Detected (Not Detect)
[2023-11-29] MEDS: CEFEPIME 1 GM in SODIUM CHLORIDE 0.9% 100 ML IV ×2 (06:12→20:15)
[2023-11-29] MEDS: RIVAROXABAN 10 MG TABLET 20 MG PO (08:04)
[2023-11-29] MEDS: TAMSULOSIN 0.4 MG CAPSULE PO (08:04)
[2023-11-29] MEDS: SODIUM CHLORIDE 0.9% 1,000 ML 125 ML IV ×2 (08:05→14:33)
--- NOTE | 2023-11-29 08:30 | PM.PN.1 ---
Subjective Subjective Interval history: No issues overnight. The patient does have cognitive impairment. He stated he lives in [place], but [facility]. The patient has a very malodorous right foot. This can be smelled across the room. He denies any pain, or dyspnea. From Chas: Narrative: This is an 82 year old male with PMH of CAD, HTN, HLD, DM2, prior CVA who presented with feeling sick. He lives at [facility] currently, for the last few days his appetite has been diminished with nausea. He vomited today which is why he was sent over today. He denies chest pain, shortness of breath, abdominal pain, dysuria or urinary frequency. He has some redness of his leg but this is not causing him any pain. In the emergency room, he was febrile, with leukocytosis, and MARILYN with Cr of 2.2 (baseline approx 1.6) and elevated potassium. Lactate 2.6 to 1.7 on repeat. Troponin was stable at 0.066 x2. ProBNP was elevated. He was initially diuresed, but dropped his BP after this and BP improved with giving fluid bolus. He had mild streaking up his R leg medially, though this improved after antibiotics administration. He is lethargic and falls asleep easily, seems a bit confused though he is alert and oriented to self and hospital. PICC line was placed with possible development of septic shock, and though he is currently floor care was placed in an ICU bed due to liklihood of possible septic shock. Exam Vital Signs (past 8 hours): - 11/29/23 01:00 11/29/23 01:00 11/29/23 02:00 Temperature 99.3 F Pulse Rate 85 Respiratory Rate 21 Blood Pressure 116/54 L Pulse Oximetry 97 96 Oxygen Delivery Method Nasal Cannula Oxygen Flow Rate 3 2 11/29/23 02:00 11/29/23 02:00 11/29/23 03:00 Temperature 99.5 F 99.9 F H Pulse Rate 87 89 Respiratory Rate 24 22 Blood Pressure 117/57 L Pulse Oximetry 96 96 Oxygen Delivery Method Oxygen Flow Rate 3 11/29/23 03:00 11/29/23 04:00 11/29/23 04:00 Temperature 100.0 F H Pulse Rate 89 Respiratory Rate 26 H Blood Pressure 126/59 L 114/53 L Pulse Oximetry 97 Oxygen Delivery Method Oxygen Flow Rate 3 11/29/23 05:00 11/29/23 05:00 11/29/23 06:00 Temperature 100.2 F H Pulse Rate 92 H Respiratory Rate 18 Blood Pressure 118/58 L Pulse Oximetry 96 96 Oxygen Delivery Method Nasal Cannula Oxygen Flow Rate 2 11/29/23 06:00 11/29/23 06:00 Temperature 98.3 F Pulse Rate 94 H Respiratory Rate 19 Blood Pressure 125/61 Pulse Oximetry 95 Oxygen Delivery Method Oxygen Flow Rate 3 Oxygen Delivery Method Nasal Cannula Oxygen Flow Rate 3 Narrative Exam Narrative: NAD, alert and oriented. Fluent speech. Lungs are clear, normal rate and effort. Heart is regular, no murmur gallop or rub. Abdomen is soft, non distended. Extremities are free of edema. The right foot and ankle are wrapped. There is a very foul smell coming on the foot. Objective Labs 11/28/23 10:48 11/28/23 10:48 Labs: Laboratory Results - last 24 hr 11/28/23 11/28/23 11/28/23 10:48 11:10 12:57 WBC 17.4 H RBC 3.40 L Hgb 10.3 L Hct 32.2 L MCV 94.7 MCH 30.3 MCHC 31.9 RDW 17.0 H Plt Count 248 Neut % (Auto) 78.6 H Lymph % (Auto) 7.5 L [place] % (Auto) 13.7 Eos % (Auto) 0.0 L Baso % (Auto) 0.2 Neut # (Auto) 13745 H Lymph # (Auto) 1300 [place] # (Auto) 2400 H Eos # (Auto) 0 Baso # (Auto) 0 D-Dimer 1334 H Sodium 131 L Potassium 5.5 H Chloride 97 L Carbon Dioxide 26 BUN 44 H Creatinine 2.20 H Estimated GFR 29 L BUN/Creatinine Ratio 20.0 Glucose 280 H Lactate 2.6 H 1.7 Calcium 8.4 Total Bilirubin 1.1 AST 30 ALT 18 Alkaline Phosphatase 115 Total Creatine Kinase 129 136 Troponin I 0.066 H 0.066 H NT-Pro-B Natriuret Pep 2140 H Total Protein 7.2 Albumin 3.8 Globulin 3.4 Albumin/Globulin Ratio 1.1 Lipase 66 Procalcitonin 3.26 H Urine RBC Urine WBC Ur Squamous Epith Cells Urine Bacteria Hyaline Casts Urine Mucus Ur Culture Indicated? Vol Urine Centrifuged Nasal Screen MRSA (PCR) A.calcoaceticus-baumannii cmplx PCR Chlamy pneumoniae PCR Not detected Adenovirus (PCR) Not detected Bacteroides fragilis B.parapertussis DNA PCR Not detected Kendra albicans (PCR) Kendra auris (PCR) C. glabrata (PCR) C. krusei (PCR) C. parapsilosis (PCR) C. tropicalis (PCR) Coronavirus OC43 (PCR) Not detected Coronavirus HKU1 (PCR) Not detected Coronavirus 229E (PCR) Not detected SARS-CoV-2 (PCR) Not detected Coronavirus NL63 (PCR) Not detected C. neoform/gattii (PCR) Enterobacterales (PCR) E. cloacae complex PCR Enterococc faecalis PCR Enterococc faecium PCR E. coli (PCR) H. influenzae (PCR) Human Metapneumovir PCR Not detected Influenza Type A (PCR) Not detected Influenza Type B (PCR) Not detected Klebsiella aerogenes (PCR) Klebsiella oxytoca PCR Klebsiella pneumoniae List. monocytogenes PCR M. pneumoniae (PCR) Not detected N. meningitidis (PCR) Parainfluenza 1 (PCR) Not detected Parainfluenza 2 (PCR) Not detected Parainfluenza 3 (PCR) Not detected Parainfluenza 4 (PCR) Not detected Proteus species (PCR) RSV (PCR) Not detected Entero/Rhino (PCR) Not detected Salmonella spp. (PCR) Serratia marcescens PCR Staphylococcus sp PCR Staph aureus (PCR) mecA/C & MREJ Resist Gene mecA/C-Methicil Resis Gene mcr-1 Colistin Res Gene PCR Staph epidermidis (PCR) Staph lugdunensis PCR S. maltophilia (PCR) Streptococcus sp PCR Group A Strep (PCR) Strep agalactiae (PCR) Strep pneumoniae (PCR) P. aeruginosa (PCR) Paolo/B-Vanco Res Genes blaIMP Car res Gene PCR KPC-Carbap Res Gene PCR blaNDM Car Res Gene PCR OXA-48 Carbapenem Resis Gene (PCR) blaVIM Car Res Gene PCR CTX-M Gene Resistance (PCR) 11/28/23 11/28/23 11/29/23 14:09 18:47 03:25 WBC RBC Hgb Hct MCV MCH MCHC RDW Plt Count Neut % (Auto) Lymph % (Auto) [place] % (Auto) Eos % (Auto) Baso % (Auto) Neut # (Auto) Lymph # (Auto) [place] # (Auto) Eos # (Auto) Baso # (Auto) D-Dimer Sodium Potassium Chloride Carbon Dioxide BUN Creatinine Estimated GFR BUN/Creatinine Ratio Glucose Lactate Calcium Total Bilirubin AST ALT Alkaline Phosphatase Total Creatine Kinase Troponin I NT-Pro-B Natriuret Pep Total Protein Albumin Globulin Albumin/Globulin Ratio Lipase Procalcitonin Urine RBC 0-1/hpf Urine WBC 5-10/hpf H Ur Squamous Epith Cells 0-1 /hpf Urine Bacteria Few (2-10) H Hyaline Casts 0-1/lpf Urine Mucus 1+ H Ur Culture Indicated? Cult not indicated Vol Urine Centrifuged 10ml (spun) Nasal Screen MRSA (PCR) Detected H A.calcoaceticus-baumannii cmplx PCR Not detected Chlamy pneumoniae PCR Adenovirus (PCR) Bacteroides fragilis Not detected B.parapertussis DNA PCR Kendra albicans (PCR) Not detected Kendra auris (PCR) Not detected C. glabrata (PCR) Not detected C. krusei (PCR) Not detected C. parapsilosis (PCR) Not detected C. tropicalis (PCR) Not detected Coronavirus OC43 (PCR) Coronavirus HKU1 (PCR) Coronavirus 229E (PCR) SARS-CoV-2 (PCR) Coronavirus NL63 (PCR) C. neoform/gattii (PCR) Not detected Enterobacterales (PCR) Not detected E. cloacae complex PCR Not detected Enterococc faecalis PCR Not detected Enterococc faecium PCR Not detected E. coli (PCR) Not detected H. influenzae (PCR) Not detected Human Metapneumovir PCR Influenza Type A (PCR) Influenza Type B (PCR) Klebsiella aerogenes (PCR) Not detected Klebsiella oxytoca PCR Not detected Klebsiella pneumoniae Not detected List. monocytogenes PCR Not detected M. pneumoniae (PCR) N. meningitidis (PCR) Not detected Parainfluenza 1 (PCR) Parainfluenza 2 (PCR) Parainfluenza 3 (PCR) Parainfluenza 4 (PCR) Proteus species (PCR) Not detected RSV (PCR) Entero/Rhino (PCR) Salmonella spp. (PCR) Not detected Serratia marcescens PCR Not detected Staphylococcus sp PCR Not detected Staph aureus (PCR) Not detected mecA/C & MREJ Resist Gene Not applicable mecA/C-Methicil Resis Gene Not applicable mcr-1 Colistin Res Gene PCR Not applicable Staph epidermidis (PCR) Not detected Staph lugdunensis PCR Not detected S. maltophilia (PCR) Not detected Streptococcus sp PCR Detected Group A Strep (PCR) Detected Strep agalactiae (PCR) Not detected Strep pneumoniae (PCR) Not detected P. aeruginosa (PCR) Not detected Paolo/B-Vanco Res Genes Not applicable blaIMP Car res Gene PCR Not applicable KPC-Carbap Res Gene PCR Not applicable blaNDM Car Res Gene PCR Not applicable OXA-48 Carbapenem Resis Gene (PCR) Not applicable blaVIM Car Res Gene PCR Not applicable CTX-M Gene Resistance (PCR) Not applicable PFSH Medical History CVA (cerebral vascular accident) Dyslipidemia Anticoagulated Surgical History H/O foot surgery H/O heart artery stent Social History household members: family Smoking Status: Former smoker alcohol intake: former Assessment & Plan Assessment & Plan narrative: Assessment & Plan narrative: 1. Sepsis presumably due to sepsis from R heel wound and R leg cellulitis, with MARILYN, acute metabolic encephalopathy, acute respiratory failure with hypoxia, and hypotension - with foul smelling odor will change to cefepime and vanco per pharmacy to cover for MRSA and possible pseudomonas. - has chronic venous stasis due to chronically occluded IVC (IVC filter in place). - consider wound care consultation, previous cultures with pseudomonas from August. Obtain wound culture if possible. - CT chest without acute pathologies, respiratory panel negative, UA negative as well. CT abd/pelvis also without source. Does have some inguinal lymphadenopathy, not palpable on exam. - has severe PAD on prior CT angio with runoff. Was apparently told no surgical interventions are available per ER provider. 2. R Foot cellulitis (pseudomonas and Cornebacterium), present on admission and active. Possible bacteremia (GPC 1/2), present on admission and active. MARILYN, present on admission and improving. Hyperkalemia, present on admission and improving. 2. history of CAD and severe PAD, present on admission and stable. - continue home xarelto 3. 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 - continue home xarelto 4. DM2 with bilateral chronic neuropathy, with chcf insulin use, present on admission and stable. - continue home lantus 30 U nightly, add sliding scale - hold home oral medications - hold home gabapentin with presenting encephalopathy. 5. HTN, present on admission and stable. - hold home HCTZ in setting of sepsis. 6. HLD, present on admission and stable. - continue home atorvastatin. 7. Demand ischemia, , present on admission and active. - no acute ischemia on EKG, troponin 0.066 x2, no chest pain. PLAN: -nares MRSA positive. -cont Abx -Wound consult, possible MRI, possible Ortho consult. -monitor renal function and potassium. Code: Full, surrogate decision maker is patient's sister DVT: on xarelto
[2023-11-29] MEDS: INSULIN LISPRO 100 UNIT/ML 3ML VIAL SUBCUT ×2 (11:44→17:09)
[2023-11-29 12:33] LABS: Add Manual Diff / Slide Review NO; Basophils Absolute Auto 0 /uL (0-100); Basophils Percent Auto 0.2 % (0-2); Eosinophils Absolute Auto 0 /uL (0-450); Eosinophils Percent Auto 0.1 % (2-4); Hematocrit 26.7 % (41-53); Hemoglobin 8.8 g/dL (13.5-17.5); Lymphocytes Absolute Auto 800 /uL (1100-4500); Mean Corpuscular HGB Conc 32.9 % (30-36); Mean Corpuscular Hemoglobin 30.8 PG (26-34); Mean Corpuscular Volume 93.9 fL (80-100); Monocytes Absolute Auto 1000 /uL (0-900); Monocytes Percent Auto 10.8 % (3-14); Neutrophils Absolute Auto 7400 /uL (1500-7000); Neutrophils Percent Auto 79.9 % (50-75); Platelet Count 209 X10^3/uL (150-400); Red Blood Cell Count 2.84 X10^6/uL (4.5-5.9); Red Cell Distribution Width 17.2 % (11.6-14.8); White Blood Cell Count 9.3 X10^3/uL (4.5-11.0)
[2023-11-29 12:51] LABS: Alanine Aminotransferase 18 IU/L (<50); Alkaline Phosphatase 90 U/L (38-126); Aspartate Aminotransferase 35 IU/L (17-59); BUN Creatinine Ratio 25.9 (6-22); Bilirubin Total 0.6 mg/dL (0.2-1.3); Blood Urea Nitrogen 48 mg/dL (9-20); Calcium 7.5 mg/dL (8.4-10.2); Carbon Dioxide 25 mmol/L (22-32); Chloride 102 mmol/L (98-107); Estimated Glomerular Filt Rate 35 mL/min (>60); Globulin 2.9 g/dL (1.7-4.1); Glucose 169 mg/dL (80-110); HEMOLYSIS < 15 (0-50); Potassium 4.7 mmol/L (3.4-5.1); Sodium 131 mmol/L (137-145); Total Protein 5.9 g/dL (6.3-8.2)
[2023-11-29] MEDS: VANCOMYCIN 1,000 MG/200 ML PIGGYBACK 200 MG IV (14:33)
--- NOTE | 2023-11-29 15:51 | P.CONS_ITS ---
History of Present Illness Consult details Date Patient Seen: 11/29/23 Time Patient Seen: 15:00 Chief complaint: Weakness/fever Narrative: The patient is an 82-year-old male with diabetes, atrial fibrillation, CHF, neuropathy, chronic kidney disease, PAD, and CAD who was admitted to the hospital yesterday with cellulitis of the right lower extremity and sepsis. He was started on IV antibiotics in his condition improved. He is routinely followed at the wound center for a large diabetic/arterial ulcer on the posterior right ankle that has had exposed Achilles tendon. Most recently he has been receiving negative pressure wound therapy. He was last seen at the wound center November 27, 2023. Previous workup has revealed in operable PAD and amputation was advised if the ulcer worsened. Over the past several weeks the ulcer has been slowly improving and preparations are currently under way for starting hyperbaric oxygen therapy in the near future in an attempt to salvage his right lower extremity. Meds Home Medications and Allergies Home Medications Medication Instructions Recorded Confirmed Type allopurinol 100 mg tablet 200 mg PO BID 04/25/22 11/29/23 History atorvastatin 80 mg tablet 80 mg PO BEDTIME 04/25/22 11/29/23 History calcium carbonate 600 mg-vitamin 1 tab PO DAILY 04/25/22 11/29/23 History D3 10 mcg (400 unit) tablet (Calcium 600 + D(3)) gabapentin 300 mg capsule 300 mg PO BID 04/25/22 11/29/23 History insulin glargine 100 unit/mL (3 34 unit SUBCUT BEDTIME 04/25/22 11/29/23 History mL) subcutaneous pen (Lantus Solostar U-100 Insulin) magnesium 200 mg tablet 400 mg PO DAILY 04/25/22 11/29/23 History pioglitazone 15 mg tablet (Actos) 15 mg PO DAILY 04/25/22 11/29/23 History rivaroxaban 20 mg tablet (Xarelto) 20 mg PO DAILY 04/25/22 11/29/23 History tamsulosin 0.4 mg capsule 0.4 mg PO DAILY 04/25/22 11/29/23 History hydrochlorothiazide 12.5 mg tablet 12.5 mg PO DAILY 05/29/23 11/29/23 History tramadol 50 mg tablet 50 mg PO Q8H PRN pain #14 tabs 08/11/23 11/29/23 Rx ciprofloxacin HCl 500 mg tablet 500 mg PO Q12H #14 tabs 08/13/23 11/29/23 Rx tetracycline 500 mg tablet 500 mg PO Q12H #14 tabs 08/13/23 11/29/23 Rx Allergies Allergy/AdvReac Type Severity Reaction Status Date / Time No Known Drug Allergies Allergy Verified 11/28/23 10:57 Review of Systems Cardiovascular Comments: No chest pain Respiratory Comments: No shortness of breath Musculoskeletal Comments: No pain right lower extremity Exam Vital Signs (past 8 hours): - 11/29/23 08:00 11/29/23 10:00 11/29/23 12:00 Temperature 98.4 F 98.2 F Pulse Rate 91 H 89 Respiratory Rate 20 22 Blood Pressure 120/56 L 127/58 L Pulse Oximetry 95 94 100 Oxygen Delivery Method Room Air Oxygen Flow Rate 3 2 2 11/29/23 14:00 Temperature Pulse Rate Respiratory Rate Blood Pressure Pulse Oximetry 99 Oxygen Delivery Method Oximask Oxygen Flow Rate 2 Oxygen Delivery Method Oximask Oxygen Flow Rate 2 Const Other: Well-developed well-nourished elderly male who is alert and oriented and in no apparent distress Resp Other: Unlabored respirations Skin Other: Large ulcer posterior right ankle with gangrenous Achilles tendon associated with foul odor, good granulation tissue, mild periwound erythema Neuro Other: Decreased lower extremity sensation Objective Labs 11/29/23 12:24 11/29/23 12:24 Labs: Laboratory Results - last 24 hr 11/28/23 11/29/23 11/29/23 18:47 03:25 12:24 WBC 9.3 RBC 2.84 L Hgb 8.8 L Hct 26.7 L MCV 93.9 MCH 30.8 MCHC 32.9 RDW 17.2 H Plt Count 209 Neut % (Auto) 79.9 H Lymph % (Auto) 9.0 L [place] % (Auto) 10.8 Eos % (Auto) 0.1 L Baso % (Auto) 0.2 Neut # (Auto) 7400 H Lymph # (Auto) 800 L [place] # (Auto) 1000 H Eos # (Auto) 0 Baso # (Auto) 0 Sodium 131 L Potassium 4.7 Chloride 102 Carbon Dioxide 25 BUN 48 H Creatinine 1.85 H Estimated GFR 35 L BUN/Creatinine Ratio 25.9 H Glucose 169 H D Calcium 7.5 L Total Bilirubin 0.6 AST 35 ALT 18 Alkaline Phosphatase 90 Total Protein 5.9 L Albumin 3.0 L Globulin 2.9 Albumin/Globulin Ratio 1.0 Nasal Screen MRSA (PCR) Detected H A.calcoaceticus-baumannii cmplx PCR Not detected Bacteroides fragilis Not detected Kendra albicans (PCR) Not detected Kendra auris (PCR) Not detected C. glabrata (PCR) Not detected C. krusei (PCR) Not detected C. parapsilosis (PCR) Not detected C. tropicalis (PCR) Not detected C. neoform/gattii (PCR) Not detected Enterobacterales (PCR) Not detected E. cloacae complex PCR Not detected Enterococc faecalis PCR Not detected Enterococc faecium PCR Not detected E. coli (PCR) Not detected H. influenzae (PCR) Not detected Klebsiella aerogenes (PCR) Not detected Klebsiella oxytoca PCR Not detected Klebsiella pneumoniae Not detected List. monocytogenes PCR Not detected N. meningitidis (PCR) Not detected Proteus species (PCR) Not detected Salmonella spp. (PCR) Not detected Serratia marcescens PCR Not detected Staphylococcus sp PCR Not detected Staph aureus (PCR) Not detected mecA/C & MREJ Resist Gene Not applicable mecA/C-Methicil Resis Gene Not applicable mcr-1 Colistin Res Gene PCR Not applicable Staph epidermidis (PCR) Not detected Staph lugdunensis PCR Not detected S. maltophilia (PCR) Not detected Streptococcus sp PCR Detected Group A Strep (PCR) Detected Strep agalactiae (PCR) Not detected Strep pneumoniae (PCR) Not detected P. aeruginosa (PCR) Not detected Paolo/B-Vanco Res Genes Not applicable blaIMP Car res Gene PCR Not applicable KPC-Carbap Res Gene PCR Not applicable blaNDM Car Res Gene PCR Not applicable OXA-48 Carbapenem Resis Gene (PCR) Not applicable blaVIM Car Res Gene PCR Not applicable CTX-M Gene Resistance (PCR) Not applicable PFSH Medical History CVA (cerebral vascular accident) Dyslipidemia Anticoagulated Surgical History H/O foot surgery H/O heart artery stent Social History household members: family Tobacco & Substance Use Smoking Status: Former smoker alcohol intake: former Assessment & Plan Assessment and plan (1) Non-pressure chronic ulcer of right ankle with necrosis of muscle: Status: Acute (2) Cellulitis: Status: Acute (3) Type 2 diabetes mellitus with foot ulcer: Status: Acute Assessment & Plan narrative: Plan for bedside surgical debridement then start daily wet to wet dressing changes with Dakin's solution. Follow up at wound center after discharge. Continue protein supplementation and pressure offloading. Time Spent With Patient Time with patient: 30 to 49 minutes with 50% spent counseling/coordinating care
--- NOTE | 2023-11-29 15:54 | PC.NURSE ---
Addendum entered by Anita Lara R.N. 11/29/23 17:20: 1705 administered tylenol as ordered for intial temp of 100.9 from temperature sensing randolph catheter, 172 randolph senser reading 101.7, will implement cooling measures with ice packs axillary and in groin. Original Note: Dr Rodriguez from wound care clinic came by and evaluated R heel wound. Redressed wound with instructions for daily dressing changes.
--- NOTE | 2023-11-29 15:59 | PM.OP.1 ---
Operative Date/Time/Diagnoses Date of procedure: 11/29/23 Time of procedure: 15:15 Procedure & Clinicians Procedure: Sharp excisional debridement of ulcer posterior right ankle(52864, [id number], [id number]) Same procedure as scheduled: Yes Indications: Diabetic/vascular ulcer posterior right ankle with gangrenous Achilles tendon associated with cellulitis Surgeon: Chano Rodriguez Anesthesia Type: None Operative Notes Findings: Gangrenous Achilles tendon Specimen(s): none sent Prosthetic devices, grafts, tissues, transplants, or devices: none Estimated Blood Loss (mL): 10 Procedure in detail: Procedure was performed at the patient's bedside. A #10 blade was used to sharply excise gangrenous Achilles tendon and nonviable subcutaneous tissue, slough, and biofilm. Hemostasis was achieved with direct pressure. 4 x 4 gauze sponges soaked in Dakin's solution were secured over the wound with Kerlix. The patient tolerated the procedure well without complications. Complications: none Post-operative Condition: stable
[2023-11-29] MEDS: ACETAMINOPHEN 325 MG TABLET 650 MG PO (17:05)
[2023-11-29] MEDS: ATORVASTATIN 20 MG TABLET 80 MG PO (20:53)
[2023-11-29] MEDS: INSULIN GLARGINE 100 UNIT/ML 3ML PEN 30 UNIT SUBCUT (20:54)
[2023-11-30] VITALS (20 sets, daily range): BP systolic 133–157; BP diastolic 63–73; PULSE 77–88; RESP 15–40; TEMP 36.7–37.4; O2SAT 69–98
[2023-11-30] MEDS: SODIUM CHLORIDE 0.9% 1,000 ML 125 ML IV ×2 (00:35→09:32)
[2023-11-30] MEDS: CEFEPIME 1 GM in SODIUM CHLORIDE 0.9% 100 ML IV ×2 (06:52→18:27)
--- NOTE | 2023-11-30 07:44 | PM.PN.1 ---
Subjective Subjective Interval history: He is feeling better. Some right foot pain. No fevers. Exam Vital Signs (past 8 hours): - 11/30/23 00:00 11/30/23 00:00 11/30/23 04:00 Temperature 99.0 F Pulse Rate 86 Respiratory Rate 21 Blood Pressure 140/63 Pulse Oximetry 96 94 93 Oxygen Delivery Method Room Air Room Air Oxygen Flow Rate 0 11/30/23 04:00 Temperature 99.3 F Pulse Rate 81 Respiratory Rate 19 Blood Pressure 133/63 Pulse Oximetry 95 Oxygen Delivery Method Oxygen Flow Rate 0 Oxygen Delivery Method Room Air Oxygen Flow Rate 0 Narrative Exam Narrative: NAD, alert and oriented. Fluent speech. Lungs are clear, normal rate and effort. Heart is regular, no murmur gallop or rub. Abdomen is soft, non distended. Extremities are free of edema. Foot: wrapped. Some redness on right calf and medial thigh. Objective Labs 11/29/23 12:24 11/29/23 12:24 Labs: Laboratory Results - last 24 hr 11/29/23 11/29/23 03:25 12:24 WBC 9.3 RBC 2.84 L Hgb 8.8 L Hct 26.7 L MCV 93.9 MCH 30.8 MCHC 32.9 RDW 17.2 H Plt Count 209 Neut % (Auto) 79.9 H Lymph % (Auto) 9.0 L [place] % (Auto) 10.8 Eos % (Auto) 0.1 L Baso % (Auto) 0.2 Neut # (Auto) 7400 H Lymph # (Auto) 800 L [place] # (Auto) 1000 H Eos # (Auto) 0 Baso # (Auto) 0 Sodium 131 L Potassium 4.7 Chloride 102 Carbon Dioxide 25 BUN 48 H Creatinine 1.85 H Estimated GFR 35 L BUN/Creatinine Ratio 25.9 H Glucose 169 H D Calcium 7.5 L Total Bilirubin 0.6 AST 35 ALT 18 Alkaline Phosphatase 90 Total Protein 5.9 L Albumin 3.0 L Globulin 2.9 Albumin/Globulin Ratio 1.0 A.calcoaceticus-baumannii cmplx PCR Not detected Bacteroides fragilis Not detected Kendra albicans (PCR) Not detected Kendra auris (PCR) Not detected C. glabrata (PCR) Not detected C. krusei (PCR) Not detected C. parapsilosis (PCR) Not detected C. tropicalis (PCR) Not detected C. neoform/gattii (PCR) Not detected Enterobacterales (PCR) Not detected E. cloacae complex PCR Not detected Enterococc faecalis PCR Not detected Enterococc faecium PCR Not detected E. coli (PCR) Not detected H. influenzae (PCR) Not detected Klebsiella aerogenes (PCR) Not detected Klebsiella oxytoca PCR Not detected Klebsiella pneumoniae Not detected List. monocytogenes PCR Not detected N. meningitidis (PCR) Not detected Proteus species (PCR) Not detected Salmonella spp. (PCR) Not detected Serratia marcescens PCR Not detected Staphylococcus sp PCR Not detected Staph aureus (PCR) Not detected mecA/C & MREJ Resist Gene Not applicable mecA/C-Methicil Resis Gene Not applicable mcr-1 Colistin Res Gene PCR Not applicable Staph epidermidis (PCR) Not detected Staph lugdunensis PCR Not detected S. maltophilia (PCR) Not detected Streptococcus sp PCR Detected Group A Strep (PCR) Detected Strep agalactiae (PCR) Not detected Strep pneumoniae (PCR) Not detected P. aeruginosa (PCR) Not detected Paolo/B-Vanco Res Genes Not applicable blaIMP Car res Gene PCR Not applicable KPC-Carbap Res Gene PCR Not applicable blaNDM Car Res Gene PCR Not applicable OXA-48 Carbapenem Resis Gene (PCR) Not applicable blaVIM Car Res Gene PCR Not applicable CTX-M Gene Resistance (PCR) Not applicable ON LICENSE OF [facility] Medical History CVA (cerebral vascular accident) Dyslipidemia Anticoagulated Surgical History H/O foot surgery H/O heart artery stent Social History household members: family Smoking Status: Former smoker alcohol intake: former Assessment & Plan Assessment & Plan narrative: 1. Sepsis presumably due to sepsis from R heel wound and R leg cellulitis. Present on admission and improving. - PAD with necrotic right posterior heel wound. - debrided 11/28 - dressing instructions given from wound. - cont Abx - salvage attempt with hyperbarics outpatient upcoming. 2. R Foot cellulitis (pseudomonas and Cornebacterium), present on admission and active. 3. Possible bacteremia (GPC 1/2), present on admission and active. 4. MARILYN, present on admission and improving. 2.20 to 1.85. 5. Hyperkalemia, present on admission and improving. 5.5 to 4.7. 6. CAD and severe PAD, present on admission and stable. - continue home xarelto 7. 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 - continue home xarelto 8. DM2 with neuropathy, with group home insulin use, present on admission and stable. - continue home lantus 30 U nightly, add sliding scale - hold home oral medications 9. HTN, present on admission and stable. - hold home HCTZ in setting of sepsis. 10. HLD, present on admission and stable. - continue home atorvastatin. 11. Demand ischemia, , present on admission and active. - no acute ischemia on EKG, troponin 0.066 x2, no chest pain. 12. Inoperable PAD right leg, present on admission and active. PLAN: - dressing changes per wound -cont Abx (7-10 days). -monitor renal function and potassium. Estimated date of discharge is 12/02, possibly with [facility]. He requires at least another 24 hours of IV antibiotics and close medical supervision due to his induration and redness on the right medial thigh.
[2023-11-30] MEDS: TAMSULOSIN 0.4 MG CAPSULE PO (08:15)
[2023-11-30] MEDS: RIVAROXABAN 10 MG TABLET 20 MG PO (08:15)
[2023-11-30] MEDS: INSULIN LISPRO 100 UNIT/ML 3ML VIAL SUBCUT (11:56)
[2023-11-30] MEDS: VANCOMYCIN 1,000 MG/200 ML PIGGYBACK 200 MG IV (13:02)
--- NOTE | 2023-11-30 14:37 | PC.NURSE ---
wound dressing changed as ordered, noted redness and induration on r leg from mid calf to mid thigh. Redness and induration noted in groin area as well. Areas demarcated and assessed frequently for change.
--- NOTE | 2023-11-30 16:14 | CM.DANOTE ---
DCP Assessment Note: Pt is a 83yo male, resident of [place], is admitted for sepsis caused by cellulitis in the left lower extremity. Pt is a resident at [facility]. Pt's Primary Care Provider is Dr. Scottie Milton and insurance is Medicare and [employer]. Reviewed chart and team rounds for pt's medical status and initial discharge needs. DCP spoke w/patient; introduced self and role. Pt was found in bed, alert and oriented, cooperative with assessment. Pt confirmed living situation and was agreeable to plans of returning to [facility] for continued IV antibiotics. Pt verbalized understanding of returning tomorrow, 11/30 at around 1:00pm. Plan: Anticipating dc to [facility] on Sunday, 11/30 at 1:00pm. [facility] to transport pt at discharge. CM team will plan to follow clinical course closely for coordination of discharge plan. PAULINE Vieyra Discharge Planning/Care Management CM Discharge Assessment Start: 11/30/23 13:05 Freq: Status: Active Protocol: Document 11/30/23 13:05 MW (Rec: 11/30/23 13:14 [id number]) Discharge Planning Assessment Assigned Implementation Engineer GENIA Jim DPOA/Assigned Designee Name Sister Larry Contact Information [phone] Advance Directives? Yes: POLST Advance Directives on File No History Provided By Patient,Medical Record Prior Living Arrangements Skilled Nurse Facility Household Members family Type of transporation used prior to Drives own vehicle admit Facility Name Admitted From: [facility] Willing to Return to Facility? Yes Independent with ADL's Yes DME Already Rented / Owned Wheelchair,FWW / Walker,Cane Patient/Family Preference Assisted Facility Comment Pt lives at [facility], can be accepted when medically stable. Barriers to Discharge No Discharge Plan Assisted Facility Transportation Arrangement [facility] to provide transport at discharge. Referrals Initiated None needed SNF/HH Preference Hx with Debra TAYLOR in 08/2023 for wound care. Whiteboard Updated in Patient Room with Yes name and ext. # of Implementation Engineer Comment [phone] Please Provide Date Initial DC 11/30/23 Assessment Was Performed Next Review Type Continued Stay Review
[2023-11-30] MEDS: INSULIN GLARGINE 100 UNIT/ML 3ML PEN 30 UNIT SUBCUT (21:11)
[2023-11-30] MEDS: ATORVASTATIN 20 MG TABLET 80 MG PO (21:11)
[2023-12-01] VITALS: BP 144/84; PULSE 83; RESP 18; TEMP 36.6; O2SAT 96
[2023-12-01 04:00] VITALS: BP 151/70; PULSE 70; RESP 18; TEMP 36.6; O2SAT 94; O2SAT 97
[2023-12-01] MEDS: CEFEPIME 1 GM in SODIUM CHLORIDE 0.9% 100 ML IV (06:36)
[2023-12-01] MEDS: RIVAROXABAN 10 MG TABLET 20 MG PO (07:54)
[2023-12-01] MEDS: TAMSULOSIN 0.4 MG CAPSULE PO (07:54)
[2023-12-01 08:00] VITALS: BP 152/66; PULSE 70; RESP 20; TEMP 36.8; O2SAT 95; O2SAT 96
--- NOTE | 2023-12-01 08:16 | PM.PN.1 ---
Subjective Subjective Interval history: Exam Vital Signs (past 8 hours): - 12/01/23 04:00 12/01/23 04:00 12/01/23 08:00 Temperature 97.9 F 98.3 F Pulse Rate 70 70 Respiratory Rate 18 20 Blood Pressure 151/70 H 152/66 H Pulse Oximetry 97 94 96 Oxygen Delivery Method Room Air Oxygen Flow Rate 0 0 Oxygen Delivery Method Room Air Oxygen Flow Rate 0 Narrative Exam Narrative: NAD, alert and oriented. Fluent speech. Lungs are clear, normal rate and effort. Heart is regular, no murmur gallop or rub. Abdomen is soft, non distended. Extremities are free of edema. Objective Labs 12/01/23 09:10 12/01/23 09:10 [facility] Medical History CVA (cerebral vascular accident) Dyslipidemia Anticoagulated Surgical History H/O foot surgery H/O heart artery stent Social History household members: family Smoking Status: Former smoker alcohol intake: former Assessment & Plan Assessment & Plan narrative: 1. Sepsis presumably due to sepsis from R heel wound and R leg cellulitis. Present on admission and improving. - PAD with necrotic right posterior heel wound. - debrided 11/28 - dressing instructions given from wound. - cont Abx - salvage attempt with hyperbarics outpatient upcoming. 2. R Foot cellulitis (pseudomonas and Cornebacterium), present on admission and active. 3. Possible bacteremia (GPC 1/2), present on admission and active. 4. MARILYN, present on admission and improving. 2.20 to 1.85. 5. Hyperkalemia, present on admission and improving. 5.5 to 4.7. 6. CAD and severe PAD, present on admission and stable. - continue home xarelto 7. 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 - continue home xarelto 8. DM2 with neuropathy, with intermediate insulin use, present on admission and stable. - continue home lantus 30 U nightly, add sliding scale - hold home oral medications 9. HTN, present on admission and stable. - hold home HCTZ in setting of sepsis. 10. HLD, present on admission and stable. - continue home atorvastatin. 11. Demand ischemia, , present on admission and active. - no acute ischemia on EKG, troponin 0.066 x2, no chest pain. 12. Inoperable PAD right leg, present on admission and active. PLAN: - dressing changes per wound -cont Abx (7-10 days). -monitor renal function and potassium. Estimated date of discharge is 12/02, possibly with ongoing IV antibiotics at senior living facility. He requires at least another 24 hours of IV antibiotics and close medical supervision due to his induration and redness on the right medial thigh.
[2023-12-01 09:17] LABS: Hemoglobin 8.6 g/dL (13.5-17.5); Mean Corpuscular HGB Conc 32.9 % (30-36); Mean Corpuscular Hemoglobin 30.5 PG (26-34); Mean Corpuscular Volume 92.7 fL (80-100); Platelet Count 223 X10^3/uL (150-400); Red Blood Cell Count 2.81 X10^6/uL (4.5-5.9); Red Cell Distribution Width 16.8 % (11.6-14.8)
[2023-12-01 09:31] LABS: Alanine Aminotransferase 36 IU/L (<50); Albumin 2.9 g/dL (3.5-5.0); Alkaline Phosphatase 97 U/L (38-126); Aspartate Aminotransferase 58 IU/L (17-59); BUN Creatinine Ratio 29.3 (6-22); Bilirubin Total 0.5 mg/dL (0.2-1.3); Blood Urea Nitrogen 36 mg/dL (9-20); Calcium 8.1 mg/dL (8.4-10.2); Carbon Dioxide 23 mmol/L (22-32); Chloride 110 mmol/L (98-107); Estimated Glomerular Filt Rate 58 mL/min (>60); Glucose 90 mg/dL (80-110); HEMOLYSIS < 15 (0-50); Potassium 4.1 mmol/L (3.4-5.1); Sodium 136 mmol/L (137-145); Total Protein 5.9 g/dL (6.3-8.2)
[2023-12-01 11:52] VITALS: O2SAT 96
[2023-12-01 12:00] VITALS: BP 152/65; PULSE 71; RESP 24; TEMP 36.9; O2SAT 95
[2023-12-01] MEDS: INSULIN LISPRO 100 UNIT/ML 3ML VIAL SUBCUT (12:05)
--- NOTE | 2023-12-01 12:06 | PM.DS.1 ---
History of Present Illness History of Present Illness Date Patient Seen: 11/28/23 Chief complaint: Weakness/fever Narrative: From H&P: This is an 82 year old male with PMH of CAD, HTN, HLD, DM2, prior CVA who presented with feeling sick. He lives at [facility] currently, for the last few days his appetite has been diminished with nausea. He vomited today which is why he was sent over today. He denies chest pain, shortness of breath, abdominal pain, dysuria or urinary frequency. He has some redness of his leg but this is not causing him any pain. In the emergency room, he was febrile, with leukocytosis, and MARILYN with Cr of 2.2 (baseline approx 1.6) and elevated potassium. Lactate 2.6 to 1.7 on repeat. Troponin was stable at 0.066 x2. ProBNP was elevated. He was initially diuresed, but dropped his BP after this and BP improved with giving fluid bolus. He had mild streaking up his R leg medially, though this improved after antibiotics administration. He is lethargic and falls asleep easily, seems a bit confused though he is alert and oriented to self and hospital. PICC line was placed with possible development of septic shock, and though he is currently floor care was placed in an ICU bed due to liklihood of possible septic shock. Discharge Providers Provider Date of admission: 11/28/23 14:45 Discharge Date: 12/01/23 Primary care physician: Scottie Milton MD Consults: 11/29/23 10:31 Consult to Wound Care Routine Comment: Consulting Provider: [facility] 11/29/23 10:32 Consult to Inpatient Wound Care Nurse Routine Comment: Reason for consultation: foot wound Has provider been notified: Yes Discharge provider: Tony Buckley MD Summary Hospital Course Discharge Diagnosis: 1. Sepsis presumably due to sepsis from R heel wound and R leg cellulitis. Present on admission and improving. - PAD with necrotic right posterior heel wound. - debrided 11/28, Dr. Dozier. 2. R Foot cellulitis (pseudomonas and Cornebacterium), present on admission and active. 3. Blood culture contanimant (GPC 1/2), resolved. 4. MARILYN, present on admission and improved. 2.20 to 1.85 to 1.23. 5. Hyperkalemia, present on admission and improving. 5.5 to 4.7 to 4.1. 6. CAD and severe PAD, present on admission and stable. - continue home xarelto 7. 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 - continue home xarelto 8. DM2 with neuropathy, with detention insulin use, present on admission and stable. - continue home lantus 30 U nightly, add sliding scale - hold home oral medications 9. HTN, present on admission and stable. - hold home HCTZ in setting of sepsis. 10. HLD, present on admission and stable. - continue home atorvastatin. 11. Demand ischemia, , present on admission and active. - no acute ischemia on EKG, troponin 0.066 x2, no chest pain. 12. Inoperable PAD right leg, present on admission and active. PLAN: - dressing changes per wound -cont Abx (7-10 days). -monitor renal function and potassium. Hospital Course: Patient was initially admitted with a exacerbation of his right lower extremity cellulitis and wound infection in the Achilles region. He was treated with empiric antibiotics and fluid resuscitated. Does have a history of inoperable PID to the leg is currently be managed by the wound care center. He has had a wound VAC on in the past. He was seen by wound care while in the hospital and had local debridement with recommendations to continue dressing changes as outlined below. The patient was also being set up to potentially start hyperbaric treatments for his wound within the next week. The patient was currently on a limb salvage plan and remains at high risk for amputation. The patient does understand this. The patient did have some improvement of the redness and discomfort of his posterior aspect of his foot and thigh while in the hospital. The patient improved with regards to his hemodynamics and laboratories. He will be transferred back to [facility] on November 30 and we will continue on cefepime 2 g q.12 hours for an additional 5 days. In addition the patient will be placed on doxycycline 100 mg p.o. b.i.d. for the next week as well. We will facilitate follow up with wound this week and hopefully they can initiate hyperbaric treatment as soon as feasible. Status at Discharge Cognitive/behavioral status at discharge: at baseline, oriented Functional status at discharge: uses cane/walker Overall status at discharge: patient is progressing back to baseline Time Spent with Patient Time spent: Greater than 30 minutes Exam Vital Signs (past 8 hours): - 12/01/23 07:00 12/01/23 08:00 12/01/23 08:00 Temperature 98.3 F Pulse Rate 70 Respiratory Rate 20 Blood Pressure 152/66 H Pulse Oximetry 96 95 Oxygen Delivery Method Room Air Room Air Oxygen Flow Rate 0 12/01/23 11:52 Temperature Pulse Rate Respiratory Rate Blood Pressure Pulse Oximetry 96 Oxygen Delivery Method Room Air Oxygen Flow Rate Oxygen Delivery Method Room Air Oxygen Flow Rate 0 Narrative Exam Narrative: NAD, alert and oriented. Fluent speech. Lungs are clear, normal rate and effort. Heart is regular, no murmur gallop or rub. Abdomen is soft, non distended. Extremities are free of edema. The right thigh is less indurated and red in the medial aspect of the thigh in the lateral aspect. The foot is wrapped. The toes are unremarkable with normal capillary refill. Objective Imaging Chest x-ray: Radiologist's impression: Tip of PICC projects to the area of superior vena cava. CT scan - chest: Radiologist's impression: 1. Top normal heart size, severe coronary artery calcifications. 2. ASCVD. 3. Mild aneurysmal dilatation of the ascending aorta. 4. No acute pulmonary process. Labs 12/01/23 09:10 12/01/23 09:10 Labs: Laboratory Results - last 24 hr 12/01/23 09:10 WBC 6.0 RBC 2.81 L Hgb 8.6 L Hct 26.0 L MCV 92.7 MCH 30.5 MCHC 32.9 RDW 16.8 H Plt Count 223 Sodium 136 L Potassium 4.1 Chloride 110 H Carbon Dioxide 23 BUN 36 H Creatinine 1.23 Estimated GFR 58 L BUN/Creatinine Ratio 29.3 H Glucose 90 Calcium 8.1 L Total Bilirubin 0.5 AST 58 ALT 36 Alkaline Phosphatase 97 Total Protein 5.9 L Albumin 2.9 L Globulin 3.0 Albumin/Globulin Ratio 1.0 PFSH Medical History CVA (cerebral vascular accident) Dyslipidemia Anticoagulated Surgical History H/O foot surgery H/O heart artery stent Social History household members: family Smoking Status: Former smoker alcohol intake: former Discharge Assessment & Plan Assessment and Plan Assessment: 1. Sepsis presumably due to sepsis from R heel wound and R leg cellulitis. Present on admission and improving. - PAD with necrotic right posterior heel wound. - debrided 11/28, Dr. Dozier. 2. R Foot cellulitis (pseudomonas and Cornebacterium), present on admission and active. 3. Blood culture contanimant (GPC 1/), resolved. 4. MARILYN, present on admission and improved. 2.20 to 1.85 to 1.23. 5. Hyperkalemia, present on admission and improving. 5.5 to 4.7 to 4.1. Plan of Treatment: Discharge back to nursing home facility, [facility]. Cefepime 2 g IV q.12 hours for 5 days, doxycycline 100 mg p.o. b.i.d. ID for 7 days. Wound care follow up this week with initiation of hyperbaric as soon as feasible. This is a limb salvage strategy, the patient understands that he remains at high risk for needing amputation. Discharge Plan Discharge Plan Patient Disposition: SNF Transfer to: [facility] Provider Discharge Comment: Stable for discharge back to nursing home facility, we will continue IV antibiotics for an additional 5 days. Wound care we will continue to see him and he is being prepared for possible hyperbaric oxygen therapy. Discharge orders & Medications Prescriptions: New oxycodone 5 mg Tablet 5 mg PO Q3H PRN (Reason: Pain, Moderate (4-6)) Qty: 20 0RF insulin glargine [Lantus Solostar U-100 Insulin] 100 unit/mL (3 mL) Insulin Pen 30 unit SUBCUT 2100 Qty: 15 3RF cefepime in dextrose 5 % 1 gram/50 mL Piggyback 1 gm IV Q12H Qty: 10 0RF doxycycline hyclate 100 mg capsule 100 mg PO BID Qty: 20 0RF Continued hydrochlorothiazide 12.5 mg tablet 12.5 mg PO DAILY tramadol 50 mg tablet 50 mg PO Q8H PRN (Reason: pain) Qty: 14 0RF allopurinol 100 mg tablet 200 mg PO BID Rx Instructions: takes noon and evening atorvastatin 80 mg tablet 80 mg PO BEDTIME tamsulosin 0.4 mg capsule 0.4 mg PO DAILY gabapentin 300 mg capsule 300 mg PO BID Xarelto 20 mg tablet 20 mg PO DAILY pioglitazone [Actos] 15 mg Tablet 15 mg PO DAILY magnesium 200 mg Tablet 400 mg PO DAILY calcium carbonate-vitamin D3 [Calcium 600 + D(3)] 600 mg-10 mcg (400 unit) Tablet 1 tab PO DAILY Discontinued ciprofloxacin HCl 500 mg tablet 500 mg PO Q12H Qty: 14 0RF tetracycline 500 mg tablet 500 mg PO Q12H Qty: 14 0RF insulin glargine [Lantus Solostar U-100 Insulin] 100 unit/mL (3 mL) insulin pen 34 unit SUBCUT BEDTIME Follow up/Referrals: Scottie Milton MD [Primary Care Provider] - Discharge Health Status Multidrug resistant organism: MRSA Precautions: Contact Diet/Activity/Treatments Diet: Carb-consistent/Diabetic Liquid consistency: Normal/Thin Food texture: Regular Skin/Wound/Dressing Care Report to your healthcare provider any signs of infection, such as:: chills, fever, increased pain, unusual drainage and unusual redness Visit Report/Discharge Packet Stand Alone Forms: Patient Portal/API Discharge Data Primary Care Provider: Scottie Milton
--- NOTE | 2023-12-01 12:28 | CM.DPC ---
DCP Discharge SNF Per MD, pt medically stable to d/c back to SNF with a couple days IV Cefepime via current PICC and then switch to PO and no identified barriers to discharge. KARIS called [facility] admissions and confirmed they can still accept today and with transport around 1300. KARIS faxed d/c summ (draft), no PASRR needed as pt is a return, med list, and scripts, and MD orders to [facility] to review. KARIS met bedside with pt and explained role and updated on discharge today to [facility] at 1300 and pt remains agreeable and KARIS provided his Medicare Message and confirmed pt has some clothing bedside to change into prior to discharge. KARIS updated corporate operations compliance manager, SENIOR ESTIMATOR, and RN and provided number to call report. Plan: Patient to d/c to [facility] (his residence) today at 1300 via facility van for ongoing IV-Abx, wound care, and strengthening. GENIA Tamayo
== END 2023-12-01 13:10 | DRG 853 ==
LOC: ED 14:45 → AC 14:46 → ICU 16:37
PROVIDERS: Hospitalist; Pharmacist Pharmacist Clinician (PhC)/ Clinical Pharmacy Specialist; Admitting Provider Internal Medicine; Emergency Provider Emergency Medicine; PCP Family Medicine; Referring Provider Emergency Medicine; Visit Provider Internal Medicine
DX: A41.9 Sepsis, unspecified organism (principal); G93.41 Metabolic encephalopathy; J96.01 Acute respiratory failure with hypoxia; I82.221 Chronic embolism and thrombosis of inferior vena cava; N17.9 Acute kidney failure, unspecified; I24.89 Other forms of acute ischemic heart disease; L97.313 Non-pressure chronic ulcer of right ankle with necrosis of muscle; L03.115 Cellulitis of right lower limb; L97.318 Non-pressure chronic ulcer of right ankle with other specified severity; I87.8 Other specified disorders of veins; R65.20 Severe sepsis without septic shock; I73.9 Peripheral vascular disease, unspecified; E11.40 Type 2 diabetes mellitus with diabetic neuropathy, unspecified; E78.5 Hyperlipidemia, unspecified; B96.5 Pseudomonas (aeruginosa) (mallei) (pseudomallei) as the cause of diseases classified elsewhere; B96.89 Other specified bacterial agents as the cause of diseases classified elsewhere; I25.10 Atherosclerotic heart disease of native coronary artery without angina pectoris; E87.5 Hyperkalemia; E11.622 Type 2 diabetes mellitus with other skin ulcer; E11.42 Type 2 diabetes mellitus with diabetic polyneuropathy; L98.8 Other specified disorders of the skin and subcutaneous tissue; R60.0 Localized edema; L53.9 Erythematous condition, unspecified; M25.571 Pain in right ankle and joints of right foot; I50.9 Heart failure, unspecified; I87.2 Venous insufficiency (chronic) (peripheral); I11.0 Hypertensive heart disease with heart failure; Z87.891 Personal history of nicotine dependence; Z86.73 Personal history of transient ischemic attack (TIA), and cerebral infarction without residual deficits; Z95.828 Presence of other vascular implants and grafts; Z79.4 Long term (current) use of insulin; Z79.01 Long term (current) use of anticoagulants
CPT/HCPCS: 11043; 11046; 36415; 36569; 36592; 71045; 71250; 74176; 80053; 81003; 81015; 82550; 82962; 83605; 83690; 83880; 84145; 84484; 85025; 85027; 85379; 87040; 87077; 87086; 87147; 87154; 87186; 87633; 87797; 93005; 96365; 96366; 96367; 96368; 96375; 97605; 99213; 99233; 99285; J0136; J0692; J0696; J1642; J1940

== ENCOUNTER → 2023-12-04 10:10 | Outpatient (CLI) | payer MEDICARE, OTHER, SELFPAY ==
[2023-11-28 17:51] VITALS: BMI 29.9
== END ==
LOC: WC 10:11
PROVIDERS: PCP Family Medicine; Referring Provider Internal Medicine; Visit Provider Surgery
DX: E11.621 Type 2 diabetes mellitus with foot ulcer (principal); E11.42 Type 2 diabetes mellitus with diabetic polyneuropathy; L97.318 Non-pressure chronic ulcer of right ankle with other specified severity; R60.0 Localized edema; L53.9 Erythematous condition, unspecified; L98.8 Other specified disorders of the skin and subcutaneous tissue; L89.620 Pressure ulcer of left heel, unstageable; I73.9 Peripheral vascular disease, unspecified
CPT/HCPCS: 11043; 11046

== ENCOUNTER → 2023-12-11 10:13 | Outpatient (CLI) | payer MEDICARE, OTHER, SELFPAY ==
[2023-11-28 17:51] VITALS: BMI 29.9
== END ==
PROVIDERS: PCP Family Medicine; Referring Provider Family Medicine; Visit Provider Surgery
DX: E11.621 Type 2 diabetes mellitus with foot ulcer (principal); E11.42 Type 2 diabetes mellitus with diabetic polyneuropathy; L97.318 Non-pressure chronic ulcer of right ankle with other specified severity; I96 Gangrene, not elsewhere classified; R60.0 Localized edema; I73.9 Peripheral vascular disease, unspecified
CPT/HCPCS: 11043; 11046

== ENCOUNTER 2023-12-12 13:36 | Emergency (ER) | payer MEDICARE, OTHER, SELFPAY ==
[2023-11-28 17:51] VITALS: BMI 29.9
[2023-12-12] VITALS (12 sets, daily range): BP systolic 149–195; BP diastolic 62–87; PULSE 76–89; RESP 12–28; TEMP 37; O2SAT 92–96
--- NOTE | 2023-12-12 13:41 | ED_ITS ---
HPI - Weakness General Chief complaint: Weakness Stated complaint: Increased Weakness x2 Days Time Seen by Provider: 12/12/23 13:40 History of Present Illness HPI Narrative: Patient is a 83 year old male with PMH of CAD, HTN, HLD, DM2, prior CVA currently view rehab presenting today with increasing weakness. He was recently admitted to the hospital November 27 through November 30 with sepsis he was febrile with leukocytosis and MARILYN presumed to be from right heel wound and right leg cellulitis. It was debrided by wound care on November 28 his foot grew Pseudomonas and Corynebacterium. Patient was being set up for Hyperbaric he was on a limb salvage plan but there is high-risk for amputation. He was given cefepime 2 g every 12 hours for total of 10 days and continued on doxycycline. Related Data Home Medications Medication Instructions Recorded Confirmed allopurinol 100 mg tablet 200 mg PO BID 04/25/22 11/29/23 atorvastatin 80 mg tablet 80 mg PO BEDTIME 04/25/22 11/29/23 calcium carbonate 600 mg-vitamin 1 tab PO DAILY 04/25/22 11/29/23 D3 10 mcg (400 unit) tablet (Calcium 600 + D(3)) gabapentin 300 mg capsule 300 mg PO BID 04/25/22 11/29/23 magnesium 200 mg tablet 400 mg PO DAILY 04/25/22 11/29/23 pioglitazone 15 mg tablet (Actos) 15 mg PO DAILY 04/25/22 11/29/23 rivaroxaban 20 mg tablet (Xarelto) 20 mg PO DAILY 04/25/22 11/29/23 tamsulosin 0.4 mg capsule 0.4 mg PO DAILY 04/25/22 11/29/23 hydrochlorothiazide 12.5 mg tablet 12.5 mg PO DAILY 05/29/23 11/29/23 Previous Rx's Medication Instructions Recorded cefepime 1 gram/50 mL in dextrose 1 gm IV Q12H #10 ea 12/01/23 5 % intravenous piggyback doxycycline hyclate 100 mg capsule 100 mg PO BID #20 caps 12/01/23 insulin glargine 100 unit/mL (3 30 unit (0.3 mL) SUBCUT 2100 #15 mL 12/01/23 mL) subcutaneous pen (Lantus Solostar U-100 Insulin) oxycodone 5 mg tablet 5 mg PO Q3H PRN Pain, Moderate 12/01/23 (4-6) #20 tabs tramadol 50 mg tablet 50 mg PO Q8H PRN pain #14 tabs 12/01/23 Allergies Allergy/AdvReac Type Severity Reaction Status Date / Time No Known Drug Allergies Allergy Verified 12/12/23 13:47 Patient History Medical History CVA (cerebral vascular accident) Dyslipidemia Anticoagulated Surgical History H/O foot surgery H/O heart artery stent Social History household members: family Smoking Status: Former smoker alcohol intake: former Smoking Status: Former smoker tobacco type: cigarettes alcohol intake frequency: other Substance Use Type: does not use Exam Initial Vital Signs Initial Vital Signs: Vital Signs Temperature 98.6 F 12/12/23 13:42 Pulse Rate 76 12/12/23 13:42 Respiratory Rate 12 12/12/23 13:42 Blood Pressure 149/62 H 12/12/23 13:42 Pulse Oximetry 94 12/12/23 13:42 Oxygen Delivery Method Room Air 12/12/23 13:42 GENERAL: Alert confused 83-year-old male HEENT: Head atraumatic,EOMI, pupils reactive, face symmetric, moist mucous membranes CARDIOVASCULAR: Regular rate and rhythm without murmurs, rubs or gallops. RESPIRATORY: Breath sounds equal bilaterally, no wheezes rales or rhonchi. ABDOMEN: Soft, nontender. Normoactive bowel sounds all 4 quadrants. No guarding or rebound. EXTREMITIES: Normal range of motion, no clubbing or edema. 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 Course Orders Ordered: ED Orders 12/12/23 13:41 EKG-12 Lead Stat 12/12/23 14:00 CRP [C-Reactive Protein Quant] Stat ESR [Erythrocyte Sedimentation Rate] Stat 12/12/23 14:10 CBC Auto Diff [Complete Blood Count AUTO DIFF] Stat CMP [Comprehensive Metabolic Panel] Stat Lactate (Lactic Acid) Stat Procalcitonin Stat Troponin & CK Cardiac Panel Stat 12/12/23 14:19 CT angio head and neck Stat CT head/brain wo con Stat US periph venous low extrem rt Stat 12/12/23 14:20 Blood Culture Stat 12/12/23 14:30 UA Complete [Urinalysis and Microscopic] Stat Vital Signs Vital signs: Vital Signs - 8 hr 12/12/23 13:42 12/12/23 13:45 12/12/23 13:45 Temperature 98.6 F Pulse Rate 76 83 Respiratory Rate 12 Blood Pressure 149/62 H 149/62 H Pulse Oximetry 94 95 Oxygen Delivery Method Room Air 12/12/23 14:00 12/12/23 14:00 12/12/23 14:30 Temperature Pulse Rate 87 81 Respiratory Rate 26 H 23 Blood Pressure 195/81 H Pulse Oximetry 94 94 Oxygen Delivery Method 12/12/23 14:31 12/12/23 14:31 12/12/23 15:06 Temperature Pulse Rate 80 89 Respiratory Rate 22 25 H Blood Pressure 182/72 H Pulse Oximetry 94 92 Oxygen Delivery Method 12/12/23 15:22 12/12/23 15:22 12/12/23 15:30 Temperature Pulse Rate 87 78 Respiratory Rate 28 H 23 Blood Pressure 171/79 H Pulse Oximetry 94 93 Oxygen Delivery Method 12/12/23 15:59 12/12/23 15:59 12/12/23 16:30 Temperature Pulse Rate 86 85 Respiratory Rate Blood Pressure 186/81 H Pulse Oximetry 96 95 Oxygen Delivery Method 12/12/23 16:32 12/12/23 16:32 12/12/23 17:00 Temperature Pulse Rate 81 82 Respiratory Rate 27 H Blood Pressure 195/87 H Pulse Oximetry 95 95 Oxygen Delivery Method MDM - Weakness Lab Data 12/12/23 14:10 12/12/23 14:10 Labs: Lab Results 12/12/23 12/12/23 12/12/23 Range/Units 14:00 14:10 14:30 WBC 5.1 (4.5-11.0) X10^3/uL RBC 2.95 L (4.5-5.9) X10^6/uL Hgb 9.0 L (13.5-17.5) g/dL Hct 27.9 L (41-53) % MCV 94.6 (80-100) fL MCH 30.4 (26-34) PG MCHC 32.2 (30-36) % RDW 17.3 H (11.6-14.8) % Plt Count 251 (150-400) X10^3/uL Neut % (Auto) 60.0 (50-75) % Lymph % (Auto) 24.3 L (25-40) % [place] % (Auto) 14.9 H (3-14) % Eos % (Auto) 0.3 L (2-4) % Baso % (Auto) 0.5 (0-2) % Neut # (Auto) 3000 (6890-3521) /uL Lymph # (Auto) 1200 (1157-3420) /uL [place] # (Auto) 800 (0-900) /uL Eos # (Auto) 0 (0-450) /uL Baso # (Auto) 0 (0-100) /uL ESR 52 H (0-15) MM/HR Sodium 136 L (137-145) mmol/L Potassium 4.6 (3.4-5.1) mmol/L Chloride 106 (98-107) mmol/L Carbon Dioxide 27 (22-32) mmol/L BUN 18 (9-20) mg/dL Creatinine 0.98 (0.66-1.25) mg/dL Estimated GFR > 60 (>60) mL/min BUN/Creatinine Ratio 18.4 (6-22) Glucose 139 H (80-110) mg/dL Lactate 0.8 (0.7-2.1) mmol/L Calcium 8.4 (8.4-10.2) mg/dL Total Bilirubin 0.5 (0.2-1.3) mg/dL AST 36 (17-59) IU/L ALT 16 (<50) IU/L Alkaline Phosphatase 107 (38-126) U/L Total Creatine Kinase 56 (55-170) U/L Troponin I 0.032 (0.01-0.034) ng/mL C-Reactive Protein 2.4 H (<1.0) mg/dL Total Protein 6.5 (6.3-8.2) g/dL Albumin 3.3 L (3.5-5.0) g/dL Globulin 3.2 (1.7-4.1) g/dL Albumin/Globulin Ratio 1.0 (1.0-2.8) Procalcitonin 0.090 (<0.5) ng/mL Urine Color Yellow Urine Appearance Clear Urine pH 6.5 (4.5-8.0) Ur Specific [place] 1.010 (1.000-1.035) Urine Protein 3+ H (Negative) Urine Glucose (UA) 3+ H (Negative) g/dL Urine Ketones Negative (NEGATIVE) Urine Occult Blood Trace-intact (Negative) Urine Nitrate Negative (Negative) Urine Bilirubin Negative (NEGATIVE) Urine Urobilinogen 0.2 (0.2) E.U./dL Ur Leukocyte Esterase Negative (NEGATIVE) Urine RBC 1-5/hpf (0-5/HPF) Urine WBC None seen (0-5/HPF) Ur Squamous Epith Cells None seen (0-5/HPF) Urine Bacteria None seen (None) Ur Culture Indicated? Cult not indicated Vol Urine Centrifuged 10ml (spun) Imaging Data CT scan - head: Radiologist Impression: PROCEDURE: CT HEAD/BRAIN WO CON INDICATIONS: confusion TECHNIQUE: Noncontrast 4.5 mm thick angled axial sections acquired from the foramen magnum to the vertex, with coronal and sagittal reformats. For radiation dose reduction, the following was used: automated exposure control, adjustment of mA and/or kV according to patient size. COMPARISON: Merged With [facility], CT, CT HEAD/BRAIN WO CON, 05/10/2022, 14:47. Merged With [facility], CT, CT ANGIO HEAD AND NECK, 12/12/2023, 14:54. FINDINGS: Image quality: Diagnostic. CSF spaces: Basal cisterns are patent. No extra-axial fluid collections. The ventricles are symmetric in size and shape. Brain: No intracranial bleeds or masses. There is cerebral volume loss for age, with resultant ventricular and sulcal prominence. There are periventricular and deep white matter chronic small vessel ischemic changes. There is intracranial internal carotid artery atherosclerosis. Skull and face: Calvarium and visualized facial bones appear intact, without suspicious lesions. Sinuses: Visualized sinuses demonstrate minimal scattered areas of mucosal thickening most prominent, mild in the right sphenoid sinus. IMPRESSION: 1. No acute intracranial process. 2. Moderate to severe atrophy and chronic microvascular ischemic changes. Dictated by: Kristal Tamayo M.D. on 12/12/2023 at 15:33 CTA - brain/neck: Radiologist Impression: PROCEDURE: CT ANGIO HEAD AND NECK INDICATIONS: confusion TECHNIQUE: After the administration of intravenous contrast, 1 mm thick sections acquired from the aortic arch through the [place]. 3-dimensional rzjbfmu-lguwsiged-ovuserinvw (MIP) and/or volume rendering reformats were acquired of the central intracranial vasculature and neck separately. For radiation dose reduction, the following was used: automated exposure control, adjustment of mA and/or kV according to patient size. COMPARISON: Merged With [facility], CT, CT HEAD/BRAIN WO CON, 12/12/2023, 14:54. Merged With [facility], CT, CT ANGIO HEAD AND NECK, 05/25/2022, 7:33. FINDINGS: Image quality: Diagnostic. BRAIN: See separately dictated CT head report of 12/12/2023. HEAD CT ANGIOGRAPHY: Anterior circulation: Intracranial internal carotid arteries are normal in size and flow. The flow within the paired anterior cerebral arteries is normal and symmetric. The flow within the middle cerebral arteries is normal and symmetric. The anterior communicating artery is seen. No aneurysms are seen. Posterior circulation: Slight left vertebral artery dominance. There is persistence of circulation on the right consistent with congenital variation. Visualized portions of the vertebral arteries demonstrate normal caliber, and join to form a normal appearing basilar artery. Flow within the posterior cerebral arteries is normal and symmetric. No aneurysms are seen. NECK CT ANGIOGRAPHY: Carotid system: The great vessels demonstrate a conventional anatomy as they arise from the aortic arch. The origins of the common carotid arteries appear patent. The common carotid arteries demonstrate normal caliber and courses. The bifurcation regions are both widely patent. Calcifications are present at the origin of the internal carotid artery is bilaterally with proximal 50% stenosis. Posterior circulation: The origins of the vertebral arteries both appear widely patent. The more superior extracranial portions of both vertebral arteries also demonstrate normal courses and calibers. They join to form a normal appearing basilar artery. Soft tissues: Visualized neck soft tissues demonstrate no suspicious abnormalities. Bones: No suspicious bony lesions. Visualized cervical spine appears normally aligned. IMPRESSION: Approximately 50% stenosis of the internal carotid arteries bilaterally, unchanged. No areas of hemodynamically significant stenosis, vascular occlusion or aneurysmal dilation within the neck vasculature. Any quantitative measurements of stenosis were performed using NASCET criteria. Dictated by: Kristal Tamayo M.D. on 12/12/2023 at 15:30 US - DVT: Radiologist Impression: PROCEDURE: US PERIPH VENOUS LOW EXTREM RT INDICATIONS: swelling TECHNIQUE: Real-time imaging, as well as color and pulse Doppler interrogation, were performed of the lower extremity deep veins from the inguinal ligament to the popliteal fossa, with documentation of the visualized calf veins. COMPARISON: Merged With [facility], , PERIPH VENOUS LOW EXTREM RT, 05/15/2023, 17:11. FINDINGS: String like intraluminal filling defect within right common femoral vein, right profundus femoral vein and right great saphenous vein is seen and show poor compressibility. Flow is seen through the area of filling defects. IMPRESSION: Nonocclusive superficial and deep venous thrombosis involving right lower extremity veins as above. Dictated by: Saulo Edwards M.D. on 12/12/2023 at 15:0 ECG Data Attestation: I personally reviewed and interpreted this ECG as follows: Prior ECG tracings: available for review Interpretation: Normal sinus rhythm rate 85 VT interval 246 QRS [address] changes MDM Narrative Medical decision making narrative: MDM CC: Weakness Complicating co-morbidities: Dementia chronic right heel wound, stroke Corroborating data: [ ] Data collected from: I called and spoke with Sister Kendy, she reports that patient is confused at baseline he is wheelchair-bound due to his foot. She reports that he has not been eating very much for number of weeks. We discussed advanced dementia. She agrees no feeding tube at this point. Understands that this is part of the course. Encouraged p.o. intake Medical records reviewed: Previous admission Differential considered: CVA sepsis, Exam documented above, pertinent findings include: Confused able to follow commands chronic right right leg more swollen than left bilateral lower extremity erythema Lab Test results independently reviewed as above. Pertinent findings: WBC 5.1, hemoglobin 9.0, hematocrit 27.9 previously 8.6/26, sodium 136 potassium 4.6 chloride 106, carbon dioxide 27, BUN 18, creatinine 0.9 previously 1.23, glucose 139 lactate 0.8 troponin 0.032 previously 0.066, CRP 2.4, ESR 52 Independently reviewed EKG as above Imaging studies independently reviewed: Consultations: Stephenie Doherty, reviewed chart confirms that patient has advanced dementia with a slums of 13 has a chronic DVT. Treatments: None Re-evaluations: Patient now able to talk but remains confused oriented to person Discussion: Patient has ongoing dementia presents today with supposed increasing weakness. No evidence of worsening infection today. He has afebrile no significant leukocytosis or lactic acidosis. He does have elevated ESR CRP which I suppose is from his chronic right heel wound. Ultrasound shows DVT, EMR does show that he is on Xarelto. Hospitalist confirms probably chronic DVT. Patient is nonambulatory at baseline uses a wheelchair mental status seems to be at baseline. I confirmed this both with the hospitalist and his sister. It does sound like he is having decreased p.o. intake encourage fluids as best as possible Discharge Plan Departure Patient Disposition: Home Clinical Impression: Weakness Activity Restrictions/Additional Instructions: At this time no evidence of stroke no evidence of new infection Encourage p.o. intake Continue all medications as previously prescribed Follow-up with PCP Return to emergency department for new or worsening symptoms Prescriptions: No Action hydrochlorothiazide 12.5 mg tablet 12.5 mg PO DAILY oxycodone 5 mg Tablet 5 mg PO Q3H PRN (Reason: Pain, Moderate (4-6)) Qty: 20 0RF insulin glargine [Lantus Solostar U-100 Insulin] 100 unit/mL (3 mL) Insulin Pen 30 unit SUBCUT 2100 Qty: 15 3RF cefepime in dextrose 5 % 1 gram/50 mL Piggyback 1 gm IV Q12H Qty: 10 0RF tramadol 50 mg tablet 50 mg PO Q8H PRN (Reason: pain) Qty: 14 0RF doxycycline hyclate 100 mg capsule 100 mg PO BID Qty: 20 0RF allopurinol 100 mg tablet 200 mg PO BID Rx Instructions: takes noon and evening atorvastatin 80 mg tablet 80 mg PO BEDTIME tamsulosin 0.4 mg capsule 0.4 mg PO DAILY gabapentin 300 mg capsule 300 mg PO BID Xarelto 20 mg tablet 20 mg PO DAILY pioglitazone [Actos] 15 mg Tablet 15 mg PO DAILY magnesium 200 mg Tablet 400 mg PO DAILY calcium carbonate-vitamin D3 [Calcium 600 + D(3)] 600 mg-10 mcg (400 unit) Tablet 1 tab PO DAILY Referrals: Scottie Milton MD [Primary Care Provider] - Stand Alone Forms: Patient Portal/API
--- NOTE | 2023-12-12 13:41 | EKG_ITS ---
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
[2023-12-12 14:13] LABS: Add Manual Diff / Slide Review NO; Basophils Absolute Auto 0 /uL (0-100); Basophils Percent Auto 0.5 % (0-2); Eosinophils Absolute Auto 0 /uL (0-450); Eosinophils Percent Auto 0.3 % (2-4); Hematocrit 27.9 % (41-53); Lymphocytes Absolute Auto 1200 /uL (1100-4500); Lymphocytes Percent Auto 24.3 % (25-40); Mean Corpuscular HGB Conc 32.2 % (30-36); Mean Corpuscular Hemoglobin 30.4 PG (26-34); Mean Corpuscular Volume 94.6 fL (80-100); Monocytes Absolute Auto 800 /uL (0-900); Monocytes Percent Auto 14.9 % (3-14); Neutrophils Absolute Auto 3000 /uL (1500-7000); Platelet Count 251 X10^3/uL (150-400); Red Blood Cell Count 2.95 X10^6/uL (4.5-5.9); Red Cell Distribution Width 17.3 % (11.6-14.8); White Blood Cell Count 5.1 X10^3/uL (4.5-11.0)
--- NOTE | 2023-12-12 14:19 | DI.CT.S_ITS ---
PROCEDURE: CT HEAD/BRAIN WO CON INDICATIONS: confusion TECHNIQUE: Noncontrast 4.5 mm thick angled axial sections acquired from the foramen magnum to the vertex, with coronal and sagittal reformats. For radiation dose reduction, the following was used: automated exposure control, adjustment of mA and/or kV according to patient size. COMPARISON: [facility], CT, CT HEAD/BRAIN WO CON, 05/10/2022, 14:47. [facility], CT, CT ANGIO HEAD AND NECK, 12/12/2023, 14:54. FINDINGS: Image quality: Diagnostic. CSF spaces: Basal cisterns are patent. No extra-axial fluid collections. The ventricles are symmetric in size and shape. Brain: No intracranial bleeds or masses. There is cerebral volume loss for age, with resultant ventricular and sulcal prominence. There are periventricular and deep white matter chronic small vessel ischemic changes. There is intracranial internal carotid artery atherosclerosis. Skull and face: Calvarium and visualized facial bones appear intact, without suspicious lesions. Sinuses: Visualized sinuses demonstrate minimal scattered areas of mucosal thickening most prominent, mild in the right sphenoid sinus. IMPRESSION: 1. No acute intracranial process. 2. Moderate to severe atrophy and chronic microvascular ischemic changes. Dictated by: Kristal Tamayo M.D. on 12/12/2023 at 15:33 Approved by: Kristal Tamayo M.D. on 12/12/2023 at 15:34
--- NOTE | 2023-12-12 14:19 | DI.CT.S_ITS ---
PROCEDURE: CT ANGIO HEAD AND NECK INDICATIONS: confusion TECHNIQUE: After the administration of intravenous contrast, 1 mm thick sections acquired from the aortic arch through the [place]. 3-dimensional nmpcbwg-jmiyfmtaq-nnwpbksnjm (MIP) and/or volume rendering reformats were acquired of the central intracranial vasculature and neck separately. For radiation dose reduction, the following was used: automated exposure control, adjustment of mA and/or kV according to patient size. COMPARISON: [facility], CT, CT HEAD/BRAIN WO CON, 12/12/2023, 14:54. [facility], CT, CT ANGIO HEAD AND NECK, 05/25/2022, 7:33. FINDINGS: Image quality: Diagnostic. BRAIN: See separately dictated CT head report of 12/12/2023. HEAD CT ANGIOGRAPHY: Anterior circulation: Intracranial internal carotid arteries are normal in size and flow. The flow within the paired anterior cerebral arteries is normal and symmetric. The flow within the middle cerebral arteries is normal and symmetric. The anterior communicating artery is seen. No aneurysms are seen. Posterior circulation: Slight left vertebral artery dominance. There is persistence of circulation on the right consistent with congenital variation. Visualized portions of the vertebral arteries demonstrate normal caliber, and join to form a normal appearing basilar artery. Flow within the posterior cerebral arteries is normal and symmetric. No aneurysms are seen. NECK CT ANGIOGRAPHY: Carotid system: The great vessels demonstrate a conventional anatomy as they arise from the aortic arch. The origins of the common carotid arteries appear patent. The common carotid arteries demonstrate normal caliber and courses. The bifurcation regions are both widely patent. Calcifications are present at the origin of the internal carotid artery is bilaterally with proximal 50% stenosis. Posterior circulation: The origins of the vertebral arteries both appear widely patent. The more superior extracranial portions of both vertebral arteries also demonstrate normal courses and calibers. They join to form a normal appearing basilar artery. Soft tissues: Visualized neck soft tissues demonstrate no suspicious abnormalities. Bones: No suspicious bony lesions. Visualized cervical spine appears normally aligned. IMPRESSION: Approximately 50% stenosis of the internal carotid arteries bilaterally, unchanged. No areas of hemodynamically significant stenosis, vascular occlusion or aneurysmal dilation within the neck vasculature. Any quantitative measurements of stenosis were performed using NASCET criteria. Dictated by: Kristal Tamayo M.D. on 12/12/2023 at 15:30 Approved by: Kristal Tamayo M.D. on 12/12/2023 at 15:33
--- NOTE | 2023-12-12 14:19 | DI.US.S_ITS ---
PROCEDURE: US PERIPH VENOUS LOW EXTREM RT INDICATIONS: swelling TECHNIQUE: Real-time imaging, as well as color and pulse Doppler interrogation, were performed of the lower extremity deep veins from the inguinal ligament to the popliteal fossa, with documentation of the visualized calf veins. COMPARISON: [facility], , US PERIP VENOUS LOW EXTREM RT, 05/15/2023, 17:11. FINDINGS: String like intraluminal filling defect within right common femoral vein, right profundus femoral vein and right great saphenous vein is seen and show poor compressibility. Flow is seen through the area of filling defects. IMPRESSION: Nonocclusive superficial and deep venous thrombosis involving right lower extremity veins as above. Dictated by: Saulo Edwards M.D. on 12/12/2023 at 15:02 Approved by: Saulo Edwards M.D. on 12/12/2023 at 15:04
--- NOTE | 2023-12-12 14:40 | PC.NURSE ---
Pt A&Ox1 to self. Pt is altered and shaking. Pt presents with PICC line with dressing change date labeled 11/27. Pt has a pressure wound on the back of his right calf. Wound culture obtained. VSS
[2023-12-12 14:43] LABS: Appearance Urine UA CLEAR; Bilirubin Urine UA NEGATIVE (NEGATIVE); Color Urine UA YELLOW; Glucose Urine UA 3+ g/dL (Negative); Ketones Urine UA NEGATIVE (NEGATIVE); Leukocyte Esterase Urine UA NEGATIVE (NEGATIVE); Nitrite Urine UA NEGATIVE (Negative); Occult Blood Urine UA TRACE-INTACT (Negative); Protein Urine UA 3+ (Negative); Urobilinogen Urine UA 0.2 E.U./dL (0.2); pH Urine UA 6.5 (4.5-8.0)
[2023-12-12 14:45] LABS: Urine Volume 10mL (spun)
[2023-12-12 14:47] LABS: Bacteria Urine None Seen; Culture Indicated Urine Cult Not Indicated; RBC Urine 1-5/HPF (0-5/HPF); Squamous Epithelial Cell Urine None Seen (0-5/HPF); WBC Urine None Seen (0-5/HPF)
[2023-12-12 14:48] LABS: Alanine Aminotransferase 16 IU/L (<50); Albumin 3.3 g/dL (3.5-5.0); Alkaline Phosphatase 107 U/L (38-126); Aspartate Aminotransferase 36 IU/L (17-59); BUN Creatinine Ratio 18.4 (6-22); Bilirubin Total 0.5 mg/dL (0.2-1.3); Blood Urea Nitrogen 18 mg/dL (9-20); Calcium 8.4 mg/dL (8.4-10.2); Carbon Dioxide 27 mmol/L (22-32); Chloride 106 mmol/L (98-107); Creatine Kinase 56 U/L (55-170); Estimated Glomerular Filt Rate > 60 mL/min (>60); Globulin 3.2 g/dL (1.7-4.1); Glucose 139 mg/dL (80-110); HEMOLYSIS < 15 (0-50); Potassium 4.6 mmol/L (3.4-5.1); Sodium 136 mmol/L (137-145); Total Protein 6.5 g/dL (6.3-8.2)
[2023-12-12 14:49] LABS: Lactate (Lactic Acid) 0.8 mmol/L (0.7-2.1)
[2023-12-12 14:59] LABS: Troponin I 0.032 ng/mL (0.01-0.034)
[2023-12-12 15:56] LABS: C-Reactive Protein Quant 2.4 mg/dL (<1.0)
[2023-12-12 15:59] LABS: Erythrocyte Sedimentation Rate 52 MM/HR (0-15)
== END 2023-12-12 17:44 | disposition home or self-care (01) ==
PROVIDERS: Emergency Provider Emergency Medicine; PCP Family Medicine
DX: R53.1 Weakness (principal); F03.90 Unspecified dementia, unspecified severity, without behavioral disturbance, psychotic disturbance, mood disturbance, and anxiety
CPT/HCPCS: 70450; 70496; 70498; 80053; 81001; 82550; 83605; 84145; 84484; 85025; 85651; 86140; 87040; 93005; 93971; 99284; Q9967

== ENCOUNTER 2023-12-13 10:11 | Inpatient (IN) | payer MEDICARE, OTHER, SELFPAY ==
[2023-11-28 17:51] VITALS: BMI 29.9
[2023-12-13] VITALS (39 sets, daily range): BP systolic 123–200; BP diastolic 69–118; PULSE 80–94; RESP 14–36; TEMP 37–37.7; O2SAT 92–99; BMI 27.1
--- NOTE | 2023-12-13 | DI.MRI.S_ITS ---
PROCEDURE: MR HEAD/BRAIN WO CON INDICATIONS: reported transient vision loss, please evaluate for CVA TECHNIQUE: Non-contrast axial T1 spin echo, axial T2 fast spin echo, sagittal and axial FLAIR, coronal T2 fast spin echo, axial gradient echo, axial diffusion and ADC through the brain. COMPARISON: [facility], CT, CT ANGIO HEAD AND NECK, 12/13/2023, 10:13. [facility], CT, CT STROKE, 12/13/2023, 10:13. [facility], CT, CT ANGIO HEAD AND NECK, 12/12/2023, 14:54. [facility], CT, CT HEAD/BRAIN WO CON, 12/12/2023, 14:54. [facility], MR, MR HEAD/BRAIN WO CON, 11/23/2022, 16:09. FINDINGS: Image quality: This examination is virtually nondiagnostic because of involuntary motion artifact. CSF spaces: Ventricles appear stable, without reggie hydrocephalus. Basal cisterns are patent. No extra-axial fluid collections. Brain: A few foci of abnormal diffusion-weighted signal can be seen within the right MCA distribution, with associated dark signal on the ADC maps. There is brain parenchymal volume loss and chronic small vessel ischemic change. No reggie intracranial hemorrhage can be seen. Generalized brain parenchymal volume loss is seen. Skull and face: No significant bony abnormality is identified. Sinuses: The paranasal sinuses are poorly evaluated. IMPRESSION: Small foci of acute infarction can be seen involving the right MCA distribution. The study is virtually nondiagnostic, secondary to prominent motion artifact. Dictated by: Keegan Diaz M.D. on 12/13/2023 at 13:07 Approved by: Keegan Diaz M.D. on 12/13/2023 at 13:09
--- NOTE | 2023-12-13 10:13 | DI.CT.S_ITS ---
PROCEDURE: CT STROKE INDICATIONS: stroke TECHNIQUE: Noncontrast 4.5 mm thick angled axial sections acquired from the foramen magnum to the vertex, with coronal reformats. For radiation dose reduction, the following was used: automated exposure control, adjustment of mA and/or kV according to patient size. COMPARISON: [facility], CT, CT HEAD/BRAIN WO CON, 12/12/2023, 14:54. [facility], CT, CT STROKE, 05/25/2022, 7:33. FINDINGS: Image quality: Diagnostic. CSF spaces: Basal cisterns are patent. No extra-axial fluid collections. The ventricles are symmetric in size and shape. Brain: No intracranial bleeds or masses. There is cerebral volume loss for age, with resultant ventricular and sulcal prominence. There are periventricular and deep white matter chronic small vessel ischemic changes. There is intracranial internal carotid artery atherosclerosis. Skull and face: Calvarium and visualized facial bones appear intact, without suspicious lesions. Sinuses: Small left maxillary sinus air-fluid level. Otherwise clear. IMPRESSION: No acute intracranial pathology. Mild left maxillary sinusitis. Comment: Findings were discussed with Dr. Foley on 12/13/2023 at 1027 hours This study fulfills neurological imaging criteria for inclusion or exclusion of acute stroke therapies based on available published neurological guidelines. Dictated by: Gordon Alvarado M.D. on 12/13/2023 at 10:27 Approved by: Gordon Alvarado M.D. on 12/13/2023 at 10:30
--- NOTE | 2023-12-13 10:13 | DI.CT.S_ITS ---
PROCEDURE: CT ANGIO HEAD AND NECK INDICATIONS: stroke TECHNIQUE: After the administration of intravenous contrast, 1 mm thick sections acquired from the aortic arch through the [place]. 3-dimensional mzlkitg-pipfaqwqq-rwzoebckim (MIP) and/or volume rendering reformats were acquired of the central intracranial vasculature and neck separately. For radiation dose reduction, the following was used: automated exposure control, adjustment of mA and/or kV according to patient size. COMPARISON: [facility], CT, CT STROKE, 12/13/2023, 10:13. [facility], CT, CT HEAD/BRAIN WO CON, 12/12/2023, 14:54. [facility], CT, CT ANGIO HEAD AND NECK, 12/12/2023, 14:54. FINDINGS: Image quality: Limited by bolus timing, with venous contamination. BRAIN: CSF spaces: Ventricles are normal in size and shape. Basal cisterns are patent. No extra-axial fluid collections. Brain: No significant abnormality of the brain can be seen. Skull and face: Calvarium and facial bones appear intact, without suspicious lesions. Orbits appear normal. Sinuses: Moderate mucosal thickening can be seen within the right sphenoid sinus and within the inferior medial frontal sinuses, with milder mucosal thickening seen elsewhere. No abnormal fluid is seen within the mastoid air cells. HEAD CT ANGIOGRAPHY: Anterior circulation: Intracranial internal carotid arteries are normal in size and flow. The flow within the paired anterior cerebral arteries is normal and symmetric. The flow within the middle cerebral arteries is normal and symmetric. The anterior communicating artery is seen. No aneurysms are seen. Posterior circulation: Visualized portions of the vertebral arteries demonstrate normal caliber, and join to form a normal appearing basilar artery. There is a prominent right posterior communicating artery seen, with an accompanying diminutive right P1 segment. This is attributed to a type origin of the right posterior cerebral artery, which is considered to be a normal developmental variant of typically no clinical consequence. The flow within the posterior cerebral arteries is normal and symmetric. No aneurysms are seen. NECK CT ANGIOGRAPHY: Carotid system: The great vessels demonstrate a conventional anatomy as they arise from the aortic arch. The origins of the common carotid arteries appear patent. The common carotid arteries demonstrate normal caliber and courses. The bifurcation regions demonstrate atherosclerotic irregularity and calcification, with approximately 50% narrowing seen involving both proximal internal carotid arteries. The more distal internal carotid arteries demonstrate normal course and caliber. Posterior circulation: The origins of the vertebral arteries both appear widely patent. The more superior extracranial portions of both vertebral arteries also demonstrate normal courses and calibers. The right vertebral artery is dominant to the left. Soft tissues: Visualized neck soft tissues demonstrate no suspicious abnormalities. A left-sided PICC line can be seen. Bones: No suspicious bony lesions. Visualized cervical spine appears normally aligned. Moderate to prominent cervical spine degenerative change can be seen. IMPRESSION: No significant intracranial arterial abnormality is seen. Approximately 50% narrowing seen involving each proximal internal carotid artery. Additional findings: Gyulgx-je-Zrnoab developmental anomalies Paranasal sinus disease Moderate to prominent cervical spine degenerative change Left-sided PICC line Any quantitative measurements of stenosis were performed using NASCET criteria. Dictated by: Keegan Diaz M.D. on 12/13/2023 at 10:33 Approved by: Keegan Diaz M.D. on 12/13/2023 at 10:36
--- NOTE | 2023-12-13 10:27 | ED.NEUROSD ---
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 EMS reports improvement inpatient during transport. Patient initially said that he could not see now he states he can see. Patient is overall a poor historian. Has a slums if 13 at baseline. On Anticoagulants: Yes (Xarelto) Related Data Home Medications Medication Instructions Recorded Confirmed allopurinol 100 mg tablet 200 mg PO BID 04/25/22 12/13/23 atorvastatin 80 mg tablet 80 mg PO BEDTIME 04/25/22 12/13/23 calcium carbonate 600 mg-vitamin 1 tab PO DAILY 04/25/22 12/13/23 D3 10 mcg (400 unit) tablet (Calcium 600 + D(3)) gabapentin 300 mg capsule 300 mg PO BID 04/25/22 12/13/23 magnesium 200 mg tablet 400 mg PO DAILY 04/25/22 12/13/23 pioglitazone 15 mg tablet (Actos) 15 mg PO DAILY 04/25/22 12/13/23 rivaroxaban 20 mg tablet (Xarelto) 20 mg PO DAILY 04/25/22 12/13/23 tamsulosin 0.4 mg capsule 0.4 mg PO DAILY 04/25/22 12/13/23 hydrochlorothiazide 12.5 mg tablet 12.5 mg PO DAILY 05/29/23 12/13/23 Previous Rx's Medication Instructions Recorded cefepime 1 gram/50 mL in dextrose 1 gm IV Q12H #10 ea 12/01/23 5 % intravenous piggyback doxycycline hyclate 100 mg capsule 100 mg PO BID #20 caps 12/01/23 insulin glargine 100 unit/mL (3 30 unit (0.3 mL) SUBCUT 2100 #15 mL 12/01/23 mL) subcutaneous pen (Lantus Solostar U-100 Insulin) oxycodone 5 mg tablet 5 mg PO Q3H PRN Pain, Moderate 12/01/23 (4-6) #20 tabs tramadol 50 mg tablet 50 mg PO Q8H PRN pain #14 tabs 12/01/23 Allergies Allergy/AdvReac Type Severity Reaction Status Date / Time No Known Drug Allergies Allergy Verified 12/12/23 13:47 Review of Systems Hematologic/Lymphatic On Anticoagulants: Yes (Xarelto) Patient History Medical History CVA (cerebral vascular accident) Dyslipidemia Anticoagulated Surgical History H/O foot surgery H/O heart artery stent Social History household members: family Smoking Status: Former smoker alcohol intake: former Smoking Status: Former smoker tobacco type: cigarettes alcohol intake frequency: other Substance Use Type: does not use Exam Initial Vital Signs Initial Vital Signs: Vital Signs Temperature 98.6 F 12/13/23 10:18 Pulse Rate 92 H 12/13/23 10:18 Respiratory Rate 26 H 12/13/23 10:18 Blood Pressure 123/100 H 12/13/23 10:18 Pulse Oximetry 93 12/13/23 10:18 Oxygen Delivery Method Room Air 12/13/23 10:18 GENERAL: Alert confused HEENT: Head atraumatic,EOMI, pupils reactive, able to see finger but not able to get the number fingers right. face symmetric, [moist] mucous membranes CARDIOVASCULAR: Regular rate and rhythm without murmurs, rubs or gallops. RESPIRATORY: Breath sounds equal bilaterally, no wheezes rales or rhonchi. ABDOMEN: Soft, nontender. Normoactive bowel sounds all 4 quadrants. No guarding or rebound. EXTREMITIES: Normal range of motion, no clubbing or edema. Neurovascularly intact NEUROLOGICAL: Husbandry Person strength equal bilaterally no facial droop able to lift leg, oriented to self SKIN: Chronic right heel wound dressing placed Course Orders Ordered: ED Orders 12/13/23 10:33 EKG-12 Lead Routine 12/13/23 10:35 Chest [XR chest 1V] Stat 12/13/23 12:50 Trop I [Troponin I] Stat 12/14/23 05:00 Basic Metabolic Panel DAILY Complete Blood Count AUTO DIFF DAILY Hemoglobin A1C% w Est Avg Glu Routine Magnesium DAILY 12/15/23 05:00 Basic Metabolic Panel DAILY Complete Blood Count AUTO DIFF DAILY Magnesium DAILY 12/16/23 05:00 Basic Metabolic Panel DAILY Complete Blood Count AUTO DIFF DAILY Magnesium DAILY Acetaminophen (Acetaminophen 325 Mg Tablet) 650 mg PO Q6H PRN PRN Reason: Fever/Mild Pain (1-3) Allopurinol (Allopurinol 100 Mg Tablet) 200 mg PO BID [facility] Atorvastatin Calcium (Atorvastatin 20 Mg Tablet) 80 mg PO BEDTIME [facility] Gabapentin (Gabapentin 300 Mg Capsule) 300 mg PO BID [facility] Hydrochlorothiazide (Hydrochlorothiazide 25 Mg Tablet) 12.5 mg PO DAILY [facility] Dextrose (D10w) 100 mls @ 999 mls/hr IV PRN PRN PRN Reason: Hypoglycemia Insulin Glargine (Insulin Glargine 100 Unit/Ml 3ml Pen) 30 unit SUBCUT 2100 [facility] Insulin Human Lispro (Insulin Lispro 100 Unit/Ml 3ml Vial) 0 unit SUBCUT ACHS [facility]; Protocol Last Admin: 12/13/23 17:10 Dose: Not Given Documented By: KDK Magnesium Oxide (Magnesium Oxide 400 Mg Tablet) 400 mg PO DAILY [facility] Naloxone HCl (Naloxone 0.4 Mg/Ml Vial) 0.2 mg IV Q2MIN PRN PRN Reason: Opiate Reversal Ondansetron HCl (Ondansetron 4 Mg Odt) 4 mg PO Q8HR PRN PRN Reason: Nausea And Vomiting Oxycodone HCl (Oxycodone Ir 5 Mg Tablet) 5 mg PO Q3H PRN PRN Reason: Pain, Moderate (4-6) Rivaroxaban (Rivaroxaban 10 Mg Tablet) 20 mg PO DAILY [facility] Tamsulosin HCl (Tamsulosin 0.4 Mg Capsule) 0.4 mg PO DAILY [facility] Tramadol HCl (Tramadol 50 Mg Tablet) 50 mg PO Q8H PRN PRN Reason: pain Vital Signs Vital signs: Vital Signs - 8 hr 12/13/23 11:30 12/13/23 11:30 12/13/23 11:35 Pulse Rate 82 Respiratory Rate 22 Blood Pressure 181/76 H 170/74 H Pulse Oximetry 93 Oxygen Delivery Method 12/13/23 11:35 12/13/23 11:40 12/13/23 11:40 Pulse Rate 82 87 Respiratory Rate 22 22 Blood Pressure 172/78 H Pulse Oximetry 92 93 Oxygen Delivery Method 12/13/23 11:45 12/13/23 11:45 12/13/23 11:50 Pulse Rate 81 Respiratory Rate 21 Blood Pressure 187/80 H 173/74 H Pulse Oximetry 93 Oxygen Delivery Method 12/13/23 11:50 12/13/23 11:56 12/13/23 11:56 Pulse Rate 80 85 Respiratory Rate 22 22 Blood Pressure 197/79 H Pulse Oximetry 94 94 Oxygen Delivery Method 12/13/23 12:00 12/13/23 12:01 12/13/23 12:01 Pulse Rate 92 H 84 Respiratory Rate 25 H 21 Blood Pressure 169/71 H Pulse Oximetry 93 96 Oxygen Delivery Method 12/13/23 12:05 12/13/23 12:05 12/13/23 12:10 Pulse Rate 88 84 Respiratory Rate 24 21 Blood Pressure 170/72 H Pulse Oximetry 93 94 Oxygen Delivery Method 12/13/23 12:10 12/13/23 12:15 12/13/23 12:15 Pulse Rate 85 Respiratory Rate 23 Blood Pressure 180/118 H 179/76 H Pulse Oximetry 94 Oxygen Delivery Method 12/13/23 12:20 12/13/23 12:20 12/13/23 12:25 Pulse Rate 92 H 92 H Respiratory Rate 31 H 30 H Blood Pressure 162/72 H Pulse Oximetry 96 96 Oxygen Delivery Method 12/13/23 12:25 12/13/23 12:30 12/13/23 12:30 Pulse Rate 90 Respiratory Rate 36 H Blood Pressure 153/70 H 167/77 H Pulse Oximetry 93 Oxygen Delivery Method 12/13/23 12:35 12/13/23 12:35 12/13/23 12:40 Pulse Rate 88 Respiratory Rate 14 Blood Pressure 166/74 H 169/74 H Pulse Oximetry Oxygen Delivery Method 12/13/23 12:40 12/13/23 12:45 12/13/23 12:45 Pulse Rate 88 90 Respiratory Rate 24 30 H Blood Pressure 162/72 H Pulse Oximetry 93 Oxygen Delivery Method Room Air 12/13/23 12:50 12/13/23 12:50 12/13/23 12:56 Pulse Rate 88 84 Respiratory Rate 25 H 16 Blood Pressure 168/70 H Pulse Oximetry 95 96 Oxygen Delivery Method Room Air 12/13/23 12:56 12/13/23 13:00 12/13/23 13:00 Pulse Rate 83 Respiratory Rate Blood Pressure 161/69 H 178/72 H Pulse Oximetry Oxygen Delivery Method [facility] Neuro Symptoms/Deficit Lab Data 12/13/23 10:10 12/13/23 10:10 Labs: Lab Results 12/13/23 12/13/23 Range/Units 10:10 12:50 WBC 5.3 (4.5-11.0) X10^3/uL RBC 3.26 L (4.5-5.9) X10^6/uL Hgb 9.9 L (13.5-17.5) g/dL Hct 30.7 L (41-53) % MCV 94.3 (80-100) fL MCH 30.4 (26-34) PG MCHC 32.3 (30-36) % RDW 17.8 H (11.6-14.8) % Plt Count 246 (150-400) X10^3/uL Neut % (Auto) 59.1 (50-75) % Lymph % (Auto) 25.6 (25-40) % [place] % (Auto) 14.6 H (3-14) % Eos % (Auto) 0.3 L (2-4) % Baso % (Auto) 0.4 (0-2) % Neut # (Auto) 3100 (2683-0304) /uL Lymph # (Auto) 1400 (5833-0887) /uL [place] # (Auto) 800 (0-900) /uL Eos # (Auto) 0 (0-450) /uL Baso # (Auto) 0 (0-100) /uL PT 13.8 H (9.4-12.5) SECONDS INR 1.2 (0.9-1.3) APTT 32 (25.1-36.5) SECONDS Sodium 139 (137-145) mmol/L Potassium 5.0 (3.4-5.1) mmol/L Chloride 105 (98-107) mmol/L Carbon Dioxide 29 (22-32) mmol/L BUN 16 (9-20) mg/dL Creatinine 1.01 (0.66-1.25) mg/dL Estimated GFR > 60 (>60) mL/min BUN/Creatinine Ratio 15.8 (6-22) Glucose 109 (80-110) mg/dL Lactate 1.0 (0.7-2.1) mmol/L Calcium 8.7 (8.4-10.2) mg/dL Total Bilirubin 0.8 (0.2-1.3) mg/dL AST 38 (17-59) IU/L ALT 18 (<50) IU/L Alkaline Phosphatase 120 (38-126) U/L Total Creatine Kinase 104 (55-170) U/L Troponin I 0.037 H 0.039 H (0.01-0.034) ng/mL Total Protein 7.3 (6.3-8.2) g/dL Albumin 3.7 (3.5-5.0) g/dL Globulin 3.6 (1.7-4.1) g/dL Albumin/Globulin Ratio 1.0 (1.0-2.8) Point of Care Testing Glucose POC [address] scan - head: Radiologist's Impression: PROCEDURE: CT STROKE INDICATIONS: stroke TECHNIQUE: Noncontrast 4.5 mm thick angled axial sections acquired from the foramen magnum to the vertex, with coronal reformats. For radiation dose reduction, the following was used: automated exposure control, adjustment of mA and/or kV according to patient size. COMPARISON: [facility], CT, CT HEAD/BRAIN WO CON, 12/12/2023, 14:54. [facility], CT, CT STROKE, 05/25/2022, 7:33. FINDINGS: Image quality: Diagnostic. CSF spaces: Basal cisterns are patent. No extra-axial fluid collections. The ventricles are symmetric in size and shape. Brain: No intracranial bleeds or masses. There is cerebral volume loss for age, with resultant ventricular and sulcal prominence. There are periventricular and deep white matter chronic small vessel ischemic changes. There is intracranial internal carotid artery atherosclerosis. Skull and face: Calvarium and visualized facial bones appear intact, without suspicious lesions. Sinuses: Small left maxillary sinus air-fluid level. Otherwise clear. IMPRESSION: No acute intracranial pathology. Mild left maxillary sinusitis. Comment: Findings were discussed with Dr. Foley on 12/13/2023 at 1027 hours This study fulfills neurological imaging criteria for inclusion or exclusion of acute stroke therapies based on available published neurological guidelines. Dictated by: Gordon Alvarado M.D. on 12/13/2023 at 10:27 CTA - brain/neck: Radiologist's Impression: PROCEDURE: CT STROKE INDICATIONS: stroke TECHNIQUE: Noncontrast 4.5 mm thick angled axial sections acquired from the foramen magnum to the vertex, with coronal reformats. For radiation dose reduction, the following was used: automated exposure control, adjustment of mA and/or kV according to patient size. COMPARISON: [facility], CT, CT HEAD/BRAIN WO CON, 12/12/2023, 14:54. [facility], CT, CT STROKE, 05/25/2022, 7:33. FINDINGS: Image quality: Diagnostic. CSF spaces: Basal cisterns are patent. No extra-axial fluid collections. The ventricles are symmetric in size and shape. Brain: No intracranial bleeds or masses. There is cerebral volume loss for age, with resultant ventricular and sulcal prominence. There are periventricular and deep white matter chronic small vessel ischemic changes. There is intracranial internal carotid artery atherosclerosis. Skull and face: Calvarium and visualized facial bones appear intact, without suspicious lesions. Sinuses: Small left maxillary sinus air-fluid level. Otherwise clear. IMPRESSION: No acute intracranial pathology. Mild left maxillary sinusitis. Comment: Findings were discussed with Dr. Foley on 12/13/2023 at 1027 hours This study fulfills neurological imaging criteria for inclusion or exclusion of acute stroke therapies based on available published neurological guidelines. Dictated by: Gordon Alvarado M.D. on 12/13/2023 at 10:27 Chest x-ray: Radiologist's Impression: PROCEDURE: XR CHEST 1V INDICATIONS: cva TECHNIQUE: One view of the chest was acquired. COMPARISON: [facility], CR, XR CHEST FOR PICC 1V, 11/28/2023, 17:02. FINDINGS: Surgical changes and devices: Left PICC line is unchanged. Lungs and pleura: Poor inspiratory effort is present. Mild appearance of retrocardiac opacities. Mediastinum: Mediastinal contours appear normal. Heart size is enlarged. Bones and chest wall: No suspicious bony lesions. Overlying soft tissues appear unremarkable. IMPRESSION: Mild retrocardiac opacities which could represent atelectasis, edema or developing pneumonia. However, exam is limited by poor inspiratory effort. Dictated by: Kristal Tamayo M.D. on 12/13/2023 at 11:22 ECG Data Attestation: I personally reviewed and interpreted this ECG as follows: Prior ECG tracings: available for review Interpretation: Normal sinus rhythm rate 90 NE interval 224 QRS [address] changes MDM Narrative Medical decision making narrative: Patient 83-year-old male with advanced dementia presenting for the 2nd time in 24 hours. He was here yesterday with some ongoing weakness. Today he is presenting with acute vision changes there apparently was loss vision now he can see. It is clear that he can see he can see fingers he can not get the numbers quite right difficult to tell if this is secondary to dementia versus actual visual loss He is unable to follow with NIH stroke scale because he is unable to follow commands. Blood work Has been reviewed: WBC 5.3 hemoglobin 9 point hematocrit 30.5 platelets 246, PT 13.8 INR 1.2, sodium 139 potassium 5.0 chloride 105 carbon dioxide 29 BUN 16 creatinine 1.0 glucose 109 lactate 1.0, bilirubin 0.8 AST 38 ALT 18 alk-phos 120, troponin stable 0.0373 P0 1039 Blood cultures from yesterday show no growth after 24 hours Imaging reviewed: Noncontrast head CT no acute intracranial hemorrhage, CT angio no large vessel occlusion chest x-ray there are retrocardiac opacities could be atelectasis edema or pneumonia EKG reviewed as above Patient baseline dementia however there is concern for possible TIA. He was never a TNK candidate he is on Xarelto and actually had improving symptoms. accepts patient for obs Discharge Plan Departure Patient Disposition: Admitted as Observation Clinical Impression: Brain TIA Admit Date/Time: 12/13/23 13:17 Admit Provider: Scottie Doherty
--- NOTE | 2023-12-13 10:33 | EKG_ITS ---
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
--- NOTE | 2023-12-13 10:35 | DI.RAD.S_ITS ---
PROCEDURE: XR CHEST 1V INDICATIONS: cva TECHNIQUE: One view of the chest was acquired. COMPARISON: [facility], CR, XR CHEST FOR PICC 1V, 11/28/2023, 17:02. FINDINGS: Surgical changes and devices: Left PICC line is unchanged. Lungs and pleura: Poor inspiratory effort is present. Mild appearance of retrocardiac opacities. Mediastinum: Mediastinal contours appear normal. Heart size is enlarged. Bones and chest wall: No suspicious bony lesions. Overlying soft tissues appear unremarkable. IMPRESSION: Mild retrocardiac opacities which could represent atelectasis, edema or developing pneumonia. However, exam is limited by poor inspiratory effort. Dictated by: Kristal Tamayo M.D. on 12/13/2023 at 11:22 Approved by: Kristal Tamayo M.D. on 12/13/2023 at 11:22
[2023-12-13 10:47] LABS: INR 1.2 (0.9-1.3); Prothrombin Time 13.8 SECONDS (9.4-12.5)
[2023-12-13 10:49] LABS: Add Manual Diff / Slide Review NO; Basophils Absolute Auto 0 /uL (0-100); Basophils Percent Auto 0.4 % (0-2); Eosinophils Absolute Auto 0 /uL (0-450); Eosinophils Percent Auto 0.3 % (2-4); Hematocrit 30.7 % (41-53); Hemoglobin 9.9 g/dL (13.5-17.5); Lymphocytes Absolute Auto 1400 /uL (1100-4500); Lymphocytes Percent Auto 25.6 % (25-40); Mean Corpuscular HGB Conc 32.3 % (30-36); Mean Corpuscular Hemoglobin 30.4 PG (26-34); Mean Corpuscular Volume 94.3 fL (80-100); Monocytes Absolute Auto 800 /uL (0-900); Monocytes Percent Auto 14.6 % (3-14); Neutrophils Absolute Auto 3100 /uL (1500-7000); Neutrophils Percent Auto 59.1 % (50-75); Platelet Count 246 X10^3/uL (150-400); Red Blood Cell Count 3.26 X10^6/uL (4.5-5.9); Red Cell Distribution Width 17.8 % (11.6-14.8); White Blood Cell Count 5.3 X10^3/uL (4.5-11.0)
[2023-12-13 10:50] LABS: PTT Partial Thromboplastin Tim 32 SECONDS (25.1-36.5)
[2023-12-13 10:53] LABS: Alanine Aminotransferase 18 IU/L (<50); Albumin 3.7 g/dL (3.5-5.0); Alkaline Phosphatase 120 U/L (38-126); Aspartate Aminotransferase 38 IU/L (17-59); BUN Creatinine Ratio 15.8 (6-22); Bilirubin Total 0.8 mg/dL (0.2-1.3); Blood Urea Nitrogen 16 mg/dL (9-20); Calcium 8.7 mg/dL (8.4-10.2); Carbon Dioxide 29 mmol/L (22-32); Chloride 105 mmol/L (98-107); Creatine Kinase 104 U/L (55-170); Estimated Glomerular Filt Rate > 60 mL/min (>60); Globulin 3.6 g/dL (1.7-4.1); Glucose 109 mg/dL (80-110); HEMOLYSIS < 15 (0-50); Sodium 139 mmol/L (137-145); Total Protein 7.3 g/dL (6.3-8.2)
[2023-12-13 11:04] LABS: Troponin I 0.037 ng/mL (0.01-0.034)
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
[2023-12-13 13:23] LABS: Troponin I 0.039 ng/mL (0.01-0.034)
--- NOTE | 2023-12-13 15:57 | PM.HP.1 ---
History of Present Illness History of Present Illness Date Patient Seen: 12/13/23 Time Patient Seen: 15:58 Chief complaint: Code Stroke Narrative: This is an 82 year old male with PMH of CAD, HTN, HLD, DM2, prior CVA, paroxysmal afib, recent admission for acute on chronic leg wounds and was at [facility]. Yesterday he was sent in to the ER for worsening confusion. Infectious and metabolic evaluation was unremarkable. ER discussed with me yesterday and he did appears to be at his baseline mentation and was sent back to the senior living facility. He returned today, this time reportedly with decreased vision per EMS. He has had laser surgery per his sister, and has had some chronic vision changes and patient reports no issues currently with regards to his vision. He denies vision changes but also did say he could not see on his left side when assessing his vision, so he is not reliably currently due to his cognitive impairment. [facility] Medical History CVA (cerebral vascular accident) Dyslipidemia Anticoagulated Surgical History H/O foot surgery H/O heart artery stent Social History household members: family Smoking Status: Former smoker alcohol intake: former Meds Home Medications and Allergies Home Medications Medication Instructions Recorded Confirmed Type allopurinol 100 mg tablet 200 mg PO BID 04/25/22 12/13/23 History atorvastatin 80 mg tablet 80 mg PO BEDTIME 04/25/22 12/13/23 History calcium carbonate 600 mg-vitamin 1 tab PO DAILY 04/25/22 12/13/23 History D3 10 mcg (400 unit) tablet (Calcium 600 + D(3)) gabapentin 300 mg capsule 300 mg PO BID 04/25/22 12/13/23 History magnesium 200 mg tablet 400 mg PO DAILY 04/25/22 12/13/23 History pioglitazone 15 mg tablet (Actos) 15 mg PO DAILY 04/25/22 12/13/23 History rivaroxaban 20 mg tablet (Xarelto) 20 mg PO DAILY 04/25/22 12/13/23 History tamsulosin 0.4 mg capsule 0.4 mg PO DAILY 04/25/22 12/13/23 History hydrochlorothiazide 12.5 mg tablet 12.5 mg PO DAILY 05/29/23 12/13/23 History cefepime 1 gram/50 mL in dextrose 1 gm IV Q12H #10 ea 12/01/23 12/13/23 Rx 5 % intravenous piggyback doxycycline hyclate 100 mg capsule 100 mg PO BID #20 caps 12/01/23 12/13/23 Rx insulin glargine 100 unit/mL (3 30 unit (0.3 mL) SUBCUT 2100 #15 mL 12/01/23 12/13/23 Rx mL) subcutaneous pen (Lantus Solostar U-100 Insulin) oxycodone 5 mg tablet 5 mg PO Q3H PRN Pain, Moderate 12/01/23 12/13/23 Rx (4-6) #20 tabs tramadol 50 mg tablet 50 mg PO Q8H PRN pain #14 tabs 12/01/23 12/13/23 Rx Allergies Allergy/AdvReac Type Severity Reaction Status Date / Time No Known Drug Allergies Allergy Verified 12/12/23 13:47 Review of Systems Review of Systems Narrative: All other systems reviewed with the patient and are negative unless otherwise stated. Exam Vital Signs (past 8 hours): - 12/13/23 10:18 12/13/23 10:23 12/13/23 10:27 Temperature 98.6 F Pulse Rate 92 H 92 H Respiratory Rate 26 H Blood Pressure 123/100 H 187/86 H Pulse Oximetry 93 Oxygen Delivery Method Room Air 12/13/23 10:27 12/13/23 10:30 12/13/23 10:30 Temperature Pulse Rate 92 H 90 Respiratory Rate 28 H 32 H Blood Pressure 186/86 H Pulse Oximetry 97 95 Oxygen Delivery Method 12/13/23 10:35 12/13/23 10:35 12/13/23 10:40 Temperature Pulse Rate 90 Respiratory Rate 26 H Blood Pressure 183/85 H 177/82 H Pulse Oximetry 95 Oxygen Delivery Method 12/13/23 10:40 12/13/23 10:45 12/13/23 10:45 Temperature Pulse Rate 86 85 Respiratory Rate 24 23 Blood Pressure 175/73 H Pulse Oximetry 93 93 Oxygen Delivery Method 12/13/23 10:50 12/13/23 10:50 12/13/23 10:55 Temperature Pulse Rate 84 Respiratory Rate 23 Blood Pressure 182/79 H 183/77 H Pulse Oximetry 99 Oxygen Delivery Method 12/13/23 10:55 12/13/23 11:00 12/13/23 11:00 Temperature Pulse Rate 84 81 Respiratory Rate 23 21 Blood Pressure 178/77 H Pulse Oximetry 93 94 Oxygen Delivery Method 12/13/23 11:05 12/13/23 11:05 12/13/23 11:10 Temperature Pulse Rate 80 Respiratory Rate 19 Blood Pressure 171/72 H 198/81 H Pulse Oximetry 94 Oxygen Delivery Method 12/13/23 11:10 12/13/23 11:15 12/13/23 11:20 Temperature Pulse Rate 85 88 Respiratory Rate 22 22 Blood Pressure 195/77 H Pulse Oximetry 95 95 Oxygen Delivery Method 12/13/23 11:20 12/13/23 11:26 12/13/23 11:26 Temperature Pulse Rate 85 84 Respiratory Rate 22 23 Blood Pressure 200/79 H Pulse Oximetry 93 92 Oxygen Delivery Method 12/13/23 11:30 12/13/23 11:30 12/13/23 11:35 Temperature Pulse Rate 82 Respiratory Rate 22 Blood Pressure 181/76 H 170/74 H Pulse Oximetry 93 Oxygen Delivery Method 12/13/23 11:35 12/13/23 11:40 12/13/23 11:40 Temperature Pulse Rate 82 87 Respiratory Rate 22 22 Blood Pressure 172/78 H Pulse Oximetry 92 93 Oxygen Delivery Method 12/13/23 11:45 12/13/23 11:45 12/13/23 11:50 Temperature Pulse Rate 81 Respiratory Rate 21 Blood Pressure 187/80 H 173/74 H Pulse Oximetry 93 Oxygen Delivery Method 12/13/23 11:50 12/13/23 11:56 12/13/23 11:56 Temperature Pulse Rate 80 85 Respiratory Rate 22 22 Blood Pressure 197/79 H Pulse Oximetry 94 94 Oxygen Delivery Method 12/13/23 12:00 12/13/23 12:01 12/13/23 12:01 Temperature Pulse Rate 92 H 84 Respiratory Rate 25 H 21 Blood Pressure 169/71 H Pulse Oximetry 93 96 Oxygen Delivery Method 12/13/23 12:05 12/13/23 12:05 12/13/23 12:10 Temperature Pulse Rate 88 84 Respiratory Rate 24 21 Blood Pressure 170/72 H Pulse Oximetry 93 94 Oxygen Delivery Method 12/13/23 12:10 12/13/23 12:15 12/13/23 12:15 Temperature Pulse Rate 85 Respiratory Rate 23 Blood Pressure 180/118 H 179/76 H Pulse Oximetry 94 Oxygen Delivery Method 12/13/23 12:20 12/13/23 12:20 12/13/23 12:25 Temperature Pulse Rate 92 H 92 H Respiratory Rate 31 H 30 H Blood Pressure 162/72 H Pulse Oximetry 96 96 Oxygen Delivery Method 12/13/23 12:25 12/13/23 12:30 12/13/23 12:30 Temperature Pulse Rate 90 Respiratory Rate 36 H Blood Pressure 153/70 H 167/77 H Pulse Oximetry 93 Oxygen Delivery Method 12/13/23 12:35 12/13/23 12:35 12/13/23 12:40 Temperature Pulse Rate 88 Respiratory Rate 14 Blood Pressure 166/74 H 169/74 H Pulse Oximetry Oxygen Delivery Method 12/13/23 12:40 12/13/23 12:45 12/13/23 12:45 Temperature Pulse Rate 88 90 Respiratory Rate 24 30 H Blood Pressure 162/72 H Pulse Oximetry 93 Oxygen Delivery Method Room Air 12/13/23 12:50 12/13/23 12:50 12/13/23 12:56 Temperature Pulse Rate 88 84 Respiratory Rate 25 H 16 Blood Pressure 168/70 H Pulse Oximetry 95 96 Oxygen Delivery Method Room Air 12/13/23 12:56 12/13/23 13:00 12/13/23 13:00 Temperature Pulse Rate 83 Respiratory Rate Blood Pressure 161/69 H 178/72 H Pulse Oximetry Oxygen Delivery Method Oxygen Delivery Method Room Air Narrative Exam Narrative: General:? Patient is well developed and well nourished, in no distress at this time. HEENT:? Normocephalic, atraumatic, extraocular muscles intact, oral pharynx is clear and mucous membranes are moist. Neck: supple and symmetric, trachea is midline, no cervical adenopathy. Negative for JVD Chest:? Normal AP diameter and contour without kyphoscoliosis, no tachypnea, equal chest rise bilaterally. Lungs:? CTA b/l no wheezing rhonchi or rales. Cardio:?irregularly irregular, normal rate, no m/r/g. Abdomen: S NT ND. Musculoskeletal:? Muscle strength and tone are equal within normal limits, no deformity. Extremities: No joint effusions. No cyanosis or clubbing. bilateral 1 + pitting edema chronic. Skin:? Pale,? Warm to touch,dry and intact. Neuro:? Alert and orientated to person and hospital and year.? bilateral foot numbness (chronic), reports asymmetric sensation with diminished sensation (though he switches which side feels different). Chronic cognitive impairment. Objective ECG Impression: SInus rhythm with 1st degree AV block, evaluated by me. Labs 12/13/23 10:10 12/13/23 10:10 Labs: Laboratory Results - last 24 hr 12/13/23 12/13/23 10:10 12:50 WBC 5.3 RBC 3.26 L Hgb 9.9 L Hct 30.7 L MCV 94.3 MCH 30.4 MCHC 32.3 RDW 17.8 H Plt Count 246 Neut % (Auto) 59.1 Lymph % (Auto) 25.6 [place] % (Auto) 14.6 H Eos % (Auto) 0.3 L Baso % (Auto) 0.4 Neut # (Auto) 3100 Lymph # (Auto) 1400 [place] # (Auto) 800 Eos # (Auto) 0 Baso # (Auto) 0 PT 13.8 H INR 1.2 APTT 32 Sodium 139 Potassium 5.0 Chloride 105 Carbon Dioxide 29 BUN 16 Creatinine 1.01 Estimated GFR > 60 BUN/Creatinine Ratio 15.8 Glucose 109 Lactate 1.0 Calcium 8.7 Total Bilirubin 0.8 AST 38 ALT 18 Alkaline Phosphatase 120 Total Creatine Kinase 104 Troponin I 0.037 H 0.039 H Total Protein 7.3 Albumin 3.7 Globulin 3.6 Albumin/Globulin Ratio 1.0 Assessment & Plan Assessment & Plan narrative: 1. CVA - new CVA noted on MRI of R MCA. His left vision is diminished on exam, also facial asymmetrical sensation though difficult to discern how much so or accurate side in the setting of his cognitive impairment. - presume embolic due to aproxysmal afib. Continue home xarelto. - continue home BP medications, allow for permissive hypertension in setting of a stroke. - prior TTE without evidence for shunt. Given no dyspnea or signs of heart failure, will not order TTE for CVA evaluation. - PT/OT ordered. - okay to monitor without tele given known paroxysmal afib, monitor rate only with vital signs. 2. history of CAD and severe PAD - continue home xarelto 3. 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 DM2 with bilateral chronic neuropathy, with fci insulin use - continue home lantus 30 U nightly, add sliding scale - hold home oral medications - hold home gabapentin with presenting encephalopathy. 5. HTN - hold home HCTZ in setting of sepsis. 6. HLD - continue home atorvastatin. 7. Myocardial injury - no acute ischemia on EKG, troponin 0.036 > 0.039, no chest pain. Will repeat troponin tomorrow AM. 8. Recent wound infection of the lower extremity - should have finished antibiotic course at this time based on previous discharge summary including cefepime and doxy. Will monitor off antibiotics. No evidence for current infection. 9. Paroxysmal atrial fibrillation - continue home xarelto. Code: Full, surrogate decision maker is patient's sister DVT: on xarelto I have utilized all available immediate resources to obtain, update, or review the patient's current medications. Discussed with ER provider and patient's family to obtain above history, and to formulate the above assessment and plan. I have reviewed patient's previous documentation, imaging, and current labs personally. Dispo: admitted inpatient with acute CVA (initially was observation for TIA, changed after MRI), anticipated stay is beyond two midnights. Time-Based Coding :: [TOTAL MINUTES] spent with patient and on the chart (including review of chart, obtaining history, exam, reviewing outside data, placing orders, documenting exam and treatment plan, and counseling patient) on [DATE]. Quality VTE Deep Vein Thrombosis/Pulmonary Embolism Present on Admission: No
[2023-12-13] MEDS: ATORVASTATIN 20 MG TABLET 80 MG PO (20:56)
[2023-12-13] MEDS: GABAPENTIN 300 MG CAPSULE PO (20:56)
[2023-12-13] MEDS: allopurinoL 100 MG TABLET 200 MG PO (20:56)
[2023-12-13] MEDS: QUETIAPINE 25 MG TABLET 50 MG PO (20:56)
--- NOTE | 2023-12-13 21:03 | PC.NURSE ---
rn night Patient is alert to self, agitated and becoming aggressive. Notified Night time provider Dr Deon MD placed order for Rx and to reassess patient in 1 hour and notify PRN.
[2023-12-14] VITALS (10 sets, daily range): BP systolic 105–152; BP diastolic 61–73; PULSE 72–87; RESP 16–18; TEMP 36.2–36.8; O2SAT 93–98
[2023-12-14 06:22] LABS: Add Manual Diff / Slide Review NO; Basophils Absolute Auto 0 /uL (0-100); Basophils Percent Auto 0.4 % (0-2); Eosinophils Absolute Auto 0 /uL (0-450); Eosinophils Percent Auto 0.7 % (2-4); Hematocrit 26.8 % (41-53); Hemoglobin 8.8 g/dL (13.5-17.5); Lymphocytes Absolute Auto 1800 /uL (1100-4500); Lymphocytes Percent Auto 32.3 % (25-40); Mean Corpuscular HGB Conc 32.9 % (30-36); Mean Corpuscular Volume 94.2 fL (80-100); Monocytes Absolute Auto 900 /uL (0-900); Monocytes Percent Auto 16.3 % (3-14); Neutrophils Absolute Auto 2900 /uL (1500-7000); Neutrophils Percent Auto 50.3 % (50-75); Platelet Count 211 X10^3/uL (150-400); Red Blood Cell Count 2.84 X10^6/uL (4.5-5.9); Red Cell Distribution Width 17.3 % (11.6-14.8); White Blood Cell Count 5.7 X10^3/uL (4.5-11.0)
[2023-12-14 06:39] LABS: Hemoglobin A1C% w Est Avg Glu 7.9 % (4.0-6.0)
[2023-12-14 06:40] LABS: BUN Creatinine Ratio 19.5 (6-22); Blood Urea Nitrogen 22 mg/dL (9-20); Calcium 8.2 mg/dL (8.4-10.2); Carbon Dioxide 25 mmol/L (22-32); Chloride 105 mmol/L (98-107); Estimated Glomerular Filt Rate > 60 mL/min (>60); Glucose 75 mg/dL (80-110); HEMOLYSIS < 15 (0-50); Magnesium 1.5 mg/dL (1.6-2.3); Potassium 4.7 mmol/L (3.4-5.1); Sodium 134 mmol/L (137-145)
[2023-12-14 06:49] LABS: Troponin I 0.039 ng/mL (0.01-0.034)
--- NOTE | 2023-12-14 09:17 | DIET.CONS ---
Dietary Consultation Note Admission Date: 12/13/2023 13:17 Assessment: 83 y M admitted for CVA. Nutrition consulted for low MNA. PMH of severe dementia, chronic leg wounds, DM2 (7.9% A1c). Chart reviewed. Ht: 182.88 cm Wt: 91 kg BMI: 27.1 UBW: 100.698 kg on 11/28/23 (-9.5% weight in 3 wks, severe, noted chronic +1 bilateral pitting edema per EMR) Last BM: () MNA: 8 Griffin Score: 17 Diet: 12/13/23 Lunch Carbohydrate Consistent Diet Diet Modifications: Carbohydrate level: Large (4 CHO) Reflex DM orders: No Labs: RBC 2.84 X10^6/uL (4.5-5.9) L 12/14/23 05:38 Hgb 8.8 g/dL (13.5-17.5) L 12/14/23 05:38 Hct 26.8 % (41-53) L 12/14/23 05:38 Creatinine 1.13 mg/dL (0.66-1.25) 12/14/23 05:38 Hemoglobin A1c 7.9 % (4.0-6.0) H 12/14/23 05:38 Lactate 1.0 mmol/L (0.7-2.1) 12/13/23 10:10 Nutrition Diagnosis: Unintentional weight loss r/t inadequate oral intake aeb 9.5% loss in 3 weeks, severe Interventions: 1. ONS BID-TID 2. Coordinate w/unit host/kitchen for providing adequate kcals/protein, easy to eat foods EER: 100-110 g protein (1.2 g/kg per CVA, chronic wounds) Monitoring/Evaluations: po intakes, ons tolerance Electronically Signed by: Ranjana Suazo 12/14/23 09:17 Clinical Dietitian [address] [address]
[2023-12-14] MEDS: allopurinoL 100 MG TABLET 200 MG PO ×2 (10:58→21:15)
[2023-12-14] MEDS: RIVAROXABAN 10 MG TABLET 20 MG PO (10:58)
[2023-12-14] MEDS: MAGNESIUM OXIDE 400 MG TABLET PO (10:58)
[2023-12-14] MEDS: TAMSULOSIN 0.4 MG CAPSULE PO (10:59)
[2023-12-14] MEDS: hydroCHLOROthiazide 25 MG TABLET 12.5 MG PO (10:59)
[2023-12-14] MEDS: GABAPENTIN 300 MG CAPSULE PO ×2 (10:59→21:15)
--- NOTE | 2023-12-14 11:10 | PT.IIE ---
Surgical History (Last Reviewed 12/13/23 @ 10:33 by Marine Foley DO) H/O foot surgery H/O heart artery stent Medical History (Last Reviewed 12/13/23 @ 10:33 by Marine Foley DO) Anticoagulated CVA (cerebral vascular accident) Dyslipidemia Physical Therapy Inpatient Evaluation/Re-Eval M1 PT/OT-IP Prior Functional Status Start: 12/14/23 12:52 Freq: NEEDED Status: Active Protocol: Document 12/14/23 11:10 AB (Rec: 12/14/23 13:08 AB [id number]) Medical Review Prior Functional Status Medical History Reviewed Yes Communication able to make needs known; needs time to respond to questions and instructions Mobility and Gait pt stated that he was modified independent with all mobilities and ambulation without AD Social History Living Arrangements Skilled Nurse Facility Number of Stairs To Enter/Railing? Per EMR: pt resides at [facility] but per pt, he lives with spouse in a one level house Home Environment Standard Height Toilet,Walk in Shower Home Equipment Hand Held Shower M2 PT-IP Current Condition Start: 12/14/23 12:52 Freq: NEEDED Status: Active Protocol: Document 12/14/23 11:10 AB (Rec: 12/14/23 13:08 AB [id number]) Physical Therapy Current Condition Current Condition Evaluation Date 12/14/23 Treatment Diagnosis R CVA; difficulty in walking Onset Date 12/13/23 M3 PT-IP Subjective Start: 12/14/23 12:52 Freq: NEEDED Status: Active Protocol: Document 12/14/23 11:10 AB (Rec: 12/14/23 13:08 [id number]) Subjective Physical Therapy Visit Type Type Initial Evaluation Visit Start Time 11:10 Visit Stop Time 11:35 Number of YACHT MASTER Visits 0 Physical Therapy Visit Comments Patient Comments initially refused and wants to just sleep but when PT checked back after ~ 1hour : pt agreeable to do PT Therapy Pain Assessment Pain When Pain Assessed At Rest Pain Present Pain Present Pain Reported Location Left Heel Scale Used pain scale not stated Pain Management Techniques Distraction,Elevation, Modification of Treatment,Re- positioning,Timing of Activity with Medications M4 PT-IP Mobility and Gait Start: 12/14/23 12:52 Freq: NEEDED Status: Active Protocol: Document 12/14/23 11:10 AB (Rec: 12/14/23 13:08 AB [id number]) PT-Bed Mobility Assessment Supine to Sit Supine to Sit Minimal Assistance,Head of Bed Elevated,Bedrails Scooting Scooting to Edge of Bed Maximum Assistance PT-Transfer Assessment Sit to and From Stand Sit to and from Stand Maximum Assistance,2 Person Assistance,Use of Upper Extremities Equipment Transfer Assistive Device Gait Belt,Front Wheeled Walker Orthotic/Prosthetic Devices or Brace: No Transfers Transfer Destination Chair Transfer Technique Stand Step Pivot Transfer Ability Level of Assist Maximum Assistance,2 Person Assistance,Use of Upper Extremities Comments Mobility Comments pt supine in bed. obtained PLOF and home set up from pt. BP: 133/78. pt completed supine to sit min A and max cues. pt with difficulty following instructions and needs max cues, repetitions and increase time to complete tasks. pt able to sit on EOB CGA. required max A for scooting to EOB. pt with slight L sided neglect and need cues to use LUE to scoot. pt completed sit to stand from EOB x 3 attempts requiring max A x 2 and max cues. max A for standing balance using fWW. instructed pt to ambulate but only able to take 2 steps using FWW max A x 2 and max cues and PT needing to maneuver FWW for pt and steady pt due to decrease motor planning. directed pt to sit on the chair and completed step transfer to chair using FWW max A x 2 and max cues. positioned pt on the chair. call light and table placed within reach. chair alarm provided by nurse. Gait Assessment Comments Gait Comments was only able to take 2 steps using FWW max A x 2 and max cues PT-Balance Assessment Sitting Balance and Reactions Static Sitting Balance Ability Good Dynamic Sitting Balance Ability Fair Standing Balance and Reactions Static Standing Balance Ability Poor Dynamic Standing Balance Ability Poor Device Used FWW M5 PT-IP Objective Assessments Start: 12/14/23 12:52 Freq: NEEDED Status: Active Protocol: Document 12/14/23 11:10 AB (Rec: 12/14/23 13:08 AB [id number]) Orientation Orientation/Cognition Level of Alertness Confusional State Orientation Name Safety Awareness Decreased Safety Awareness Memory Description Short Term Impaired,Technical Instructor Course Developer Impaired Gross Range of Motion Lower Extremity ROM Assessment Within Functional Limits Strength Lower Extremity Strength Assessment Bilaterally Impaired Hip 3+/5 Knee 3+/5 Muscle Tone Muscle Tone WNL Yes M6 PT-IP Treatment Start: 12/14/23 12:52 Freq: NEEDED Status: Active Protocol: Document 12/14/23 11:10 AB (Rec: 12/14/23 13:08 AB [id number]) Physical Therapy Treatment Education Education Provided Safety M7 PT-IP Assessment and Plan Start: 12/14/23 12:52 Freq: NEEDED Status: Active Protocol: Document 12/14/23 11:10 AB (Rec: 12/14/23 13:08 AB [id number]) PT Summary Assessment and Plan Potential Rehabilitation Potential Fair Status of Condition at Evaluation Evolving Summary Impairments Pain,ROM,Strength,Balance, Coordination,Sensation,Tone, Cognition,Bed Mobility, Transfers,Gait,Activity Tolerance Assessment Summary pt is an 83 y/o M who presented to the ED due to vision changes. Pt admitted for CVA. pt with R MCA infarct from MRI. pt requiring max A x 2 for transfers using FWW and with difficulty following directions and with decrease motor planning. pt will require SNF rehab to improve mobility. will continue to assess. Goals Bed Mobility Goal Standby Assistance Transfer Goal Minimal Assistance,Front Wheeled Walker Gait Goal Minimal Assistance,Front Wheel Walker Gait Distance 50 Other Goals improve transfers, ambulation using fWW ~ 150 ft SBA Days to Meet Goals 10 Frequency of Treatment Frequency Of Treatment Once a Day Treatment Plan Physical Therapy Treatment Plan Bed Mobility Training,Transfer Training,Gait Training, Therapeutic Exercise,Balance Retraining,Discharge Planning, Hot or Cold Pack,Neuromuscular Re-ed,Coordination Retraining ,Manual Therapy Precautions Other Precautions falls Recommendations To Nursing Amount of Assist Needed 2 Person Assist Discharge Recommendations PT Discharge Recommendations SNF Rehab Transportation Needs at Discharge Wheelchair/Cabulance
[2023-12-14] MEDS: MAGNESIUM CHLORIDE 64 MG TABLET 128 MG PO (12:00)
--- NOTE | 2023-12-14 12:31 | OT.IP.EVAL ---
Current Diagnoses Cerebral infarction, unspecified (12/13/23) Past Medical History (Last Reviewed 12/13/23 @ 10:33 by Marine Foley DO) Anticoagulated CVA (cerebral vascular accident) Dyslipidemia Surgical History (Last Reviewed 12/13/23 @ 10:33 by Marine Foley DO) H/O foot surgery H/O heart artery stent Occupational Therapy Inpatient Evaluation/Re-Eval M1 PT/OT-IP Prior Functional Status Start: 12/14/23 12:52 Freq: NEEDED Status: Active Protocol: Document 12/14/23 13:11 [facility] (Rec: 12/14/23 13:35 [facility] [id number]) Medical Review Prior Functional Status Medical History Reviewed Yes Communication able to make needs known; needs time to respond to questions and instructions Mobility and Gait pt stated that he was modified independent with all mobilities and ambulation without AD Activities of Daily Living and IADL's Pt has assist for all. Prior Functional Level (Other details) Pt has been at [facility]. Social History Household Members family Living Arrangements Skilled Nurse Facility Additional Social History Comment Pt during OT eval aware that he is at [facility] and states gets assist for toileting and bathing needs. Also that someone is present for mobility needs. M2 OT-IP Current Condition Start: 12/14/23 13:10 Freq: Status: Active Protocol: Document 12/14/23 13:11 [facility] (Rec: 12/14/23 13:35 [facility] [id number]) Occupational Therapy Current Condition Current Condition Evaluation Date 12/14/23 Treatment Diagnosis Right MCA CVA Diagnosis Onset Date 12/13/23 M3 OT- IP Subjective and Pain Start: 12/14/23 13:10 Freq: Status: Active Protocol: Document 12/14/23 13:11 [facility] (Rec: 12/14/23 13:35 [facility] [id number]) OT- Subjective Occupational Therapy Visit Type Type Initial Evaluation Visit Start Time 12:03 Visit Stop Time 12:35 Occupational Therapy Visit Comments Patient Comments Pt agreed to see OT. Patient/Caregiver Goals Pt not able to state. OT Pain Assessment Pain When Pain Assessed At Rest Pain Present Pain Present Denied Pain M4 OT- IP ADL's Start: 12/14/23 13:10 Freq: Status: Active Protocol: Document 12/14/23 13:11 [facility] (Rec: 12/14/23 13:35 [facility] [id number]) OT WOD-Pokk-Ddtcwou General Evaluation Self-Feeding Ability Moderate Assistance Areas Needing Assistance Opening Containers Comments OT Self-Feeding Comments Pt needing MAX vc to look to the left to find items on the tray. Pt able to use his right hand for hand to mouth when able to see the utensil. OT ADL-Grooming Comments OT Grooming Comments Not performed. OT ADL-Oral Care Comments Oral Care Comments Not performed. OT ADL-Dressing General Eval Lower Body Dressing Ability Maximum Assistance Comments OT Dressing Comments Pt able to cross his left leg over and over able to don sock over his left big toe and did not realize he did not get the sock over his other toes due to visual deficits to the left . Had pt try again and still not able to correct his error. OT ADL-Toileting Comments OT Toileting Comments Not performed, pt will need assist for all. OT ADL-Bathing Comments OT Bathing Comments Pt will need assist. M5 OT- IP IADL's Start: 12/14/23 13:10 Freq: Status: Active Protocol: Document 12/14/23 13:11 [facility] (Rec: 12/14/23 13:35 [facility] [id number]) OT-Instrumental Activities of Daily Living Home Safety Awareness Awareness of Need for Assistance at Home Decreased Awareness Ability to Problem Solve Emergency Unable to Problem Solve Situations Home Safety Comments Pt not aware of his deficits at this time especially for his left neglect, decreased sensation and decreased vision to the left as well. Medication Management Medication Management Caregiver Administers Money Management Money Management Caregiver Provides Assistance Meal Preparation Meal Preparation Caregiver Provides Assist Hemming And Tacking Machine Operator Hemming And Tacking Machine Operator Caregiver Provides Assist M6 OT- IP Functional Cognition Start: 12/14/23 13:10 Freq: Status: Active Protocol: Document 12/14/23 13:11 [facility] (Rec: 12/14/23 13:35 [facility] [id number]) Cognitive Factors Limiting Selfcare Function Cognitive Ability Level of Alertness Alert Patient Orientation Name Attention Span Ability Capable of Focused Attention, Unable to Sustain Attention Ability to Follow Commands Able to Follow One Step Commands with Increased Time, Able to Follow One Step Commands with Repetition Memory Description Short Term Impaired,Working Impaired Problem Solving Ability Unable to Identify Errors, Needs Assist to Identify Solutions Cognitive Tests SLUMS Initiated SLUMS with pt as pt completed with TOP FRAME FITTER after his CVA 04/25/22, pt scored 13/26. Attempted today and pt able to states the day, thought it was '74 for the year and able to say Khalil for the state we are in. Pt not able to do any math manipulation today versus last time able with TOP FRAME FITTER in 2021. Pt states too tired to complete SLUM and score so far 2/6. Cognitive Comments Cognitive Assessment Comments Pt decreased STM, neglect to the left, decreased awareness of his deficits. Pt needing concrete simple cues in addition to visual cues for his ADl and mobility needs at this time. OT- Vision and Hearing OT- Hearing Assessment OT- Hearing Assessment Hearing Impaired OT- Vision Assessment Visual Attentiveness Impaired Occular Pursuits Impaired Horizontal Visual Convergence Impaired Visual Baldwin Impaired Visual Spacial Neglect Left Vision Assessment Comments Pt tends to gaze to the right but able to move his eyes with cues to midline and to the left. Pt decreased for depth perception and therefore may increase risk on falls in addition to his poor balance. M7 OT- IP Mobility and Balance Start: 12/14/23 13:10 Freq: Status: Active Protocol: Document 12/14/23 13:11 [facility] (Rec: 12/14/23 13:35 [facility] [id number]) OT-Transfer Assessment Sit to and From Stand Sit to and from Stand Maximum Assistance,1 Person Assistance Comments Mobility Comments Pt needing assist to help scoot to the edge of the chair and MAX AX 1 to stand to the FWW. MODA to help slow down his descent to sit back down. At this will benefit from two person assist for needs. OT- Balance Assessment Sitting Balance and Reactions Static Sitting Balance Ability Good Dynamic Sitting Balance Ability Fair Standing Balance and Reactions Static Standing Balance Ability Poor M8 OT- IP Objective Assessments Start: 12/14/23 13:10 Freq: Status: Active Protocol: Document 12/14/23 13:11 [facility] (Rec: 12/14/23 13:35 [facility] [id number]) OT Gross Range of Motion Upper Extremity Range of Motion Assessment Left Impaired OT Strength Upper Extremity Strength Assessment Left Impaired Shoulder 3- Elbow 4- Forearm 4- Wrist 4 Hand 4 OT- Coordination Assessment Upper Extremity Finger to Nose Test Left UE Impaired Comments Coordination Comments Slightly off for left hand. OT Sensation Assessment Comments Summary Comments Unable to feel left arm throughout for light touch. M9 OT- IP Assessment and Plan Start: 12/14/23 13:10 Freq: Status: Active Protocol: Document 12/14/23 13:11 [facility] (Rec: 12/14/23 13:35 [facility] [id number]) OT Summary Assessment and Plan Potential Rehabilitation Potential Fair Analytic Complexity at Evaluation Moderate Summary OT Impairments Range of Motion,Strength, Balance,Coordination,Sensation ,Functional Cognition, Functional Mobility,Self- Feeding,Grooming,Dressing, Toileting,Bathing,Toilet Transfers,Shower Transfers, Activity Tolerance Progress Towards Goals Slow Progress due to Medical Issues,Slow Progress due to Activity Tolerance,Slow Progress due to Cognition Assessment Summary Pt MOD complexity and main barriers are decreased sensation and neglect of LUE, decreased visual deficits to the left and now needing extensive assist for ADL and mobility needs. Pt to go back to skilled rehab when medically stable. Goals Self-Feeding Goal Standby Assistance Grooming Goal Standby Assistance Dressing Goal Moderate Assistance Toileting Goal Moderate Assistance Bathing Goal Moderate Assistance Toilet Transfer Goal Minimal Assistance Shower Transfer Goal Moderate Assistance Days to Meet Goals 30 Frequency of Treatment Frequency Of Treatment Once a Day Treatment Plan OT Treatment Plan ADL Training,Functional Cognition Training,Functional Mobility,Vision Retraining, Patient/Family Education, Discharge Planning Other Treatment Recommendations and Next Transfer to [facility] with MODA X 2 Treatment Focus with FWW. Discharge Recommendations OT Discharge Recommendations SNF Rehab Transportation Needs at Discharge Wheelchair/Cabulance
--- NOTE | 2023-12-14 13:41 | CM.DPC ---
DCP Continued: Reviewed EMR and team rounds for pt?s medical status. Per rounds, pt could discharge tp [facility] as soon as Sunday, 12/14, if medically cleared. DCP called [facility] and spoke with admissions (ph#[phone]), it was reported that pt can be accepted at 1100 (transport should be at 0930) if all discharge paperwork was sent by end of day on Sunday, 12/13. DCP discussed this with hospitalist who will be coordinating with Surgery team for wound vac orders and instructions. PASRR and BLS transport form completed. Pending discharge orders, wound vac orders, and 7-day MAR to be sent to facility prior to discharge. Once paperwork is sent, need to confirm S transport with [facility] at ~0930. Plan: Anticipating discharge to [facility] on Sunday, 12/14 for an arrival at 1100, transport at 0930. Pending discharge/wound vac orders to be sent to facility. CM Team will continue to follow for coordination of discharge plans. PAULINE Vieyra
--- NOTE | 2023-12-14 15:33 | PM.PN.1 ---
Subjective Subjective Interval history: Patient is more alert today, denies complaints. States he cannot see out of his left now. Exam Vital Signs (past 8 hours): - 12/14/23 08:00 12/14/23 09:00 12/14/23 12:00 Temperature 98.0 F 97.1 F L Pulse Rate 79 87 Respiratory Rate 16 16 Blood Pressure 152/72 H 128/73 Pulse Oximetry 93 93 94 Oxygen Delivery Method Room Air 12/14/23 13:00 Temperature Pulse Rate Respiratory Rate Blood Pressure Pulse Oximetry 94 Oxygen Delivery Method Room Air Oxygen Delivery Method Room Air Oxygen Flow Rate 0 Narrative Exam Narrative: General:? Patient is well developed and well nourished, in no distress at this time. HEENT:? Normocephalic, atraumatic, extraocular muscles intact, oral pharynx is clear and mucous membranes are moist. Neck: supple and symmetric, trachea is midline, no cervical adenopathy. Negative for JVD Chest:? Normal AP diameter and contour without kyphoscoliosis, no tachypnea, equal chest rise bilaterally. Lungs:? CTA b/l no wheezing rhonchi or rales. Cardio:?irregularly irregular, normal rate, no m/r/g. Abdomen: S NT ND. Musculoskeletal:? Muscle strength and tone are equal within normal limits, no deformity. Extremities: No joint effusions. No cyanosis or clubbing. bilateral 1 + pitting edema chronic. Skin:? Pale,? Warm to touch,dry and intact. Neuro:? Alert and orientated to person and hospital and year.? bilateral foot numbness (chronic), reports asymmetric sensation with diminished sensation (though he switches which side feels different). Chronic cognitive impairment. Objective Labs 12/14/23 05:38 12/14/23 05:38 Labs: Laboratory Results - last 24 hr 12/14/23 05:38 WBC 5.7 RBC 2.84 L Hgb 8.8 L Hct 26.8 L MCV 94.2 MCH 31.0 MCHC 32.9 RDW 17.3 H Plt Count 211 Neut % (Auto) 50.3 Lymph % (Auto) 32.3 [place] % (Auto) 16.3 H Eos % (Auto) 0.7 L Baso % (Auto) 0.4 Neut # (Auto) 2900 Lymph # (Auto) 1800 [place] # (Auto) 900 Eos # (Auto) 0 Baso # (Auto) 0 Sodium 134 L Potassium 4.7 Chloride 105 Carbon Dioxide 25 BUN 22 H Creatinine 1.13 Estimated GFR > 60 BUN/Creatinine Ratio 19.5 Glucose 75 L Hemoglobin A1c 7.9 H Calcium 8.2 L Magnesium 1.5 L Troponin I 0.039 H [facility] Medical History CVA (cerebral vascular accident) Dyslipidemia Anticoagulated Surgical History H/O foot surgery H/O heart artery stent Social History household members: family Smoking Status: Former smoker alcohol intake: former Assessment & Plan Assessment & Plan narrative: 1. CVA - new CVA noted on MRI of R MCA. His left vision is diminished on exam, and he seems more alert to say his vision has decreased. No decreased sensation now reported on his face. - presume embolic due to paroxysmal afib. Continue home xarelto. - allowed for permissive hypertension in setting of a stroke. Resumed home HCTZ - prior TTE without evidence for shunt. Given no dyspnea or signs of heart failure, will not order TTE for CVA evaluation. - PT/OT to brandy - okay to monitor without tele given known paroxysmal afib, monitor rate only with vital signs. 2. history of CAD and severe PAD - continue home xarelto 3. 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 DM2 with bilateral chronic neuropathy, with senior care insulin use - continue home lantus 30 U nightly, add sliding scale - hold home oral medications - hold home gabapentin with presenting encephalopathy. 5. HTN - cpntinue home hctz 6. HLD - continue home atorvastatin. 7. Myocardial injury - no acute ischemia on EKG, troponin 0.036 > 0.039 > 0.039. no chest pain. Have stopped trending given stability. 8. Recent wound infection of the lower extremity - should have finished antibiotic course at this time based on previous discharge summary including cefepime and doxy. Will monitor off antibiotics. No evidence for current infection. 9. Paroxysmal atrial fibrillation - continue home xarelto. Rate controlled. Code: Full, surrogate decision maker is patient's sister DVT: on xarelto I have utilized all available immediate resources to obtain, update, or review the patient's current medications. Discussed with case management, therapy staff, and bedside staff. obtain above history, and to formulate the above assessment and plan. I have reviewed patient's previous documentation, imaging, and current labs personally. Dispo: Inpatient, likely return to SNF tomorrow. Time-Based Coding :: [TOTAL MINUTES] spent with patient and on the chart (including review of chart, obtaining history, exam, reviewing outside data, placing orders, documenting exam and treatment plan, and counseling patient) on [DATE]. Quality VTE Deep Vein Thrombosis/Pulmonary Embolism Present on Admission: No
--- NOTE | 2023-12-14 16:25 | CM.DANOTE ---
DCP Assessment Note: Pt is a 83yo female, resident of [place], presented to the ED with concern of a Brain TIA. Pt is a resident at [facility] and , private pay. Pt's Primary Care Provider is Dr. Scottie Milton and insurance is Medicare and [employer] Reviewed chart and team rounds for pt's medical status and initial discharge needs. DCP attempted to meet with patient twice, both times pt was with occupational therapy or sound asleep. DCP spoke with [facility] Admissions to confirm pt can be accepted back. It was reported that pt is currently under private pay status due to no safe home plan. Per Admissions, if pt is admitted inpatient, after three midnights, pt can return with Medicare SNF benefit. DCP spoke with pt's sister, Kendy Jarrett, who is pt's medical proxy. Per RN, pt spoke with sister earlier today. Per sister, pt expressed preference for returning to [facility] when medically stable. DCP discussed readmission after 3 midnights to activate Medicare benefit, pt sister in agreement and stated, That would be the most perfect plan for him, especially with his confusion right now. Per PT/OT notes, pt is being recommended for SNF Rehab. Plan: Anticipating dc to [facility] after three midnights (Sunday, 12/16). CM team will plan to follow clinical course closely for coordination of discharge plan. PAULINE Vieyra Discharge Planning/Care Management CM Discharge Assessment Start: 12/14/23 16:20 Freq: Status: Active Protocol: Document 12/14/23 16:20 [facility] (Rec: 12/14/23 16:25 [facility] [id number]) Discharge Planning Assessment Assigned Furnace Filler GENIA Jim DPOA/Assigned Designee Name Sister Whitfield Contact Information [phone] Advance Directives? Yes: POLST Advance Directives on File No History Provided By Family Member,Medical Record Expected Length of Stay 3 Prior Living Arrangements Skilled Nurse Facility Comment Patient lives at [facility] under private pay. Household Members none Type of transporation used prior to Relies on Others admit Facility Name Admitted From: Other Willing to Return to Facility? Yes: [facility] and [facility] Independent with ADL's No Is patient alert and oriented? No: Mild confusion, per EMR Caregiver for Another No Patient/Family Preference Half-Way Facility Discharge Plan Half-Way Facility Transportation Arrangement [facility] to provide transport at discharge. Referrals Initiated None needed Whiteboard Updated in Patient Room with Yes name and ext. # of Furnace Filler Please Provide Date Initial DC 12/14/23 Assessment Was Performed Next Review Type Continued Stay Review
[2023-12-14] MEDS: INSULIN LISPRO 100 UNIT/ML 3ML VIAL SUBCUT (18:00)
[2023-12-14] MEDS: NYSTATIN POWDER 15GM 1 APPLIC TOP (20:08)
[2023-12-14] MEDS: ATORVASTATIN 20 MG TABLET 80 MG PO (21:15)
[2023-12-14] MEDS: INSULIN GLARGINE 100 UNIT/ML 3ML PEN 30 UNIT SUBCUT (21:16)
[2023-12-15] VITALS (7 sets, daily range): BP systolic 125–136; BP diastolic 67–85; PULSE 70–79; RESP 16–20; TEMP 36.6–37.2; O2SAT 92–95
[2023-12-15 06:22] LABS: Add Manual Diff / Slide Review NO; Basophils Absolute Auto 100 /uL (0-100); Basophils Percent Auto 1.3 % (0-2); Eosinophils Absolute Auto 100 /uL (0-450); Eosinophils Percent Auto 1.3 % (2-4); Hematocrit 25.4 % (41-53); Hemoglobin 8.2 g/dL (13.5-17.5); Lymphocytes Absolute Auto 1500 /uL (1100-4500); Lymphocytes Percent Auto 28.9 % (25-40); Mean Corpuscular HGB Conc 32.5 % (30-36); Mean Corpuscular Hemoglobin 30.7 PG (26-34); Mean Corpuscular Volume 94.6 fL (80-100); Monocytes Absolute Auto 900 /uL (0-900); Monocytes Percent Auto 16.9 % (3-14); Neutrophils Absolute Auto 2700 /uL (1500-7000); Neutrophils Percent Auto 51.6 % (50-75); Platelet Count 186 X10^3/uL (150-400); Red Blood Cell Count 2.69 X10^6/uL (4.5-5.9); Red Cell Distribution Width 17.8 % (11.6-14.8); White Blood Cell Count 5.3 X10^3/uL (4.5-11.0)
[2023-12-15 06:38] LABS: BUN Creatinine Ratio 18.3 (6-22); Blood Urea Nitrogen 31 mg/dL (9-20); Carbon Dioxide 27 mmol/L (22-32); Chloride 106 mmol/L (98-107); Estimated Glomerular Filt Rate 40 mL/min (>60); Glucose 123 mg/dL (80-110); HEMOLYSIS < 15 (0-50); Magnesium 1.8 mg/dL (1.6-2.3); Potassium 4.6 mmol/L (3.4-5.1); Sodium 133 mmol/L (137-145)
--- NOTE | 2023-12-15 07:03 | PC.NURSE ---
Slept most of the night, no C/O chest pain. headache & other discomfort. RLE wound draining serous drainage. Dressing replaced, will report to day RN.
--- NOTE | 2023-12-15 08:26 | PM.PN.1 ---
Subjective Subjective Interval history: Denies any problems or concerns. Has normal feeling strength of arms and legs. Normal speech. Exam Vital Signs (past 8 hours): - 12/15/23 00:36 12/15/23 01:00 12/15/23 04:40 Temperature 98.3 F 98.2 F Pulse Rate 70 72 Respiratory Rate 18 18 Blood Pressure 125/72 136/67 Pulse Oximetry 94 94 92 Oxygen Delivery Method Room Air Oxygen Flow Rate 0 0 12/15/23 05:00 Temperature Pulse Rate Respiratory Rate Blood Pressure Pulse Oximetry 92 Oxygen Delivery Method Room Air Oxygen Flow Rate Oxygen Delivery Method Room Air Oxygen Flow Rate 0 Narrative Exam Narrative: NAD, alert and oriented. Fluent speech. Does not remember me, I have met him several times before. Lungs are clear, normal rate and effort. Heart is regular, no murmur gallop or rub. Abdomen is soft, non distended. Extremities are free of edema. Right foot and heel are wrapped. His right thigh is completely free of redness from his previous exam by myself. PICC in place. Objective Labs 12/15/23 05:40 12/15/23 05:40 Labs: Laboratory Results - last 24 hr 12/15/23 05:40 WBC 5.3 RBC 2.69 L Hgb 8.2 L Hct 25.4 L MCV 94.6 MCH 30.7 MCHC 32.5 RDW 17.8 H Plt Count 186 Neut % (Auto) 51.6 Lymph % (Auto) 28.9 [place] % (Auto) 16.9 H Eos % (Auto) 1.3 L Baso % (Auto) 1.3 Neut # (Auto) 2700 Lymph # (Auto) 1500 [place] # (Auto) 900 Eos # (Auto) 100 Baso # (Auto) 100 Sodium 133 L Potassium 4.6 Chloride 106 Carbon Dioxide 27 BUN 31 H Creatinine 1.69 H Estimated GFR 40 L BUN/Creatinine Ratio 18.3 Glucose 123 H Calcium 8.0 L Magnesium 1.8 PFSH Medical History CVA (cerebral vascular accident) Dyslipidemia Anticoagulated Surgical History H/O foot surgery H/O heart artery stent Social History household members: none Smoking Status: Former smoker alcohol intake: former Assessment & Plan Assessment & Plan narrative: 1. CVA, present on admission and active. No gross motor deficits. - new CVA noted on MRI of R MCA. His left vision is diminished on exam, and he seems more alert to say his vision has decreased. No decreased sensation now reported on his face. - presume embolic due to paroxysmal afib. Continue home xarelto. - allowed for permissive hypertension in setting of a stroke. Resumed home HCTZ - prior TTE without evidence for shunt. Given no dyspnea or signs of heart failure, will not order TTE for CVA evaluation. - PT/OT to contninue - okay to monitor without tele given known paroxysmal afib, monitor rate only with vital signs. 2. CAD and severe PAD, present on admission and stable. - continue home xarelto 3. 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 - continue home xarelto 4. DM2 with bilateral chronic neuropathy, with senior care insulin use, present on admission and stable. - continue home lantus 30 U nightly, add sliding scale - hold home oral medications - hold home gabapentin with presenting encephalopathy. 5. HTN, present on admission and stable. - continue home hctz 6. HLD, present on admission and stable. - continue home atorvastatin. 7. Myocardial injury, present on admission and stable. - no acute ischemia on EKG, troponin 0.036 > 0.039 > 0.039. no chest pain. Have stopped trending given stability. 8. Recent wound infection of the lower extremity, present on admission and stable. - should have finished antibiotic course at this time based on previous discharge summary including cefepime and doxy. Will monitor off antibiotics. No evidence for current infection. 9. Paroxysmal atrial fibrillation, present on admission and stable. - continue home xarelto. Rate controlled. 10. Right achilles wound, , present on admission and stable. -we will discuss with the wound care on Sunday. They are planning hyperbaric treatments. PLAN: -continue current care, we will likely remove PICC before return to [facility]. -[facility] can not accept him until December 16. -IV fluids. -monitor intake. -discussed with wound care on Sunday. Code: Full, surrogate decision maker is patient's sister DVT: on xarelto SNF Sunday (not able to take until then) Time-Based Coding :: [TOTAL MINUTES] spent with patient and on the chart (including review of chart, obtaining history, exam, reviewing outside data, placing orders, documenting exam and treatment plan, and counseling patient) on [DATE]. Quality VTE Deep Vein Thrombosis/Pulmonary Embolism Present on Admission: No
[2023-12-15] MEDS: allopurinoL 100 MG TABLET 200 MG PO ×2 (08:30→21:44)
[2023-12-15] MEDS: TAMSULOSIN 0.4 MG CAPSULE PO (08:30)
[2023-12-15] MEDS: RIVAROXABAN 10 MG TABLET 20 MG PO (08:30)
[2023-12-15] MEDS: GABAPENTIN 300 MG CAPSULE PO ×2 (08:30→21:44)
[2023-12-15] MEDS: MAGNESIUM OXIDE 400 MG TABLET PO (08:30)
[2023-12-15] MEDS: hydroCHLOROthiazide 25 MG TABLET 12.5 MG PO (08:31)
[2023-12-15] MEDS: SODIUM CHLORIDE 0.9% FLUSH 10 ML IV ×2 (08:38→21:47)
[2023-12-15] MEDS: INSULIN LISPRO 100 UNIT/ML 3ML VIAL SUBCUT ×3 (08:40→17:55)
[2023-12-15] MEDS: NYSTATIN POWDER 15GM 1 APPLIC TOP (10:23)
--- NOTE | 2023-12-15 11:11 | PT-IP ANOTE ---
Pt refused to work with PT this morning. PT will check on pt later this afternoon if time is available.
[2023-12-15] MEDS: SODIUM CHLORIDE 0.9% 1,000 ML 84 ML IV (13:18)
--- NOTE | 2023-12-15 13:47 | PT-IP ANOTE ---
Pt refused to work with PT again this afternoon. Does not want to get out of bed. PT will check on pt tomorrow.
[2023-12-15] MEDS: ATORVASTATIN 20 MG TABLET 80 MG PO (21:45)
[2023-12-15] MEDS: INSULIN GLARGINE 100 UNIT/ML 3ML PEN 30 UNIT SUBCUT (21:45)
[2023-12-16 03:00] VITALS: O2SAT 96
[2023-12-16] MEDS: SODIUM CHLORIDE 0.9% 1,000 ML 84 ML IV ×2 (05:32→16:55)
[2023-12-16 05:36] LABS: Add Manual Diff / Slide Review NO; Basophils Absolute Auto 100 /uL (0-100); Eosinophils Absolute Auto 100 /uL (0-450); Eosinophils Percent Auto 1.4 % (2-4); Hematocrit 26.1 % (41-53); Hemoglobin 8.5 g/dL (13.5-17.5); Lymphocytes Absolute Auto 1500 /uL (1100-4500); Lymphocytes Percent Auto 26.3 % (25-40); Mean Corpuscular HGB Conc 32.5 % (30-36); Mean Corpuscular Hemoglobin 30.7 PG (26-34); Mean Corpuscular Volume 94.5 fL (80-100); Monocytes Absolute Auto 900 /uL (0-900); Monocytes Percent Auto 16.1 % (3-14); Neutrophils Absolute Auto 3100 /uL (1500-7000); Neutrophils Percent Auto 55.2 % (50-75); Platelet Count 190 X10^3/uL (150-400); Red Blood Cell Count 2.76 X10^6/uL (4.5-5.9); Red Cell Distribution Width 17.5 % (11.6-14.8); White Blood Cell Count 5.6 X10^3/uL (4.5-11.0)
[2023-12-16 05:56] LABS: BUN Creatinine Ratio 22.8 (6-22); Blood Urea Nitrogen 36 mg/dL (9-20); Calcium 8.1 mg/dL (8.4-10.2); Carbon Dioxide 26 mmol/L (22-32); Chloride 106 mmol/L (98-107); Estimated Glomerular Filt Rate 43 mL/min (>60); Glucose 114 mg/dL (80-110); HEMOLYSIS < 15 (0-50); Magnesium 1.7 mg/dL (1.6-2.3); Potassium 4.5 mmol/L (3.4-5.1); Sodium 134 mmol/L (137-145)
--- NOTE | 2023-12-16 07:34 | CM.DPC ---
DCP Cont. Reviewed EMR and team rounds for status updates. Plan is d/c to [facility] on Sunday, will need to confirm transport time in the am.
--- NOTE | 2023-12-16 07:44 | P.PN_ITS ---
Subjective Subjective Interval history: No new problems or concerns. He was breathing well, denies pain issues. His arms and legs are moving without difficulty. His speech is normal. He was in the room with his sister, Kendy. Exam Vital Signs (past 8 hours): - 12/16/23 03:00 Pulse Oximetry 96 Oxygen Delivery Method Room Air Oxygen Delivery Method Room Air Oxygen Flow Rate 0 Narrative Exam Narrative: NAD, alert and oriented. Fluent speech. Lungs are clear, normal rate and effort. Heart is regular, no murmur gallop or rub. Abdomen is soft, non distended. Extremities are free of edema. Right foot is wrapped. Objective Labs 12/16/23 04:59 12/16/23 04:59 Labs: Laboratory Results - last 24 hr 12/16/23 04:59 WBC 5.6 RBC 2.76 L Hgb 8.5 L Hct 26.1 L MCV 94.5 MCH 30.7 MCHC 32.5 RDW 17.5 H Plt Count 190 Neut % (Auto) 55.2 Lymph % (Auto) 26.3 [place] % (Auto) 16.1 H Eos % (Auto) 1.4 L Baso % (Auto) 1.0 Neut # (Auto) 3100 Lymph # (Auto) 1500 [place] # (Auto) 900 Eos # (Auto) 100 Baso # (Auto) 100 Sodium 134 L Potassium 4.5 Chloride 106 Carbon Dioxide 26 BUN 36 H Creatinine 1.58 H Estimated GFR 43 L BUN/Creatinine Ratio 22.8 H Glucose 114 H Calcium 8.1 L Magnesium 1.7 PFSH Medical History CVA (cerebral vascular accident) Dyslipidemia Anticoagulated Surgical History H/O foot surgery H/O heart artery stent Social History household members: none Smoking Status: Former smoker alcohol intake: former Assessment & Plan Assessment & Plan narrative: 1. CVA, present on admission and active. No gross motor deficits. This is improved. - new CVA noted on MRI of R MCA. His left vision is diminished on exam, and he seems more alert to say his vision has decreased. No decreased sensation now reported on his face. - presume embolic due to paroxysmal afib. Continue home xarelto. - okay to monitor without tele given known paroxysmal afib, monitor rate only with vital signs. 2. CAD and severe PAD, present on admission and stable. - continue home xarelto 3. 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 - continue home xarelto 4. DM2 with bilateral chronic neuropathy, with penitentiary insulin use, present on admission and stable. - continue home lantus 30 U nightly, add sliding scale, stable - hold home gabapentin with presenting encephalopathy. 5. HTN, present on admission and stable. - continue home HCTZ 6. HLD, present on admission and stable. - continue home atorvastatin. 7. Myocardial injury, present on admission and improved. - no acute ischemia on EKG, troponin 0.036 > 0.039 > 0.039. no chest pain. Have stopped trending given stability. 8. Recent wound infection of the lower extremity, present on admission and stable. - should have finished antibiotic course at this time based on previous discharge summary including cefepime and doxy. Will monitor off antibiotics. No evidence for current infection. 9. Paroxysmal atrial fibrillation, present on admission and stable. - continue home xarelto. Rate controlled. 10. Right achilles wound, , present on admission and stable. -we will discuss with the wound care on Sunday. They are planning hyperbaric treatments. PLAN: -continue current care, we will likely remove PICC before return to [facility]. -[facility] nursing Facility can not accept him until Sunday, December 16. -IV fluids. Will stop Sun before discharge. -monitor intake. -discussed with wound care on Sunday. Code: Full, surrogate decision maker is patient's sister DVT: on xarelto [facility] Sunday (not able to take until then) Time-Based Coding :: 30 min spent with patient and on the chart (including review of chart, obtaining history, exam, reviewing outside data, placing orders, documenting exam and treatment plan, and counseling patient) on 12/15. Quality VTE Deep Vein Thrombosis/Pulmonary Embolism Present on Admission: No
[2023-12-16 08:00] VITALS: BP 128/67; PULSE 77; RESP 16; TEMP 36.6; O2SAT 95
[2023-12-16] MEDS: TAMSULOSIN 0.4 MG CAPSULE PO (09:01)
[2023-12-16] MEDS: allopurinoL 100 MG TABLET 200 MG PO ×2 (09:01→20:49)
[2023-12-16] MEDS: GABAPENTIN 300 MG CAPSULE PO ×2 (09:02→20:49)
[2023-12-16] MEDS: RIVAROXABAN 10 MG TABLET 20 MG PO (09:02)
[2023-12-16] MEDS: MAGNESIUM OXIDE 400 MG TABLET PO (09:02)
[2023-12-16] MEDS: hydroCHLOROthiazide 25 MG TABLET 12.5 MG PO (09:02)
[2023-12-16] MEDS: MAGNESIUM CHLORIDE 64 MG TABLET 128 MG PO (09:31)
[2023-12-16] MEDS: INSULIN LISPRO 100 UNIT/ML 3ML VIAL SUBCUT ×2 (09:32→12:48)
[2023-12-16] MEDS: SODIUM CHLORIDE 0.9% FLUSH 10 ML IV ×2 (09:35→20:57)
--- NOTE | 2023-12-16 10:33 | PT.IPTN ---
Addendum entered and electronically signed by France Chambers PT 12/16/23 11:46: PT performs direct superv during SPT treatment Original Note: Current Diagnoses Cerebral infarction, unspecified (12/13/23) Physical Therapy Treatment Note M2 PT-IP Current Condition Start: 12/14/23 12:52 Freq: NEEDED Status: Active Protocol: Document 12/14/23 11:10 AB (Rec: 12/14/23 13:08 AB [id number]) Physical Therapy Current Condition Current Condition Evaluation Date 12/14/23 Treatment Diagnosis R CVA; difficulty in walking Onset Date 12/13/23 M3 PT-IP Subjective Start: 12/14/23 12:52 Freq: NEEDED Status: Active Protocol: Document 12/16/23 09:00 DAVID (Rec: 12/16/23 09:44 JG [id number]) Subjective Physical Therapy Visit Type Type Treatment Note Visit Start Time 09:00 Visit Stop Time 09:31 Number of BOX FOLDING MACHINE OPERATOR Visits 0 Physical Therapy Visit Comments Patient Comments Agreeable to PT Therapy Pain Assessment Pain When Pain Assessed At Rest Pain Present Pain Present Pain Reported Location Right heel Intensity 3 Scale Used Numeric (0 - 10) Pain Management Techniques Distraction,Re-positioning M4 PT-IP Mobility and Gait Start: 12/14/23 12:52 Freq: NEEDED Status: Active Protocol: Document 12/16/23 09:00 JG (Rec: 12/16/23 09:44 JG [id number]) PT-Bed Mobility Assessment Supine to Sit Supine to Sit Maximum Assistance,1 Person Assistance,Head of Bed Elevated,Bedrails Scooting Scooting to Edge of Bed Maximum Assistance PT-Transfer Assessment Sit to and From Stand Sit to and from Stand Moderate Assistance,2 Person Assistance,Use of Upper Extremities Equipment Transfer Assistive Device Gait Belt,Front Wheeled Walker Orthotic/Prosthetic Devices or Brace: No Transfers Transfer Destination Chair Transfer Technique Stand Step Pivot Transfer Ability Level of Assist Moderate Assistance,2 Person Assistance,Use of Upper Extremities Comments Mobility Comments Pt requires cueing thoughout treatment today and requires assist from PT to help move LLE towards EOB. PT moved josefina pad to help scoot pt's hips to EOB. Pt pushes himself up from left side and then is able to scoot forward with CGA until toes touched the ground once EOB. Pt needs v/c for hand placement on bed and walker and was impulsive with stand to sit transfer into chair. PT assists with moving walker and pt sits suddenly before square with the chair. Pt requires cues to scoot in chair to get positioned more in the middle of the chair. Transfer to the right, to the strong side. Gait Assessment Gait Gait Assistance Required: Moderate Assistance,2 Person Assist Distance (Feet) 1 Able to Maintain Weight Bearing Status Yes During Gait Assistive Devices Assistive Device Gait Belt,Front Wheeled Walker Orthotic/Prosthetic Devices or Brace: No Gait Deviations General Gait Pattern Decreased Stride Length, Decreased Feet Clearance, Flexed Trunk,Step-to Gait,Wide Based Gait Factors Limiting Gait Function Factors Limiting Gait Function Decreased Activity Tolerance, Decreased Sensation,Decreased Strength,Difficulty Following Directions,Incoordination, Limited Range of Motion,Pain, Poor Balance,Poor Safety Awareness Comments Gait Comments A couple of steps to the right to chair today and cues for stepping and assistance to move the RW. Pt is fearful about WB through right foot d/ t wound on his distal extremity. PT-Balance Assessment Sitting Balance and Reactions Static Sitting Balance Ability Normal Dynamic Sitting Balance Ability Good Standing Balance and Reactions Static Standing Balance Ability Fair Dynamic Standing Balance Ability Poor Device Used FWW M5 PT-IP Objective Assessments Start: 12/14/23 12:52 Freq: NEEDED Status: Active Protocol: Document 12/14/23 11:10 AB (Rec: 12/14/23 13:08 AB [id number]) Orientation Orientation/Cognition Level of Alertness Confusional State Orientation Name Safety Awareness Decreased Safety Awareness Memory Description Short Term Impaired,Trauma Manager Impaired Gross Range of Motion Lower Extremity ROM Assessment Within Functional Limits Strength Lower Extremity Strength Assessment Bilaterally Impaired Hip 3+/5 Knee 3+/5 Muscle Tone Muscle Tone WNL Yes M6 PT-IP Treatment Start: 12/14/23 12:52 Freq: NEEDED Status: Active Protocol: Document 12/16/23 09:00 DAVID (Rec: 12/16/23 09:44 DAVID [id number]) Physical Therapy Treatment Education Education Provided Safety M7 PT-IP Assessment and Plan Start: 12/14/23 12:52 Freq: NEEDED Status: Active Protocol: Document 12/16/23 09:00 DAVID (Rec: 12/16/23 09:44 DAVID [id number]) PT Summary Assessment and Plan Potential Rehabilitation Potential Fair Status of Condition at Evaluation Evolving Summary Impairments Pain,ROM,Strength,Balance, Coordination,Cognition,Bed Mobility,Transfers,Gait, Activity Tolerance Progress Towards Goals Slow Progress due to Activity Tolerance Assessment Summary Pt was found in bed with HOB elevated. Pt was able to answer basic verbal questions and respond to simple commands . Pt was able to get from supine in bed to chair with mod Ax2 assist using FWW. Poor command-following and pt sits down before fully square with chair. Recommend SNF level of care at d/c. Goals Bed Mobility Goal Standby Assistance Transfer Goal Minimal Assistance,Front Wheeled Walker Gait Goal Minimal Assistance,Front Wheel Walker Gait Distance 50 Other Goals improve transfers, ambulation using fWW ~ 150 ft SBA Days to Meet Goals 10 Frequency of Treatment Frequency Of Treatment Once a Day Treatment Plan Physical Therapy Treatment Plan Bed Mobility Training,Transfer Training,Gait Training, Therapeutic Exercise,Balance Retraining,Discharge Planning, Hot or Cold Pack,Neuromuscular Re-ed,Coordination Retraining ,Manual Therapy Other Recommendations and Next Treatment Increase standing and stepping Focus Precautions Other Precautions Falls Recommendations To Nursing Amount of Assist Needed 2 Person Assist Discharge Recommendations PT Discharge Recommendations SNF Rehab Transportation Needs at Discharge Wheelchair/Cabulance
--- NOTE | 2023-12-16 11:34 | CM.DPC ---
DCP Cont. Reviewed EMR and team rounds for status updates. Plan continues to be d/c to [facility] on Sunday. Will need to confirm transport time in the am.
[2023-12-16 20:18] VITALS: BP 143/67; PULSE 79; RESP 16; TEMP 36.5; O2SAT 93
[2023-12-16] MEDS: INSULIN GLARGINE 100 UNIT/ML 3ML PEN 30 UNIT SUBCUT (20:50)
[2023-12-16] MEDS: ATORVASTATIN 20 MG TABLET 80 MG PO (20:51)
[2023-12-17 04:00] VITALS: O2SAT 92
[2023-12-17] MEDS: SODIUM CHLORIDE 0.9% 1,000 ML 84 ML IV (04:20)
[2023-12-17 06:55] LABS: BUN Creatinine Ratio 26.1 (6-22); Blood Urea Nitrogen 29 mg/dL (9-20); Calcium 8.3 mg/dL (8.4-10.2); Carbon Dioxide 27 mmol/L (22-32); Chloride 110 mmol/L (98-107); Estimated Glomerular Filt Rate > 60 mL/min (>60); Glucose 65 mg/dL (80-110); HEMOLYSIS < 15 (0-50); Magnesium 1.8 mg/dL (1.6-2.3); Potassium 4.5 mmol/L (3.4-5.1); Sodium 136 mmol/L (137-145)
[2023-12-17 08:00] VITALS: BP 159/76; PULSE 66; RESP 18; TEMP 36.8; O2SAT 96
[2023-12-17] MEDS: GABAPENTIN 300 MG CAPSULE PO (09:50)
[2023-12-17] MEDS: hydroCHLOROthiazide 25 MG TABLET 12.5 MG PO (09:50)
[2023-12-17] MEDS: MAGNESIUM OXIDE 400 MG TABLET PO (09:50)
[2023-12-17] MEDS: TAMSULOSIN 0.4 MG CAPSULE PO (09:51)
[2023-12-17] MEDS: RIVAROXABAN 10 MG TABLET 20 MG PO (09:51)
[2023-12-17] MEDS: SODIUM CHLORIDE 0.9% FLUSH 10 ML IV (09:51)
--- NOTE | 2023-12-17 10:18 | PM.DS.1 ---
History of Present Illness History of Present Illness Chief complaint: Code Stroke Narrative: From H&P: This is an 82 year old male with PMH of CAD, HTN, HLD, DM2, prior CVA, paroxysmal afib, recent admission for acute on chronic leg wounds and was at [facility]. Yesterday he was sent in to the ER for worsening confusion. Infectious and metabolic evaluation was unremarkable. ER discussed with me yesterday and he did appears to be at his baseline mentation and was sent back to the half-way facility. He returned today, this time reportedly with decreased vision per EMS. He has had laser surgery per his sister, and has had some chronic vision changes and patient reports no issues currently with regards to his vision. He denies vision changes but also did say he could not see on his left side when assessing his vision, so he is not reliably currently due to his cognitive impairment. Discharge Providers Provider Date of admission: 12/13/23 16:14 Discharge Date: 12/17/23 Primary care physician: Scottie Milton MD Consults: 12/13/23 15:13 Consult to Dietitian, Adult Routine Comment: Reason For Exam: Weight loss, poor appetite 12/13/23 16:14 Consult to Occupational Therapy Evaluate & Treat Comment: Physician Instructions: Evaluate and treat Consult to Physical Therapy Evaluate & Treat Comment: Physician Instructions: Evaluate and Treat 12/16/23 06:07 Consult to Dietitian, Adult Routine Comment: Reason For Exam: reflex d/t wound consult Consult to Wound Care Routine Comment: Consulting Provider: Kev- Wound Care Discharge provider: Tony Buckley MD Summary Hospital Course Discharge Diagnosis: 1. CVA, present on admission and active. No gross motor deficits. This is improved. - new CVA noted on MRI of R MCA. His left vision is diminished on exam, and he seems more alert to say his vision has decreased. No decreased sensation now reported on his face. - presume embolic due to paroxysmal afib. Continue home xarelto. 2. CAD and severe PAD, present on admission and stable. - continue home xarelto 3. 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 - continue home xarelto 4. DM2 with bilateral chronic neuropathy, with snf insulin use, present on admission and stable. - continue home lantus 30 U nightly, add sliding scale, stable - hold home gabapentin with presenting encephalopathy. 5. HTN, present on admission and stable. - continue home HCTZ 6. HLD, present on admission and stable. - continue home atorvastatin. 7. Myocardial injury, present on admission and improved. - no acute ischemia on EKG, troponin 0.036 > 0.039 > 0.039. no chest pain. Have stopped trending given stability. 8. Recent wound infection of the lower extremity, present on admission and stable. - should have finished antibiotic course at this time based on previous discharge summary including cefepime and doxy. Will monitor off antibiotics. No evidence for current infection. 9. Paroxysmal atrial fibrillation, present on admission and stable. - continue home xarelto. Rate controlled. 10. Right achilles wound, , present on admission and stable. -we will discuss with the wound care on Sunday. They are planning hyperbaric treatments. Hospital Course: The patient was admitted for evidence of a new stroke. This was felt to be cardioembolic in context of PAF. Xarelto was continued and he did well and had excellent neurologic recovery. The patient does have a present on admission and persistent cognitive impairment. His Right leg was much improved from his previous admission with no erythema in the upper thigh or above the wound in the Achilles heel. he was stable for discharge back to [facility] on December 18. He will be following up as scheduled with wound care and they are anticipating initiation of hyperbaric treatments. The wound was examined the day of discharge and looks very good with clean base and minimal granulation. Status at Discharge Cognitive/behavioral status at discharge: at baseline, confused Functional status at discharge: uses cane/walker Overall status at discharge: patient is progressing back to baseline Time Spent with Patient Time spent: Greater than 30 minutes Exam Vital Signs (past 8 hours): - 12/17/23 04:00 12/17/23 08:00 Temperature 98.3 F Pulse Rate 66 Respiratory Rate 18 Blood Pressure 159/76 H Pulse Oximetry 92 96 Oxygen Delivery Method Room Air Oxygen Flow Rate 0 Narrative Exam Narrative: NAD, alert and oriented. Fluent speech. Cognitive impairment Lungs are clear, normal rate and effort. Heart is regular, no murmur gallop or rub. Abdomen is soft, non distended. Extremities are free of edema. The right thigh and lower extremity are free of edema. The heel ulcer is relatively clean. It was not foul smelling. Objective ECG Impression: Sinus rhythm with 1st degree AV block Minimal voltage criteria for LVH, may be normal variant ( R in aVL ) Imaging Multiple studies:: Radiologist's impression: CXR: Mild retrocardiac opacities which could represent atelectasis, edema or developing pneumonia. However, exam is limited by poor inspiratory effort. MRI brain: Small foci of acute infarction can be seen involving the right MCA distribution. The study is virtually nondiagnostic, secondary to prominent motion artifact. CT brain and CTA: No significant intracranial arterial abnormality is seen. Approximately 50% narrowing seen involving each proximal internal carotid artery. Labs 12/16/23 04:59 12/17/23 06:08 Labs: Laboratory Results - last 24 hr 12/17/23 06:08 Sodium 136 L Potassium 4.5 Chloride 110 H Carbon Dioxide 27 BUN 29 H Creatinine 1.11 Estimated GFR > 60 BUN/Creatinine Ratio 26.1 H Glucose 65 L Calcium 8.3 L Magnesium 1.8 PFSH Medical History CVA (cerebral vascular accident) Dyslipidemia Anticoagulated Surgical History H/O foot surgery H/O heart artery stent Social History household members: none Smoking Status: Former smoker alcohol intake: former Discharge Assessment & Plan Assessment and Plan Assessment: 1. CVA, present on admission and active. No gross motor deficits. This is improved. - new CVA noted on MRI of R MCA. His left vision is diminished on exam, and he seems more alert to say his vision has decreased. No decreased sensation now reported on his face. - presumed embolic due to paroxysmal afib. Continue home xarelto. 2. Right achilles wound, , present on admission and stable. -we will discuss with the wound care on Sunday. They are planning hyperbaric treatments. Other medical problems as listed above in this note. Plan of Treatment: Returned to [facility] on December 16. Continue sessions with wound care and institution of hyperbaric treatment as planned. Discharge Plan Discharge Plan Patient Disposition: SNF Transfer to: [facility] Provider Discharge Comment: Stable for discharge back to [facility]. Discharge orders & Medications Prescriptions: Continued hydrochlorothiazide 12.5 mg tablet 12.5 mg PO DAILY insulin glargine [Lantus Solostar U-100 Insulin] 100 unit/mL (3 mL) Insulin Pen 30 unit SUBCUT 2100 Qty: 15 3RF doxycycline hyclate 100 mg capsule 100 mg PO BID Qty: 20 0RF losartan 100 mg tablet 100 mg PO DAILY oxycodone 5 mg Tablet 5 mg PO Q3H PRN (Reason: Pain, Moderate (4-6)) Qty: 20 0RF allopurinol 100 mg tablet 200 mg PO BID Rx Instructions: takes noon and evening atorvastatin 80 mg tablet 80 mg PO BEDTIME tamsulosin 0.4 mg capsule 0.4 mg PO DAILY gabapentin 300 mg capsule 300 mg PO BID Xarelto 20 mg tablet 20 mg PO DAILY pioglitazone [Actos] 15 mg Tablet 15 mg PO DAILY magnesium 200 mg Tablet 400 mg PO DAILY calcium carbonate-vitamin D3 [Calcium 600 + D(3)] 600 mg-10 mcg (400 unit) Tablet 1 tab PO DAILY Discontinued cefepime in dextrose 5 % 1 gram/50 mL Piggyback 1 gm IV Q12H Qty: 10 0RF tramadol 50 mg tablet 50 mg PO Q8H PRN (Reason: pain) Qty: 14 0RF Medication counseling provided by Pharmacist: No Follow up/Referrals: Scottie Milton MD [Primary Care Provider] - Discharge Health Status Multidrug resistant organism: No MDRO Diet/Activity/Treatments Diet: Carb-consistent/Diabetic Liquid consistency: Normal/Thin [facility] Reason for rehabilitation: Recovery r/t decondition Rehab type: Physical therapy, Occupational therapy and Speech therapy Visit Report/Discharge Packet Stand Alone Forms: Patient Portal/API Discharge Data Primary Care Provider: Scottie Milton Quality VTE Deep Vein Thrombosis/Pulmonary Embolism Present on Admission: No
--- NOTE | 2023-12-17 11:02 | CM.DPC ---
DCP Discharge SNF Per MD, pt is medically stable to d/c to SNF for short stay rehab today and no identified barriers to discharge. KARIS called [facility] and confirmed they can accept today and provide transport at 1400. KARIS confirmed no PASRR needed and pt will go under his Medicare for new medical dx and admission. DORETHA Kendy kindly faxing signed med list, no scripts needed, discharge summary, and MD orders to [facility] to review. KARIS met bedside with pt and updated on discharge plan and pt confirms he remains agreeable to d/c to [facility] today. KARIS updated AIR PLANT ENGINEER, stitch bonder machine operator helper, and RN and provided number to call report. Plan: Patient to d/c to [facility] today (where he resides) for SNF rehab under Medicare via facility van at 1400. GENIA Tamayo
[2023-12-17 12:00] VITALS: O2SAT 96
[2023-12-17] MEDS: allopurinoL 100 MG TABLET 200 MG PO (12:44)
--- NOTE | 2023-12-17 13:09 | OT.IPNOTE ---
Attempted to see pt for OT services today. Pt declined activity at this time. Pt is scheduled to discharge at 2pm. Will hold and continue to follow.
--- NOTE | 2023-12-17 13:10 | OT.IPNOTE ---
Attempted to see pt for OT services. Pt states that she just ate and wants to rest as she is trying to keep the food down. Will hold and continue to follow.
== END 2023-12-17 14:15 | DRG 64 ==
LOC: ED 10:25 → AC 13:18
PROVIDERS: Admitting Provider Internal Medicine; Emergency Provider Emergency Medicine; PCP Family Medicine; Visit Provider Internal Medicine
DX: I63.411 Cerebral infarction due to embolism of right middle cerebral artery (principal); I82.221 Chronic embolism and thrombosis of inferior vena cava; I5A Non-ischemic myocardial injury (non-traumatic); H53.9 Unspecified visual disturbance; R29.810 Facial weakness; I48.0 Paroxysmal atrial fibrillation; I25.10 Atherosclerotic heart disease of native coronary artery without angina pectoris; I73.9 Peripheral vascular disease, unspecified; E11.40 Type 2 diabetes mellitus with diabetic neuropathy, unspecified; R29.706 NIHSS score 6; R29.705 NIHSS score 5; I10 Essential (primary) hypertension; E78.5 Hyperlipidemia, unspecified; Z86.73 Personal history of transient ischemic attack (TIA), and cerebral infarction without residual deficits; Z79.84 Long term (current) use of oral hypoglycemic drugs; Z87.891 Personal history of nicotine dependence; Z79.01 Long term (current) use of anticoagulants; Z79.4 Long term (current) use of insulin
CPT/HCPCS: 36415; 70450; 70496; 70498; 70551; 71045; 80048; 80053; 81001; 82550; 82962; 83036; 83605; 83735; 84145; 84484; 85025; 85610; 85651; 85730; 86140; 87040; 93005; 93971; 97162; 97166; 97530; 97535; 99284; 99285; G0378; J1642; J1815; Q9967

== ENCOUNTER → 2023-12-18 09:27 | Outpatient (CLI) | payer MEDICARE, OTHER, SELFPAY ==
[2023-12-13 14:45] VITALS: BMI 27.1
== END ==
LOC: WC 09:28
PROVIDERS: PCP Family Medicine; Referring Provider Internal Medicine; Visit Provider Surgery
DX: L97.318 Non-pressure chronic ulcer of right ankle with other specified severity (principal); L98.8 Other specified disorders of the skin and subcutaneous tissue; I73.9 Peripheral vascular disease, unspecified; E11.621 Type 2 diabetes mellitus with foot ulcer; E11.42 Type 2 diabetes mellitus with diabetic polyneuropathy; R60.0 Localized edema; L53.9 Erythematous condition, unspecified
CPT/HCPCS: 11043; 11046; 87070; 87077; 87186; 87205; 99213

== ENCOUNTER → 2023-12-20 11:06 | Outpatient (CLI) | payer MEDICARE, OTHER, SELFPAY ==
[2023-12-13 14:45] VITALS: BMI 27.1
== END ==
PROVIDERS: PCP Family Medicine; Referring Provider Internal Medicine; Visit Provider Surgery
DX: L97.313 Non-pressure chronic ulcer of right ankle with necrosis of muscle (principal); I73.9 Peripheral vascular disease, unspecified; E11.621 Type 2 diabetes mellitus with foot ulcer; E11.42 Type 2 diabetes mellitus with diabetic polyneuropathy; I87.2 Venous insufficiency (chronic) (peripheral); L03.115 Cellulitis of right lower limb; L89.620 Pressure ulcer of left heel, unstageable
CPT/HCPCS: 99183; G0277

== ENCOUNTER → 2023-12-21 13:09 | Outpatient (CLI) | payer MEDICARE, OTHER, SELFPAY ==
[2023-12-13 14:45] VITALS: BMI 27.1
== END ==
LOC: WC 13:10
PROVIDERS: PCP Family Medicine; Referring Provider Family Medicine; Visit Provider Physician Assistant
DX: L97.313 Non-pressure chronic ulcer of right ankle with necrosis of muscle (principal); I73.9 Peripheral vascular disease, unspecified; E11.621 Type 2 diabetes mellitus with foot ulcer; E11.42 Type 2 diabetes mellitus with diabetic polyneuropathy; I87.2 Venous insufficiency (chronic) (peripheral); L03.115 Cellulitis of right lower limb; L89.620 Pressure ulcer of left heel, unstageable
CPT/HCPCS: 99183; G0277

== ENCOUNTER → 2023-12-24 11:42 | Outpatient (CLI) | payer MEDICARE, OTHER, SELFPAY ==
[2023-12-13 14:45] VITALS: BMI 27.1
== END ==
LOC: WC 11:48
PROVIDERS: PCP Family Medicine; Referring Provider Internal Medicine; Visit Provider Surgery
DX: L97.313 Non-pressure chronic ulcer of right ankle with necrosis of muscle (principal); I73.9 Peripheral vascular disease, unspecified; E11.621 Type 2 diabetes mellitus with foot ulcer; E11.42 Type 2 diabetes mellitus with diabetic polyneuropathy; I87.2 Venous insufficiency (chronic) (peripheral); L03.115 Cellulitis of right lower limb; L89.620 Pressure ulcer of left heel, unstageable
CPT/HCPCS: 99183; G0277

== ENCOUNTER → 2023-12-25 09:41 | Outpatient (CLI) | payer MEDICARE, OTHER, SELFPAY ==
[2023-12-13 14:45] VITALS: BMI 27.1
== END ==
LOC: WC 09:42
PROVIDERS: PCP Family Medicine; Referring Provider Internal Medicine; Visit Provider Surgery
DX: L97.313 Non-pressure chronic ulcer of right ankle with necrosis of muscle (principal); I73.9 Peripheral vascular disease, unspecified; E11.621 Type 2 diabetes mellitus with foot ulcer; E11.42 Type 2 diabetes mellitus with diabetic polyneuropathy; I87.2 Venous insufficiency (chronic) (peripheral); L03.115 Cellulitis of right lower limb; L89.620 Pressure ulcer of left heel, unstageable; S81.802A Unspecified open wound, left lower leg, initial encounter; R60.0 Localized edema; R21 Rash and other nonspecific skin eruption; Z79.2 Long term (current) use of antibiotics; L53.9 Erythematous condition, unspecified; L98.8 Other specified disorders of the skin and subcutaneous tissue
CPT/HCPCS: 11042; 11045; 99183; 99213; G0277

== ENCOUNTER → 2023-12-26 11:00 | Outpatient (CLI) | payer MEDICARE, OTHER, SELFPAY ==
[2023-12-13 14:45] VITALS: BMI 27.1
== END ==
LOC: WC 11:01
PROVIDERS: PCP Family Medicine; Referring Provider Internal Medicine; Visit Provider Surgery
DX: L97.313 Non-pressure chronic ulcer of right ankle with necrosis of muscle (principal); I73.9 Peripheral vascular disease, unspecified; E11.621 Type 2 diabetes mellitus with foot ulcer; I87.2 Venous insufficiency (chronic) (peripheral); L03.115 Cellulitis of right lower limb; L89.620 Pressure ulcer of left heel, unstageable; S81.802A Unspecified open wound, left lower leg, initial encounter
CPT/HCPCS: 99183; G0277

== ENCOUNTER → 2023-12-27 13:44 | Outpatient (CLI) | payer MEDICARE, OTHER, SELFPAY ==
[2023-12-13 14:45] VITALS: BMI 27.1
== END ==
PROVIDERS: PCP Family Medicine; Referring Provider Internal Medicine; Visit Provider Nurse Practitioner Family
DX: L97.313 Non-pressure chronic ulcer of right ankle with necrosis of muscle (principal); I73.9 Peripheral vascular disease, unspecified; E11.621 Type 2 diabetes mellitus with foot ulcer; E11.42 Type 2 diabetes mellitus with diabetic polyneuropathy; I87.2 Venous insufficiency (chronic) (peripheral); L03.115 Cellulitis of right lower limb; L89.620 Pressure ulcer of left heel, unstageable; S81.802A Unspecified open wound, left lower leg, initial encounter
CPT/HCPCS: 99183; G0277

== ENCOUNTER → 2023-12-28 13:23 | Outpatient (CLI) | payer MEDICARE, OTHER, SELFPAY ==
[2023-12-13 14:45] VITALS: BMI 27.1
== END ==
LOC: WC 13:28
PROVIDERS: PCP Family Medicine; Referring Provider Internal Medicine; Visit Provider Physician Assistant
DX: L97.313 Non-pressure chronic ulcer of right ankle with necrosis of muscle (principal); I73.9 Peripheral vascular disease, unspecified; E11.621 Type 2 diabetes mellitus with foot ulcer; E11.42 Type 2 diabetes mellitus with diabetic polyneuropathy; I87.2 Venous insufficiency (chronic) (peripheral); L03.115 Cellulitis of right lower limb; L89.620 Pressure ulcer of left heel, unstageable; S81.802A Unspecified open wound, left lower leg, initial encounter
CPT/HCPCS: 99183; G0277

== ENCOUNTER → 2024-01-01 13:05 | Outpatient (CLI) | payer MEDICARE, OTHER, SELFPAY ==
[2023-12-13 14:45] VITALS: BMI 27.1
== END ==
PROVIDERS: PCP Family Medicine; Referring Provider Internal Medicine; Visit Provider Physician Assistant
DX: L97.313 Non-pressure chronic ulcer of right ankle with necrosis of muscle (principal); I73.9 Peripheral vascular disease, unspecified; E11.621 Type 2 diabetes mellitus with foot ulcer; E11.42 Type 2 diabetes mellitus with diabetic polyneuropathy; L03.115 Cellulitis of right lower limb; L89.620 Pressure ulcer of left heel, unstageable; S81.802A Unspecified open wound, left lower leg, initial encounter; L97.318 Non-pressure chronic ulcer of right ankle with other specified severity; L98.8 Other specified disorders of the skin and subcutaneous tissue; R60.0 Localized edema; R21 Rash and other nonspecific skin eruption
CPT/HCPCS: 99183; 99213; G0277

== ENCOUNTER → 2024-01-02 11:00 | Outpatient (CLI) | payer MEDICARE, OTHER, SELFPAY ==
[2023-12-13 14:45] VITALS: BMI 27.1
== END ==
PROVIDERS: PCP Family Medicine; Referring Provider Internal Medicine; Visit Provider Nurse Practitioner Family
DX: L97.313 Non-pressure chronic ulcer of right ankle with necrosis of muscle (principal); I73.9 Peripheral vascular disease, unspecified; E11.621 Type 2 diabetes mellitus with foot ulcer; E11.42 Type 2 diabetes mellitus with diabetic polyneuropathy; I87.2 Venous insufficiency (chronic) (peripheral); L03.115 Cellulitis of right lower limb; L89.620 Pressure ulcer of left heel, unstageable; S81.802A Unspecified open wound, left lower leg, initial encounter
CPT/HCPCS: 99183; G0277

== ENCOUNTER → 2024-01-03 15:00 | Outpatient (CLI) | payer MEDICARE, OTHER, SELFPAY ==
[2023-12-13 14:45] VITALS: BMI 27.1
== END ==
LOC: WC 15:01
PROVIDERS: PCP Family Medicine; Referring Provider Internal Medicine; Visit Provider Nurse Practitioner Family
DX: L97.313 Non-pressure chronic ulcer of right ankle with necrosis of muscle (principal); I73.9 Peripheral vascular disease, unspecified; E11.621 Type 2 diabetes mellitus with foot ulcer; E11.42 Type 2 diabetes mellitus with diabetic polyneuropathy; I87.2 Venous insufficiency (chronic) (peripheral); L03.115 Cellulitis of right lower limb; L89.620 Pressure ulcer of left heel, unstageable; S81.802A Unspecified open wound, left lower leg, initial encounter
CPT/HCPCS: 99183; G0277

== ENCOUNTER → 2024-01-04 13:56 | Outpatient (CLI) | payer MEDICARE, OTHER, SELFPAY ==
[2023-12-13 14:45] VITALS: BMI 27.1
== END ==
LOC: WC 13:57
PROVIDERS: PCP Family Medicine; Referring Provider Internal Medicine; Visit Provider Physician Assistant
DX: L97.313 Non-pressure chronic ulcer of right ankle with necrosis of muscle (principal); I73.9 Peripheral vascular disease, unspecified; E11.621 Type 2 diabetes mellitus with foot ulcer; E11.42 Type 2 diabetes mellitus with diabetic polyneuropathy; I87.2 Venous insufficiency (chronic) (peripheral); L03.115 Cellulitis of right lower limb; S81.802A Unspecified open wound, left lower leg, initial encounter; L89.620 Pressure ulcer of left heel, unstageable
CPT/HCPCS: 99183; G0277

== ENCOUNTER → 2024-01-07 13:15 | Outpatient (CLI) | payer MEDICARE, OTHER, SELFPAY ==
[2023-12-13 14:45] VITALS: BMI 27.1
== END ==
LOC: WC 13:16
PROVIDERS: PCP Family Medicine; Referring Provider Internal Medicine; Visit Provider Surgery
DX: I73.9 Peripheral vascular disease, unspecified (principal); E11.621 Type 2 diabetes mellitus with foot ulcer; E11.42 Type 2 diabetes mellitus with diabetic polyneuropathy; I87.2 Venous insufficiency (chronic) (peripheral); L03.115 Cellulitis of right lower limb; L89.620 Pressure ulcer of left heel, unstageable; S81.802A Unspecified open wound, left lower leg, initial encounter
CPT/HCPCS: 99183; G0277

== ENCOUNTER → 2024-01-08 13:32 | Outpatient (CLI) | payer MEDICARE, OTHER, SELFPAY ==
[2023-12-13 14:45] VITALS: BMI 27.1
== END ==
LOC: WC 13:33
PROVIDERS: PCP Family Medicine; Referring Provider Internal Medicine; Visit Provider Surgery
DX: L97.313 Non-pressure chronic ulcer of right ankle with necrosis of muscle (principal); I73.9 Peripheral vascular disease, unspecified; E11.621 Type 2 diabetes mellitus with foot ulcer; E11.42 Type 2 diabetes mellitus with diabetic polyneuropathy; I87.2 Venous insufficiency (chronic) (peripheral); L03.115 Cellulitis of right lower limb; L89.620 Pressure ulcer of left heel, unstageable; S81.802A Unspecified open wound, left lower leg, initial encounter
CPT/HCPCS: 11042; 11045; 99183; 99213; G0277

== ENCOUNTER → 2024-01-09 13:25 | Outpatient (CLI) | payer MEDICARE, OTHER, SELFPAY ==
[2023-12-13 14:45] VITALS: BMI 27.1
== END ==
LOC: WC 13:26
PROVIDERS: PCP Family Medicine; Referring Provider Internal Medicine; Visit Provider Surgery
DX: L97.313 Non-pressure chronic ulcer of right ankle with necrosis of muscle (principal); I73.9 Peripheral vascular disease, unspecified; E11.621 Type 2 diabetes mellitus with foot ulcer; E11.42 Type 2 diabetes mellitus with diabetic polyneuropathy; I87.2 Venous insufficiency (chronic) (peripheral); L03.115 Cellulitis of right lower limb; L89.620 Pressure ulcer of left heel, unstageable; S81.802A Unspecified open wound, left lower leg, initial encounter
CPT/HCPCS: 99183; G0277

== ENCOUNTER → 2024-01-10 13:03 | Outpatient (CLI) | payer MEDICARE, OTHER, SELFPAY ==
[2023-12-13 14:45] VITALS: BMI 27.1
== END ==
LOC: WC 13:04
PROVIDERS: PCP Family Medicine; Referring Provider Internal Medicine; Visit Provider Surgery
DX: L97.313 Non-pressure chronic ulcer of right ankle with necrosis of muscle (principal); I73.9 Peripheral vascular disease, unspecified; E11.621 Type 2 diabetes mellitus with foot ulcer; E11.42 Type 2 diabetes mellitus with diabetic polyneuropathy; I87.2 Venous insufficiency (chronic) (peripheral); L03.115 Cellulitis of right lower limb; L89.620 Pressure ulcer of left heel, unstageable; S81.802A Unspecified open wound, left lower leg, initial encounter
CPT/HCPCS: 99183; G0277

== ENCOUNTER → 2024-01-11 13:11 | Outpatient (CLI) | payer MEDICARE, OTHER, SELFPAY ==
[2023-12-13 14:45] VITALS: BMI 27.1
== END ==
LOC: WC 13:12
PROVIDERS: PCP Family Medicine; Referring Provider Internal Medicine; Visit Provider Physician Assistant
DX: L97.313 Non-pressure chronic ulcer of right ankle with necrosis of muscle (principal); I73.9 Peripheral vascular disease, unspecified; E11.621 Type 2 diabetes mellitus with foot ulcer; I87.2 Venous insufficiency (chronic) (peripheral); E11.42 Type 2 diabetes mellitus with diabetic polyneuropathy; L03.115 Cellulitis of right lower limb; L89.620 Pressure ulcer of left heel, unstageable; S81.802A Unspecified open wound, left lower leg, initial encounter
CPT/HCPCS: 99183; G0277

== ENCOUNTER → 2024-01-14 12:58 | Outpatient (CLI) | payer MEDICARE, OTHER, SELFPAY ==
[2023-12-13 14:45] VITALS: BMI 27.1
== END ==
LOC: WC 13:00
PROVIDERS: PCP Family Medicine; Referring Provider Internal Medicine; Visit Provider Surgery
DX: L97.313 Non-pressure chronic ulcer of right ankle with necrosis of muscle (principal); I73.9 Peripheral vascular disease, unspecified; E11.621 Type 2 diabetes mellitus with foot ulcer; E11.42 Type 2 diabetes mellitus with diabetic polyneuropathy; I87.2 Venous insufficiency (chronic) (peripheral); L03.115 Cellulitis of right lower limb; L89.620 Pressure ulcer of left heel, unstageable; S81.802A Unspecified open wound, left lower leg, initial encounter
CPT/HCPCS: 99183; G0277

== ENCOUNTER → 2024-01-15 13:16 | Outpatient (CLI) | payer MEDICARE, OTHER, SELFPAY ==
[2023-12-13 14:45] VITALS: BMI 27.1
== END ==
LOC: WC 13:17
PROVIDERS: PCP Family Medicine; Referring Provider Internal Medicine; Visit Provider Surgery
DX: L97.313 Non-pressure chronic ulcer of right ankle with necrosis of muscle (principal); I73.9 Peripheral vascular disease, unspecified; E11.621 Type 2 diabetes mellitus with foot ulcer; E11.42 Type 2 diabetes mellitus with diabetic polyneuropathy; I87.2 Venous insufficiency (chronic) (peripheral); L03.115 Cellulitis of right lower limb; L89.620 Pressure ulcer of left heel, unstageable; S81.802A Unspecified open wound, left lower leg, initial encounter
CPT/HCPCS: 99183; G0277

== ENCOUNTER → 2024-01-16 13:00 | Outpatient (CLI) | payer MEDICARE, OTHER, SELFPAY ==
[2023-12-13 14:45] VITALS: BMI 27.1
== END ==
LOC: WC 13:01
PROVIDERS: PCP Family Medicine; Referring Provider Internal Medicine; Visit Provider Surgery
DX: L97.313 Non-pressure chronic ulcer of right ankle with necrosis of muscle (principal); I73.9 Peripheral vascular disease, unspecified; E11.621 Type 2 diabetes mellitus with foot ulcer; E11.42 Type 2 diabetes mellitus with diabetic polyneuropathy; I87.2 Venous insufficiency (chronic) (peripheral); L03.115 Cellulitis of right lower limb; L89.620 Pressure ulcer of left heel, unstageable; S81.802A Unspecified open wound, left lower leg, initial encounter
CPT/HCPCS: 99183; G0277

== ENCOUNTER → 2024-01-17 13:34 | Outpatient (CLI) | payer MEDICARE, OTHER, SELFPAY ==
[2023-12-13 14:45] VITALS: BMI 27.1
== END ==
LOC: WC 13:41
PROVIDERS: PCP Family Medicine; Referring Provider Internal Medicine; Visit Provider Surgery
DX: E11.622 Type 2 diabetes mellitus with other skin ulcer (principal); L97.312 Non-pressure chronic ulcer of right ankle with fat layer exposed; I96 Gangrene, not elsewhere classified; R21 Rash and other nonspecific skin eruption; R60.0 Localized edema; M25.571 Pain in right ankle and joints of right foot; L97.313 Non-pressure chronic ulcer of right ankle with necrosis of muscle; I73.9 Peripheral vascular disease, unspecified; E11.621 Type 2 diabetes mellitus with foot ulcer; E11.42 Type 2 diabetes mellitus with diabetic polyneuropathy; I87.2 Venous insufficiency (chronic) (peripheral); L03.115 Cellulitis of right lower limb; L89.620 Pressure ulcer of left heel, unstageable; S81.802A Unspecified open wound, left lower leg, initial encounter
CPT/HCPCS: 11042; 11045; 99213; G0277

== ENCOUNTER → 2024-01-18 13:24 | Outpatient (CLI) | payer MEDICARE, OTHER, SELFPAY ==
[2023-12-13 14:45] VITALS: BMI 27.1
== END ==
LOC: WC 13:25
PROVIDERS: PCP Family Medicine; Referring Provider Internal Medicine; Visit Provider Physician Assistant
DX: L97.313 Non-pressure chronic ulcer of right ankle with necrosis of muscle (principal); I73.9 Peripheral vascular disease, unspecified; E11.621 Type 2 diabetes mellitus with foot ulcer; E11.42 Type 2 diabetes mellitus with diabetic polyneuropathy; I87.2 Venous insufficiency (chronic) (peripheral); L03.115 Cellulitis of right lower limb; L89.620 Pressure ulcer of left heel, unstageable
CPT/HCPCS: 99183; G0277

== ENCOUNTER → 2024-01-21 13:28 | Outpatient (CLI) | payer MEDICARE, OTHER, SELFPAY ==
[2023-12-13 14:45] VITALS: BMI 27.1
== END ==
LOC: WC 13:29
PROVIDERS: PCP Family Medicine; Referring Provider Internal Medicine; Visit Provider Surgery
DX: L97.313 Non-pressure chronic ulcer of right ankle with necrosis of muscle (principal); I73.9 Peripheral vascular disease, unspecified; E11.621 Type 2 diabetes mellitus with foot ulcer; E11.42 Type 2 diabetes mellitus with diabetic polyneuropathy; I87.2 Venous insufficiency (chronic) (peripheral); L03.115 Cellulitis of right lower limb; L89.620 Pressure ulcer of left heel, unstageable
CPT/HCPCS: 99183; G0277

== ENCOUNTER → 2024-01-22 14:30 | Outpatient (CLI) | payer MEDICARE, OTHER, SELFPAY ==
[2023-12-13 14:45] VITALS: BMI 27.1
== END ==
LOC: WC 14:32
PROVIDERS: PCP Family Medicine; Referring Provider Family Medicine; Visit Provider Surgery
DX: E11.621 Type 2 diabetes mellitus with foot ulcer (principal); L97.313 Non-pressure chronic ulcer of right ankle with necrosis of muscle; I73.9 Peripheral vascular disease, unspecified; E11.42 Type 2 diabetes mellitus with diabetic polyneuropathy; I87.2 Venous insufficiency (chronic) (peripheral); L03.115 Cellulitis of right lower limb; L89.620 Pressure ulcer of left heel, unstageable
CPT/HCPCS: 99183; G0277

== ENCOUNTER → 2024-01-23 13:39 | Outpatient (CLI) | payer MEDICARE, OTHER, SELFPAY ==
[2023-12-13 14:45] VITALS: BMI 27.1
== END ==
LOC: WC 13:41
PROVIDERS: PCP Family Medicine; Referring Provider Internal Medicine; Visit Provider Surgery
DX: L97.313 Non-pressure chronic ulcer of right ankle with necrosis of muscle (principal); I73.9 Peripheral vascular disease, unspecified; E11.621 Type 2 diabetes mellitus with foot ulcer; E11.42 Type 2 diabetes mellitus with diabetic polyneuropathy; I87.2 Venous insufficiency (chronic) (peripheral); L03.115 Cellulitis of right lower limb; L89.620 Pressure ulcer of left heel, unstageable
CPT/HCPCS: 99183; G0277

== ENCOUNTER → 2024-01-24 13:11 | Outpatient (CLI) | payer MEDICARE, OTHER, SELFPAY ==
[2023-12-13 14:45] VITALS: BMI 27.1
== END ==
PROVIDERS: PCP Family Medicine; Referring Provider Internal Medicine; Visit Provider Surgery
DX: E11.621 Type 2 diabetes mellitus with foot ulcer (principal); E11.42 Type 2 diabetes mellitus with diabetic polyneuropathy; L97.318 Non-pressure chronic ulcer of right ankle with other specified severity; L98.8 Other specified disorders of the skin and subcutaneous tissue; I73.9 Peripheral vascular disease, unspecified; R60.0 Localized edema; R21 Rash and other nonspecific skin eruption; M25.571 Pain in right ankle and joints of right foot; Z79.2 Long term (current) use of antibiotics; L97.313 Non-pressure chronic ulcer of right ankle with necrosis of muscle; I87.2 Venous insufficiency (chronic) (peripheral); L03.115 Cellulitis of right lower limb; L89.620 Pressure ulcer of left heel, unstageable
CPT/HCPCS: 11042; 11045; 99183; 99213; G0277

== ENCOUNTER → 2024-01-25 11:52 | Outpatient (CLI) | payer MEDICARE, OTHER, SELFPAY ==
[2023-12-13 14:45] VITALS: BMI 27.1
== END ==
PROVIDERS: PCP Family Medicine; Referring Provider Internal Medicine; Visit Provider Nurse Practitioner Family
DX: L97.313 Non-pressure chronic ulcer of right ankle with necrosis of muscle (principal); I73.9 Peripheral vascular disease, unspecified; E11.621 Type 2 diabetes mellitus with foot ulcer; E11.42 Type 2 diabetes mellitus with diabetic polyneuropathy; I87.2 Venous insufficiency (chronic) (peripheral); L03.115 Cellulitis of right lower limb; L89.620 Pressure ulcer of left heel, unstageable
CPT/HCPCS: 99183; G0277

== ENCOUNTER → 2024-01-28 12:47 | Outpatient (CLI) | payer MEDICARE, OTHER, SELFPAY ==
[2023-12-13 14:45] VITALS: BMI 27.1
== END ==
PROVIDERS: PCP Family Medicine; Referring Provider Internal Medicine; Visit Provider Surgery
DX: L97.313 Non-pressure chronic ulcer of right ankle with necrosis of muscle (principal); I73.9 Peripheral vascular disease, unspecified; E11.621 Type 2 diabetes mellitus with foot ulcer; E11.42 Type 2 diabetes mellitus with diabetic polyneuropathy; I87.2 Venous insufficiency (chronic) (peripheral); L03.115 Cellulitis of right lower limb; L89.620 Pressure ulcer of left heel, unstageable
CPT/HCPCS: 99183; G0277

== ENCOUNTER → 2024-01-29 13:04 | Outpatient (CLI) | payer MEDICARE, OTHER, SELFPAY ==
[2023-12-13 14:45] VITALS: BMI 27.1
== END ==
PROVIDERS: PCP Family Medicine; Referring Provider Internal Medicine; Visit Provider Surgery
DX: L97.313 Non-pressure chronic ulcer of right ankle with necrosis of muscle (principal); I73.9 Peripheral vascular disease, unspecified; E11.621 Type 2 diabetes mellitus with foot ulcer; E11.42 Type 2 diabetes mellitus with diabetic polyneuropathy; I87.2 Venous insufficiency (chronic) (peripheral); L03.115 Cellulitis of right lower limb; L89.620 Pressure ulcer of left heel, unstageable
CPT/HCPCS: 99183; G0277

== ENCOUNTER → 2024-01-30 13:50 | Outpatient (CLI) | payer MEDICARE, OTHER, SELFPAY ==
[2023-12-13 14:45] VITALS: BMI 27.1
== END ==
PROVIDERS: PCP Family Medicine; Referring Provider Internal Medicine; Visit Provider Surgery
DX: L97.313 Non-pressure chronic ulcer of right ankle with necrosis of muscle (principal); I73.9 Peripheral vascular disease, unspecified; E11.621 Type 2 diabetes mellitus with foot ulcer; E11.42 Type 2 diabetes mellitus with diabetic polyneuropathy; I87.2 Venous insufficiency (chronic) (peripheral); L03.115 Cellulitis of right lower limb; L89.620 Pressure ulcer of left heel, unstageable
CPT/HCPCS: 99183; G0277

== ENCOUNTER → 2024-01-31 10:47 | Outpatient (CLI) | payer MEDICARE, OTHER, SELFPAY ==
[2023-12-13 14:45] VITALS: BMI 27.1
== END ==
PROVIDERS: PCP Family Medicine; Referring Provider Internal Medicine; Visit Provider Surgery
DX: L97.313 Non-pressure chronic ulcer of right ankle with necrosis of muscle (principal); I73.9 Peripheral vascular disease, unspecified; E11.621 Type 2 diabetes mellitus with foot ulcer; E11.42 Type 2 diabetes mellitus with diabetic polyneuropathy; I87.2 Venous insufficiency (chronic) (peripheral); L03.115 Cellulitis of right lower limb; L89.620 Pressure ulcer of left heel, unstageable; L97.318 Non-pressure chronic ulcer of right ankle with other specified severity; L98.8 Other specified disorders of the skin and subcutaneous tissue; R60.0 Localized edema; R21 Rash and other nonspecific skin eruption; Z79.2 Long term (current) use of antibiotics
CPT/HCPCS: 11042; 11045; 99183; G0277

== ENCOUNTER → 2024-02-01 10:35 | Outpatient (CLI) | payer MEDICARE, OTHER, SELFPAY ==
[2023-12-13 14:45] VITALS: BMI 27.1
== END ==
PROVIDERS: PCP Family Medicine; Referring Provider Internal Medicine; Visit Provider Physician Assistant
DX: L97.313 Non-pressure chronic ulcer of right ankle with necrosis of muscle (principal); I73.9 Peripheral vascular disease, unspecified; E11.621 Type 2 diabetes mellitus with foot ulcer; E11.42 Type 2 diabetes mellitus with diabetic polyneuropathy; I87.2 Venous insufficiency (chronic) (peripheral); L03.115 Cellulitis of right lower limb; L89.620 Pressure ulcer of left heel, unstageable
CPT/HCPCS: 99183; G0277

== ENCOUNTER → 2024-02-05 13:00 | Outpatient (CLI) | payer MEDICARE, OTHER, SELFPAY ==
[2023-12-13 14:45] VITALS: BMI 27.1
== END ==
PROVIDERS: PCP Family Medicine; Referring Provider Internal Medicine; Visit Provider Surgery
DX: I89.0 Lymphedema, not elsewhere classified (principal); L97.822 Non-pressure chronic ulcer of other part of left lower leg with fat layer exposed; I87.2 Venous insufficiency (chronic) (peripheral); L53.9 Erythematous condition, unspecified; L97.313 Non-pressure chronic ulcer of right ankle with necrosis of muscle; I73.9 Peripheral vascular disease, unspecified; E11.621 Type 2 diabetes mellitus with foot ulcer; E11.42 Type 2 diabetes mellitus with diabetic polyneuropathy; L03.115 Cellulitis of right lower limb; L89.620 Pressure ulcer of left heel, unstageable
CPT/HCPCS: 99183; G0277

== ENCOUNTER → 2024-02-06 13:12 | Outpatient (CLI) | payer MEDICARE, OTHER, SELFPAY ==
[2023-12-13 14:45] VITALS: BMI 27.1
== END ==
PROVIDERS: PCP Family Medicine; Referring Provider Internal Medicine; Visit Provider Surgery
DX: L97.313 Non-pressure chronic ulcer of right ankle with necrosis of muscle (principal); I73.9 Peripheral vascular disease, unspecified; E11.621 Type 2 diabetes mellitus with foot ulcer; E11.42 Type 2 diabetes mellitus with diabetic polyneuropathy; I87.2 Venous insufficiency (chronic) (peripheral); L03.115 Cellulitis of right lower limb; L89.620 Pressure ulcer of left heel, unstageable
CPT/HCPCS: 99183; 99213; G0277

== ENCOUNTER → 2024-02-07 11:24 | Outpatient (CLI) | payer MEDICARE, OTHER, SELFPAY ==
[2023-12-13 14:45] VITALS: BMI 27.1
== END ==
PROVIDERS: PCP Family Medicine; Referring Provider Internal Medicine; Visit Provider Surgery
DX: L97.313 Non-pressure chronic ulcer of right ankle with necrosis of muscle (principal); I73.9 Peripheral vascular disease, unspecified; E11.621 Type 2 diabetes mellitus with foot ulcer; E11.42 Type 2 diabetes mellitus with diabetic polyneuropathy; I87.2 Venous insufficiency (chronic) (peripheral); L03.115 Cellulitis of right lower limb; L89.620 Pressure ulcer of left heel, unstageable; L97.318 Non-pressure chronic ulcer of right ankle with other specified severity; L98.8 Other specified disorders of the skin and subcutaneous tissue; R60.0 Localized edema
CPT/HCPCS: 11042; 11045; 99183; G0277

== ENCOUNTER → 2024-02-08 12:40 | Outpatient (CLI) | payer MEDICARE, OTHER, SELFPAY ==
[2023-12-13 14:45] VITALS: BMI 27.1
== END ==
PROVIDERS: PCP Family Medicine; Referring Provider Internal Medicine; Visit Provider Nurse Practitioner Family
DX: L97.313 Non-pressure chronic ulcer of right ankle with necrosis of muscle (principal); I73.9 Peripheral vascular disease, unspecified; E11.621 Type 2 diabetes mellitus with foot ulcer; E11.42 Type 2 diabetes mellitus with diabetic polyneuropathy; I87.2 Venous insufficiency (chronic) (peripheral); L03.115 Cellulitis of right lower limb; L89.620 Pressure ulcer of left heel, unstageable
CPT/HCPCS: 99183; G0277

== ENCOUNTER → 2024-02-10 12:09 | Outpatient (ROUT) | payer MEDICARE, OTHER, SELFPAY ==
[2023-12-13 14:45] VITALS: BMI 27.1
[2024-02-10 12:16] LABS: Appearance Urine UA SL CLOUDY; Bilirubin Urine UA NEGATIVE (NEGATIVE); Color Urine UA YELLOW; Glucose Urine UA 3+ g/dL (Negative); Ketones Urine UA NEGATIVE (NEGATIVE); Leukocyte Esterase Urine UA 2+ (NEGATIVE); Nitrite Urine UA NEGATIVE (Negative); Occult Blood Urine UA 3+ (Negative); Protein Urine UA 1+ (Negative); pH Urine UA 5.5 (4.5-8.0)
[2024-02-10 12:28] LABS: Bacteria Urine Moderate (10-30); RBC Urine 5-10/HPF (0-5/HPF); Squamous Epithelial Cell Urine None Seen (0-5/HPF); Urine Volume 10mL (spun); WBC Urine 30-100/HPF (0-5/HPF)
== END ==
PROVIDERS: PCP Family Medicine; Visit Provider Registered Nurse
DX: N39.0 Urinary tract infection, site not specified (principal)
CPT/HCPCS: 81001; 87077; 87086; 87186

== ENCOUNTER → 2024-02-11 13:01 | Outpatient (CLI) | payer MEDICARE, OTHER, SELFPAY ==
[2023-12-13 14:45] VITALS: BMI 27.1
== END ==
LOC: WC 13:02
PROVIDERS: PCP Family Medicine; Referring Provider Internal Medicine; Visit Provider Surgery
DX: L97.313 Non-pressure chronic ulcer of right ankle with necrosis of muscle (principal); I73.9 Peripheral vascular disease, unspecified; E11.621 Type 2 diabetes mellitus with foot ulcer; E11.42 Type 2 diabetes mellitus with diabetic polyneuropathy; I87.2 Venous insufficiency (chronic) (peripheral); L03.115 Cellulitis of right lower limb; L89.620 Pressure ulcer of left heel, unstageable
CPT/HCPCS: 99183; G0277

== ENCOUNTER → 2024-02-12 12:37 | Outpatient (CLI) | payer MEDICARE, OTHER, SELFPAY ==
[2023-12-13 14:45] VITALS: BMI 27.1
== END ==
LOC: WC 12:38
PROVIDERS: PCP Family Medicine; Referring Provider Internal Medicine; Visit Provider Surgery
DX: L97.313 Non-pressure chronic ulcer of right ankle with necrosis of muscle (principal); I73.9 Peripheral vascular disease, unspecified; E11.621 Type 2 diabetes mellitus with foot ulcer; E11.42 Type 2 diabetes mellitus with diabetic polyneuropathy; I87.2 Venous insufficiency (chronic) (peripheral); L03.115 Cellulitis of right lower limb; L89.620 Pressure ulcer of left heel, unstageable
CPT/HCPCS: 99183; G0277

== ENCOUNTER → 2024-02-13 13:53 | Outpatient (CLI) | payer MEDICARE, OTHER, SELFPAY ==
[2023-12-13 14:45] VITALS: BMI 27.1
== END ==
PROVIDERS: PCP Family Medicine; Referring Provider Internal Medicine; Visit Provider Surgery
DX: L97.313 Non-pressure chronic ulcer of right ankle with necrosis of muscle (principal); I73.9 Peripheral vascular disease, unspecified; E11.621 Type 2 diabetes mellitus with foot ulcer; E11.42 Type 2 diabetes mellitus with diabetic polyneuropathy; I87.2 Venous insufficiency (chronic) (peripheral); L03.115 Cellulitis of right lower limb; L89.620 Pressure ulcer of left heel, unstageable
CPT/HCPCS: 99183; G0277

== ENCOUNTER → 2024-02-14 11:01 | Outpatient (CLI) | payer MEDICARE, OTHER, SELFPAY ==
[2023-12-13 14:45] VITALS: BMI 27.1
== END ==
LOC: WC 11:03
PROVIDERS: PCP Family Medicine; Referring Provider Internal Medicine; Visit Provider Surgery
DX: L97.313 Non-pressure chronic ulcer of right ankle with necrosis of muscle (principal); I73.9 Peripheral vascular disease, unspecified; E11.621 Type 2 diabetes mellitus with foot ulcer; E11.42 Type 2 diabetes mellitus with diabetic polyneuropathy; I87.2 Venous insufficiency (chronic) (peripheral); L03.115 Cellulitis of right lower limb; L89.620 Pressure ulcer of left heel, unstageable; L97.318 Non-pressure chronic ulcer of right ankle with other specified severity; L98.8 Other specified disorders of the skin and subcutaneous tissue; L60.0 Ingrowing nail; L50.9 Urticaria, unspecified; I25.10 Atherosclerotic heart disease of native coronary artery without angina pectoris
CPT/HCPCS: 11042; 11045; 99183; 99213; G0277

== ENCOUNTER → 2024-02-15 13:42 | Outpatient (CLI) | payer MEDICARE, OTHER, SELFPAY ==
[2023-12-13 14:45] VITALS: BMI 27.1
== END ==
LOC: WC 13:45
PROVIDERS: PCP Family Medicine; Referring Provider Internal Medicine; Visit Provider Surgery
DX: L97.313 Non-pressure chronic ulcer of right ankle with necrosis of muscle (principal); I73.9 Peripheral vascular disease, unspecified; E11.621 Type 2 diabetes mellitus with foot ulcer; E11.42 Type 2 diabetes mellitus with diabetic polyneuropathy; I87.2 Venous insufficiency (chronic) (peripheral); L03.115 Cellulitis of right lower limb; L89.620 Pressure ulcer of left heel, unstageable
CPT/HCPCS: 99183; G0277

== ENCOUNTER → 2024-02-21 10:48 | Outpatient (CLI) | payer MEDICARE, OTHER, SELFPAY ==
[2023-12-13 14:45] VITALS: BMI 27.1
== END ==
LOC: WC 10:49
PROVIDERS: PCP Family Medicine; Referring Provider Internal Medicine; Visit Provider Surgery
DX: E11.621 Type 2 diabetes mellitus with foot ulcer (principal); E11.42 Type 2 diabetes mellitus with diabetic polyneuropathy; L97.318 Non-pressure chronic ulcer of right ankle with other specified severity; L98.8 Other specified disorders of the skin and subcutaneous tissue; I73.9 Peripheral vascular disease, unspecified; I87.2 Venous insufficiency (chronic) (peripheral); R60.0 Localized edema; R21 Rash and other nonspecific skin eruption
CPT/HCPCS: 11042; 11045

== ENCOUNTER 2024-02-26 08:24 | Day surgery (SDC) | payer MEDICARE, OTHER, SELFPAY ==
[2023-12-13 14:45] VITALS: BMI 27.1
[2024-02-22 07:38] VITALS: BMI 27.7
--- NOTE | 2024-02-26 08:45 | PM.PREOP ---
Pre-operative Note COVID-19 COVID-19 status: Not tested Interval Note History & Physical reviewed/Exam performed by Physician: Yes Changes to H&P: No ASA Class (for procedural sedation): III
[2024-02-26 08:52] VITALS: BP 132/66; PULSE 85; RESP 24; TEMP 36.2; O2SAT 93; BMI 27.7
[2024-02-26] MEDS: LACTATED RINGERS 1,000 ML 42 ML IV (09:08)
[2024-02-26] MEDS: CEFAZOLIN 2 GM/100 ML PREMIX 100 ML IV (09:32)
[2024-02-26] MEDS: LIDOCAINE 1% W/EPI 20 ML INJ (09:40)
--- NOTE | 2024-02-26 09:47 | SUR.OPER ---
Supine on padded OR bed, head on pillow, arms secured on padded arm boards at <90 degrees abduction, legs uncrossed, safety belt at thigh, tape over blanket over lower legs.
[2024-02-26] MEDS: BUPIVACAINE 0.5% (PF) 30 ML, EPINEPHrine 0.15 MG INJ (09:53)
[2024-02-26 10:12] VITALS: BP 147/66; PULSE 87; RESP 16; TEMP 36.5; O2SAT 94
--- NOTE | 2024-02-26 10:12 | PM.OP.1 ---
Operative Date/Time/Diagnoses Date of procedure: 02/26/24 Time of procedure: 10:12 Pre-op diagnosis: Nonhealing wound of the right posterior leg Post-op diagnosis: same Procedure & Clinicians Procedure: Debridement of wound of the right posterior leg Same procedure as scheduled: No (Skin graft was not performed due to the condition of the wound) Surgeon: Lars Au Jd Edwards Consultant: Naun Sewell Anesthesia Type: General Operative Notes Procedure in detail: The patient is an 83-year-old man with a nonhealing wound of the right posterior leg. He had been undergoing wound care at the wound center for many months but the wound had stalled. He was consented for a debridement in the operating room and possible wound VAC placement. Patient was brought to the operating room and placed on the table in the supine position. General endotracheal anesthesia was induced. The right leg was prepped and draped circumferentially up to the groin. A time-out was performed. The wound measured 10.5 cm in length and 4.5 cm in width. There was granulation tissue and fibrinous exudate within the bed. The wound was scrubbed initially with scrub brush. We then performed some sharp debridement with a 10 blade scalpel. We also used a curette to remove slough and exudate. There was moderate bleeding from the granulation tissue. The wound edges at the superior and inferior aspects of the wound were heaped up with some undermining. The 15 blade scalpel was used to remove skin from the superior and inferior margins of the wound to remove the undermining. The skin was removed with a beveled edge to allow future dressing changes. The new wound dimension was 12 cm in length by 4.5 cm in width. The majority of the wound was flushed with the surrounding skin accept at the superior and inferior edges which was approximately 4 mm in depth. We then applied a negative pressure wound dressing. EBL: 20 mL Patient was awakened and brought to recovery room Naun CEBALLOS provided assistance with exposure, retraction and closure of incisions. Post-operative Condition: stable Disposition: PACU
[2024-02-26 10:16] VITALS: BP 139/65; PULSE 84; RESP 18; O2SAT 100
[2024-02-26 10:20] VITALS: BP 143/67; PULSE 81; RESP 18; O2SAT 100
[2024-02-26 10:36] VITALS: BP 138/61; PULSE 84; RESP 16; TEMP 36.1; O2SAT 96
--- NOTE | 2024-02-26 11:41 | SUR.PHASEII ---
Discharged patient home via tilt tray driver with [facility]
== END 2024-02-26 11:42 ==
PROVIDERS: PCP Family Medicine; Referring Provider Surgery; Visit Provider Surgery
PROC: (CPT 11042; principal; 2024-02-26 09:30)
DX: E11.622 Type 2 diabetes mellitus with other skin ulcer (principal); L97.312 Non-pressure chronic ulcer of right ankle with fat layer exposed; Z79.4 Long term (current) use of insulin
CPT/HCPCS: 11042; 11043; 82962; J0171; J0330; J0690; J2405; J2704; J3010

== ENCOUNTER → 2024-03-05 09:51 | Outpatient (CLI) | payer MEDICARE, OTHER, SELFPAY ==
[2023-12-13 14:45] VITALS: BMI 27.1
== END ==
PROVIDERS: PCP Family Medicine; Referring Provider Internal Medicine; Visit Provider Surgery
DX: L97.313 Non-pressure chronic ulcer of right ankle with necrosis of muscle (principal); E11.621 Type 2 diabetes mellitus with foot ulcer; E11.42 Type 2 diabetes mellitus with diabetic polyneuropathy; I73.9 Peripheral vascular disease, unspecified; R60.0 Localized edema; R21 Rash and other nonspecific skin eruption; I25.10 Atherosclerotic heart disease of native coronary artery without angina pectoris; I50.9 Heart failure, unspecified
CPT/HCPCS: 11042; 11045; 99213

== ENCOUNTER → 2024-03-06 15:11 | Outpatient (ROUT) | payer MEDICARE, OTHER, SELFPAY ==
[2023-12-13 14:45] VITALS: BMI 27.1
[2024-03-06 15:36] LABS: Appearance Urine UA CLEAR; Bilirubin Urine UA NEGATIVE (NEGATIVE); Color Urine UA YELLOW; Glucose Urine UA 2+ g/dL (Negative); Ketones Urine UA NEGATIVE (NEGATIVE); Leukocyte Esterase Urine UA 2+ (NEGATIVE); Nitrite Urine UA POSITIVE (Negative); Occult Blood Urine UA 1+ (Negative); Protein Urine UA 1+ (Negative)
[2024-03-06 15:46] LABS: Bacteria Urine Moderate (10-30); RBC Urine 0-1/HPF (0-5/HPF); Urine Volume 10mL (spun); WBC Urine 5-10/HPF (0-5/HPF)
[2024-03-06 15:47] LABS: Culture Indicated Urine Specimen Cultured; Squamous Epithelial Cell Urine None Seen (0-5/HPF)
== END ==
PROVIDERS: PCP Family Medicine; Visit Provider Registered Nurse
DX: N39.0 Urinary tract infection, site not specified (principal)
CPT/HCPCS: 81001; 87077; 87086

== ENCOUNTER → 2024-03-11 12:07 | Outpatient (CLI) | payer MEDICARE, OTHER, SELFPAY ==
[2023-12-13 14:45] VITALS: BMI 27.1
--- NOTE | 2024-03-11 12:10 | DI.RAD.S_ITS ---
PROCEDURE: XR CERVICAL SPINE 2V OR 3V INDICATIONS: Low back pain, unspecified TECHNIQUE: 3 view(s) of the cervical spine were acquired. COMPARISON: None. FINDINGS: Bones: No fractures or dislocations to the C6-7 level. The lateral masses of C1 appear intact on the odontoid view. No suspicious bony lesions. Significant multilevel degenerative disc space narrowing as well as uncovertebral hypertrophy are Soft tissues: No prevertebral soft tissue swelling. IMPRESSION: Significant multilevel degenerative changes. Lower cervical spine is not well seen. If this remains of concern, follow-up imaging is recommended. Dictated by: Kristal Tamayo M.D. on 03/11/2024 at 14:42 Approved by: Kristal Tamayo M.D. on 03/11/2024 at 14:43
--- NOTE | 2024-03-11 12:10 | DI.RAD.S_ITS ---
PROCEDURE: XR LUMBAR SPINE 2-3V INDICATIONS: Low back pain, unspecified TECHNIQUE: 3 views of the lumbar spine were acquired. COMPARISON: None. FINDINGS: Bones: 5 [id number] vertebrae are present. There is normal bony alignment. No vertebral body compression fractures. No suspicious bony lesions. The multilevel moderate to severe degenerative disc space narrowing. There is most severe at L5-S1. Multilevel anterior osteophytes are present most severe at L5. Multilevel foraminal narrowing is present most severe at L5-S1. Soft tissues: Overlying bowel gas pattern is normal. No suspicious soft tissue calcifications. IVC filter is present. Partially visualized left femoral head fixation. IMPRESSION: Significant multilevel degenerative changes are present. Dictated by: Kristal Tamayo M.D. on 03/11/2024 at 14:43 Approved by: Kristal Tamayo M.D. on 03/11/2024 at 14:45
--- NOTE | 2024-03-11 12:10 | DI.RAD.S_ITS ---
PROCEDURE: XR THORACIC SPINE 2V INDICATIONS: Low back pain, unspecified TECHNIQUE: 3 views of the thoracic spine were acquired. COMPARISON: None. FINDINGS: Bones: No fractures or dislocations. No suspicious bony lesions. 12 pairs of ribs are noted, and appear intact where visualized. Multilevel degenerative disc space narrowing as well as bridging anterior osteophytes. Soft tissues: No paravertebral stripe thickening. IMPRESSION: Multilevel degenerative changes. Dictated by: Kristal Tamayo M.D. on 03/11/2024 at 14:45 Approved by: Kristal Tamayo M.D. on 03/11/2024 at 14:45
== END ==
PROVIDERS: PCP Family Medicine; Referring Provider Nurse Practitioner Family; Visit Provider Nurse Practitioner Family
DX: M47.812 Spondylosis without myelopathy or radiculopathy, cervical region (principal); M47.814 Spondylosis without myelopathy or radiculopathy, thoracic region; M47.816 Spondylosis without myelopathy or radiculopathy, lumbar region; M47.817 Spondylosis without myelopathy or radiculopathy, lumbosacral region; M54.50 Low back pain, unspecified; R29.6 Repeated falls
CPT/HCPCS: 72040; 72070; 72100

== ENCOUNTER → 2024-03-12 09:31 | Outpatient (CLI) | payer MEDICARE, OTHER, SELFPAY ==
[2023-12-13 14:45] VITALS: BMI 27.1
== END ==
LOC: WC 09:34
PROVIDERS: PCP Family Medicine; Referring Provider Internal Medicine; Visit Provider Surgery
DX: L97.318 Non-pressure chronic ulcer of right ankle with other specified severity (principal); E11.621 Type 2 diabetes mellitus with foot ulcer; I73.9 Peripheral vascular disease, unspecified; E11.42 Type 2 diabetes mellitus with diabetic polyneuropathy; R60.0 Localized edema; R21 Rash and other nonspecific skin eruption
CPT/HCPCS: 15271; 15272; Q4101

== ENCOUNTER → 2024-03-14 09:05 | Outpatient (CLI) | payer MEDICARE, OTHER, SELFPAY ==
[2023-12-13 14:45] VITALS: BMI 27.1
--- NOTE | 2024-03-14 | DI.RAD.S_ITS ---
PROCEDURE: FL GUIDED PICC PLACEMENT INDICATIONS: Extended spectrum beta lactamase (ESBL) resistance COMPARISON: None. FINDINGS: PICC was placed by the intravenous therapy team from the left side. Fluoroscopic spot film demonstrates the tip of PICC projecting to the area of SVC. IMPRESSION: Tip of PICC projects to the area of SVC. Dictated by: Saulo Edwards M.D. on 03/14/2024 at 10:51 Approved by: Saulo Edwards M.D. on 03/14/2024 at 11:03
== END ==
PROVIDERS: PCP Family Medicine; Referring Provider Registered Nurse; Visit Provider Registered Nurse
DX: Z45.2 Encounter for adjustment and management of vascular access device (principal); N39.0 Urinary tract infection, site not specified; Z16.12 Extended spectrum beta lactamase (ESBL) resistance
CPT/HCPCS: 36573

== ENCOUNTER → 2024-03-19 09:40 | Outpatient (CLI) | payer MEDICARE, OTHER, SELFPAY ==
[2023-12-13 14:45] VITALS: BMI 27.1
== END ==
LOC: WC 09:40
PROVIDERS: PCP Family Medicine; Referring Provider Internal Medicine; Visit Provider Surgery
DX: L97.318 Non-pressure chronic ulcer of right ankle with other specified severity (principal); E11.621 Type 2 diabetes mellitus with foot ulcer; I73.9 Peripheral vascular disease, unspecified; E11.42 Type 2 diabetes mellitus with diabetic polyneuropathy; R60.0 Localized edema; R21 Rash and other nonspecific skin eruption
CPT/HCPCS: 15271; 15272; Q4101

== ENCOUNTER → 2024-03-24 14:05 | Outpatient (ROUT) | payer MEDICARE, OTHER, SELFPAY ==
[2023-12-13 14:45] VITALS: BMI 27.1
[2024-03-24 14:15] LABS: Appearance Urine UA CLEAR; Bilirubin Urine UA NEGATIVE (NEGATIVE); Color Urine UA YELLOW; Glucose Urine UA 3+ g/dL (Negative); Ketones Urine UA NEGATIVE (NEGATIVE); Leukocyte Esterase Urine UA 1+ (NEGATIVE); Nitrite Urine UA NEGATIVE (Negative); Occult Blood Urine UA TRACE-INTACT (Negative); Protein Urine UA TRACE (Negative); Urine Volume 10mL (spun); Urobilinogen Urine UA 0.2 E.U./dL (0.2)
[2024-03-24 14:20] LABS: Bacteria Urine None Seen; Culture Indicated Urine Specimen Cultured; RBC Urine 1-5/HPF (0-5/HPF); Squamous Epithelial Cell Urine 1-5 /HPF (0-5/HPF); WBC Urine 5-10/HPF (0-5/HPF)
== END ==
PROVIDERS: PCP Family Medicine; Visit Provider Registered Nurse
DX: N39.0 Urinary tract infection, site not specified (principal)
CPT/HCPCS: 81001; 87086

== ENCOUNTER → 2024-03-26 10:13 | Outpatient (CLI) | payer MEDICARE, OTHER, SELFPAY ==
[2023-12-13 14:45] VITALS: BMI 27.1
== END ==
LOC: WC 10:14
PROVIDERS: PCP Family Medicine; Referring Provider Internal Medicine; Visit Provider Surgery
DX: L97.312 Non-pressure chronic ulcer of right ankle with fat layer exposed (principal); E11.621 Type 2 diabetes mellitus with foot ulcer; E11.42 Type 2 diabetes mellitus with diabetic polyneuropathy; I73.9 Peripheral vascular disease, unspecified; R60.0 Localized edema
CPT/HCPCS: 15271; 15272; Q4101

== ENCOUNTER → 2024-04-02 09:07 | Outpatient (CLI) | payer MEDICARE, OTHER, SELFPAY ==
[2023-12-13 14:45] VITALS: BMI 27.1
== END ==
LOC: WC 09:09
PROVIDERS: PCP Family Medicine; Referring Provider Internal Medicine; Visit Provider Surgery
DX: E11.621 Type 2 diabetes mellitus with foot ulcer (principal); E11.42 Type 2 diabetes mellitus with diabetic polyneuropathy; L97.312 Non-pressure chronic ulcer of right ankle with fat layer exposed; L08.89 Other specified local infections of the skin and subcutaneous tissue; R60.0 Localized edema; L53.9 Erythematous condition, unspecified; Z79.2 Long term (current) use of antibiotics; I73.9 Peripheral vascular disease, unspecified
CPT/HCPCS: 11042; 11045; 87070; 87075; 87077; 87205; 99213

== ENCOUNTER → 2024-04-04 22:18 | Outpatient (ROUT) | payer MEDICARE, OTHER, SELFPAY ==
[2023-12-13 14:45] VITALS: BMI 27.1
[2024-04-04 22:48] LABS: Appearance Urine UA CLOUDY; Bilirubin Urine UA NEGATIVE (NEGATIVE); Color Urine UA YELLOW; Glucose Urine UA 3+ g/dL (Negative); Ketones Urine UA NEGATIVE (NEGATIVE); Leukocyte Esterase Urine UA 1+ (NEGATIVE); Nitrite Urine UA POSITIVE (Negative); Occult Blood Urine UA TRACE-INTACT (Negative); Protein Urine UA 1+ (Negative); Urobilinogen Urine UA 0.2 E.U./dL (0.2); pH Urine UA 5.5 (4.5-8.0)
[2024-04-05 00:12] LABS: Bacteria Urine Many (>30); Culture Indicated Urine Specimen Cultured; RBC Urine 0-1/HPF (0-5/HPF); Squamous Epithelial Cell Urine 0-1 /HPF (0-5/HPF); Urine Volume 10mL (spun); WBC Urine 10-30/HPF (0-5/HPF)
== END ==
PROVIDERS: PCP Family Medicine; Visit Provider Registered Nurse
DX: N39.0 Urinary tract infection, site not specified (principal)
CPT/HCPCS: 81001; 87077; 87086; 87186

== ENCOUNTER → 2024-04-09 09:45 | Outpatient (CLI) | payer MEDICARE, OTHER, SELFPAY ==
[2023-12-13 14:45] VITALS: BMI 27.1
== END ==
PROVIDERS: PCP Family Medicine; Referring Provider Internal Medicine; Visit Provider Surgery
DX: I87.2 Venous insufficiency (chronic) (peripheral) (principal); L53.8 Other specified erythematous conditions; L97.312 Non-pressure chronic ulcer of right ankle with fat layer exposed; L03.115 Cellulitis of right lower limb
CPT/HCPCS: 11042; 11045; 99212; 99213

== ENCOUNTER → 2024-04-16 09:08 | Outpatient (CLI) | payer MEDICARE, OTHER, SELFPAY ==
[2023-12-13 14:45] VITALS: BMI 27.1
== END ==
PROVIDERS: PCP Family Medicine; Referring Provider Internal Medicine; Visit Provider Surgery
DX: E11.621 Type 2 diabetes mellitus with foot ulcer (principal); E11.42 Type 2 diabetes mellitus with diabetic polyneuropathy; L97.312 Non-pressure chronic ulcer of right ankle with fat layer exposed; R60.0 Localized edema; L53.9 Erythematous condition, unspecified; I73.9 Peripheral vascular disease, unspecified
CPT/HCPCS: 15271; 15272; Q4101

== ENCOUNTER → 2024-04-23 10:42 | Outpatient (CLI) | payer MEDICARE, OTHER, SELFPAY ==
[2023-12-13 14:45] VITALS: BMI 27.1
== END ==
PROVIDERS: PCP Family Medicine; Referring Provider Family Medicine; Visit Provider Surgery
DX: E11.42 Type 2 diabetes mellitus with diabetic polyneuropathy (principal); E11.621 Type 2 diabetes mellitus with foot ulcer; L97.312 Non-pressure chronic ulcer of right ankle with fat layer exposed; R60.0 Localized edema; L53.9 Erythematous condition, unspecified; I73.9 Peripheral vascular disease, unspecified
CPT/HCPCS: 15271; 15272; Q4101

== ENCOUNTER → 2024-04-23 12:55 | Outpatient (CLI) | payer MEDICARE, OTHER, SELFPAY ==
[2023-12-13 14:45] VITALS: BMI 27.1
--- NOTE | 2024-04-23 | DI.RAD.S_ITS ---
PROCEDURE: FL GUIDED PICC PLACEMENT INDICATIONS: picc pulled out COMPARISON: [facility], , [place] PICC W FLUOROGUIDE, 03/14/2024, 8:48. FINDINGS: PICC was placed by the intravenous therapy team from the right side. Fluoroscopic spot film demonstrates the tip of PICC projecting to the area of mid SVC. IMPRESSION: Tip of PICC projects to the area of mid SVC. Dictated by: Kristal Tamayo M.D. on 04/27/2024 at 20:42 Approved by: Kristal Tamayo M.D. on 04/27/2024 at 20:42
== END ==
PROVIDERS: PCP Family Medicine; Referring Provider Registered Nurse; Visit Provider Registered Nurse
DX: N39.0 Urinary tract infection, site not specified (principal); B96.20 Unspecified Escherichia coli [E. coli] as the cause of diseases classified elsewhere; Z16.10 Resistance to unspecified beta lactam antibiotics; Z45.2 Encounter for adjustment and management of vascular access device
CPT/HCPCS: 36573

== ENCOUNTER → 2024-04-29 17:34 | Outpatient (ROUT) | payer MEDICARE, OTHER, SELFPAY ==
[2023-12-13 14:45] VITALS: BMI 27.1
[2024-04-29 17:42] LABS: Appearance Urine UA CLEAR; Bilirubin Urine UA NEGATIVE (NEGATIVE); Color Urine UA YELLOW; Glucose Urine UA 3+ g/dL (Negative); Ketones Urine UA NEGATIVE (NEGATIVE); Leukocyte Esterase Urine UA NEGATIVE (NEGATIVE); Nitrite Urine UA NEGATIVE (Negative); Occult Blood Urine UA NEGATIVE (Negative); Protein Urine UA TRACE (Negative); Urobilinogen Urine UA 0.2 E.U./dL (0.2)
[2024-04-29 17:49] LABS: Bacteria Urine Occasional (0-1); Culture Indicated Urine Cult Not Indicated; Mucus Urine 1+ (Negative); RBC Urine None Seen (0-5/HPF); Squamous Epithelial Cell Urine None Seen (0-5/HPF); Urine Volume 10mL (spun); WBC Urine None Seen (0-5/HPF)
== END ==
PROVIDERS: PCP Family Medicine; Visit Provider Internal Medicine
DX: N39.0 Urinary tract infection, site not specified (principal)
CPT/HCPCS: 81001

== ENCOUNTER → 2024-04-30 11:25 | Outpatient (CLI) | payer MEDICARE, OTHER, SELFPAY ==
[2023-12-13 14:45] VITALS: BMI 27.1
== END ==
PROVIDERS: PCP Family Medicine; Referring Provider Internal Medicine; Visit Provider Physician Assistant
DX: E11.621 Type 2 diabetes mellitus with foot ulcer (principal); L97.312 Non-pressure chronic ulcer of right ankle with fat layer exposed; L53.9 Erythematous condition, unspecified; E11.22 Type 2 diabetes mellitus with diabetic chronic kidney disease; N18.9 Chronic kidney disease, unspecified; I50.9 Heart failure, unspecified; I48.91 Unspecified atrial fibrillation
CPT/HCPCS: 11042; 11045; 99213

== ENCOUNTER → 2024-05-06 09:36 | Outpatient (CLI) | payer MEDICARE, OTHER, SELFPAY ==
[2023-12-13 14:45] VITALS: BMI 27.1
== END ==
PROVIDERS: PCP Family Medicine; Referring Provider Internal Medicine; Visit Provider Surgery
DX: E11.621 Type 2 diabetes mellitus with foot ulcer (principal); E11.42 Type 2 diabetes mellitus with diabetic polyneuropathy; L97.312 Non-pressure chronic ulcer of right ankle with fat layer exposed; L53.9 Erythematous condition, unspecified; R60.0 Localized edema; I73.9 Peripheral vascular disease, unspecified; I25.10 Atherosclerotic heart disease of native coronary artery without angina pectoris; I50.9 Heart failure, unspecified
CPT/HCPCS: 11042; 11045; 99213

== ENCOUNTER → 2024-05-13 14:56 | Outpatient (CLI) | payer MEDICARE, OTHER, SELFPAY ==
[2023-12-13 14:45] VITALS: BMI 27.1
== END ==
PROVIDERS: PCP Family Medicine; Referring Provider Internal Medicine; Visit Provider Surgery
DX: E11.621 Type 2 diabetes mellitus with foot ulcer (principal); E11.42 Type 2 diabetes mellitus with diabetic polyneuropathy; L97.312 Non-pressure chronic ulcer of right ankle with fat layer exposed; R60.0 Localized edema; L53.9 Erythematous condition, unspecified; I73.9 Peripheral vascular disease, unspecified
CPT/HCPCS: 11042; 11045

== ENCOUNTER → 2024-05-20 14:55 | Outpatient (CLI) | payer MEDICARE, OTHER, SELFPAY ==
[2023-12-13 14:45] VITALS: BMI 27.1
== END ==
LOC: WC 14:57
PROVIDERS: PCP Family Medicine; Referring Provider Family Medicine; Visit Provider Surgery
DX: E11.621 Type 2 diabetes mellitus with foot ulcer (principal); E11.42 Type 2 diabetes mellitus with diabetic polyneuropathy; L97.312 Non-pressure chronic ulcer of right ankle with fat layer exposed; L53.9 Erythematous condition, unspecified; R60.0 Localized edema; I73.9 Peripheral vascular disease, unspecified
CPT/HCPCS: 11042; 11045

== ENCOUNTER → 2024-06-03 13:14 | Outpatient (CLI) | payer MEDICARE, OTHER, SELFPAY ==
[2023-12-13 14:45] VITALS: BMI 27.1
== END ==
PROVIDERS: PCP Family Medicine; Referring Provider Internal Medicine; Visit Provider Surgery
DX: E11.42 Type 2 diabetes mellitus with diabetic polyneuropathy (principal); E11.621 Type 2 diabetes mellitus with foot ulcer; L97.312 Non-pressure chronic ulcer of right ankle with fat layer exposed; L53.9 Erythematous condition, unspecified; R60.0 Localized edema; I73.9 Peripheral vascular disease, unspecified
CPT/HCPCS: 11042; 11045; 87070; 87075; 87077; 87186; 87205; 99213

== ENCOUNTER → 2024-06-10 13:28 | Outpatient (CLI) | payer MEDICARE, OTHER, SELFPAY ==
[2023-12-13 14:45] VITALS: BMI 27.1
== END ==
PROVIDERS: PCP Family Medicine; Referring Provider Family Medicine; Visit Provider Surgery
DX: E11.42 Type 2 diabetes mellitus with diabetic polyneuropathy (principal); E11.621 Type 2 diabetes mellitus with foot ulcer; L97.312 Non-pressure chronic ulcer of right ankle with fat layer exposed; R60.0 Localized edema; L53.9 Erythematous condition, unspecified; I73.9 Peripheral vascular disease, unspecified; I50.9 Heart failure, unspecified; I25.10 Atherosclerotic heart disease of native coronary artery without angina pectoris; I87.2 Venous insufficiency (chronic) (peripheral)
CPT/HCPCS: 11042; 11045; 99213

== ENCOUNTER → 2024-06-17 14:15 | Outpatient (CLI) | payer MEDICARE, OTHER, SELFPAY ==
[2023-12-13 14:45] VITALS: BMI 27.1
== END ==
PROVIDERS: PCP Family Medicine; Referring Provider Internal Medicine; Visit Provider Surgery
DX: E11.42 Type 2 diabetes mellitus with diabetic polyneuropathy (principal); E11.621 Type 2 diabetes mellitus with foot ulcer; L97.312 Non-pressure chronic ulcer of right ankle with fat layer exposed; L53.9 Erythematous condition, unspecified; R60.0 Localized edema; I73.9 Peripheral vascular disease, unspecified
CPT/HCPCS: 11042; 11045

== ENCOUNTER → 2024-06-24 14:58 | Outpatient (CLI) | payer MEDICARE, OTHER, SELFPAY ==
[2023-12-13 14:45] VITALS: BMI 27.1
== END ==
PROVIDERS: PCP Family Medicine; Referring Provider Family Medicine; Visit Provider Surgery
DX: E11.621 Type 2 diabetes mellitus with foot ulcer (principal); L97.312 Non-pressure chronic ulcer of right ankle with fat layer exposed; L53.8 Other specified erythematous conditions; E11.40 Type 2 diabetes mellitus with diabetic neuropathy, unspecified
CPT/HCPCS: 11042; 11045

== ENCOUNTER → 2024-07-01 13:50 | Outpatient (CLI) | payer MEDICARE, OTHER, SELFPAY ==
[2023-12-13 14:45] VITALS: BMI 27.1
== END ==
LOC: WC 13:51
PROVIDERS: PCP Family Medicine; Referring Provider Internal Medicine; Visit Provider Surgery
DX: E11.621 Type 2 diabetes mellitus with foot ulcer (principal); I87.2 Venous insufficiency (chronic) (peripheral); L97.312 Non-pressure chronic ulcer of right ankle with fat layer exposed; I73.9 Peripheral vascular disease, unspecified; E11.42 Type 2 diabetes mellitus with diabetic polyneuropathy; R60.0 Localized edema; R21 Rash and other nonspecific skin eruption
CPT/HCPCS: 11042; 11045

== ENCOUNTER → 2024-07-08 13:07 | Outpatient (CLI) | payer MEDICARE, OTHER, SELFPAY ==
[2023-12-13 14:45] VITALS: BMI 27.1
== END ==
PROVIDERS: PCP Family Medicine; Referring Provider Family Medicine; Visit Provider Surgery
DX: E11.621 Type 2 diabetes mellitus with foot ulcer (principal); L97.312 Non-pressure chronic ulcer of right ankle with fat layer exposed; I73.9 Peripheral vascular disease, unspecified; E11.42 Type 2 diabetes mellitus with diabetic polyneuropathy; R21 Rash and other nonspecific skin eruption
CPT/HCPCS: 11042; 11045; 99213

== ENCOUNTER → 2024-07-15 13:50 | Outpatient (CLI) | payer MEDICARE, OTHER, SELFPAY ==
[2023-12-13 14:45] VITALS: BMI 27.1
== END ==
LOC: WC 13:52
PROVIDERS: PCP Family Medicine; Referring Provider Internal Medicine; Visit Provider Surgery
DX: E11.621 Type 2 diabetes mellitus with foot ulcer (principal); L97.312 Non-pressure chronic ulcer of right ankle with fat layer exposed; I73.9 Peripheral vascular disease, unspecified; E11.42 Type 2 diabetes mellitus with diabetic polyneuropathy
CPT/HCPCS: 11042; 11045

== ENCOUNTER → 2024-07-24 08:55 | Outpatient (CLI) | payer MEDICARE, OTHER, SELFPAY ==
[2023-12-13 14:45] VITALS: BMI 27.1
== END ==
LOC: WC 08:57
PROVIDERS: PCP Family Medicine; Referring Provider Internal Medicine; Visit Provider Surgery
DX: E11.621 Type 2 diabetes mellitus with foot ulcer (principal); L97.312 Non-pressure chronic ulcer of right ankle with fat layer exposed; R60.0 Localized edema; E11.42 Type 2 diabetes mellitus with diabetic polyneuropathy; I73.9 Peripheral vascular disease, unspecified
CPT/HCPCS: 15271; Q4101

== ENCOUNTER → 2024-07-31 13:42 | Outpatient (CLI) | payer MEDICARE, OTHER, SELFPAY ==
[2023-12-13 14:45] VITALS: BMI 27.1
== END ==
PROVIDERS: PCP Family Medicine; Referring Provider Internal Medicine; Visit Provider Surgery
DX: E11.621 Type 2 diabetes mellitus with foot ulcer (principal); L97.312 Non-pressure chronic ulcer of right ankle with fat layer exposed; I73.9 Peripheral vascular disease, unspecified; E11.42 Type 2 diabetes mellitus with diabetic polyneuropathy
CPT/HCPCS: 11042; 11045; 87070; 87075; 87077; 87186; 87205; 99213

== ENCOUNTER → 2024-08-06 15:32 | Outpatient (CLI) | payer MEDICARE, OTHER, SELFPAY ==
[2023-12-13 14:45] VITALS: BMI 27.1
--- NOTE | 2024-08-06 | OV.WND_ITS ---
PROGRESS NOTE DETAILS PATIENT NAME: KELSIE BACH PATIENT NUMBER: [id number] CLINICIAN: ANH DUTTA RN PATIENT DATE OF : 1940 PHYSICIAN / MANAGER MALL: GERMÁN RODRIGUEZ PATIENT SUBJECTIVE CHIEF COMPLAINT THIS INFORMATION WAS OBTAINED FROM THE PATIENT. RIGHT LEG WOUND GENERAL NOTES RIGHT ANKLE DIABETIC ULCER. ALLERGIES FUROSEMIDE (SEVERITY: SEVERE, REACTION: UNKNOWN) HPI THIS INFORMATION WAS OBTAINED FROM THE PATIENT. THE FOLLOWING HPI ELEMENTS WERE DOCUMENTED FOR THE PATIENT'S WOUND: LOCATION: R ANKLE DURATION: 06/18/23 CONTEXT: DFU/ARTERIAL THE PATIENT IS AN 83-YEAR-OLD MALE WITH DIABETES, ATRIAL FIBRILLATION, CHF, NEUROPATHY, CHRONIC KIDNEY DISEASE, PAD, AND CAD WHO RETURNS TODAY FOR FOLLOW UP OF A LARGE ULCER ON THE POSTERIOR RIGHT ANKLE. THE PATIENT IS S/P ORIF LEFT HIP 08/16 AND IS CURRENTLY AT HOME WHERE HE IS RECEIVING DRESSING CHANGES BY HIS DAUGHTER. THE PATIENT WAS SWITCH TO DRESSING CHANGES WITH [employer] LAST WEEK. LAST WEEK THE ULCER WAS NOTED TO BE DEVELOPING AN INFECTION AND HE WAS STARTED ON LEVAQUIN. THE PATIENT REPORTS THAT THE ULCER IS NOT PAINFUL AND HE HAS NOT HAD ANY FEVER OR CHILLS. THE PATIENT REPORTS A GOOD APPETITE AND IS TAKING PROTEIN SUPPLEMENTS. BLOOD SUGARS HAVE BEEN UNDER GOOD CONTROL. HE COMPLETED THE 40TH HYPERBARIC OXYGEN TREATMENT ON 02/15/24 WHICH HE TOLERATED WITHOUT ANY DIFFICULTY. RECORDS FROM VASCULAR SURGERY EVALUATION FROM JULY 11, 2023 WERE REVIEWED AND HE IS NOT A CANDIDATE FOR ANY FURTHER REVASCULARIZATION AND ULTIMATELY AN AMPUTATION WILL BE REQUIRED IF THE ULCER WORSENS. THE PATIENT DENIES HAVING ANY CHANGES IN OVERALL HEALTH SINCE LAST VISIT. HE IS NON- AMBULATORY DUE TO HIS HIP FRACTURE BUT IS ABLE TO STAND AND DO TRANSFERS. ON EXAM TODAY THE ANKLE ULCER IS IMPROVED AND NO LONGER HAS PURULENT DRAINAGE OR FOUL ODOR. LABS: 07/31/24: CULTURE GREW SERRATIA MARCESCENS, KLEBSIELLA OXYTOCA, AND CORYNEBACTERIUM STRIATEM 06/03/24: CULTURE GREW CORYNEBACTERIUM STRIATEM AND PSEUDOMONAS ALCALIGENES 04/02/24: CULTURES GREW CORYNEBACTERIUM STRIATEM 12/18/23: CULTURE RIGHT ANKLE GREW PSEUDOMONAS AERUGINOSA 12/01/23: WBC 6.0, HEMOGLOBIN 8.6, HCT 26.0, ELECTROLYTES UNREMARKABLE, BUN 36, CREATININE 1.23, GFR 58, LFTS NORMAL 11/28/23: CULTURES GREW STREP PYOGENES 09/06/23: X-RAY RIGHT FOOT REVEALED VASCULAR CALCIFICATIONS, WITHOUT BONY EROSION TO SUGGEST OSTEOMYELITIS 08/30/23: CULTURE GREW PSEUDOMAS AERUGINOSA 08/11/23: WBC 8.0, HEMOGLOBIN 11.1, HCT 33.9, ELECTROLYTES UNREMARKABLE, BUN 31, CREATININE 1.57, GFR KELSIE BACH [id number] 1940 42 LFTS UNREMARKABLE 06/01/23: CTA SHOWED 1. RIGHT LOWER EXTREMITY: SEVERE ATHEROSCLEROTIC DISEASE WITH SEVERE STENOSIS OF APPROXIMATELY 80% IN THE COMMON FEMORAL ARTERY AND SEVERE PROFUNDA FEMORAL ARTERY OSTIAL STENOSIS. CHRONIC OCCLUSION OF THE PROXIMAL TO MID SFA WITH RECONSTITUTION OF THE DISTAL SFA VIA PROFUNDAL COLLATERALS. SEVERE STENOSIS/NEAR COMPLETE OCCLUSION OF THE MID POPLITEAL ARTERY WITH DISTAL RECONSTITUTION VIA GENICULATE COLLATERALS. SEVERE ATHEROSCLEROTIC DISEASE OF THE BELOW THE KNEE VASCULATURE WITH DENSE CALCIFICATION, LIMITING EVALUATION FOR PATENCY. 2. LEFT LOWER EXTREMITY: SEVERE ATHEROSCLEROTIC DISEASE WITH SEVERE STENOSIS OF APPROXIMATELY 90% IN THE COMMON FEMORAL ARTERY AND SEVERE PROFUNDA FEMORAL ARTERY OSTIAL STENOSIS. CHRONIC OCCLUSION OF THE DISTAL SFA WITH RECONSTITUTION OF THE POPLITEAL ARTERY VIA COLLATERALS. EVALUATION OF THE POPLITEAL ARTERY IS LIMITED DUE TO STREAK ARTIFACT . SEVERE ATHEROSCLEROTIC DISEASE OF THE BELOW THE KNEE VASCULATURE WITH DENSE CALCIFICATION, LIMITING EVALUATION FOR PATENCY. 3. STABLE INFRARENAL AORTA DISSECTION. 4. IVC FILTER IN PLACE WITH CHRONIC OCCLUSION OF THE CAUDAL IVC AND BILATERAL COMMON ILIAC VESSELS, DESCRIBED ABOVE. ANTERIOR ABDOMINAL WALL VENOUS COLLATERALS FAMILY HISTORY THIS INFORMATION WAS OBTAINED FROM THE PATIENT. DIABETES- MOTHER SOCIAL HISTORY THIS INFORMATION WAS OBTAINED FROM THE PATIENT. FORMER SMOKER: QUIT IN 1986 (1 PACK PER DAY) ALCOHOL USE: 2 DRINKS PER YEAR CAFFEINE USE: COFFEE- 5 CUPS PER MONTH CHILDREN: 2 DAUGHTERS LIVES IN: PRIVATE HOME WITH DTR MARITAL STATUS: RETIRED: [employer] MEDICAL HISTORY THIS INFORMATION WAS OBTAINED FROM THE CHART, PATIENT. 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 SFA CORONARY ARTERY DISEASE OF [place] ARTERIES, STATUS POST STENT 2004 AND 2007 POSSIBLE NORMAL PRESSURE HYDROCEPHALUS WITH GAIT ATAXIA FALLS URINARY INCONTINENCE ACUTE ON CHRONIC KIDNEY DISEASE STAGE III AA CELLULITIS AND ULCER OF RIGHT ACHILLES CURRENT ACUTE PROBLEM SPINAL STENOSIS WITH LAMINECTOMY 2013 SEVERE DRUG RASH SECONDARY TO LASIX USED FOR FLUID OVERLOAD IN 2013 (MUST USE ETHACRYNIC ACID) KELSIE BACH [id number] 1940 OSTEOARTHRITIS WITH LEFT KNEE ARTHROPLASTY SUSPECTED OBSTRUCTIVE SLEEP APNEA, DECLINSE EVALUATION OR USE OF CPAP COPD WITH EXACERBATION GERD HEARING LOSS HYPERTENSION HYPERLIPIDEMIA HISTORY OF PARANOID SCHIZOPHRENIA HISTORY OF GOUT ON ALLOPURINOL AND COLCHICINE NEEDED RETINAL VEIN OCCLUSION RIGHT EYE AND BILATERAL POSTERIOR CAPSULAR OPACIFCATIONS MACULAR EDEMA TREAT WITH EYLEA INJECTIONS. ADDITIONAL INFORMATION DOES PATIENT HAVE A HISTORY OF CANCER? YES? COMPLETE ALL QUESTIONS.: NO SURGICAL HISTORY THIS INFORMATION WAS OBTAINED FROM THE PATIENT. PATIENT HAS A SURGICAL HISTORY OF: LEFT HIP REPLACEMENT- (2023) LEFT KNEE REPLACEMENT- STENT PLACEMENT- (HEART) STENT PLACEMENT- (LOWER EXTREMITY (PT UNSURE)) REVIEW OF SYSTEMS (ROS) THIS INFORMATION WAS OBTAINED FROM THE PATIENT. COMPLAINTS AND SYMPTOMS PATIENT COM PLAINS OF: CO-MORBID CONDITIONS: CONGESTIVE HEART FAILURE, CORONARY ARTERY DISEASE, DIABETES, NEUROPATHY , PERIPHERAL ARTERIAL DISEASE, VENOUS INSUFFIENCY MUSCULOSKELETAL: ASSISTIVE DEVICES ( WHEELCHAIR) PATIENT DENIES COM PLAINTS OR SY M PTOM S RELATED TO: CARDIOVASCULAR (CENTRAL): CHEST PAIN, DYSPNEA ON EXERTION CONSTITUTIONAL SYMPTOMS (GENERAL HEALTH): CHILLS, FEVER, LOSS OF APPETITE EAR/NOSE/MOUTH/THROAT: DIFFICULT CLEARING EARS ( DECREASED HEARING LEFT EAR) PRIOR WOUND HISTORY RESPIRATORY: COUGH, SHORTNESS OF BREATH OBJECTIVE VITALS HEIGHT/LENGTH: 71 IN (180.34 CM), WEIGHT: 188.4 LBS (85.64 KGS), BMI: 26.3, TEMPERATURE: 97.9 ?F (36.61 ?C), PULSE: 59 BPM, RESPIRATORY RATE: 16 BREATHS/MIN, BLOOD PRESSURE: 128/68 MMHG, PULSE OXIMETRY: 96 %. GENERAL NOTES CBG PER PT IS 165 PHYSICAL EXAM KELSIE BACH [id number] 1940 CONSTITUTIONAL: VITAL SIGNS REVIEWED AND NOTED. GENERALIZED WEAKNESS. IN NO APPARENT DISTRESS. RESPIRATORY: EVEN RESPIRATIONS WITHOUT USE OF ACCESSORY MUSCLES. NO INTERCOASTAL RETRACTIONS NOTED. EVEN AND NON LABORED RESPIRATION. INTEGUMENTARY (HAIR, SKIN): NO ERYTHEMA, PERIWOUND INFLAMMATION RESOLVED. NO SWELLING OR TENDERNESS. SEE WOUND ASSESSMENT. SKIN WARM AND DRY. NO RASHES. NEUROLOGICAL: DECREASED LOWER EXTREMITY SENSATION. PSYCHIATRIC: ORIENTATION TO TIME, PLACE AND PERSON: NORMAL AFFECT WITH NORMAL THOUGHT PATTERN. ADDITIONAL INFORMATION THE PATIENT'S POTENTIAL TO HEAL IS: POOR. LOWER EXTREMITY ASSESSMENT EDEMA ASSESSMENT: LEFT EXTREMITY: EDEMA IS PRESENT COMPRESSION DEVICE IN USE: NO RIGHT EXTREMITY: EDEMA IS PRESENT COMPRESSION DEVICE IN USE: NO VASCULAR ASSESSMENT RIGHT EXTREMITY COLORS, HAIR GROWTH, AND CONDITIONS: EXTREMITY COLOR: PIGMENTED HAIR GROWTH ON EXTREMITY: NO TEMPERATURE OF EXTREMITY: WARM CAPILARY REFILL: < 3 SECONDS ERYTHEMA: YES DEPENDENT RUBOR: YES HYPERPIGMENTATION: NO LIPODERMATOSCLEROSIS: NO OFF-LOADING: RIGHT OFF-LOADING DEVICE IN USE: YES DEVICE USED CORRECTLY: YES OFF-LOADNG DEVICE USED: YES GENERAL NOTES EHOB BOOT TO FLOAT HEEL. WOUND ASSESSMENT(S) WOUND #1 RIGHT, POSTERIOR ANKLE IS A CHRONIC GEE GRADE 3 DIABETIC ULCER ACQUIRED ON 06/04/2023 AND HAS RECEIVED A STATUS OF NOT HEALED. INITIAL WOUND ENCOUNTER MEASUREMENTS ARE 9.8CM LENGTH X 2.8CM WIDTH X 0.1 CM DEPTH, WITH AN AREA OF 27.44 SQ CM AND A VOLUME OF 2.744 CUBIC CM.INITIAL WOUND ENCOUNTER PREVIOUS MEASUREMENTS FROM 07/31/2024 ARE 10.1CM LENGTH X 3.7CM WIDTH X 0.2CM DEPTH, WITH AN AREA OF 37.37 SQ CM AND A VOLUME OF 7.474 CUBIC CM. ADIPOSE IS EXPOSED. NO TUNNELING HAS BEEN NOTED. NO SINUS TRACT HAS BEEN NOTED. NO UNDERMINING HAS BEEN NOTED. THERE IS A MODERATE AMOUNT OF SANGUINEOUS DRAINAGE NOTED WHICH HAS NO ODOR. THE PATIENT REPORTS A WOUND PAIN OF LEVEL 0/10. THE WOUND MARGIN IS IRREGULAR WOUND BED HAS YES, BRIGHT RED, PINK, FIRM, GRANULATION, YES SLOUGH, NO ESCHAR, YES EPITHELIALIZATION. THE PERIWOUND SKIN EXHIBITED EDEMA AND EXCORIATION. THE PERIWOUND SKIN DID NOT EXHIBIT BRAWNY INDURATION, INDURATION, CALLUS, CREPITUS, FLUCTUANCE, RASH, MACERATION, ATROPHIE GALINA, CYANOSIS, ECCHYMOSIS, ERYTHEMA, HEMOSIDEROSIS, PALLOR AND RUBOR. THE PERIWOUND SKIN WAS NOT FRIABLE, DRY/SCALY AND MOIST. THE TEMPERATURE OF THE PERIWOUND SKIN IS WNL. PERIWOUND SKIN DOES NOT EXHIBIT SIGNS OR SYMPTOMS OF INFECTION. LOCAL PULSE IS ABSENT. ADDITIONAL INFORMATION OTHER DEVITALIZED TISSUE PRESENT: BIOFILM MARYANN/VASCULAR COMPLETED?: 06/01/23 CTA- SEE PROGRESS NOTE KELSIE BACH [id number] 1940 ASSESSMENT ACTIVE PROBLEMS ICD-10 (ENCOUNTER DIAGNOSIS) L97.313 - NON-PRESSURE CHRONIC ULCER OF RIGHT ANKLE WITH NECROSIS OF MUSCLE (ENCOUNTER DIAGNOSIS) I73.9 - PERIPHERAL VASCULAR DISEASE, UNSPECIFIED (ENCOUNTER DIAGNOSIS) E11.621 - TYPE 2 DIABETES MELLITUS WITH FOOT ULCER (ENCOUNTER DIAGNOSIS) E11.42 - TYPE 2 DIABETES MELLITUS WITH DIABETIC POLYNEUROPATHY (ENCOUNTER DIAGNOSIS) I87.2 - VENOUS INSUFFICIENCY (CHRONIC) (PERIPHERAL) (ENCOUNTER DIAGNOSIS) L89.620 - PRESSURE ULCER OF LEFT HEEL, UNSTAGEABLE (ENCOUNTER DIAGNOSIS) L08.9 - LOCAL INFECTION OF THE SKIN AND SUBCUTANEOUS TISSUE, UNSPECIFIED GENERAL NOTES LARGE ULCER POSTERIOR RIGHT ANKLE MUCH IMPROVED THE FOLLOWING FACTORS HAVE BEEN IDENTIFIED THAT MAY AFFECT WOUND HEALING: DEVITALIZED TISSUE BIOFILM PAD DIABETES NEUROPATHY SWELLING INFECTION PRESSURE MOISTURE IMBALANCE GOALS: REMOVE DEVITALIZED TISSUE REMOVE AND PREVENT BIOFILM IDENTIFYING TREAT INFECTION EVALUATE CIRCULATORY STATUS PROTEIN SUPPLEMENTATION PRESSURE OFFLOADING RESTORE MOISTURE BALANCE PLAN: DEBRIDEMENT, PLACEMENT OF APLIGRAF, CONTINUE LEVAQUIN, CONTINUE PROTEIN SUPPLEMENTATION AND PRESSURE OFFLOADING. FOLLOW UP IN 1 WEEK FOR A RECHECK. PROCEDURES WOUND #1 WOUND #1 (DIABETIC ULCER) IS LOCATED ON THE RIGHT, POSTERIOR ANKLE. A SKIN/SUBCUTANEOUS TISSUE LEVEL SURGICAL DEBRIDEMENT WITH A TOTAL AREA DEBRIDED OF 27.44 SQ CM. WAS PERFORMED BY GERMÁN RODRIGUEZ MD. SUBCUTANEOUS WAS REMOVED ALONG WITH DEVITALIZED TISSUE: BIOFILM AND SLOUGH. THE FOLLOWING INSTRUMENT(S) WERE USED: BLADE. PAIN CONTROL WAS ACHIEVED USING 4% LIDO. A TIME OUT WAS CONDUCTED PRIOR TO THE START OF THE PROCEDURE. A MODERATE AMOUNT OF BLEEDING WAS CONTROLLED WITH PRESSURE. THE PROCEDURE WAS TOLERATED WELL WITH A PAIN LEVEL OF 0 THROUGHOUT AND A PAIN LEVEL OF 0 FOLLOWING THE PROCEDURE. POST DEBRIDEMENT MEASUREMENTS: 9.8CM LENGTH X 2.8CM WIDTH X 0.2CM DEPTH; WITH AN AREA OF 27.44 SQ CM AND A VOLUME OF 5.488 CUBIC CM. ADDITIONAL INFORMATION MUSCLE FASCIA OR BONE REMOVED AND SENT TO PATHOLOGY?: KELSIE GAMA [id number] 1940 WOUND #1 (DIABETIC ULCER) IS LOCATED ON THE RIGHT, POSTERIOR ANKLE. A SKIN SUBSTITUTE PROCEDURE WAS PERFORMED USING APLIGRAF BY GERMÁN RODRIGUEZ MD WITH AN APPLICATION AREA OF 27.44 SQ CM. THE LOT # WAS [id number] AND THE ORDER # WAS [id number]. THE PRODUCT EXPIRATION DATE WAS 08/06/2024. THE PRODUCT WAS NOT FENESTRATED. 16.56 SQ CM OF PRODUCT WAS WASTED DUE TO WOUND SIZE SMALLER THAN DRESSING. 27.44 SQ CM OF PRODUCT WAS UTILIZED AND WAS SECURED WITH STERI-STRIPS. POST APPLICATION, A DRESSING WAS APPLIED: ADAPTIC TOUCH, HYDROFIBER. A TIME OUT WAS CONDUCTED PRIOR TO THE START OF THE PROCEDURE. THE PROCEDURE WAS TOLERATED WELL WITH A PAIN LEVEL OF 0 THROUGHOUT AND A PAIN LEVEL OF 0 FOLLOWING THE PROCEDURE. ADDITIONAL INFORMATION NORMAL SALINE LOT NUMBER: [id number] NORMAL SALINE EXPIRATION DATE: 05/04/2026 POSITIVE RESPONSE VISIBLE FROM PREVIOUS APPLICATION?: YES APPLICATION NUMBER:: 2 IS SECURITY REP'S SERIAL NUMBER AND EXPIRATION DATE RECORDED ON TISSUE LOG?: YES IS WOUND FREE OF INFECTION AND NECROSIS?: YES EXPOSED BONE?: NO DATE OF ONSET AND PREVIOUS THERAPIES DOCUMENTED?: YES DOCUMENTATION OF ULCER BEING PRESENT FOR 4 WEEKS OR MORE?: YES DOES WOUND MEASURE GREATER THAN 1.0 SQ. CM?: YES ARE THE MEASUREMENTS AT BASELINE, FOLLOWING CESSATION OF CONSERVATIVE [place] AND PRIOR TO APPLICATION OF PRODUCT DOCUMENTED?: YES IS MARYANN GREATER THAN 0.60 DOCUMENTED?: YES HAS THE PATIENT STOPPED SMOKING OR HAVE THEY HAD DOCUMENTED TOBACCO USE/SMOKING CESSATION COUNSELING?: YES IS THERE DOCUMENTATIONS OF CONCURRENT MEDICAL MANAGEMENT OF PATIENT'S UNDERLYING MEDICAL CONDITIONS?: YES PLAN WOUND ORDERS: WOUND #1 RIGHT, POSTERIOR ANKLE HAND HYGIENE HAND HYGIENE - WASH HANDS BEFORE AND AFTER WOUND CARE. CALL THE WOUND CENTER AT [phone] IF YOU HAVE SIGNS OR SYMPTOMS OF INFECTION, FEVER CHILLS OR SHAKES, INCREASED DRAINAGE, INCREASED ODOR OR UNUSUAL REDNESS. AFTER WOUND CENTER HOURS PLEASE NOTIFY YOUR PCP OR GO TO THE EMERGENCY ROOM. CLEANSER CLEANSE WOUND WITH NORMAL SALINE APPLY HYPOCHLOROUS ACID (VASHE OR SIMILAR) SOAKED 4X4 GAUZE TO WOUND BED POST DEBRIDEMENT FOR 5-10 MINUTES. REMOVE GAUZE AND DRESS WOUND ACCORDING TO DRESSING ORDERS. PROCEDURE / ANESTHETIC 4% TOPICAL LIDOCAINE TO WOUND BED PRIOR TO PROCEDURE, IN CLINIC ONLY. DRESSING ORDERS APPLY DRESSING(S) AND SECURE WITH: - APLIGRAF #2 FENESTRATED. ADAPTIC TOUCH, STERISTRIPS AND AQUACEL. MEXTRA PAD, KERLIX DRESSING CHANGE FREQUENCY LEAVE DRESSING INTACT UNTIL YOUR NEXT WOUND CENTER APPOINTMENT. KEEP DRY. CHANGE DRESSING IF IT BECOMES SOILED OR WET. - CHANGE OUTER DRESSING IF EXCESS DRAINAGE. OFF-LOADING / PRESSURE RELIEF USE/WEAR WHEN IN BED: - EHOB BOOTS WHILE IN BED OR RECLINER. ADDITIONAL ORDERS: DIETARY TAKE VITAMIN C 1000MG BY MOUTH DAILY. TAKE ZINC 25MG BY MOUTH DAILY. FOLLOW A DIABETIC DIET. INCREASE THE PROTEIN IN YOUR DIET. KELSIE BACH [id number] 1940 FOLLOW-UP APPOINTMENTS RETURN APPOINTMENT 1 WEEK SCRIBING ATTESTATION I ATTEST, THE NURSE, THAT I SCRIBED THESE ORDERS FOR THE WOUND CARE PROVIDER. PROVIDER REVIEW AND ATTESTATION: REVIEWED AND EVALUATED LABS. REVIEWED HOSPITAL RECORDS. DISCUSSED THE PLAN OF CARE @ BEDSIDE WITH - THE PATIENT AND DAUGHTER PLACE PATIENT ON PALLIATIVE CARE DUE TO: - CHRONIC DISEASE, SEVERE PAD I AGREE AND ATTEST TO THE ABOVE INFORMATION PROVIDED FROM OTHER LICENSED PROFESSIONALS. MEDICATIONS PRESCRIBED: LEVOFLOXACIN - ORAL 500 MG 1 TABLET ONCE DAILY FOR 1 WEEK STARTING 08/06/2024 PLAN OF CARE: 01. ENSURE/ESTABLISH OPTIMAL BLOOD FLOW : - COMPLETE LOWER EXTREMITY ASSESSMENT STATUS: CONTINUED DATE: 08/06/2024 - ORDER VASCULAR CONSULT FOR EVALUATION/TREATMENT AND/OR NON-INVASIVE VASCULAR TESTING. STATUS: COMPLETED DATE: 06/10/2024 02. ASSESS FOR/TREAT INFECTION : - EVALUATE FOR SIGNS AND SYMPTOMS OF INFECTION AND DOCUMENT FINDINGS. STATUS: CONTINUED DATE: 08/06/2024 - OBTAIN CULTURE AND SENSITIVITY (CANDS) OR TISSUE CULTURE WHEN INFECTION IS SUSPECTED. (NOTE:) CONSIDER REPEATING WHEN WOUND HEALING <40% AFTER 30 DAYS OF WOUND CARE. STATUS: COMPLETED DATE: 06/10/2024 03. DEBRIDE WEEKLY OR MORE OFTEN PRN : - EVALUATE PATIENT IN CENTER WEEKLY TO ASSESS WOUND BED AND MARGINS FOR NEED FOR DEBRIDEMENT. STATUS: CONTINUED DATE: 08/06/2024 - DEBRIDEMENT BY ANY METHOD TO REMOVE DEVITALIZED/NECROTIC TISSUE TO PROMOTE HEALING AND PREVENT FURTHER COMPLICATIONS. GOAL IS TO STIMULATE AND/OR MAINTAIN ACUTE PHASE OF WOUND HEALING BY REDUCING BACTERIAL BURDEN AND DEVITALIZED/NON-VIABLE TISSUE. STATUS: CONTINUED DATE: 08/06/2024 04. OPTIMIZE GLUCOSE CONTROL AND NUTRITION : - ORDER/REVIEW PERTINENT LABS TO EVALUATE RENAL FUNCTION, GLUCOSE CONTROL, AND NUTRITIONAL STATUS. STATUS: CONTINUED DATE: 08/06/2024 - ORDER PCP OR ENDOCRINE CONSULT WHEN A1C IS >7.0 FOR FOLLOW UP AND STABILIZATION OF GLUCOSE. STATUS: COMPLETED DATE: 07/08/2024 05. OFFLOADING PLAN : - PROVIDE EDUCATION MATERIALS/DISCUSS OFFLOADING STRATEGIES APPROPRIATE. STATUS: CONTINUED DATE: 08/06/2024 06. OPTIMIZE HOST FACTORS: - ASSESS AND REVIEW PATIENT HISTORY FOR WOUND ETIOLOGY, CO-MORBID CONDITIONS, MEDICATION REGIME, AND SMOKING HISTORY. STATUS: CONTINUED DATE: 08/06/2024 07. DRESSING SELECTION : - EVALUATE FOR DRESSING-RELATED FACTORS, SUCH AVAILABILITY, WEAR TIME, ADAPTABILITY AND USE TO BETTER OPTIMIZE WOUND HEALING AND PATIENT COMPLIANCE. STATUS: CONTINUED DATE: 08/06/2024 - EDUCATE THE PATIENT/FAMILY/CAREGIVER TO MONITOR DRESSING DAILY. CHANGE DRESSING ONLY NEEDED BUT NEVER LESS FREQUENTLY THAN WEEKLY SO THAT WOUND BED CAN BE REASSESSED. STATUS: CONTINUED DATE: 08/06/2024 KELSIE BACH [id number] 1940 08. ADVANCED MODALITIES : - EVALUATE FOR APPROPRIATENESS OF CELLULAR TISSUE PRODUCT THERAPY. STATUS: CONTINUED DATE: 08/06/2024 - RE-EVALUATE PLAN OF CARE IF NO EVIDENCE OF HEALING (40% IN 4 WEEKS). STATUS: CONTINUED DATE: 08/06/2024 09. FALL PREVENTION : - COMPLETE FALL ASSESSMENT. STATUS: COMPLETED DATE: 06/10/2024 - PROVIDE EDUCATION MATERIALS/DISCUSS PREVENTION STRATEGIES APPROPRIATE. STATUS: COMPLETED DATE: 06/10/2024 10. PAIN MANAGEMENT : - COMPLETE PAIN ASSESSMENT STATUS: COMPLETED DATE: 06/10/2024 - INSTRUCT THE PATIENT TO CALL ?TIME-OUT? IF PAIN IS TOO INTENSE DURING PROCEDURE. STATUS: CONTINUED DATE: 08/06/2024 11. MEASURABLE GOALS FOR WOUND HEALING AND/OR HYPERBARIC OXYGEN THERAPY : - DECREASE WOUND DIMENSIONS STATUS: CONTINUED DATE: 08/06/2024 12. DURATION/FREQUENCY OF WOUND CARE VISITS : - 1X WEEKLY FOR 30 DAYS STATUS: CONTINUED DATE: 08/06/2024 ELECTRONIC SIGNATURE(S) SIGNED BY: DATE: GERMÁN RODRIGUEZ MD 08/07/2024 08:26:55 (PT) ENTERED BY: GERMÁN RODRIGUEZ MD ON 08/07/2024 08:17:28 (PT) KELSIE BACH [id number] 1940
== END ==
PROVIDERS: PCP Family Medicine; Referring Provider Internal Medicine; Visit Provider Surgery
DX: E11.621 Type 2 diabetes mellitus with foot ulcer (principal); I87.2 Venous insufficiency (chronic) (peripheral); L97.312 Non-pressure chronic ulcer of right ankle with fat layer exposed; I73.9 Peripheral vascular disease, unspecified; R60.0 Localized edema; Z95.828 Presence of other vascular implants and grafts
CPT/HCPCS: 15271; 15272; 99213; Q4101

== ENCOUNTER → 2024-08-13 15:01 | Outpatient (CLI) | payer MEDICARE, OTHER, SELFPAY ==
[2023-12-13 14:45] VITALS: BMI 27.1
== END ==
PROVIDERS: PCP Family Medicine; Referring Provider Internal Medicine; Visit Provider Surgery
DX: L97.312 Non-pressure chronic ulcer of right ankle with fat layer exposed (principal); I73.9 Peripheral vascular disease, unspecified; E11.42 Type 2 diabetes mellitus with diabetic polyneuropathy; E11.621 Type 2 diabetes mellitus with foot ulcer; R60.0 Localized edema
CPT/HCPCS: 11042; 11045

== ENCOUNTER → 2024-08-18 15:17 | Outpatient (CLI) | payer MEDICARE, OTHER, SELFPAY ==
[2023-12-13 14:45] VITALS: BMI 27.1
== END ==
LOC: WC 08-27 15:19
PROVIDERS: PCP Family Medicine; Referring Provider Family Medicine; Visit Provider Surgery
DX: E11.621 Type 2 diabetes mellitus with foot ulcer (principal); L97.312 Non-pressure chronic ulcer of right ankle with fat layer exposed; I73.9 Peripheral vascular disease, unspecified; I87.2 Venous insufficiency (chronic) (peripheral); E11.40 Type 2 diabetes mellitus with diabetic neuropathy, unspecified; R60.0 Localized edema
CPT/HCPCS: 15271; 15272; Q4101

== ENCOUNTER → 2024-08-25 15:22 | Outpatient (CLI) | payer MEDICARE, OTHER, SELFPAY ==
[2023-12-13 14:45] VITALS: BMI 27.1
== END ==
PROVIDERS: PCP Family Medicine; Referring Provider Family Medicine; Visit Provider Surgery
DX: E11.621 Type 2 diabetes mellitus with foot ulcer (principal); L97.312 Non-pressure chronic ulcer of right ankle with fat layer exposed; I70.201 Unspecified atherosclerosis of native arteries of extremities, right leg
CPT/HCPCS: 11042; 11045

== ENCOUNTER → 2024-09-01 13:15 | Outpatient (CLI) | payer MEDICARE, OTHER, SELFPAY ==
[2023-12-13 14:45] VITALS: BMI 27.1
== END ==
PROVIDERS: PCP Family Medicine; Referring Provider Family Medicine; Visit Provider Surgery
DX: E11.621 Type 2 diabetes mellitus with foot ulcer (principal); I87.2 Venous insufficiency (chronic) (peripheral); L97.312 Non-pressure chronic ulcer of right ankle with fat layer exposed; R60.0 Localized edema; E11.40 Type 2 diabetes mellitus with diabetic neuropathy, unspecified
CPT/HCPCS: 11042; 11045

== ENCOUNTER → 2024-09-15 14:15 | Outpatient (CLI) | payer MEDICARE, OTHER, SELFPAY ==
[2023-12-13 14:45] VITALS: BMI 27.1
== END ==
PROVIDERS: PCP Family Medicine; Referring Provider Family Medicine; Visit Provider Surgery
DX: E11.621 Type 2 diabetes mellitus with foot ulcer (principal); L97.312 Non-pressure chronic ulcer of right ankle with fat layer exposed; I73.9 Peripheral vascular disease, unspecified; R60.0 Localized edema; E11.40 Type 2 diabetes mellitus with diabetic neuropathy, unspecified; R21 Rash and other nonspecific skin eruption
CPT/HCPCS: 11042; 11045; 99213

== ENCOUNTER → 2024-09-22 13:24 | Outpatient (CLI) | payer MEDICARE, OTHER, SELFPAY ==
[2023-12-13 14:45] VITALS: BMI 27.1
== END ==
PROVIDERS: PCP Family Medicine; Referring Provider Internal Medicine; Visit Provider Surgery
DX: E11.622 Type 2 diabetes mellitus with other skin ulcer (principal); I87.2 Venous insufficiency (chronic) (peripheral); L97.312 Non-pressure chronic ulcer of right ankle with fat layer exposed; L08.9 Local infection of the skin and subcutaneous tissue, unspecified; R60.0 Localized edema
CPT/HCPCS: 11042

== ENCOUNTER → 2024-09-29 14:16 | Outpatient (CLI) | payer MEDICARE, OTHER, SELFPAY ==
[2023-12-13 14:45] VITALS: BMI 27.1
== END ==
PROVIDERS: PCP Family Medicine; Referring Provider Family Medicine; Visit Provider Surgery
DX: E11.621 Type 2 diabetes mellitus with foot ulcer (principal); L97.312 Non-pressure chronic ulcer of right ankle with fat layer exposed; I73.9 Peripheral vascular disease, unspecified; E11.42 Type 2 diabetes mellitus with diabetic polyneuropathy; R21 Rash and other nonspecific skin eruption
CPT/HCPCS: 11042

== ENCOUNTER → 2024-10-06 13:21 | Outpatient (CLI) | payer MEDICARE, OTHER, SELFPAY ==
[2023-12-13 14:45] VITALS: BMI 27.1
== END ==
LOC: WC 13:22
PROVIDERS: PCP Family Medicine; Referring Provider Family Medicine; Visit Provider Surgery
DX: E11.622 Type 2 diabetes mellitus with other skin ulcer (principal); E11.42 Type 2 diabetes mellitus with diabetic polyneuropathy; L97.312 Non-pressure chronic ulcer of right ankle with fat layer exposed; I73.9 Peripheral vascular disease, unspecified; I87.2 Venous insufficiency (chronic) (peripheral); R60.0 Localized edema
CPT/HCPCS: 11042

== ENCOUNTER → 2024-10-13 14:12 | Outpatient (CLI) | payer MEDICARE, OTHER, SELFPAY ==
[2023-12-13 14:45] VITALS: BMI 27.1
== END ==
LOC: WC 14:15
PROVIDERS: PCP Family Medicine; Referring Provider Family Medicine; Visit Provider Surgery
DX: E11.621 Type 2 diabetes mellitus with foot ulcer (principal); L97.312 Non-pressure chronic ulcer of right ankle with fat layer exposed; R60.0 Localized edema; R21 Rash and other nonspecific skin eruption; I73.9 Peripheral vascular disease, unspecified; I87.2 Venous insufficiency (chronic) (peripheral); Z87.891 Personal history of nicotine dependence
CPT/HCPCS: 11042; 99213

== ENCOUNTER → 2024-10-23 14:57 | Outpatient (CLI) | payer MEDICARE, OTHER, SELFPAY ==
[2023-12-13 14:45] VITALS: BMI 27.1
== END ==
PROVIDERS: PCP Family Medicine; Referring Provider Family Medicine; Visit Provider Surgery
DX: E11.622 Type 2 diabetes mellitus with other skin ulcer (principal); E11.42 Type 2 diabetes mellitus with diabetic polyneuropathy; L97.312 Non-pressure chronic ulcer of right ankle with fat layer exposed; I73.9 Peripheral vascular disease, unspecified; I87.2 Venous insufficiency (chronic) (peripheral)
CPT/HCPCS: 11042

== ENCOUNTER → 2024-10-30 15:33 | Outpatient (CLI) | payer MEDICARE, OTHER, SELFPAY ==
[2023-12-13 14:45] VITALS: BMI 27.1
== END ==
PROVIDERS: PCP Family Medicine; Referring Provider Family Medicine; Visit Provider Surgery
DX: E11.622 Type 2 diabetes mellitus with other skin ulcer (principal); E11.42 Type 2 diabetes mellitus with diabetic polyneuropathy; L97.312 Non-pressure chronic ulcer of right ankle with fat layer exposed; I73.9 Peripheral vascular disease, unspecified; I87.2 Venous insufficiency (chronic) (peripheral)
CPT/HCPCS: 11042

== ENCOUNTER → 2024-11-06 13:16 | Outpatient (CLI) | payer MEDICARE, OTHER, SELFPAY ==
[2023-12-13 14:45] VITALS: BMI 27.1
== END ==
LOC: WC 13:19
PROVIDERS: PCP Family Medicine; Referring Provider Family Medicine; Visit Provider Surgery
DX: E11.622 Type 2 diabetes mellitus with other skin ulcer (principal); E11.42 Type 2 diabetes mellitus with diabetic polyneuropathy; L97.312 Non-pressure chronic ulcer of right ankle with fat layer exposed; L73.9 Follicular disorder, unspecified; I87.2 Venous insufficiency (chronic) (peripheral)
CPT/HCPCS: 11042

== ENCOUNTER → 2024-11-13 13:48 | Outpatient (CLI) | payer MEDICARE, OTHER, SELFPAY ==
[2023-12-13 14:45] VITALS: BMI 27.1
== END ==
LOC: WC 14:02
PROVIDERS: PCP Family Medicine; Referring Provider Family Medicine; Visit Provider Surgery
DX: E11.622 Type 2 diabetes mellitus with other skin ulcer (principal); E11.40 Type 2 diabetes mellitus with diabetic neuropathy, unspecified; L97.312 Non-pressure chronic ulcer of right ankle with fat layer exposed; I73.9 Peripheral vascular disease, unspecified; R60.0 Localized edema; L03.115 Cellulitis of right lower limb
CPT/HCPCS: 11042; 99213

== ENCOUNTER → 2024-11-20 14:11 | Outpatient (CLI) | payer MEDICARE, OTHER, SELFPAY ==
[2023-12-13 14:45] VITALS: BMI 27.1
== END ==
PROVIDERS: PCP Family Medicine; Referring Provider Family Medicine; Visit Provider Surgery
DX: E11.622 Type 2 diabetes mellitus with other skin ulcer (principal); L97.312 Non-pressure chronic ulcer of right ankle with fat layer exposed; L92.0 Granuloma annulare; R60.0 Localized edema; E11.40 Type 2 diabetes mellitus with diabetic neuropathy, unspecified; E11.51 Type 2 diabetes mellitus with diabetic peripheral angiopathy without gangrene; E11.22 Type 2 diabetes mellitus with diabetic chronic kidney disease; I13.0 Hypertensive heart and chronic kidney disease with heart failure and stage 1 through stage 4 chronic kidney disease, or unspecified chronic kidney disease; N18.31 Chronic kidney disease, stage 3a; I50.9 Heart failure, unspecified; I25.10 Atherosclerotic heart disease of native coronary artery without angina pectoris; Z95.828 Presence of other vascular implants and grafts
CPT/HCPCS: 11042

== ENCOUNTER → 2024-12-03 16:11 | Outpatient (CLI) | payer MEDICARE, OTHER, SELFPAY ==
[2023-12-13 14:45] VITALS: BMI 27.1
== END ==
LOC: WC 16:12
PROVIDERS: PCP Family Medicine; Referring Provider Family Medicine; Visit Provider Surgery
DX: E11.622 Type 2 diabetes mellitus with other skin ulcer (principal); L97.312 Non-pressure chronic ulcer of right ankle with fat layer exposed; I73.9 Peripheral vascular disease, unspecified; I87.2 Venous insufficiency (chronic) (peripheral)
CPT/HCPCS: 11042

== ENCOUNTER → 2024-12-19 14:32 | Outpatient (CLI) | payer MEDICARE, OTHER, SELFPAY ==
[2023-12-13 14:45] VITALS: BMI 27.1
== END ==
LOC: WC 14:34
PROVIDERS: PCP Family Medicine; Referring Provider Family Medicine; Visit Provider Physician Assistant
DX: E11.622 Type 2 diabetes mellitus with other skin ulcer (principal); E11.42 Type 2 diabetes mellitus with diabetic polyneuropathy; L97.312 Non-pressure chronic ulcer of right ankle with fat layer exposed; I87.2 Venous insufficiency (chronic) (peripheral); I73.9 Peripheral vascular disease, unspecified; R60.0 Localized edema
CPT/HCPCS: 11042; 99213

== ENCOUNTER → 2024-12-25 13:41 | Outpatient (CLI) | payer MEDICARE, OTHER, SELFPAY ==
[2023-12-13 14:45] VITALS: BMI 27.1
== END ==
LOC: WC 13:44
PROVIDERS: PCP Family Medicine; Referring Provider Family Medicine; Visit Provider Surgery
DX: E11.622 Type 2 diabetes mellitus with other skin ulcer (principal); L97.312 Non-pressure chronic ulcer of right ankle with fat layer exposed; E11.42 Type 2 diabetes mellitus with diabetic polyneuropathy; I73.9 Peripheral vascular disease, unspecified; I87.2 Venous insufficiency (chronic) (peripheral); L08.9 Local infection of the skin and subcutaneous tissue, unspecified
CPT/HCPCS: 11042

== ENCOUNTER → 2025-01-29 14:08 | Outpatient (CLI) | payer MEDICARE, OTHER, SELFPAY ==
[2023-12-13 14:45] VITALS: BMI 27.1
== END ==
PROVIDERS: PCP Family Medicine; Referring Provider Family Medicine; Visit Provider Surgery
DX: E11.622 Type 2 diabetes mellitus with other skin ulcer (principal); L97.312 Non-pressure chronic ulcer of right ankle with fat layer exposed; R21 Rash and other nonspecific skin eruption; R60.0 Localized edema; E11.51 Type 2 diabetes mellitus with diabetic peripheral angiopathy without gangrene; E11.40 Type 2 diabetes mellitus with diabetic neuropathy, unspecified; I48.91 Unspecified atrial fibrillation; I50.9 Heart failure, unspecified; N18.31 Chronic kidney disease, stage 3a; Z87.891 Personal history of nicotine dependence; I25.10 Atherosclerotic heart disease of native coronary artery without angina pectoris
CPT/HCPCS: 11042; 99213

== ENCOUNTER → 2025-02-05 13:57 | Outpatient (CLI) | payer MEDICARE, OTHER, SELFPAY ==
[2023-12-13 14:45] VITALS: BMI 27.1
== END ==
LOC: WC 13:59
PROVIDERS: PCP Family Medicine; Referring Provider Family Medicine; Visit Provider Physician Assistant
DX: E11.621 Type 2 diabetes mellitus with foot ulcer (principal); L97.312 Non-pressure chronic ulcer of right ankle with fat layer exposed; I73.9 Peripheral vascular disease, unspecified; R60.0 Localized edema; E11.42 Type 2 diabetes mellitus with diabetic polyneuropathy; L84 Corns and callosities; L53.8 Other specified erythematous conditions
CPT/HCPCS: 11042; 99214

== ENCOUNTER → 2025-02-12 14:14 | Outpatient (CLI) | payer MEDICARE, OTHER, SELFPAY ==
[2023-12-13 14:45] VITALS: BMI 27.1
== END ==
LOC: WC 14:15
PROVIDERS: PCP Family Medicine; Referring Provider Family Medicine; Visit Provider Surgery
DX: E11.622 Type 2 diabetes mellitus with other skin ulcer (principal); L97.312 Non-pressure chronic ulcer of right ankle with fat layer exposed; L84 Corns and callosities; E11.40 Type 2 diabetes mellitus with diabetic neuropathy, unspecified; E11.51 Type 2 diabetes mellitus with diabetic peripheral angiopathy without gangrene; E11.22 Type 2 diabetes mellitus with diabetic chronic kidney disease; N18.31 Chronic kidney disease, stage 3a; I48.91 Unspecified atrial fibrillation; I50.9 Heart failure, unspecified; I25.10 Atherosclerotic heart disease of native coronary artery without angina pectoris
CPT/HCPCS: 11042

== ENCOUNTER → 2025-02-19 14:51 | Outpatient (CLI) | payer MEDICARE, OTHER, SELFPAY ==
[2023-12-13 14:45] VITALS: BMI 27.1
== END ==
LOC: WC 14:52
PROVIDERS: PCP Family Medicine; Referring Provider Family Medicine; Visit Provider Surgery
DX: E11.621 Type 2 diabetes mellitus with foot ulcer (principal); L97.512 Non-pressure chronic ulcer of other part of right foot with fat layer exposed; L97.312 Non-pressure chronic ulcer of right ankle with fat layer exposed; E11.42 Type 2 diabetes mellitus with diabetic polyneuropathy; L84 Corns and callosities; R60.0 Localized edema; L53.8 Other specified erythematous conditions
CPT/HCPCS: 11042; 87070; 87075; 87077; 87186; 87205; 99213

== ENCOUNTER → 2025-02-26 14:15 | Outpatient (CLI) | payer MEDICARE, OTHER, SELFPAY ==
[2023-12-13 14:45] VITALS: BMI 27.1
== END ==
LOC: WC 03-02 09:10
PROVIDERS: PCP Family Medicine; Referring Provider Family Medicine; Visit Provider Surgery
DX: E11.621 Type 2 diabetes mellitus with foot ulcer (principal); E11.622 Type 2 diabetes mellitus with other skin ulcer; L97.312 Non-pressure chronic ulcer of right ankle with fat layer exposed; L97.512 Non-pressure chronic ulcer of other part of right foot with fat layer exposed; I73.9 Peripheral vascular disease, unspecified; L53.8 Other specified erythematous conditions; L84 Corns and callosities; E11.42 Type 2 diabetes mellitus with diabetic polyneuropathy; I87.2 Venous insufficiency (chronic) (peripheral); R60.0 Localized edema
CPT/HCPCS: 11042; 99213

== ENCOUNTER → 2025-02-26 15:19 | Outpatient (CLI) | payer MEDICARE, OTHER, SELFPAY ==
[2023-12-13 14:45] VITALS: BMI 27.1
--- NOTE | 2025-02-26 15:23 | DI.RAD.S_ITS ---
PROCEDURE: XR TOE RT MIN 3V INDICATIONS: ulcer on right 2nd toe TECHNIQUE: 3 views of the right 2nd toe acquired. COMPARISON: None. FINDINGS: Markedly abnormal appearance of the right 1st metatarsal distally with joint space narrowing osteophytes, medial erosive changes may be related to gout, inflammatory arthritis or erosive osteoarthritis or other process. Moderate diffuse osteopenia. Moderate to severe degenerative changes at the talonavicular, calcaneocuboid, tarsal-metatarsal, 1st metatarsophalangeal and interphalangeal joints. Subtle soft tissue defect distal aspect of the right 2nd toe likely related to reported history of ulcer. No definitive erosive change of the 2nd toe. If indicated MRI may be useful for further evaluation. IMPRESSION: Abnormal appearance right 1st metatarsal as discussed above. Degenerative changes. Second digit ulcer soft tissue defect. If symptoms persist or worsen, or there is high clinical suspicion of right foot abnormality, MRI could be performed. Dictated by: Claude Elise M.D. on 02/27/2025 at 13:42 Approved by: Claude Elise M.D. on 02/27/2025 at 13:45
== END ==
LOC: RAD 15:21
PROVIDERS: PCP Family Medicine; Referring Provider Surgery; Visit Provider Surgery
DX: E11.621 Type 2 diabetes mellitus with foot ulcer (principal); L97.519 Non-pressure chronic ulcer of other part of right foot with unspecified severity
CPT/HCPCS: 73660

== ENCOUNTER → 2025-03-05 12:56 | Outpatient (CLI) | payer MEDICARE, OTHER, SELFPAY ==
[2023-12-13 14:45] VITALS: BMI 27.1
== END ==
LOC: WC 12:58
PROVIDERS: PCP Family Medicine; Referring Provider Family Medicine; Visit Provider Surgery
DX: E11.621 Type 2 diabetes mellitus with foot ulcer (principal); E11.628 Type 2 diabetes mellitus with other skin complications; L97.312 Non-pressure chronic ulcer of right ankle with fat layer exposed; L97.512 Non-pressure chronic ulcer of other part of right foot with fat layer exposed; L89.323 Pressure ulcer of left buttock, stage 3; L89.313 Pressure ulcer of right buttock, stage 3; I87.2 Venous insufficiency (chronic) (peripheral); I73.9 Peripheral vascular disease, unspecified; E11.42 Type 2 diabetes mellitus with diabetic polyneuropathy; L53.8 Other specified erythematous conditions; L84 Corns and callosities; R60.0 Localized edema
CPT/HCPCS: 11042; 99213

== ENCOUNTER → 2025-03-13 15:04 | Outpatient (CLI) | payer MEDICARE, OTHER, SELFPAY ==
[2023-12-13 14:45] VITALS: BMI 27.1
== END ==
LOC: WC 15:07
PROVIDERS: PCP Family Medicine; Referring Provider Family Medicine; Visit Provider Physician Assistant
DX: E11.622 Type 2 diabetes mellitus with other skin ulcer (principal); E11.628 Type 2 diabetes mellitus with other skin complications; L97.312 Non-pressure chronic ulcer of right ankle with fat layer exposed; L97.512 Non-pressure chronic ulcer of other part of right foot with fat layer exposed; L89.323 Pressure ulcer of left buttock, stage 3; L89.313 Pressure ulcer of right buttock, stage 3; R60.0 Localized edema; L84 Corns and callosities; L53.8 Other specified erythematous conditions
CPT/HCPCS: 11042; 87070; 87075; 87077; 87147; 87186; 87205

== ENCOUNTER → 2025-03-20 14:22 | Outpatient (CLI) | payer MEDICARE, OTHER, SELFPAY ==
[2023-12-13 14:45] VITALS: BMI 27.1
== END ==
LOC: WC 14:24
PROVIDERS: PCP Family Medicine; Referring Provider Family Medicine; Visit Provider Physician Assistant
DX: E11.621 Type 2 diabetes mellitus with foot ulcer (principal); L97.312 Non-pressure chronic ulcer of right ankle with fat layer exposed; L97.512 Non-pressure chronic ulcer of other part of right foot with fat layer exposed; L84 Corns and callosities; L53.9 Erythematous condition, unspecified; R60.0 Localized edema
CPT/HCPCS: 11042; 99214

== ENCOUNTER → 2025-03-26 15:42 | Outpatient (CLI) | payer MEDICARE, OTHER, SELFPAY ==
[2023-12-13 14:45] VITALS: BMI 27.1
== END ==
LOC: WC 15:43
PROVIDERS: PCP Family Medicine; Referring Provider Family Medicine; Visit Provider Surgery
DX: E11.621 Type 2 diabetes mellitus with foot ulcer (principal); L97.312 Non-pressure chronic ulcer of right ankle with fat layer exposed; L97.512 Non-pressure chronic ulcer of other part of right foot with fat layer exposed; L98.8 Other specified disorders of the skin and subcutaneous tissue; R60.0 Localized edema; L84 Corns and callosities; I73.9 Peripheral vascular disease, unspecified; E11.42 Type 2 diabetes mellitus with diabetic polyneuropathy
CPT/HCPCS: 11042; 99213

== ENCOUNTER → 2025-04-02 14:24 | Outpatient (CLI) | payer MEDICARE, OTHER, SELFPAY ==
[2023-12-13 14:45] VITALS: BMI 27.1
== END ==
LOC: WC 14:28
PROVIDERS: PCP Family Medicine; Referring Provider Family Medicine; Visit Provider Surgery
DX: E11.621 Type 2 diabetes mellitus with foot ulcer (principal); L97.512 Non-pressure chronic ulcer of other part of right foot with fat layer exposed; E11.622 Type 2 diabetes mellitus with other skin ulcer; L98.8 Other specified disorders of the skin and subcutaneous tissue; L84 Corns and callosities; E11.51 Type 2 diabetes mellitus with diabetic peripheral angiopathy without gangrene; E11.40 Type 2 diabetes mellitus with diabetic neuropathy, unspecified; E11.22 Type 2 diabetes mellitus with diabetic chronic kidney disease; I13.0 Hypertensive heart and chronic kidney disease with heart failure and stage 1 through stage 4 chronic kidney disease, or unspecified chronic kidney disease; I50.9 Heart failure, unspecified; M18.9 Osteoarthritis of first carpometacarpal joint, unspecified; I48.91 Unspecified atrial fibrillation; I25.10 Atherosclerotic heart disease of native coronary artery without angina pectoris; R63.0 Anorexia
CPT/HCPCS: 11042

== ENCOUNTER → 2025-04-09 13:11 | Outpatient (CLI) | payer MEDICARE, OTHER, SELFPAY ==
[2023-12-13 14:45] VITALS: BMI 27.1
== END ==
LOC: WC 13:12
PROVIDERS: PCP Family Medicine; Referring Provider Family Medicine; Visit Provider Surgery
DX: E11.621 Type 2 diabetes mellitus with foot ulcer (principal); L97.312 Non-pressure chronic ulcer of right ankle with fat layer exposed; L97.512 Non-pressure chronic ulcer of other part of right foot with fat layer exposed; I73.9 Peripheral vascular disease, unspecified; E11.42 Type 2 diabetes mellitus with diabetic polyneuropathy; L84 Corns and callosities; R60.0 Localized edema
CPT/HCPCS: 11042

== ENCOUNTER → 2025-04-16 13:44 | Outpatient (CLI) | payer MEDICARE, OTHER, SELFPAY ==
[2023-12-13 14:45] VITALS: BMI 27.1
== END ==
LOC: WC 13:46
PROVIDERS: PCP Family Medicine; Referring Provider Family Medicine; Visit Provider Surgery
DX: E11.621 Type 2 diabetes mellitus with foot ulcer (principal); E11.622 Type 2 diabetes mellitus with other skin ulcer; L97.312 Non-pressure chronic ulcer of right ankle with fat layer exposed; L97.512 Non-pressure chronic ulcer of other part of right foot with fat layer exposed; E11.42 Type 2 diabetes mellitus with diabetic polyneuropathy; R60.0 Localized edema; L84 Corns and callosities; R23.4 Changes in skin texture
CPT/HCPCS: 11042

== ENCOUNTER → 2025-04-23 15:17 | Outpatient (CLI) | payer MEDICARE, OTHER, SELFPAY ==
[2023-12-13 14:45] VITALS: BMI 27.1
== END ==
LOC: WC 15:18
PROVIDERS: PCP Family Medicine; Referring Provider Family Medicine; Visit Provider Surgery
DX: E11.621 Type 2 diabetes mellitus with foot ulcer (principal); E11.622 Type 2 diabetes mellitus with other skin ulcer; L97.312 Non-pressure chronic ulcer of right ankle with fat layer exposed; L97.512 Non-pressure chronic ulcer of other part of right foot with fat layer exposed; I87.2 Venous insufficiency (chronic) (peripheral); I73.9 Peripheral vascular disease, unspecified; E11.42 Type 2 diabetes mellitus with diabetic polyneuropathy; R60.0 Localized edema; R23.4 Changes in skin texture; L84 Corns and callosities
CPT/HCPCS: 11042; 99213

== ENCOUNTER → 2025-05-07 14:41 | Outpatient (CLI) | payer MEDICARE, OTHER, SELFPAY ==
[2023-12-13 14:45] VITALS: BMI 27.1
== END ==
LOC: WC 14:42
PROVIDERS: PCP Family Medicine; Referring Provider Family Medicine; Visit Provider Surgery
DX: E11.621 Type 2 diabetes mellitus with foot ulcer (principal); L97.312 Non-pressure chronic ulcer of right ankle with fat layer exposed; L97.512 Non-pressure chronic ulcer of other part of right foot with fat layer exposed; L84 Corns and callosities; I73.9 Peripheral vascular disease, unspecified; E11.42 Type 2 diabetes mellitus with diabetic polyneuropathy; I87.2 Venous insufficiency (chronic) (peripheral); L53.8 Other specified erythematous conditions; R60.0 Localized edema
CPT/HCPCS: 11042

== ENCOUNTER → 2025-05-14 15:09 | Outpatient (CLI) | payer MEDICARE, OTHER, SELFPAY ==
[2023-12-13 14:45] VITALS: BMI 27.1
== END ==
PROVIDERS: PCP Family Medicine; Referring Provider Family Medicine; Visit Provider Surgery
DX: E11.621 Type 2 diabetes mellitus with foot ulcer (principal); L97.312 Non-pressure chronic ulcer of right ankle with fat layer exposed; L97.512 Non-pressure chronic ulcer of other part of right foot with fat layer exposed; L89.323 Pressure ulcer of left buttock, stage 3; L84 Corns and callosities; R60.0 Localized edema; L53.9 Erythematous condition, unspecified; E11.51 Type 2 diabetes mellitus with diabetic peripheral angiopathy without gangrene
CPT/HCPCS: 11042

== ENCOUNTER → 2025-05-14 15:29 | Outpatient (CLI) | payer MEDICARE, OTHER, SELFPAY ==
[2023-12-13 14:45] VITALS: BMI 27.1
--- NOTE | 2025-05-14 15:34 | DI.RAD.S_ITS ---
PROCEDURE: XR CHEST 2V INDICATIONS: eval for hyperbaric treatment TECHNIQUE: 2 views of the chest were acquired. COMPARISON: [facility], CR, XR CHEST 1V, 12/13/2023, 10:40. [facility], CR, XR CHEST FOR PICC 1V, 11/28/2023, 17:02. FINDINGS: Surgical changes and devices: None. Lungs and pleura: 2 cm nodular lesion in the right upper lung. Elevated right diaphragm. Dependent atelectasis is present. Otherwise the lungs are clear. Mediastinum: Mediastinal contours appear normal. Heart size is normal. Atheromatous plaques are noted in the thoracic aorta. Bones and chest wall: No suspicious bony abnormalities. Soft tissues appear unremarkable. Multilevel degenerative disc disease noted. IMPRESSION: 2 cm nodular opacity in the right upper lobe . Differential includes lung mass/nodule and focal inflammation. Recommend outpatient contrast-enhanced CT. Dictated by: Jane Buckley M.D. on 05/17/2025 at 18:33 Approved by: Jane Buckley M.D. on 05/17/2025 at 18:36
== END ==
PROVIDERS: PCP Family Medicine; Referring Provider Family Medicine; Visit Provider Surgery
DX: Z01.810 Encounter for preprocedural cardiovascular examination (principal); E11.621 Type 2 diabetes mellitus with foot ulcer; R91.8 Other nonspecific abnormal finding of lung field
CPT/HCPCS: 71046

== ENCOUNTER → 2025-05-21 12:07 | Outpatient (CLI) | payer MEDICARE, OTHER, SELFPAY ==
[2023-12-13 14:45] VITALS: BMI 27.1
--- NOTE | 2025-05-21 12:08 | DI.CT.S_ITS ---
P of a ROCEDURE: CT CHEST W CON INDICATIONS: mass/nodule noted on recent XR, eval for HBOT TECHNIQUE: After the administration of intravenous contrast, 5 mm thick sections acquired from the pulmonary apices to the posterior costophrenic angles. 1 mm axial lung, 5 mm thick coronal and sagittal reformats and 7 mm axial MIP were acquired. For radiation dose reduction, the following was used: automated exposure control, adjustment of mA and/or kV according to patient size. COMPARISON: [facility], CR, XR CHEST 2V, 05/14/2025, 15:42. [facility], CT, CT CHEST WO CON, 11/28/2023, 13:11. FINDINGS: Image quality: Diagnostic. Lower Neck: No enlarged lymph nodes. Thyroid: No thyroid nodules which require sonographic follow up, per consensus guidelines. Axillae: No enlarged lymph nodes. Chest Wall: Unremarkable. Bones: Unremarkable. Lungs and Pleura: No pneumothorax or pleural effusions. The nodular density on the previous chest x-ray from 7 days ago is noted. It is not present on the current study, likely indicating resolution of inflammation or infection. No findings suspicious for malignancy in the chest. Heart: Heart size is normal. No pericardial effusion. Severe triple-vessel coronary artery calcifications. Thoracic Vessels: Mild aneurysmal dilatation of the ascending aorta which measures 4.4 cm at the level of the right main pulmonary artery. Mediastinum and Lelo: No enlarged lymph nodes. Esophagus: No wall thickening. No hiatal hernia. Upper Abdomen: Contracted gallbladder filled with stones. IMPRESSION: 1. Likely short interval resolution of inflammation or infection in the right upper lobe. No acute process. No findings suspicious for malignancy in the chest. 2. Mild aneurysmal dilatation of the ascending aorta. 3. Severe triple-vessel coronary artery calcifications. 4. Cholelithiasis. Dictated by: Gordon Alvarado M.D. on 05/22/2025 at 10:06 Approved by: Gordon Alvarado M.D. on 05/22/2025 at 10:12
[2025-05-21 13:10] LABS: Alanine Aminotransferase 42 IU/L (<50); Albumin 3.9 g/dL (3.5-5.0); Albumin Globulin Ratio 1.3 (1.0-2.8); Alkaline Phosphatase 122 U/L (38-126); Blood Urea Nitrogen 33 mg/dL (9-20); Calcium 8.8 mg/dL (8.4-10.2); Carbon Dioxide 24 mmol/L (22-32); Chloride 107 mmol/L (98-107); Estimated Glomerular Filt Rate 56 mL/min (>60); Globulin 3.1 g/dL (1.7-4.1); Glucose 113 mg/dL (70-99); HEMOLYSIS < 15 (0-50); Potassium 5.1 mmol/L (3.4-5.1); Sodium 141 mmol/L (137-145); Total Protein 7.0 g/dL (6.3-8.2)
[2025-05-21 14:03] LABS: Add Manual Diff / Slide Review NO; Hematocrit 35.2 % (41-53); Hemoglobin 11.6 g/dL (13.5-17.5); Lymphocytes Absolute Auto 1600 /uL (1100-4500); Mean Corpuscular HGB Conc 32.9 % (30-36); Mean Corpuscular Hemoglobin 33.0 PG (26-34); Mean Corpuscular Volume 100.1 fL (80-100); Platelet Count 194 X10^3/uL (150-400)
[2025-05-21 14:17] LABS: Hemoglobin A1C% w Est Avg Glu 6.6 % (4.0-6.0)
== END ==
LOC: CT 12:08
PROVIDERS: PCP Family Medicine; Referring Provider Surgery; Visit Provider Surgery
DX: R91.8 Other nonspecific abnormal finding of lung field (principal); E11.621 Type 2 diabetes mellitus with foot ulcer; L97.509 Non-pressure chronic ulcer of other part of unspecified foot with unspecified severity; I25.10 Atherosclerotic heart disease of native coronary artery without angina pectoris; I71.21 Aneurysm of the ascending aorta, without rupture; K80.20 Calculus of gallbladder without cholecystitis without obstruction
CPT/HCPCS: 36415; 71260; 80053; 83036; 85025; 85651; 86140; Q9967

== ENCOUNTER → 2025-05-26 12:53 | Outpatient (CLI) | payer MEDICARE, OTHER, SELFPAY ==
[2023-12-13 14:45] VITALS: BMI 27.1
== END ==
LOC: WC 12:54
PROVIDERS: PCP Family Medicine; Referring Provider Family Medicine; Visit Provider Surgery
DX: E11.621 Type 2 diabetes mellitus with foot ulcer (principal); E11.622 Type 2 diabetes mellitus with other skin ulcer; L97.312 Non-pressure chronic ulcer of right ankle with fat layer exposed; L97.512 Non-pressure chronic ulcer of other part of right foot with fat layer exposed; L89.323 Pressure ulcer of left buttock, stage 3; I73.9 Peripheral vascular disease, unspecified; E11.42 Type 2 diabetes mellitus with diabetic polyneuropathy; R60.0 Localized edema; L53.8 Other specified erythematous conditions
CPT/HCPCS: 11042; 97597; 99213

== ENCOUNTER → 2025-06-01 16:17 | Outpatient (CLI) | payer MEDICARE, OTHER, SELFPAY ==
[2023-12-13 14:45] VITALS: BMI 27.1
== END ==
LOC: WC 16:18
PROVIDERS: PCP Family Medicine; Referring Provider Family Medicine; Visit Provider Surgery
DX: L97.313 Non-pressure chronic ulcer of right ankle with necrosis of muscle (principal); I73.9 Peripheral vascular disease, unspecified; E11.621 Type 2 diabetes mellitus with foot ulcer; E11.42 Type 2 diabetes mellitus with diabetic polyneuropathy; I87.2 Venous insufficiency (chronic) (peripheral); L97.512 Non-pressure chronic ulcer of other part of right foot with fat layer exposed; L89.323 Pressure ulcer of left buttock, stage 3
CPT/HCPCS: 99183; G0277

== ENCOUNTER → 2025-06-02 13:48 | Outpatient (CLI) | payer MEDICARE, OTHER, SELFPAY ==
[2023-12-13 14:45] VITALS: BMI 27.1
== END ==
LOC: WC 13:50
PROVIDERS: PCP Family Medicine; Referring Provider Family Medicine; Visit Provider Surgery
DX: L97.313 Non-pressure chronic ulcer of right ankle with necrosis of muscle (principal); I73.9 Peripheral vascular disease, unspecified; E11.621 Type 2 diabetes mellitus with foot ulcer; E11.42 Type 2 diabetes mellitus with diabetic polyneuropathy; I87.2 Venous insufficiency (chronic) (peripheral); L97.512 Non-pressure chronic ulcer of other part of right foot with fat layer exposed; L89.323 Pressure ulcer of left buttock, stage 3
CPT/HCPCS: 11042; 99183; G0277

== ENCOUNTER → 2025-06-03 16:04 | Outpatient (CLI) | payer MEDICARE, OTHER, SELFPAY ==
[2023-12-13 14:45] VITALS: BMI 27.1
== END ==
LOC: WC 16:04
PROVIDERS: PCP Family Medicine; Referring Provider Family Medicine; Visit Provider Surgery
DX: L97.313 Non-pressure chronic ulcer of right ankle with necrosis of muscle (principal); I73.9 Peripheral vascular disease, unspecified; E11.621 Type 2 diabetes mellitus with foot ulcer; E11.42 Type 2 diabetes mellitus with diabetic polyneuropathy; I87.2 Venous insufficiency (chronic) (peripheral); L97.512 Non-pressure chronic ulcer of other part of right foot with fat layer exposed; L89.323 Pressure ulcer of left buttock, stage 3
CPT/HCPCS: 99183; G0277